=== PATIENT | male | born 1990 | race Caucasian/White ===

== ENCOUNTER 2016-08-23 01:02 | Inpatient (IN) | payer MEDICAID ==
[~2016-08-23] VITALS: Ht 188 cm; Wt 74.9 kg
[~2016-08-23 01:02] MED LIST: AC325T PO; AC500T; AC500T PO; ALB0.5V; ALBU17AE23 IH; ALBU17AE3; ALBU8.5HRX IH; AMOX500C2 PO; ATOR40TA PO; AZTH250C PO; BENZ100C18 PO; CEFP500T4 PO; CLTR1C90 TOP; CODE118S2 PO; CYCL10TA45 PO; DOXY-13 PO; DOXY100C2 PO; FAMO20TA5 PO; FLC100T1 PO; FLT11013 IH; GABA100C PO; GBPN100C; GBPN100C PO; GBPN300C PO; HUM10VIA2; HUMALOG; HYDR-757 PO; HYDR1TAB PO; IBP800T PO; INSA10V; INSASP10V; INSASP10V SC; INSASP10V SQ; INSU100C; INSU100C4; INSU100I5; INSU100I5 SQ; INSU100V3; INSU100V6; INSU100V6 SQ; INSU100V8; INSUSS SC; LANTUS; LEVAMIR; LEVE1U SQ; LEVO500T69 PO; LISI-556; LISI10TA2; NAPR-243; NAPR550T PO; NF-TRA/ACE PO; NOVALOG; ONDA8TAB13 PO; ONDAN4ODT PO; POTA10TA36 PO; PROP1TAB77 PO; QUET300T PO; RT-COMBINH IH; SERT25TA; SLEEP AID OTC; SULF1TAB38 PO; TRAM50TA2 PO; TRM50T PO; [UNRECOGNIZED DRUG - REMARK]
[2016-08-23] MEDS ORDERED: TETANUS,DIPTH,PERTUSS P/F (BOOSTRIX) 0.5 ML VIAL IM ONE (01:15)
[2016-08-23] MEDS ORDERED: fentaNYL INJECTION 100 MCG/2 ML AMP IVP ONE (01:15)
[2016-08-23 01:29] LABS: BASOPHILS % (AUTO) 0 % (0-10); EOSINOPHILS # (AUTO) 0.4 10^3/uL (0.0-0.3); EOSINOPHILS % (AUTO) 3 % (0-10); LYMPHOCYTES # (AUTO) 2.5 X 10^3 (1.0-4.0); LYMPHOCYTES % (AUTO) 17 % (12-44); MEAN CORPUSCULAR HEMOGLOBIN 32 PG (25-34); MEAN CORPUSCULAR HGB CONC 35 G/DL (32-36); MEAN CORPUSCULAR VOLUME 91 FL (80-99); MEAN PLATELET VOLUME 9.4 FL (7.4-10.4); MONOCYTES # (AUTO) 0.8 X 10^3 (0.0-1.0); MONOCYTES % (AUTO) 6 % (0-12); NEUTROPHILS # (AUTO) 10.9 X 10^3 (1.8-7.8); NEUTROPHILS % (AUTO) 74 % (42-75); PLATELET COUNT 387 10^3/uL (130-400); RED BLOOD COUNT 4.25 10^6/uL (4.35-5.85); RED CELL DISTRIBUTION WIDTH 11.9 % (10.0-14.5); WHITE BLOOD COUNT 14.6 10^3/uL (4.3-11.0)
[2016-08-23 01:49] LABS: ALANINE AMINOTRANSFERASE 22 U/L (0-55); ALBUMIN 3.9 G/DL (3.2-4.5); ALCOHOL < 10 MG/DL (<10); ANION GAP 16 MMOL/L (5-14); ASPARTATE AMINO TRANSFERASE 18 U/L (5-34); BILIRUBIN,TOTAL 0.4 MG/DL (0.1-1.0); BLOOD UREA NITROGEN 7 MG/DL (7-18); BUN/CREATININE RATIO 7; CALCIUM 9.4 MG/DL (8.5-10.1); CARBON DIOXIDE 22 MMOL/L (21-32); CHLORIDE 102 MMOL/L (98-107); CREATININE SERUM 0.95 MG/DL (0.60-1.30); GFR ESTIMATED > 60; GLUCOSE 230 MG/DL (70-105); POTASSIUM 3.6 MMOL/L (3.6-5.0); SODIUM 140 MMOL/L (135-145); TOTAL PROTEIN 6.3 G/DL (6.4-8.2)
[2016-08-23] MEDS ORDERED: HYDROmorphone (DILAUDID) 2 MG/ML VIAL IVP STA (02:42)
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
[2016-08-23] MEDS ORDERED: NS IV 1000 ML 1,000 ML ONE (05:02)
[2016-08-23] MEDS ORDERED: ONDANSETRON 4 MG/2 ML (SDV) Z0FRAN IV PRN ×2 (05:30→13:30)
[2016-08-23 05:47] VITALS: BP 124/79
[2016-08-23] MEDS ORDERED: CATHETER FLUSH 10 ML SYR IV PRN (06:00)
[2016-08-23] MEDS: CATHETER FLUSH 10 ML SYR IV SCH ×3 (06:26→22:08)
[2016-08-23] MEDS: inSUlin (REGULAR) HUMAN 1 UNIT/0.01 ML (CHARGE PER UNIT) SC SCH ×3 (06:27→17:43)
[2016-08-23] MEDS: NS IV 1000 ML 1,000 ML IV SCH ×3 (06:27→15:39)
[2016-08-23] MEDS: HYDROmorphone (DILAUDID) 2 MG/ML VIAL IV PRN ×2 (06:28→09:32)
--- NOTE | 2016-08-23 07:24 | Diagnostic Imaging Report ---
INDICATION: Trauma A single view of the chest shows normal heart size and vascularity. The lungs are clear. There is no effusion or pneumothorax. There is minimal scoliosis with no acute bony abnormality. IMPRESSION: No acute abnormality is seen with no change from 01/03/13. Dictated by: Dictated on workstation # [id number]
--- NOTE | 2016-08-23 07:27 | Diagnostic Imaging Report ---
INDICATION: Trauma, left hip pain 2 views show an intertrochanteric fracture on the left. There is greater than one cm displacement of the lesser trochanter. There is varus angulation. There is no dislocation. There is a positive [place] sign. The remainder of the pelvis is intact. IMPRESSION: There is a 3 part intertrochanteric fracture of the left hip. Dictated by: Dictated on workstation # [id number]
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
[2016-08-23] MEDS ORDERED: INSU100V31 SQ (07:48)
[2016-08-23 08:00] VITALS: BP 124/79
[2016-08-23] MEDS ORDERED: inSUlin (REGULAR) HUMAN 1 UNIT/0.01 ML (CHARGE PER UNIT) SC ONE (10:30)
[2016-08-23] MEDS ORDERED: ROCURONIUM 50 MG/5 ML (ZEMURON) VIAL IV ONE (10:32)
[2016-08-23] MEDS ORDERED: fentaNYL INJECTION 100 MCG/2 ML AMP ONE ×2 (10:32→12:07)
[2016-08-23] MEDS ORDERED: LACTATED RINGERS 1,000 ML IV ONE (10:32)
[2016-08-23] MEDS ORDERED: MIDAZOLAM 2 MG/2 ML (VERSED) VIAL ONE (10:32)
[2016-08-23] MEDS ORDERED: proPOfol 200 MG/20 ML (DIPRIVAN) VIAL IV ONE ×2 (10:32→12:35)
[2016-08-23] MEDS ORDERED: ONDANSETRON 4 MG/2 ML (SDV) Z0FRAN ONE ×2 (10:32→12:26)
[2016-08-23] MEDS ORDERED: LIDOCAINE PF 2% 10 ML (XYLOCAINE) AMP ONE (10:32)
[2016-08-23] MEDS ORDERED: LIDOCAINE JELLY 2% (XYLOCAINE) 5 ML TUBE ONE (10:32)
[2016-08-23] MEDS ORDERED: inSUlin (REGULAR) HUMAN 1 UNIT/0.01 ML (CHARGE PER UNIT) SC NR (11:00)
[2016-08-23] MEDS: LACTATED RINGERS 1,000 ML IV PRN ×2 (11:36→12:25)
[2016-08-23] MEDS ORDERED: ceFAZolin 2 GM/50 ML NS 50 ML ONE (11:38)
[2016-08-23] MEDS ORDERED: BUP/EPI 0.25% 1:200,000 (MARCAINE) 30 ML VIAL ONE (12:09)
[2016-08-23] MEDS ORDERED: HYDROmorphone (DILAUDID) 2 MG/ML VIAL ONE (12:25)
[2016-08-23] MEDS ORDERED: morphine INJ 10 MG/ML 1ML (SYR OR VIAL) ONE (12:26)
[2016-08-23] MEDS ORDERED: MEPERIDINE (DEMEROL) INJ 50 MG/ML ONE (12:26)
[2016-08-23] MEDS ORDERED: inSUlin (REGULAR) HUMAN 1 UNIT/0.01 ML (CHARGE PER UNIT) ONE (12:29)
[2016-08-23] MEDS ORDERED: SEVOFLURANE (ULTANE) 15 ML INHAL SOLN ONE ×7 (12:36→13:03)
[2016-08-23] MEDS ORDERED: TRANEXAMIC ACID 100 MG/ML 10 ML INJECTION IV ONE (12:53)
[2016-08-23] MEDS ORDERED: ONDANSETRON 4 MG/2 ML (SDV) Z0FRAN IVP PRN (13:00)
[2016-08-23] MEDS ORDERED: ceFAZolin INJECTION 1 MG in NS (IVPB) 50 ML IV SCH ×2 (13:00→21:00)
[2016-08-23] MEDS ORDERED: morphine INJ 10 MG/ML 1ML (SYR OR VIAL) IVP PRN (13:00)
--- NOTE | 2016-08-23 13:07 | Progress Note-Post Operative ---
Post-Operative Progess Note Surgeon (s)/Security Services Manager (s) Surgeon JAEL MARCELO MD Security Services Manager: None Pre-Operative Diagnosis left hip closed intertroch fracture displaced initial encounter Post-Operative Diagnosis Same Procedure & Operative Findings Date of Procedure 08/23/16 Procedure Preformed/Findings open reduction internal fixation with intramedullary nail (Synthes TFN). Anatomic reduction, two distal screws added Anesthesia Type General Estimated Blood Loss Estimated blood loss (mL): 100 ml Specimens/Packing Specimens Removed None Packing: none JAEL MARCELO MD August 23, 2016 13:07
[2016-08-23] MEDS: MEPERIDINE (DEMEROL) INJ 50 MG/ML IVP PRN ×2 (13:23→13:29)
[2016-08-23] MEDS ORDERED: MILK OF MAGNESIA 400 MG/5 ML 30 ML UDC PO PRN (13:30)
[2016-08-23] MEDS ORDERED: ACETAMINOPHEN 325 MG TABLET/CAPLET (TYLENOL) PO PRN (13:30)
[2016-08-23] MEDS ORDERED: BISACODYL 5 MG (DULCOLAX) TABLET PO PRN (13:30)
[2016-08-23] MEDS ORDERED: HYDROmorphone (DILAUDID) 2 MG/ML VIAL IVP PRN (13:30)
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
--- NOTE | 2016-08-23 13:50 | Diagnostic Imaging Report ---
INDICATION: Left hip nailing. IMPRESSION: 4 minutes and 45 seconds of fluoroscopy is used for ORIF left hip. Images show satisfactory alignment. Dictated by: Dictated on workstation # [id number]
[2016-08-23 14:15] VITALS: BP 125/86
[2016-08-23] MEDS: morphine INJ 4 MG/ML 1 ML (VIAL/SYRINGE) IVP PRN ×2 (14:24→19:43)
[2016-08-23] MEDS: HYDROcodone/APAP 5 MG/325 MG (LORTAB) TAB PO PRN ×2 (15:35→19:43)
[2016-08-23 15:36] LABS: PROTHROMBIN TIME PATIENT 13.1 SEC (12.2-14.7)
[2016-08-23 16:00] VITALS: BP 118/80
[2016-08-23] MEDS: warFARin 5 MG (COUMADIN) TAB PO SCH (17:46)
[2016-08-23 19:59] VITALS: BP 124/76
[2016-08-23] MEDS: ceFAZolin INJECTION 1,000 MG in NS (IVPB) 50 ML IV SCH (21:02)
[2016-08-23] MEDS: oxyCODONE/APAP 5/325MG (PERCOCET 5) TABLET PO PRN (21:12)
[2016-08-24] VITALS: BP 127/69
[2016-08-24] MEDS: inSUlin (REGULAR) HUMAN 1 UNIT/0.01 ML (CHARGE PER UNIT) SC SCH ×4 (00:01→19:15)
[2016-08-24] MEDS: morphine INJ 4 MG/ML 1 ML (VIAL/SYRINGE) IVP PRN ×4 (00:09→13:02)
[2016-08-24] MEDS: HYDROcodone/APAP 5 MG/325 MG (LORTAB) TAB PO PRN ×5 (02:52→23:31)
[2016-08-24 04:00] VITALS: BP 126/75
[2016-08-24] MEDS: oxyCODONE/APAP 5/325MG (PERCOCET 5) TABLET PO PRN (04:47)
[2016-08-24] MEDS: ceFAZolin INJECTION 1,000 MG in NS (IVPB) 50 ML IV SCH (05:02)
[2016-08-24] MEDS: CATHETER FLUSH 10 ML SYR IV SCH ×3 (06:04→23:27)
[2016-08-24] MEDS: NS IV 1000 ML 1,000 ML IV SCH (06:07)
[2016-08-24 06:28] LABS: INR 1.1 (0.8-1.4); PROTHROMBIN TIME PATIENT 13.7 SEC (12.2-14.7)
[2016-08-24 08:14] VITALS: BP 121/67
--- NOTE | 2016-08-24 09:01 | Progress Note-Standard ---
Standard Progress Note Progress Notes/Assess & Plan Progress/Assessment & Plan S- Pain much better O- The patient is alert and orietated. gentle AAROM left hip and knee without untoward discomfort. A- Stable orthowise POD#1 from ORIF left femur intertroch fx with IM nail P- OK to D/C to home full weight bear today. F/U with Dr. Pyle 8 - 12 days Home on ASA 325 QD for DVT prophylaxis. Use crurches for 2 -4 weeks with weight bear as tolerated, goal of full weight bearing KYUNG. AVOID NON-WEIGHT BEARING. Final Diagnosis Ortho diagnosis: Status Post left hip intertrochanteric fx ORIF. JAEL MARCELO MD August 24, 2016 09:01
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
--- NOTE | 2016-08-24 10:51 | Anesthesia-General Post-Op ---
General Patient Condition Mental Status/LOC: Same as Preop Cardiovascular: Satisfactory Nausea/Vomiting: Absent Respiratory: Satisfactory Pain: Controlled Complications: Absent Post Op Complications Complications None Follow Up Care/Instructions Patient Instructions None needed. Anesthesia/Patient Condition Patient Condition Patient is doing well, no complaints, stable vital signs, no apparent adverse anesthesia problems. No complications reported per nursing. FREEDOM WALTON CRNA August 24, 2016 10:51
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
--- NOTE | 2016-08-24 11:57 | Physical Therapy Daily Note ---
PT Daily Note-Current Subjective Patient agrees to therapy. Pain Numeric Pain Scale: 8 Location: Left Location Body Site: Hip Pain Description: Acute Mental Status Patient Orientation: Normal For Age Transfers Functional [place] Measure 0=Not Assessed/NA 4=Minimal Assistance 1=Total Assistance 5=Supervision or Setup 2=Maximal Assistance 6=Modified [place] 3=Moderate Assistance 7=Complete IndependenceIRFPAI Quality Coding Scale 6 Independent with activity with or without an assistive device 5 Patient requires set up or clean up by helper. Patient completes activity by themselves 4 Supervision or touching assist (CGA). [place] provide cues , steadying assist 3 The helper provides less than half the effort to complete the activity 2 The helper provides more than half the effort to complete the activity 1 Dependent. The helper does all the effort to complete an activity 7 Patient refused to complete or attempt activity 9 The patient did not perform the activity before the current illness or injury 88 Not attempted due to Medical conditions or safety concerns Transfers (B, C, W/C) (FIM): 5 Scootin Rollin Supine to/from Sit: 5 Sit to/from Stand: 5 adamantly declined to sit in recliner due to left LE pain Weight Bearing Weight Bearing Restriction: Weight Bearing/Tolerated Location Restriction: L LE Gait Training Gait (FIM): 2 Distance (FIM): 1=494-80 ft Distance: 75' Gait Level of Assist: 5 Gait Persons Needed: 1 Gait Assistive Device: FWW minimal weight bearing left LE due to pain. Patient prefers to be TTWB left LE for comfort. Exercises Seated Therapy Exercises: Ankle pumps, Long arc quads Seated Reps: 15 Assessment Patient tolerated treatment well and is sitting EOB with OT in to assess equipment needs. PT to increase activity as tolerated by patient. PT Assisted Goals Assisted Goals PT Assisted Goals Time Frame: August 31, 2016 Transfers (B,C,W/C) (FIM): 6 Gait (FIM): 6 Gait distance (FIM): 3=150 ft Gait Level of Assist: 6 Gait Assistive Device: FWW Stairs (FIM): 2 # of Steps: 4 Stairs Level Of Assist: 6 PT Plan Treatment/Plan Treatment Plan: Continue Plan of Care Treatment Plan: Bed Mobility, Education, Functional Activity Thea, Functional Strength, Gait, Safety, Therapeutic Exercise, Transfers Treatment Duration: August 31, 2016 Visits Per Week: 11 Time/GCodes Time In: 1135 Time Out: 1145 Total Billed Treatment Time: 10 Total Billed Treatment 1 visit FA 10 min RAMON LANIER PT August 24, 2016 11:56
[2016-08-24 12:00] VITALS: BP 119/72
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
[2016-08-24] MEDS: warFARin 5 MG (COUMADIN) TAB PO SCH (18:35)
[2016-08-24 20:33] VITALS: BP 112/68
[2016-08-25] VITALS: BP 112/72
[2016-08-25] MEDS: inSUlin (REGULAR) HUMAN 1 UNIT/0.01 ML (CHARGE PER UNIT) SC SCH ×3 (00:02→11:51)
[2016-08-25] MEDS: HYDROcodone/APAP 5 MG/325 MG (LORTAB) TAB PO PRN ×2 (05:08→11:57)
[2016-08-25] MEDS: CATHETER FLUSH 10 ML SYR IV SCH (05:08)
[2016-08-25 05:26] LABS: BASOPHILS % (AUTO) 0 % (0-10); EOSINOPHILS # (AUTO) 0.6 10^3/uL (0.0-0.3); EOSINOPHILS % (AUTO) 6 % (0-10); LYMPHOCYTES # (AUTO) 3.4 X 10^3 (1.0-4.0); LYMPHOCYTES % (AUTO) 35 % (12-44); MEAN CORPUSCULAR HEMOGLOBIN 31 PG (25-34); MEAN CORPUSCULAR HGB CONC 34 G/DL (32-36); MEAN CORPUSCULAR VOLUME 94 FL (80-99); MEAN PLATELET VOLUME 10.2 FL (7.4-10.4); MONOCYTES # (AUTO) 0.9 X 10^3 (0.0-1.0); MONOCYTES % (AUTO) 10 % (0-12); NEUTROPHILS # (AUTO) 4.7 X 10^3 (1.8-7.8); NEUTROPHILS % (AUTO) 49 % (42-75); PLATELET COUNT 239 10^3/uL (130-400); RED CELL DISTRIBUTION WIDTH 11.8 % (10.0-14.5); WHITE BLOOD COUNT 9.7 10^3/uL (4.3-11.0)
[2016-08-25 05:40] LABS: INR 1.2 (0.8-1.4); PROTHROMBIN TIME PATIENT 14.7 SEC (12.2-14.7)
[2016-08-25 05:49] LABS: ANION GAP 8 MMOL/L (5-14); BLOOD UREA NITROGEN 6 MG/DL (7-18); BUN/CREATININE RATIO 9; CALCIUM 8.5 MG/DL (8.5-10.1); CARBON DIOXIDE 26 MMOL/L (21-32); CHLORIDE 103 MMOL/L (98-107); CREATININE SERUM 0.69 MG/DL (0.60-1.30); GFR ESTIMATED > 60; GLUCOSE 151 MG/DL (70-105); POTASSIUM 3.4 MMOL/L (3.6-5.0); SODIUM 137 MMOL/L (135-145)
[2016-08-25 07:45] VITALS: BP 130/78
[2016-08-25] MEDS: morphine INJ 4 MG/ML 1 ML (VIAL/SYRINGE) IVP PRN (08:43)
--- NOTE | 2016-08-25 09:58 | Physical Therapy Daily Note ---
PT Daily Note-Current Subjective Patient agrees to PT. Pain Numeric Pain Scale: 10-Worst Possible Pain Location: Left Location Body Site: Hip Pain Description: Acute Mental Status Patient Orientation: Normal For Age Transfers Functional [place] Measure 0=Not Assessed/NA 4=Minimal Assistance 1=Total Assistance 5=Supervision or Setup 2=Maximal Assistance 6=Modified [place] 3=Moderate Assistance 7=Complete IndependenceIRFPAI Quality Coding Scale 6 Independent with activity with or without an assistive device 5 Patient requires set up or clean up by helper. Patient completes activity by themselves 4 Supervision or touching assist (CGA). [place] provide cues , steadying assist 3 The helper provides less than half the effort to complete the activity 2 The helper provides more than half the effort to complete the activity 1 Dependent. The helper does all the effort to complete an activity 7 Patient refused to complete or attempt activity 9 The patient did not perform the activity before the current illness or injury 88 Not attempted due to Medical conditions or safety concerns Transfers (B, C, W/C) (FIM): 6 Scootin Rollin Supine to/from Sit: 6 Sit to/from Stand: 6 Gait Training Gait (FIM): 6 Distance (FIM): 3=150 ft Distance: 150' Gait Level of Assist: 6 Gait Assistive Device: FWW antalgic, WBAT left LE with patient demonstrating TTWB left LE. FWW issued for home use Stair Training adamantly declined stair training; education with patient on performing steps to ensure safe return to home, patient continued to become agitated and declined to attempt Assessment Patient is currently at [facility] with gross motor skill. Patient declined to perform stair training due to pain left LE even after education on importance of demonstrating good technique to ensure safe return to home with family. PT Halfway Goals Cream Gatherer Goals PT Halfway Goals Time Frame: August 31, 2016 Transfers (B,C,W/C) (FIM): 6 Gait (FIM): 6 Gait distance (FIM): 3=150 ft Gait Level of Assist: 6 Gait Assistive Device: FWW Stairs (FIM): 2 # of Steps: 4 Stairs Level Of Assist: 6 PT Plan Treatment/Plan Treatment Plan: Discontinue PT Treatment Plan: Bed Mobility, Education, Functional Activity Thea, Functional Strength, Gait, Safety, Therapeutic Exercise, Transfers Treatment Duration: August 31, 2016 Visits Per Week: 11 Time/GCodes Time In: 925 Time Out: 940 Total Billed Treatment Time: 15 Total Billed Treatment 1 visit GT 15 min RAMON LANIER PT August 25, 2016 09:58
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
[2016-08-25] MEDS ORDERED: BISA5TAB8 PO (11:20)
[2016-08-25] MEDS ORDERED: WARF5TAB PO (11:20)
[2016-08-25] MEDS ORDERED: HYDR-3812 PO (11:20)
--- NOTE | 2016-08-25 11:24 | Discharge Inst-Home Health ---
Discharge [facility]-Home Health Patient Instructions Patient Instructions/FU Appt: You have a follow up appt with ortho in 2 weeks You have a follow up with Dr Narvaez on WednesdayAugust 28 @ 2 pm Patient Problems: Left hip fracture s/p repair Left Hip pain Insulin Dependent DM Goal: Increase mobility, walking without support, decreased pain, better ROM in hip VIA [place], [place] DISCHARGE ORDERS Allergies: Coded Allergies: fluoxetine (Verified Allergy, Unknown, 10/08/08) trazodone (Unverified Allergy, Unknown, 03/18/14) Height (Feet): 6 Height (Inches): 2.00 Weight (Pounds): 165 Weight (Ounces): 3.0 Weight (Calculated Kilograms): [phone] Home Health Need/Face to Face Need for Home Health Home bound Require someone else for transportation I Have Seen Pt [id number]: Yes Date of Face to Face: August 25, 2016 Discharged To: Home Diagnosis/Conditions HH Order: Left Hip Fracture s/p Repair Left Hip pain Yes Consult/Follow Up/New Order *I certify that based on my findings, the following services are medically necessary Home Health Services: My clinical findings support the need for the above services; see Diagnosis. [facility] Orders PT/OT eval and treat Discharge Diet: ADA Diet Daily Activity as Tolerated: Yes Discharge Medications New Medications: Bisacodyl (Bisacodyl) 5 Mg Tablet.dr 5 MG PO DAILY PRN for CONSTIPATION-1ST LINE for 30 Days, #30 TAB Hydrocodone/Acetaminophen (Hydrocodon -Acetaminophen 5-325) 1 Each Tablet 1-2 TAB PO Q6H PRN for PAIN-MODERATE TO SEVERE for 14 Days, #56 TAB Warfarin Sodium (Coumadin) 5 Mg Tablet 5 MG PO DAILY@1800 for 30 Days, #30 TAB Continued Medications: Insulin Regular, Human (Novolin R) 100 Unit/1 Ml Vial 10-15 UNIT SQ AC, VIAL 10-15 UNITS BASED ON CARB COUNTING New, Converted or Re-Newed RX: RX on Chart I certify that this patient is under my care and that I, a nurse practitioner or a physician; a ict sales assistant working with me, had a face to face encounter that - meets the physician face to face encounter requirements with this patient as dated. Copy Copies To 1: CADEN NARVAEZ MD,DAVE [place] MD August 25, 2016 11:23
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
--- NOTE | 2016-09-18 07:38 | OPERATIVE REPORT ---
DATE OF SERVICE: 08/23/2016 NOTE: Initial dictation either lost or omitted. This is a redictation utilizing notes and memory. PREOPERATIVE DIAGNOSES: Left hip intertrochanteric fracture with some subtrochanteric extension. POSTOPERATIVE DIAGNOSIS: Left hip intertrochanteric fracture with some subtrochanteric extension. PROCEDURE: Surgery on Left hip to line up bone and fix with hardware (internal fixation with intramedullary Synthes TFN nail). SURGEON: Silvio Calle M.D. COMPLICATIONS: None. BLOOD LOSS: Minimal. SPECIMENS: None. FINDINGS: Adequate alignment was obtained and adequate fixation was also utilized. Final construct looked near anatomic and should heal well. NARRATIVE SUMMARY: The patient was taken to the operating room after standard nursing and anesthesia, preoperative identification, evaluation and counseling. The lower extremity was prepped and draped in the usual orthopedic fashion. A C-arm was used to locate the appropriate approach while the patient was on the fracture table. Appropriate manipulation of lower extremity was accomplished to get a good look at the reduced intertrochanteric area, the proximal femur. Longitudinal incision was made above the greater trochanter approximately 6-8 cm in length. Soft tissue dissection was accomplished down to where I could palpate that greater trochanter through a small incision in the iliotibial band. C-arm was used to place a guidewire followed by a proximal reamer. Some distal reaming was accomplished and the TFN nail was then placed in the femur itself. The depth of the nail was guided by the C-arm visualization. Rotation was also checked in the AP and lateral using the guide hole and the IM nail carbon fiber handle. Guidewire was then placed down the femoral neck entering through the lateral femur, cortex. Once the orientation of the guidewire was properly aligned, then a lateral drill hole followed by a deep drill followed by placing the helical blade was all accomplished and, of course, this was all done with the nail whose length had been determined ahead of time to be appropriate using C-arm. Distal fixation screws were placed. Wounds were irrigated. Wounds were then closed in 2 layers. The patient was then taken to recovery in stable condition. Job ID: [id number] DocumentID: [id number] Dictated Date: 09/17/2016 15:55:50 Burnt Lime Drawer Date: 09/18/2016 02:27:34 Dictated By: MD NIYAH HURST
== END 2016-08-25 12:30 | disposition home health service (06) | DRG 482 ==
LOC: EDUNIT# 01:02 → ER 01:04 → 4TH 04:33
PROVIDERS: ADMIT Family Medicine; ATTEND Family Medicine
PROC: 0QS706Z Reposition Left Upper Femur with Intramedullary Internal Fixation Device, Open Approach (ICD-10-PCS; principal; 2016-08-23 11:36)
DX: S72.142A Displaced intertrochanteric fracture of left femur, initial encounter for closed fracture (principal); S01.511A Laceration without foreign body of lip, initial encounter; E10.40 Type 1 diabetes mellitus with diabetic neuropathy, unspecified; J45.909 Unspecified asthma, uncomplicated; K21.9 Gastro-esophageal reflux disease without esophagitis; Y04.0XXA Assault by unarmed brawl or fight, initial encounter; Y92.009 Unspecified place in unspecified non-institutional (private) residence as the place of occurrence of the external cause; Y99.8 Other external cause status; Z79.4 Long term (current) use of insulin
CPT/HCPCS: 36415; 71010; 72170; 73502; 80048; 80053; 80320; 82962; 83036; 85025; 85610; 87081; 94664; 96374; 96375

== ENCOUNTER 2017-12-25 15:03 | Emergency (ER) | payer MEDICAID ==
[~2017-12-25] VITALS: Ht 177.8 cm; Wt 72.6 kg
[~2017-12-25 15:03] MED LIST changes: +ACHD5005 PO; +BISA5TAB8 PO; +INSU100V31 SQ; +WARF5TAB PO
[2017-12-25] MEDS ORDERED: cefTRIAXone 1,000 MG/2.86 ml vial (IM ONLY) IM SCH (15:45)
[2017-12-25] MEDS ORDERED: LIDOCAINE 1% INJ 20 ML 20 ML VIAL ONE (15:54)
--- NOTE | 2017-12-25 15:59 | ED Integumentary General ---
General Chief Complaint: Skin/Wound Problems Stated Complaint: LYMPH NODE BURST Nursing Triage Note: ARRIVED VIA AMB TO ROOM 10 WITH COMPLAINTS OF A SWOLLEN LYMPH NODE ON HIS BACK THAT OPENED UP AND DRAINED TODAY. PT CAME BY AMBULANCE BECAUSE HE DID NOT HAVE A RIDE OR COULD AFFORD A TAXI. Source: patient Exam Limitations: no limitations History of Present Illness Date Seen by Provider: Dec 25, 2017 Time Seen by Provider: 15:10 Initial Comments Patient is a 27-year-old male who is brought into the emergency room with complaints of a "lymph node" on the back of his right shoulder. He reports that he's noticed the redness to the area 3-4 days and yesterday it turned into a very large pimple in this morning he opened up and drained. Patient did arrive to the emergency room by [facility] due to no form of transportation. The patient is a known diabetic and the glucometer read his blood sugar as 480. He does have an insulin pump and he ingested the pump and gave himself a bolus of insulin. Timing/Duration: week Associated Symptoms: blisters (pimple to his right shoulder blade.) Allergies and Home Medications Allergies Coded Allergies: fluoxetine (Verified Allergy, Unknown, 10/08/08) trazodone (Unverified Allergy, Unknown, 03/18/14) Home Medications Bisacodyl 5 Mg Tablet.dr, 5 MG PO DAILY PRN for CONSTIPATION-1ST LINE Prescribed by: DAVE ALONSO on 08/25/16 1120 Hydrocodone Bit/Acetaminophen 1 Each Tablet, 1-2 TAB PO Q6H PRN for PAIN- MODERATE TO SEVERE Prescribed by: DAVE ALONSO on 08/25/16 1120 Insulin Regular, Human 100 Unit/1 Ml Vial, 10-15 UNIT SQ AC, (Reported) 10-15 UNITS BASED ON CARB COUNTING Sulfamethoxazole/Trimethoprim 1 Each Tablet, 1 EACH PO BID Prescribed by: ANA NINA on 12/25/17 1627 Warfarin Sodium 5 Mg Tablet, 5 MG PO DAILY@1800 Prescribed by: DAVE ALONSO on 08/25/16 1120 Patient Home Medication List Home Medication List Reviewed: Yes Review of Systems Review of Systems Constitutional: see HPI; No chills, No fever Skin: see HPI, lesions (abscess to his right shoulder blade.) All Other Systems Reviewed Negative Unless Noted: Yes Past Ohuopfa-Cmquun-Mfpduy Hx Past Med/Social Hx: Reviewed Nursing Past Med/Soc Hx Patient Social History Drug of Choice: MARIJUANA-EVERY ONCE IN AWHILE Type Used: Cigarettes 2nd Hand Smoke Exposure: Yes Recent Foreign Travel: No Contact w/Someone Who Travel: No Recent Infectious Disease Expo: No Recent Hopitalizations: No Immunizations Up To Date Tetanus Booster (TDap): Less than 5yrs PED Vaccines UTD: Yes Seasonal Allergies Seasonal Allergies: No Past Medical History Surgeries: Yes (EGD) Respiratory: Yes Asthma Currently Using CPAP: No Currently Using BIPAP: No Cardiac: No Neurological: Yes Neuropathy Reproductive Disorders: No Sexually Transmitted Disease: No HIV/AIDS: No Genitourinary: Yes Prostate Problems Gastrointestinal: Yes (current constipation) Gastroesophageal Reflux, Liver Disease/Jaundice Musculoskeletal: No Endocrine: Yes (Type I) Diabetes, Insulin dep HEENT: No Cancer: No Psychosocial: Yes Anxiety, Bipolar, Depression Integumentary: Yes Eczema Blood Disorders: No Adverse Reaction/Blood Tranf: No Family Medical History Reviewed Nursing Family Hx Diabetes mellitus 19 FATHER UNCLE FH: COPD (chronic obstructive pulmonary disease) 19 MOTHER FH: brain cancer AUNT FH: diverticulitis 19 FATHER Thyroid disease 19 MOTHER No Pertinent Family Hx Physical Exam Vital Signs Vital Signs - First Documented 12/25/17 15:03 Temp 98.0 Pulse 121 Resp 18 B/P (MAP) 126/97 (107) Pulse Ox 98 O2 Delivery Room Air Capillary Refill : Less Than 3 Seconds General Appearance: WD/WN, no apparent distress Cardiovascular: normal peripheral pulses, regular rate, rhythm, no edema, no gallop, no JVD, no murmur Respiratory: chest non-tender, lungs clear, normal breath sounds, no respiratory distress, no accessory muscle use Skin: normal color, warm/dry Skin Problem Location: lower extremities (posterior right shoulder.) Skin Problem Character: abscess (open and draining abscess.), drainage ( serosanguineous drainage.), erythema (4 centimeter in diameter area of erythema around the central punctum that is open and draining) Progress/Results/Core Measures Results/Orders Lab Results Laboratory Tests Test 12/25/17 15:13 12/25/17 16:49 Range/Units Glucometer 480 *H 306 H 70-110 MG/DL Micro Results Microbiology 12/25/17 Gram Stain - Final, Resulted 12/25/17 Wound Culture - Preliminary, Resulted Staphylococcus aureus My Orders Orders - ANA NINA Wound Culture (12/25/17 15:38) Ceftriaxone For Im Use (Rocephin For Im (12/25/17 15:45) Lidocaine 1% Inj 20 Ml (Xylocaine 1% Inj (12/25/17 15:54) Vital Signs/I&O 12/25/17 12/25/17 15:03 16:53 Temp 98.0 98.0 Pulse 121 121 Resp 18 18 B/P (MAP) 126/97 (107) 126/97 (107) Pulse Ox 98 98 O2 Delivery Room Air Blood Pressure Mean: 107 FSBG Bedside Testing Finger Stick Blood Glucose: 480 Blood Glucose Action Taken: Rn notified Progress Progress Note : Time: 16:20 Progress Note Patient seen and evaluated the patient. Informed of the need for antibiotics. He was given a dose of Rocephin in the emergency room and sent home with a prescription for antibiotics. Culture was sent of the drainage. He agrees with complaints of care, signs or discharge, return precautions were given. Departure Impression Primary Impression: Abscess Additional Impression: Cellulitis Disposition: 01 HOME, SELF-CARE Condition: Stable/Unchanged Departure-Patient Inst. Decision time for Depature: 16:26 Referrals: [facility] (PCP/Family) Primary Care Physician Patient Instructions: Skin Abscess, Cellulitis (Skin Infection), Adult (DC) Add. Discharge Instructions: Take medication as directed. Follow up with [facility] within 1 week for recheck. Return back to the emergency room for any worsening symptoms or concerns as needed. All discharge instructions reviewed with patient and/or family. Voiced understanding. Scripts Sulfamethoxazole/Trimethoprim (Bactrim Ds Tablet) 1 Each Tablet 1 EACH PO BID for 10 Days, #20 TAB Prov: ANA NINA 12/25/17 ANA NINA Dec 25, 2017 15:59
[2017-12-25] MEDS ORDERED: SULF1TAB35 PO (16:27)
[2017-12-25 16:53] VITALS: BP 126/97
== END 2017-12-25 16:53 | disposition home or self-care (01) ==
LOC: EDUNIT# 15:03 → ER 15:04
DX: L02.413 Cutaneous abscess of right upper limb (principal); L03.113 Cellulitis of right upper limb; J45.909 Unspecified asthma, uncomplicated; E10.42 Type 1 diabetes mellitus with diabetic polyneuropathy; F41.9 Anxiety disorder, unspecified; F31.9 Bipolar disorder, unspecified; K21.9 Gastro-esophageal reflux disease without esophagitis; F12.10 Cannabis abuse, uncomplicated; Z77.22 Contact with and (suspected) exposure to environmental tobacco smoke (acute) (chronic); Z87.19 Personal history of other diseases of the digestive system; Z80.8 Family history of malignant neoplasm of other organs or systems; Z88.8 Allergy status to other drugs, medicaments and biological substances; Z79.4 Long term (current) use of insulin; Z79.01 Long term (current) use of anticoagulants
CPT/HCPCS: 82962; 87070; 87077; 87186; 87205; 96372

== ENCOUNTER 2018-10-19 16:09 | Emergency (ER) | payer MEDICAID ==
[~2018-10-19] VITALS: Ht 177.8 cm; Wt 72.7 kg
[~2018-10-19 16:09] MED LIST changes: +SULF1TAB35 PO
--- OUTSIDE RECORDS SUMMARY | 2018-10-19 16:14 | XMS REPORT ---
Author Author Migration, Doctor Organization [facility] Address Unknown Phone Unavailable Care Team Providers Care Assistant Attorney General Name Role Phone Migration, Doctor Unavailable Unavailable PROBLEMS Type Condition ICD9-CM Code CXS78-UM Code Onset Dates Condition Status SNOMED Code Problem Cigarette nicotine dependence without complication F17.210 Active 15214579 Problem Erectile dysfunction due to diseases classified elsewhere N52.1 Active 875807386 Problem Diabetes E11.9 Active 236605873 Problem Diabetic polyneuropathy associated with type 1 diabetes mellitus E10.42 Active 93716824 ALLERGIES No Information ENCOUNTERS Encounter Location Date Diagnosis [place] [id number] [place] [address] August, [facility] [id number] [place] [address] Jun, [facility] [id number] [place] [address] May, [facility] [id number] [place] [address] Apr, [facility] [id number] [place] [address] Mar, Diabetes E11.9 [facility] [id number] [place] [address] Jan, [facility] [id number] [place] [address] Jan, [facility] [id number] [place] [address] Jan, Diabetic polyneuropathy associated with type 1 diabetes mellitus E10.42 [facility] [id number] [address] Jan, Diabetes E11.9 [facility] [id number] [address] Oct, [facility] [id number] [address] Sep, Diabetes E11.9 [facility] [id number] [address] Sep, [facility] [id number] [place] [address], [place] [address] August, [facility] [id number] [place] [address] Jul, [facility] [id number] [place] [address] May, [facility] [id number] [place] [address] Mar, [facility] [address] [address] Mar, [facility] [id number] [place] [address] Feb, [facility] [address] [address] Feb, [facility] [address] [address] Feb, Diabetes E11.9 [facility] [id number] [address] Nov, Type 1 diabetes mellitus with other neurologic complication E10.49 [facility] [address] [address] Nov, [facility] [address] [address] Nov, Diabetes E11.9 ; Erectile dysfunction due to diseases classified elsewhere N52.1 ; Diabetic polyneuropathy associated with type 1 diabetes mellitus E10.42 and Cigarette nicotine dependence without complication F17.210 [facility] [id number] [place] [address] Sep, Hip fracture, left, closed, with routine healing, subsequent encounter S72.002D and Allergy, initial encounter T78.40XA [facility] [id number] [place] [address] Sep, [facility] [address] [address] August, Femur fracture, left S72.92XA [facility] [id number] [place] [address] August, Femur fracture, left S72.92XA [facility] [id number] [place] [address] August, Diabetes E11.9 and Femur fracture, left S72.92XA [facility] [id number] [place] [id number] August, [facility] [id number] [place] [address] August, [facility] [id number] [place] [address] August, [facility] [id number] [place] [address] Jul, [facility] [id number] [place] [address] Jul, [facility] [id number] [place] [address] Jun, [facility] [id number] [place] [address] Jun, [facility] [id number] [place] [address] Jun, [facility] [id number] [place] [address] Jun, [facility] [place] [facility] [address] [id number] [place] [address] Jun, [facility] [place] [facility] [address] [id number] [place] [address] Jun, [facility] [place] [facility] [address] [id number] [place] [address] Mar, [facility] [place] [facility] [address] [id number] [place] [address] 30 Mar, 2014 [facility] [place] [facility] [address] [id number] [place] [address] Mar, [facility] [place] [facility] [address] [id number] [place] [address] Mar, [facility] [place] [facility] [address] [id number] [place] [address] Mar, [facility] [place] [facility] [address] [id number] [place] [address] Mar, [facility] [place] [facility] [address] [id number] [place] [address] Mar, [facility] [place] [facility] [address] [id number] [place] [address] Jan, [facility] [place] [facility] [address] [id number] [place] [address] Jan, [facility] [place] [facility] [address] [id number] [address] Jan, [facility] [place] [facility] [address] [id number] [place] [address] Jan, [facility] [place] [facility] [address] [id number] [place] [address] 16 Dec, 2013 [facility] [place] [facility] [address] [id number] [place] [address] 16 Dec, 2013 [facility] [place] [facility] [address] [id number] [place] [address] Sep, [facility] [address] [id number] [place] [address] Sep, [facility] [place] [facility] [address] [id number] [place] [address] 17 Sep, 2013 [facility] [place] [facility] [address] [id number] [place] [address] 17 Sep, 2013 [facility] [place] [facility] [address] [id number] [place] [address] Sep, [facility] [place] [facility] [address] [id number] [place] [address] Sep, [facility] [place] [facility] [address] [id number] [place] [address] Jul, [facility] [place] [facility] [address] [id number] [place] [address] Jul, [facility] [place] [facility] [address] [id number] [place] [address] 15 Feb, 2013 [facility] [place] [facility] [address] [id number] [place] [address] 14 Feb, 2013 [facility] [place] [facility] [address] [facility] [id number] [place] [address] 14 Feb, 2013 [facility] [place] [facility] [address] [id number] [place] [address] Feb, [facility] [place] [facility] [address] [id number] [place] [address] Feb, [facility] [place] [facility] [address] [id number] [place] [address] 05 Feb, 2013 [facility] [place] [facility] [address] [id number] [place] [address] 05 Feb, 2013 [facility] [place] [facility] [address] [id number] [place] [address] Jan, [facility] [address] [facility] [id number] [address] Jan, [facility] [address] [facility] [id number] [address] Nov, [facility] [address] [facility] [id number] [address] August, [facility] [address] [facility] [id number], [place] [address] Jul, [facility] [address] [facility] [id number], [place] [address] Jul, [facility] [address] [facility] [id number] [address] Jun, [facility] [address] [facility] [id number], [place] [address] Jun, [facility] [id number] [address] May, [facility] [id number] [address] Feb, [facility] [id number] [address] Apr, [facility] [id number] [address] Mar, [facility] [id number] [address] Feb, [facility] [address] [facility] [id number] [address] Jan, [facility] [address] [facility] [id number] [address] Jan, [facility] [id number] [address] 14 Dec, 2008 IMMUNIZATIONS No Known Immunizations SOCIAL HISTORY Never Assessed REASON FOR VISIT EMR-[facility] PLAN OF CARE VITAL SIGNS MEDICATIONS Unknown Medications RESULTS No Results PROCEDURES No Known procedures INSTRUCTIONS MEDICATIONS ADMINISTERED No Known Medications MEDICAL (GENERAL) HISTORY Type Description Date Medical History Diabetes Surgical History Left hip surgery 2016 Surgical History tonsilectomy Hospitalization History [facility] for Left hip surgery 2016
--- OUTSIDE RECORDS SUMMARY | 2018-10-19 16:14 | XMS REPORT ---
Author Author CADEN NARVAEZ [facility] Address [address] [place] [address] Care Team Providers Care Supervisor Marble Name Role Phone CADEN NARVAEZ Unavailable PROBLEMS Type Condition ICD9-CM Code MEK73-ST Code Onset Dates Condition Status SNOMED Code Problem Cigarette nicotine dependence without complication F17.210 Active 62553897 Problem Erectile dysfunction due to diseases classified elsewhere N52.1 Active 602542905 Problem Diabetes E11.9 Active 942471219 Problem Diabetic polyneuropathy associated with type 1 diabetes mellitus E10.42 Active 66007786 ALLERGIES No Information ENCOUNTERS Encounter Location Date Diagnosis [facility] [id number] [place] [address] August, [facility] [id number] [place] [address] Jun, [facility] [id number] [place] [address] May, [facility] [id number] [place] [address] Apr, [facility] [id number] [place] [address] Mar, Diabetes E11.9 [facility] [address] [address] Jan, [facility] [id number] [place] [address] Jan, [facility] [id number] [place] [address] Jan, Diabetic polyneuropathy associated with type 1 diabetes mellitus E10.42 [facility] [id number] [address] Jan, Diabetes E11.9 [facility] [address] [address] Oct, [facility] [address] [address] Sep, Diabetes E11.9 [facility] [id number] [place] [address] Sep, [facility] [id number] [place] [address], [place] [address] August, [facility] [id number] [place] [address], [place] [address] Jul, [facility] [address] [address] May, [facility] [id number] [place] [address], [place] [address] Mar, [facility] [address] [address] Mar, [facility] [address] [address] Feb, [facility] [address] [address] Feb, [facility] [address] [address] Feb, Diabetes E11.9 [facility] [address] [address] Nov, Type 1 diabetes mellitus with other neurologic complication E10.49 [facility] [address] [address] Nov, [facility] [address] [address] Nov, Diabetes E11.9 ; Erectile dysfunction due to diseases classified elsewhere N52.1 ; Diabetic polyneuropathy associated with type 1 diabetes mellitus E10.42 and Cigarette nicotine dependence without complication F17.210 [facility] [id number] [place] [address] Sep, Hip fracture, left, closed, with routine healing, subsequent encounter S72.002D and Allergy, initial encounter T78.40XA [facility] [address] [address] Sep, [facility] [address] [address] August, Femur fracture, left S72.92XA [facility] [address] [address] August, Femur fracture, left S72.92XA [facility] [address] [address] August, Diabetes E11.9 and Femur fracture, left S72.92XA [facility] [address] [id number] August, [facility] [id number] [place] [address] August, [facility] [id number] [place] [address] August, [facility] [id number] [place] [address] Jul, [facility] [id number] [place] [address] Jul, [facility] [address] [address] Jun, [facility] [id number] [place] [address] Jun, [facility] [id number] [place] [address] Jun, [facility] [place] [facility] [address] [id number] [place] [address] Jun, 2014 [facility] [place] [facility] [address] [id number] [place] [address] Jun, [facility] [place] [facility] [address] [id number] [place] [address] Jun, [facility] [place] [facility] [address] [id number] [place] [address] Mar, [facility] [place] [facility] [address] [id number] [place] [address] Mar, [facility] [place] [facility] [address] [id number] [place] [address] Mar, [facility] [place] [facility] [address] [id number] [place] [address] Mar, [facility] [place] [facility] [address] [id number] [place] [address] Mar, [facility] [place] [facility] [address] [id number] [place] [address] Mar, [facility] [place] [facility] [address] [id number] [place] [address] Mar, [facility] [place] [facility] [address] [id number] [place] [address] Jan, [facility] [place] [facility] [address] [id number] [place] [address] Jan, [facility] [place] [facility] [address] [id number] [place] [address] Jan, [facility] [place] [facility] [address] [id number] [place] [address] Jan, [facility] [place] [facility] [address] [id number] [place] [address] 16 Dec, 2013 [facility] [place] [facility] [address] [id number] [place] [address] 16 Dec, 2013 [facility] [place] [facility] [address] [id number] [place] [address] 20 Sep, 2013 [facility] [place] [facility] [address] [id number] [place] [address] 20 Sep, 2013 [facility] [place] [facility] [address] [id number] [place] [address] 17 Sep, 2013 [facility] [place] [facility] [address] [id number] [place] [address] 17 Sep, 2013 [facility] [place] [facility] [address] [id number] [place] [address] Sep, [facility] [place] [facility] [address] [id number] [place] [address] Sep, [facility] [place] [facility] [address] [id number] [place] [address] Jul, [facility] [place] [facility] [address] [id number] [place] [address] Jul, [facility] [place] [facility] [address] [id number] [place] [address] 15 Feb, 2013 [facility] [place] [facility] [address] [id number] [place] [address] 14 Feb, 2013 [facility] [place] [facility] [address] [id number] [place] [address] 14 Feb, 2013 [facility] [place] [facility] [address] [id number] [address] 12 Feb, 2013 [facility] [place] [facility] [address] [id number] [place] [address] 12 Feb, 2013 [facility] [place] [facility] [address] [id number] [place] [address] 05 Feb, 2013 [facility] [place] [facility] [address] [id number] [address] 05 Feb, 2013 [facility] [place] [facility] [address] [id number] [place] [address] Jan, [facility] [address] [id number] [place] [address] Jan, [facility] [place] [facility] [address] [id number] [place] [address] Nov, [facility] [place] [facility] [address] [id number] [place] [address] August, [facility] [place] [facility] [address] [id number] [place] [address] Jul, [facility] [place] [facility] [address] [id number] [place] [address] Jul, [facility] [address] [id number] [place] [address] Jun, [facility] [address] [id number] [place] [address] Jun, [facility] [address] [id number] [place] [address] May, [facility] [address] [id number] [place] [address] Feb, [facility] [address] [id number] [place] [address] Apr, [facility] [address] [id number] [place] [address] Mar, [facility] [place] [facility] [address] [id number] [place] [address] Feb, [facility] [place] [facility] [address] [id number] [place] [address] Jan, [facility] [place] [facility] [address] [id number] [place] [address] Jan, [facility] [place] [facility] [address] [id number] [place] [address] 14 Dec, 2008 IMMUNIZATIONS No Known Immunizations SOCIAL HISTORY Never Assessed REASON FOR VISIT upload request PLAN OF CARE VITAL SIGNS MEDICATIONS Unknown Medications RESULTS No Results PROCEDURES No Known procedures INSTRUCTIONS MEDICATIONS ADMINISTERED No Known Medications MEDICAL (GENERAL) HISTORY Type Description Date Medical History Diabetes Surgical History Left hip surgery 2016 Surgical History tonsilectomy Hospitalization History [facility] for Left hip surgery 2016
--- OUTSIDE RECORDS SUMMARY | 2018-10-19 16:14 | XMS REPORT ---
Author Author Migration, Doctor Organization [facility] Address Unknown Phone Unavailable Care Team Providers Care Deliver Driver Name Role Phone Migration, Doctor Unavailable Unavailable PROBLEMS Type Condition ICD9-CM Code VWC61-EE Code Onset Dates Condition Status SNOMED Code Problem Cigarette nicotine dependence without complication F17.210 Active 82736787 Problem Erectile dysfunction due to diseases classified elsewhere N52.1 Active 627892018 Problem Diabetes E11.9 Active 025766864 Problem Diabetic polyneuropathy associated with type 1 diabetes mellitus E10.42 Active 00336942 ALLERGIES No Information ENCOUNTERS Encounter Location Date Diagnosis [place] [id number] [place] [address] Jun, [facility] [id number] [place] [address] May, [facility] [id number] [place] [address] Apr, [facility] [id number] [place] [address] Mar, Diabetes E11.9 [facility] [id number] [place] [address] Jan, [facility] [id number] [place] [address] Jan, [facility] [id number] [place] [address] Jan, Diabetic polyneuropathy associated with type 1 diabetes mellitus E10.42 [facility] [id number] [place] [address] Jan, Diabetes E11.9 [facility] [id number] [place] [address] Oct, [facility] [address], [place] [address] Sep, Diabetes E11.9 [facility] [id number] [place] [address] Sep, [facility] [address], [place] [address] August, [facility] [id number] [place] [address] Jul, [facility] [id number] [place] [address] May, [facility] [id number] [place] [address] Mar, [facility] [id number] [place] [address] Mar, [facility] [address], [place] [address] Feb, [facility] [id number] [place] [address] Feb, [facility] [address], [place] [address] Feb, Diabetes E11.9 [facility] [id number], [place] [address] Nov, Type 1 diabetes mellitus with other neurologic complication E10.49 [facility] [address], [place] [address] Nov, [facility] [address], [place] [address] Nov, Diabetes E11.9 ; Erectile dysfunction due to diseases classified elsewhere N52.1 ; Diabetic polyneuropathy associated with type 1 diabetes mellitus E10.42 and Cigarette nicotine dependence without complication F17.210 [facility] [address], [place] [address] Sep, Hip fracture, left, closed, with routine healing, subsequent encounter S72.002D and Allergy, initial encounter T78.40XA [facility] [address] [address] Sep, [facility] [id number] [place] [address] August, Femur fracture, left S72.92XA [facility] [address] [address] August, Femur fracture, left S72.92XA [facility] [address] [address] August, Diabetes E11.9 and Femur fracture, left S72.92XA [facility] [address] [id number] August, [facility] [id number] [place] [address] August, [facility] [address] [address] August, [facility] [id number] [place] [address] Jul, [facility] [id number] [place] [address] Jul, [facility] [id number] [place] [address] Jun, [facility] [id number] [place] [address] Jun, [facility] [address] [address] Jun, [facility] [id number] [place] [address] Jun, [facility] [address] [address] Jun, [facility] [place] [facility] [address] [id number] [place] [address] Jun, [facility] [place] [facility] [address] [id number] [place] [address] Mar, [facility] [place] [facility] [address] [id number] [place] [address] Mar, [facility] [place] [facility] [address] [id number] [place] [address] Mar, [facility] [place] [facility] [address] [id number] [place] [address] Mar, [facility] [place] [facility] [address] [id number] [place] [address] Mar, [facility] [place] [facility] [address] [id number] [place] [address] Mar, [facility] [place] [facility] [address] [id number] [place] [address] Mar, [facility] [place] [facility] [address] [id number] [place] [address] Jan, [facility] [place] [facility] [address] [id number] [place] [address] Jan, [facility] [place] [facility] [address] [id number] [place] [address] Jan, [facility] [place] [facility] [address] [id number] [address] Jan, [facility] [place] [facility] [address] [id number] [place] [address] Dec, [facility] [place] [facility] [address] [id number] [place] [address] 16 Dec, 2013 [facility] [place] [facility] [address] [id number] [place] [address] Sep, [facility] [place] [facility] [address] [id number] [place] [address] 20 Sep, 2013 [facility] [address] [id number] [place] [address] Sep, [facility] [place] [facility] [address] [id number] [place] [address] 17 Sep, 2013 [facility] [place] [facility] [address] [id number] [place] [address] Sep, [facility] [place] [facility] [address] [id number] [place] [address] Sep, [facility] [place] [facility] [address] [id number] [place] [address] Jul, [facility] [place] [facility] [address] [id number] [place] [address] Jul, [facility] [place] [facility] [address] [id number] [place] [address] 15 Feb, 2013 [facility] [place] [facility] [address] [id number] [place] [address] Feb, [facility] [place] [facility] [address] [id number] [place] [address] 14 Feb, 2013 [facility] [place] [facility] [address] [facility] [id number] [place] [address] Feb, [facility] [place] [facility] [address] [id number] [place] [address] Feb, [facility] [place] [facility] [address] [id number] [place] [address] Feb, [facility] [place] [facility] [address] [id number] [place] [address] Feb, [facility] [place] [facility] [address] [facility] [id number] [place] [address] Jan, [facility] [place] [facility] [address] [id number] [place] [address] Jan, [facility] [id number] [address] Nov, [facility] [address], [place] [address] August, [facility] [id number] [address] Jul, [facility] [address], [place] [address] Jul, [facility] [address], [place] [address] Jun, [facility] [address], [place] [address] Jun, [facility] [address], [place] [address] May, [facility] [address], [place] [address] Feb, [facility] [address], [place] [address] Apr, [facility] [address], [place] [address] Mar, [facility] [address], [place] [address] Feb, [facility] [id number] [address] Jan, [facility] [id number] [address] Jan, [facility] [address], [place] [address] Dec, IMMUNIZATIONS No Known Immunizations SOCIAL HISTORY Never Assessed REASON FOR VISIT EMR-[facility] PLAN OF CARE VITAL SIGNS MEDICATIONS Unknown Medications RESULTS No Results PROCEDURES No Known procedures INSTRUCTIONS MEDICATIONS ADMINISTERED No Known Medications MEDICAL (GENERAL) HISTORY Type Description Date Medical History Diabetes Surgical History Left hip surgery 2016 Surgical History tonsilectomy Hospitalization History [facility] for Left hip surgery 2016
--- OUTSIDE RECORDS SUMMARY | 2018-10-19 16:15 | XMS REPORT ---
Author Author CADEN NARVAEZ [facility] Address [address] [place] [address] Care Team Providers Care Graphic Design Professor Name Role Phone CADEN NARVAEZ Unavailable PROBLEMS Type Condition ICD9-CM Code RNG19-LP Code Onset Dates Condition Status SNOMED Code Problem Erectile dysfunction due to diseases classified elsewhere N52.1 Active 406772263 Problem Cigarette nicotine dependence without complication F17.210 Active 26534380 Problem Diabetic polyneuropathy associated with type 1 diabetes mellitus E10.42 Active 04820486 Problem Diabetes E11.9 Active 355592529 ALLERGIES No Information ENCOUNTERS Encounter Location Date Diagnosis [facility] [id number] [place] [address] Jan, [facility] [id number] [place] [address] Jan, [facility] [id number] [place] [address] Jan, Diabetic polyneuropathy associated with type 1 diabetes mellitus E10.42 [facility] [id number] [address] Jan, Diabetes E11.9 [facility] [id number] [place] [address] Oct, [facility] [id number] [place] [address] Sep, Diabetes E11.9 [facility] [id number] [place] [address] Sep, [facility] [id number] [address] August, [facility] [address] [address] Jul, [facility] [id number] [place] [address] May, [facility] [id number] [place] [address] Mar, [facility] [id number] [place] [address] Mar, [facility] [id number] [place] [address] Feb, [place] [id number] [place] [address] Feb, [place] [id number] [place] [address] Feb, Diabetes E11.9 [place] [id number] [place] [address] Nov, Type 1 diabetes mellitus with other neurologic complication E10.49 [place] [id number] [place] [address] Nov, [place] [id number] [place] [address] Nov, Diabetes E11.9 ; Erectile dysfunction due to diseases classified elsewhere N52.1 ; Diabetic polyneuropathy associated with type 1 diabetes mellitus E10.42 and Cigarette nicotine dependence without complication F17.210 [place] [id number] [place] [address] Sep, Hip fracture, left, closed, with routine healing, subsequent encounter S72.002D and Allergy, initial encounter T78.40XA [place] [id number] [place] [address] Sep, [facility] [id number] [place] [address] August, Femur fracture, left S72.92XA [place] [address] [facility] [id number] [place] [address] August, Femur fracture, left S72.92XA [facility] [address] [facility] [id number] [place] [address], [place] [address] August, Diabetes E11.9 and Femur fracture, left S72.92XA [facility] [address] [id number] [id number] August, [facility] [address] [facility] [id number] [place] [address] August, [facility] [address] [facility] [id number] [place] [address], [place] [address] August, [facility] [address] [facility] [id number] [place] [address] Jul, [facility] [address] [place] [address] Jul, [facility] [id number] [address] Jun, [facility] [address] [place] [address] Jun, [facility] [address] [address] Jun, [facility] [address] [place] [address] Jun, [facility] [id number] [address] Jun, [facility] [id number] [address] Jun, [facility] [address] [facility] [id number] [place] [address] Mar, [facility] [id number] [address] Mar, [facility] [place] [facility] [address] [id number] [place] [address] Mar, [facility] [place] [facility] [address] [id number] [place] [address] Mar, [facility] [place] [facility] [address] [id number] [place] [address] Mar, [facility] [place] [facility] [address] [id number] [place] [address] Mar, [facility] [place] [facility] [address] [id number] [place] [address] Mar, [facility] [place] [facility] [address] [id number] [place] [address] Jan, [facility] [place] [facility] [address] [id number] [place] [address] Jan, [facility] [place] [facility] [address] [id number] [place] [address] Jan, [facility] [place] [facility] [address] [id number] [place] [address] Jan, [facility] [place] [facility] [address] [id number] [place] [address] 16 Dec, 2013 [facility] [place] [facility] [address] [id number] [place] [address] Dec, [facility] [place] [facility] [address] [id number] [place] [address] Sep, [facility] [place] [facility] [address] [id number] [place] [address] Sep, [facility] [place] [facility] [address] [id number] [place] [address] 17 Sep, 2013 [facility] [place] [facility] [address] [id number] [place] [address] 17 Sep, 2013 [facility] [place] [facility] [address] [id number] [place] [address] Sep, [facility] [place] [facility] [address] [id number] [place] [address] Sep, [facility] [place] [facility] [address] [id number] [place] [address] Jul, [facility] [place] [facility] [address] [id number] [place] [address] Jul, [facility] [place] [facility] [address] [id number] [place] [address] Feb, [facility] [place] [facility] [address] [id number] [place] [address] Feb, [facility] [place] [facility] [address] [id number] [place] [address] Feb, [facility] [place] [facility] [address] [id number] [place] [address] Feb, [facility] [place] [facility] [address] [id number] [place] [address] Feb, [facility] [place] [facility] [address] [id number] [place] [address] Feb, [facility] [place] [facility] [address] [id number] [place] [address] Feb, [facility] [place] [facility] [address] [id number] [place] [address] Jan, [facility] [place] [facility] [address] [id number] [place] [address] Jan, [facility] [place] [facility] [address] [id number] [place] [address] Nov, [facility] [place] [facility] [address] [id number] [place] [address] August, [facility] [place] [facility] [address] [id number] [place] [address] Jul, [facility] [place] [facility] [id number] [address] Jul, [facility] [address] [address] Jun, [facility] [address] [address] Jun, [facility] [address] [address] May, [facility] [address] [address] Feb, [facility] [address] [address] Apr, [facility] [address] [address] Mar, [facility] [address] [address] Feb, [facility] [address] [address] Jan, [facility] [address] [address] Jan, [facility] [id number] [address] Dec, IMMUNIZATIONS No Known Immunizations SOCIAL HISTORY Never Assessed REASON FOR VISIT upload rquest to pt via text PLAN OF CARE VITAL SIGNS MEDICATIONS Unknown Medications RESULTS No Results PROCEDURES No Known procedures INSTRUCTIONS MEDICATIONS ADMINISTERED No Known Medications MEDICAL (GENERAL) HISTORY Type Description Date Medical History Diabetes Surgical History Left hip surgery 2017 Surgical History tonsilectomy Hospitalization History [facility] 2016
--- OUTSIDE RECORDS SUMMARY | 2018-10-19 16:15 | XMS REPORT ---
Author Author CADEN NARVAEZ [facility] Address [address] [place] [address] Care Team Providers Care Photoengraving Sketch Maker Name Role Phone CADEN NARVAEZ Unavailable PROBLEMS Type Condition ICD9-CM Code QSD28-ZV Code Onset Dates Condition Status SNOMED Code Problem Erectile dysfunction due to diseases classified elsewhere N52.1 Active 638687327 Problem Cigarette nicotine dependence without complication F17.210 Active 14625997 Problem Diabetic polyneuropathy associated with type 1 diabetes mellitus E10.42 Active 47857534 Problem Diabetes E11.9 Active 123084036 ALLERGIES Substance Reaction Event Type Date Status Prozac shortness of breath Drug Allergy Jan, Active ENCOUNTERS Encounter Location Date Diagnosis [place] [id number] [address] Jan, [facility] [id number] [place] [address] Jan, Diabetic polyneuropathy associated with type 1 diabetes mellitus E10.42 [facility] [address] [address] Jan, Diabetes E11.9 [facility] [address] [address] Oct, [facility] [address] [address] Sep, Diabetes E11.9 [facility] [id number] [place] [address] Sep, [facility] [id number] [address] August, [facility] [id number] [place] [address] Jul, [facility] [id number] [place] [address] May, [facility] [id number] [place] [address] Mar, [facility] [id number] [place] [address] Mar, [facility] [id number] [place] [address] Feb, [facility] [id number] [place] [address] Feb, [facility] [id number] [place] [address] Feb, Diabetes E11.9 [place] [id number] [place] [address] Nov, Type 1 diabetes mellitus with other neurologic complication E10.49 [place] [id number] [place] [address] Nov, [facility] [id number] [place] [address] Nov, Diabetes E11.9 ; Erectile dysfunction due to diseases classified elsewhere N52.1 ; Diabetic polyneuropathy associated with type 1 diabetes mellitus E10.42 and Cigarette nicotine dependence without complication F17.210 [place] [id number] [place] [address] Sep, Hip fracture, left, closed, with routine healing, subsequent encounter S72.002D and Allergy, initial encounter T78.40XA [place] [id number] [place] [address] Sep, [facility] [id number] [place] [address] August, Femur fracture, left S72.92XA [facility] [id number] [place] [address] August, Femur fracture, left S72.92XA [facility] [address] [facility] [id number] [place] [address] August, Diabetes E11.9 and Femur fracture, left S72.92XA [facility] [place] [address] [id number] [address] August, [facility] [address] [facility] [id number] [address] August, [facility] [address] [facility] [id number] [address] August, [facility] [id number] [place] [address] Jul, [facility] [id number] [place] [address] Jul, [facility] [id number] [place] [address] Jun, [facility] [id number] [address] Jun, [facility] [address] [address] Jun, [facility] [id number] [address] Jun, [facility] [id number] [address] Jun, [facility] [id number] [address] Jun, [facility] [address] [facility] [id number] [address] Mar, [facility] [id number] [address] Mar, [facility] [id number] [place] [address], [place] [address] 18 Mar, 2014 [facility] [place] [facility] [address] [id number] [place] [address] 18 Mar, 2014 [facility] [place] [facility] [address] [id number] [place] [address] 15 Mar, 2014 [facility] [place] [facility] [address] [id number] [place] [address] Mar, [facility] [place] [facility] [address] [id number] [place] [address] Mar, [facility] [place] [facility] [address] [id number] [place] [address] Jan, [facility] [place] [facility] [address] [id number] [place] [address] Jan, [facility] [place] [facility] [address] [id number] [place] [address] Jan, [facility] [place] [facility] [address] [id number] [place] [address] Jan, [facility] [place] [facility] [address] [id number] [place] [address] 16 Dec, 2013 [facility] [place] [facility] [address] [facility] [id number] [place] [address] 16 Dec, 2013 [facility] [place] [facility] [address] [id number] [place] [address] 20 Sep, 2013 [facility] [place] [facility] [address] [id number] [place] [address] 20 Sep, 2013 [facility] [place] [facility] [address] [id number] [place] [address] 17 Sep, 2013 [facility] [place] [facility] [address] [id number] [place] [address] 17 Sep, 2013 [facility] [place] [facility] [address] [facility] [id number] [place] [address] 10 Sep, 2013 [facility] [place] [facility] [address] [id number] [place] [address] Sep, [facility] [place] [facility] [address] [id number] [place] [address] Jul, [facility] [place] [facility] [address] [id number] [place] [address] Jul, [facility] [place] [facility] [address] [id number] [place] [address] Feb, [facility] [place] [facility] [address] [id number] [place] [address] Feb, [facility] [place] [facility] [address] [id number] [place] [address] Feb, [facility] [place] [facility] [address] [id number] [place] [address] Feb, [facility] [place] [facility] [address] [id number] [place] [address] Feb, [facility] [place] [facility] [address] [id number] [place] [address] Feb, [facility] [place] [facility] [address] [id number] [place] [address] Feb, [facility] [place] [facility] [address] [id number] [place] [address] Jan, [facility] [place] [facility] [address] [id number] [place] [address] Jan, [facility] [place] [facility] [address] [id number] [place] [address] Nov, [facility] [place] [facility] [address] [id number] [place] [address] August, [facility] [place] [facility] [address] [id number] [place] [address] Jul, [facility] [place] [facility] [address] [id number] [place] [address] Jul, [facility] [id number] [address] Jun, [facility] [address], [place] [address] Jun, [facility] [address], [place] [address] May, [facility] [address], [place] [address] Feb, [facility] [address], [place] [address] Apr, [facility] [address] [place] [address] Mar, [facility] [address], [place] [address] Feb, [facility] [address], [place] [address] Jan, [facility] [address], [place] [address] Jan, [facility] [address], [place] [address] Dec, IMMUNIZATIONS No Known Immunizations SOCIAL HISTORY Never Assessed REASON FOR VISIT Diabetes check up Karine STEEN , A1C done in visit Karine STEEN , from knees to toes are numb x8-9 years with tingling Karine STEEN, hip is hurting from being shatte red last year- consult on pain medications Karine STEEN PLAN OF CARE Activity Details Follow Up Will call after lab; needs to get re-established with [facility] Reason: VITAL SIGNS Height 72 in 2018-02-04 Weight 173.4 lbs 2018-02-04 Temperature 97.6 degrees Fahrenheit 2018-02-04 Heart Rate 100 bpm 2018-02-04 Respiratory Rate 18 2018-02-04 BMI 23.51 kg/m2 2018-02-04 Blood pressure systolic 118 mmHg 2018-02-04 Blood pressure diastolic 70 mmHg 2018-02-04 MEDICATIONS Medication Instructions Dosage Frequency Start Date End Date Duration Status Humalog 100 UNIT/ML INJECT 80 UNITS UNDER THE SKIN DAILY PER INSULIN PUMP 31 Active Comfort Assist Insulin Syringe 1 mL FOUR TIMES A DAY 25 Active Humalog 100 UNIT/ML DX E10.42 per insulin pump 80 units daily Jun, Active Blood Glucose Test - Elena Contour Next and lancets DX E10.42 Test 8 times daily on insulin pump test blood sugar Nov, Active A[employer] Ultra-Thin Lancets 33 USE ONE LANCET TO TEST FOUR TIMES A DAY 25 Active RESULTS No Results PROCEDURES Procedure Date Ordered Result Body Site LAB NOT BILLED BY [facility] Feb 04, 2018 MICROALBUMIN, SEMIQUANT Feb 04, 2018 GLYCATED HEMOGLOBIN TEST Feb 04, 2018 VENIPUNCT, ROUTINE* Feb 04, 2018 INSTRUCTIONS MEDICATIONS ADMINISTERED No Known Medications MEDICAL (GENERAL) HISTORY Type Description Date Medical History Diabetes Surgical History Left hip surgery 2016 Surgical History tonsilectomy Hospitalization History [facility]
--- OUTSIDE RECORDS SUMMARY | 2018-10-19 16:15 | XMS REPORT ---
Author Author Migration, Doctor Organization [facility] Address Unknown Phone Unavailable Care Team Providers Care Boiler Technician Name Role Phone Migration, Doctor Unavailable Unavailable PROBLEMS Type Condition ICD9-CM Code NJI04-RO Code Onset Dates Condition Status SNOMED Code Problem Cigarette nicotine dependence without complication F17.210 Active 15538222 Problem Erectile dysfunction due to diseases classified elsewhere N52.1 Active 214553119 Problem Diabetes E11.9 Active 174699994 Problem Diabetic polyneuropathy associated with type 1 diabetes mellitus E10.42 Active 54731505 ALLERGIES No Information ENCOUNTERS Encounter Location Date Diagnosis [place] [id number] [place] [address] Jun, [facility] [address] [place] [address] [id number] [place] [address] May, [facility] [id number] [place] [address] Apr, [facility] [id number] [place] [address] Mar, Diabetes E11.9 [facility] [address] [place] [id number] [place] [address] Jan, [facility] [id number] [place] [address] Jan, [facility] [address] [id number] [place] [address] Jan, Diabetic polyneuropathy associated with type 1 diabetes mellitus E10.42 [facility] [id number] [place] [address] Jan, Diabetes E11.9 [facility] [id number] [place] [address] Oct, [facility] [address] [address] Sep, Diabetes E11.9 [facility] [id number] [place] [address] Sep, [facility] [address] [address] August, [facility] [id number] [place] [address] Jul, [facility] [address] [place] [address] May, [facility] [address] [place] [address] Mar, [facility] [address] [place] [address] Mar, [facility] [address] [address] Feb, [facility] [id number] [place] [address] Feb, [facility] [address] [address] Feb, Diabetes E11.9 [facility] [address] [address] Nov, Type 1 diabetes mellitus with other neurologic complication E10.49 [facility] [address] [address] Nov, [facility] [address] [address] Nov, Diabetes E11.9 ; Erectile dysfunction due to diseases classified elsewhere N52.1 ; Diabetic polyneuropathy associated with type 1 diabetes mellitus E10.42 and Cigarette nicotine dependence without complication F17.210 [facility] [address] [address] Sep, Hip fracture, left, closed, with routine healing, subsequent encounter S72.002D and Allergy, initial encounter T78.40XA [facility] [address] [address] Sep, [facility] [address] [place] [address] [id number] [place] [address] August, Femur fracture, left S72.92XA [facility] [address] [address] August, Femur fracture, left S72.92XA [facility] [address] [address] August, Diabetes E11.9 and Femur fracture, left S72.92XA [facility] [address] [id number] August, [facility] [id number] [place] [address] August, [facility] [address] [address] August, [facility] [id number] [place] [address] Jul, [facility] [address] [place] [id number] [place] [address] Jul, [facility] [address] [place] [id number] [place] [address] Jun, [facility] [address] [place] [id number] [place] [address] Jun, [facility] [address] [address] Jun, [facility] [address] [place] [id number] [place] [address] Jun, [facility] [address] [address] Jun, [facility] [place] [facility] [address] [id number] [place] [address] Jun, [facility] [place] [facility] [address] [id number] [place] [address] Mar, [facility] [place] [facility] [address] [id number] [place] [address] Mar, [facility] [place] [facility] [address] [id number] [place] [address] Mar, [facility] [place] [facility] [address] [id number] [place] [address] Mar, [facility] [place] [facility] [address] [id number] [place] [address] Mar, [facility] [place] [facility] [address] [id number] [place] [address] Mar, [facility] [place] [facility] [address] [id number] [place] [address] Mar, [facility] [place] [facility] [address] [id number] [place] [address] Jan, [facility] [place] [facility] [address] [id number] [place] [address] Jan, [facility] [place] [facility] [address] [id number] [place] [address] Jan, [facility] [place] [facility] [address] [id number] [address] Jan, [facility] [place] [facility] [address] [id number] [place] [address] Dec, [facility] [place] [facility] [address] [id number] [place] [address] 16 Dec, 2013 [facility] [place] [facility] [address] [id number] [place] [address] Sep, [facility] [place] [facility] [address] [id number] [place] [address] 20 Sep, 2013 [facility] [address] [id number] [place] [address] Sep, [facility] [place] [facility] [address] [id number] [place] [address] 17 Sep, 2013 [facility] [place] [facility] [address] [id number] [place] [address] Sep, [facility] [place] [facility] [address] [id number] [place] [address] Sep, [facility] [place] [facility] [address] [id number] [place] [address] Jul, [facility] [place] [facility] [address] [id number] [place] [address] Jul, [facility] [place] [facility] [address] [id number] [place] [address] 15 Feb, 2013 [facility] [place] [facility] [address] [id number] [place] [address] Feb, [facility] [place] [facility] [address] [id number] [place] [address] 14 Feb, 2013 [facility] [place] [facility] [address] [facility] [id number] [place] [address] Feb, [facility] [place] [facility] [address] [id number] [place] [address] Feb, [facility] [place] [facility] [address] [id number] [place] [address] Feb, [facility] [place] [facility] [address] [id number] [place] [address] Feb, [facility] [place] [facility] [address] [facility] [id number] [place] [address] Jan, [facility] [place] [facility] [address] [id number] [place] [address] Jan, [facility] [id number] [address] Nov, [facility] [address], [place] [address] August, [facility] [id number] [address] Jul, [facility] [address], [place] [address] Jul, [facility] [address], [place] [address] Jun, [facility] [address], [place] [address] Jun, [facility] [address], [place] [address] May, [facility] [address], [place] [address] Feb, [facility] [address], [place] [address] Apr, [facility] [address], [place] [address] Mar, [facility] [address], [place] [address] Feb, [facility] [id number] [address] Jan, [facility] [id number] [address] Jan, [facility] [address], [place] [address] Dec, IMMUNIZATIONS No Known Immunizations SOCIAL HISTORY Never Assessed REASON FOR VISIT EMR[place] [place] OF CARE VITAL SIGNS MEDICATIONS Unknown Medications RESULTS No Results PROCEDURES No Known procedures INSTRUCTIONS MEDICATIONS ADMINISTERED No Known Medications MEDICAL (GENERAL) HISTORY Type Description Date Medical History Diabetes Surgical History Left hip surgery 2016 Surgical History tonsilectomy Hospitalization History [facility] for Left hip surgery 2016
--- OUTSIDE RECORDS SUMMARY | 2018-10-19 16:15 | XMS REPORT ---
Author Author Migration, Doctor Organization [facility] Address Unknown Phone Unavailable Care Team Providers Care Store Group Manager Name Role Phone Migration, Doctor Unavailable Unavailable PROBLEMS Type Condition ICD9-CM Code JJR31-SR Code Onset Dates Condition Status SNOMED Code Problem Cigarette nicotine dependence without complication F17.210 Active 17246679 Problem Erectile dysfunction due to diseases classified elsewhere N52.1 Active 027043334 Problem Diabetes E11.9 Active 387925001 Problem Diabetic polyneuropathy associated with type 1 diabetes mellitus E10.42 Active 14616014 ALLERGIES No Information ENCOUNTERS Encounter Location Date Diagnosis [place] [id number] [place] [address] Jun, [facility] [address] [place] [id number] [place] [address] May, [facility] [address] [id number] [place] [address] Apr, [facility] [address] [id number] [place] [address] Mar, Diabetes E11.9 [facility] [id number] [place] [address] Jan, [facility] [id number] [place] [address] Jan, [facility] [address] [id number] [place] [address] Jan, Diabetic polyneuropathy associated with type 1 diabetes mellitus E10.42 [facility] [id number] [place] [address] Jan, Diabetes E11.9 [facility] [id number] [place] [address] Oct, [facility] [address], [place] [address] Sep, Diabetes E11.9 [facility] [id number] [place] [address] Sep, [facility] [address], [place] [address] August, [facility] [id number] [place] [place] [address] Jul, [facility] [id number] [place] [address] May, [facility] [address] [place] [address] Mar, [facility] [address] [place] [address] Mar, [facility] [address], [place] [address] Feb, [facility] [address] [place] [address] Feb, [facility] [address] [address] Feb, Diabetes E11.9 [facility] [address], [place] [address] Nov, Type 1 diabetes mellitus with other neurologic complication E10.49 [facility] [address], [place] [address] Nov, [facility] [address], [place] [address] Nov, Diabetes E11.9 ; Erectile dysfunction due to diseases classified elsewhere N52.1 ; Diabetic polyneuropathy associated with type 1 diabetes mellitus E10.42 and Cigarette nicotine dependence without complication F17.210 [facility] [address], [place] [address] Sep, Hip fracture, left, closed, with routine healing, subsequent encounter S72.002D and Allergy, initial encounter T78.40XA [facility] [address] [address] Sep, [facility] [id number] [place] [address] August, Femur fracture, left S72.92XA [facility] [address] [address] August, Femur fracture, left S72.92XA [facility] [address] [address] August, Diabetes E11.9 and Femur fracture, left S72.92XA [facility] [address] [id number] August, [facility] [id number] [place] [address] August, [facility] [address] [address] August, [facility] [id number] [place] [address] Jul, [facility] [id number] [place] [address] Jul, [facility] [id number] [place] [address] Jun, [facility] [id number] [place] [address] Jun, [facility] [address] [address] Jun, [facility] [id number] [place] [address] Jun, [facility] [address] [address] Jun, [facility] [place] [facility] [address] [id number] [place] [address] Jun, [facility] [place] [facility] [address] [id number] [place] [address] Mar, [facility] [place] [facility] [address] [id number] [place] [address] Mar, [facility] [place] [facility] [address] [id number] [place] [address] Mar, [facility] [place] [facility] [address] [id number] [place] [address] Mar, [facility] [place] [facility] [address] [id number] [place] [address] Mar, [facility] [place] [facility] [address] [id number] [place] [address] Mar, [facility] [place] [facility] [address] [id number] [place] [address] Mar, [facility] [place] [facility] [address] [id number] [place] [address] Jan, [facility] [place] [facility] [address] [id number] [place] [address] Jan, [facility] [place] [facility] [address] [id number] [place] [address] Jan, [facility] [place] [facility] [address] [id number] [address] Jan, [facility] [place] [facility] [address] [id number] [place] [address] Dec, [facility] [place] [facility] [address] [id number] [place] [address] 16 Dec, 2013 [facility] [place] [facility] [address] [id number] [place] [address] Sep, [facility] [place] [facility] [address] [id number] [place] [address] 20 Sep, 2013 [facility] [address] [id number] [place] [address] Sep, [facility] [place] [facility] [address] [id number] [place] [address] 17 Sep, 2013 [facility] [place] [facility] [address] [id number] [place] [address] Sep, [facility] [place] [facility] [address] [id number] [place] [address] Sep, [facility] [place] [facility] [address] [id number] [place] [address] Jul, [facility] [place] [facility] [address] [id number] [place] [address] Jul, [facility] [place] [facility] [address] [id number] [place] [address] 15 Feb, 2013 [facility] [place] [facility] [address] [id number] [place] [address] Feb, [facility] [place] [facility] [address] [id number] [place] [address] 14 Feb, 2013 [facility] [place] [facility] [address] [facility] [id number] [place] [address] Feb, [facility] [place] [facility] [address] [id number] [place] [address] Feb, [facility] [place] [facility] [address] [id number] [place] [address] Feb, [facility] [place] [facility] [address] [id number] [place] [address] Feb, [facility] [place] [facility] [address] [facility] [id number] [place] [address] Jan, [facility] [place] [facility] [address] [id number] [place] [address] Jan, [facility] [id number] [address] Nov, [facility] [address] [facility] [id number], [place] [address] August, [facility] [address], [place] [address] Jul, [facility] [address] [facility] [id number] [address] Jul, [facility] [address] [facility] [id number], [place] [address] Jun, [facility] [address], [place] [address] Jun, [facility] [address], [place] [address] May, [facility] [address], [place] [address] Feb, [facility] [address], [place] [address] Apr, [facility] [address], [place] [address] Mar, [facility] [address], [place] [address] Feb, [facility] [address], [place] [address] Jan, [facility] [id number] [address] Jan, [facility] [address], [place] [address] Dec, IMMUNIZATIONS No Known Immunizations SOCIAL HISTORY Never Assessed REASON FOR VISIT [place] [place] VITAL SIGNS MEDICATIONS Medication Instructions Dosage Frequency Start Date End Date Duration Status Flexeril 5 mg 1 tablet by Oral route 3 times per day PRN for tremors Jan, Active Lancets - 4 times per day ONE TOUCH DELICA LANCETS Feb, Active Neurontin 100 mg 1 capsule by Oral route 3 times per day PRN for pain Jan, Active Levemir 100 unit/mL inject 45 Unit by Subcutaneous route 1 time per day At bedtime Jun, Active Humalog 100 unit/mL inject 15 Units by Subcutaneous route 3 times per day before meals Jun, Active RESULTS No Results PROCEDURES No Known procedures INSTRUCTIONS MEDICATIONS ADMINISTERED No Known Medications MEDICAL (GENERAL) HISTORY Type Description Date Medical History Diabetes Surgical History Left hip surgery 2016 Surgical History tonsilectomy Hospitalization History [facility]
--- OUTSIDE RECORDS SUMMARY | 2018-10-19 16:15 | XMS REPORT ---
Author Author CADEN NARVAEZ Organization [facility] [place] Address [address] [place] [address] Care Team Providers Care Painter Interior Finish Name Role Phone CADEN NARVAEZ Unavailable PROBLEMS Type Condition ICD9-CM Code BZJ53-VC Code Onset Dates Condition Status SNOMED Code Problem Erectile dysfunction due to diseases classified elsewhere N52.1 Active 635002121 Problem Cigarette nicotine dependence without complication F17.210 Active 91526834 Problem Diabetic polyneuropathy associated with type 1 diabetes mellitus E10.42 Active 70282938 Problem Diabetes E11.9 Active 822425314 ALLERGIES No Information ENCOUNTERS Encounter Location Date Diagnosis [facility] [place] [id number] [place] [address] Jan, [facility] [place] [id number] [place] [address] Jan, Diabetes E11.9 [facility] [place] [id number] [place] [address] Oct, [facility] [place] [id number] [place] [address] Sep, Diabetes E11.9 [facility] [place] [id number] [place] [address] Sep, [facility] [place] [id number] [place] [address] August, [facility] [place] [id number] [place] [address] Jul, [facility] [place] [id number] [place] [address] May, [facility] [place] [id number] [place] [address] Mar, [facility] [place] [address] [address] Mar, [facility] [place] [id number] [place] [address] Feb, [facility] [place] [id number] [place] [address] Feb, [facility] [place] [id number] [place] [address] Feb, Diabetes E11.9 [place] [id number] [place] [address] Nov, Type 1 diabetes mellitus with other neurologic complication E10.49 [place] [id number] [place] [address] Nov, [place] [id number] [place] [address] Nov, Diabetes E11.9 ; Erectile dysfunction due to diseases classified elsewhere N52.1 ; Diabetic polyneuropathy associated with type 1 diabetes mellitus E10.42 and Cigarette nicotine dependence without complication F17.210 [place] [id number] [place] [address] Sep, Hip fracture, left, closed, with routine healing, subsequent encounter S72.002D and Allergy, initial encounter T78.40XA [place] [id number] [place] [address] Sep, [place] [id number] [place] [address] August, Femur fracture, left S72.92XA [place] [id number] [place] [address] August, Femur fracture, left S72.92XA [place] [id number] [place] [address] August, Diabetes E11.9 and Femur fracture, left S72.92XA [facility] [address] [id number] [place] [id number] August, [facility] [address] [id number] [place] [address] August, [facility] [address] [facility] [id number] [place] [address] August, [facility] [address] [facility] [id number], [place] [address] Jul, [facility] [address] [id number] [place] [address] Jul, [facility] [address] [facility] [id number] [place] [address] Jun, [facility] [id number] [place] [address] Jun, [facility] [address] [facility] [id number], [place] [address] Jun, [facility] [id number] [place] [address] Jun, [facility] [address] [facility] [id number], [place] [address] Jun, [facility] [address] [facility] [id number], [place] [address] Jun, [facility] [address] [facility] [id number], [place] [address] Mar, [facility] [place] [facility] [address] [facility] [id number] [place] [address] Mar, [facility] [address] [facility] [id number], [place] [address] Mar, [facility] [place] [facility] [address] [facility] [id number], [place] [address] Mar, [facility] [address] [place] [address] 15 Mar, 2014 [facility] [place] [facility] [address] [id number] [place] [address] Mar, [facility] [place] [facility] [address] [id number] [place] [address] Mar, [facility] [place] [facility] [address] [id number] [place] [address] Jan, [facility] [place] [facility] [address] [id number] [place] [address] Jan, [facility] [place] [facility] [address] [id number] [place] [address] Jan, [facility] [place] [facility] [address] [id number] [place] [address] Jan, [facility] [place] [facility] [address] [id number] [place] [address] 16 Dec, 2013 [facility] [place] [facility] [address] [id number] [place] [address] 16 Dec, 2013 [facility] [place] [facility] [address] [id number] [place] [address] Sep, [facility] [place] [facility] [address] [id number] [place] [address] Sep, [facility] [place] [facility] [address] [id number] [place] [address] 17 Sep, 2013 [facility] [place] [facility] [address] [id number] [place] [address] 17 Sep, 2013 [facility] [place] [facility] [address] [id number] [place] [address] Sep, [facility] [place] [facility] [address] [id number] [place] [address] Sep, [facility] [place] [facility] [address] [id number] [place] [address] 2013 [facility] [place] [facility] [address] [id number] [place] [address] Jul, [facility] [place] [facility] [address] [id number] [place] [address] Feb, [facility] [place] [facility] [address] [id number] [place] [address] Feb, [facility] [place] [facility] [address] [id number] [place] [address] Feb, [facility] [place] [facility] [address] [id number] [place] [address] Feb, [facility] [place] [facility] [address] [id number] [place] [address] Feb, [facility] [place] [facility] [address] [id number] [place] [address] Feb, [facility] [place] [facility] [address] [id number] [place] [address] Feb, [facility] [place] [facility] [address] [id number] [place] [address] Jan, [facility] [place] [facility] [address] [id number] [place] [address] Jan, [facility] [place] [facility] [address] [id number] [place] [address] Nov, [facility] [place] [facility] [address] [id number] [place] [address] August, [facility] [place] [facility] [address] [id number] [place] [address] Jul, [facility] [place] [facility] [address] [id number] [place] [address] Jul, [facility] [place] [facility] [address] [id number] [place] [address] Jun, [facility] [place] [facility] [address] [id number], [place] [address] Jun, [facility] [place] [id number] [address] 16 May, 2011 [facility] [place] [address], [place] [address] Feb, [facility] [place] [address], [place] [address] Apr, [facility] [place] [address], [place] [address] Mar, [facility] [place] [address], [place] [address] Feb, [facility] [place] [address], [place] [address] Jan, [facility] [place] [address], [place] [address] Jan, [facility] [place] [address], [place] [address] Dec, IMMUNIZATIONS No Known Immunizations SOCIAL HISTORY Never Assessed REASON FOR VISIT Refill request PLAN OF CARE VITAL SIGNS MEDICATIONS Medication Instructions Dosage Frequency Start Date End Date Duration Status Humalog 100 UNIT/ML INJECT 80 UNITS UNDER THE SKIN DAILY PER INSULIN PUMP 31 Active RESULTS No Results PROCEDURES No Known procedures INSTRUCTIONS MEDICATIONS ADMINISTERED No Known Medications MEDICAL (GENERAL) HISTORY Type Description Date Medical History Diabetes Surgical History Left hip surgery 2016 Surgical History tonsilectomy Hospitalization History [facility] 2016
--- OUTSIDE RECORDS SUMMARY | 2018-10-19 16:16 | XMS REPORT ---
Author Author CADEN NARVAEZ [facility] Address [address] [place] [address] Care Team Providers Care Ballet Soloist Name Role Phone CADEN NARVAEZ Unavailable PROBLEMS Type Condition ICD9-CM Code CNO31-MY Code Onset Dates Condition Status SNOMED Code Problem Erectile dysfunction due to diseases classified elsewhere N52.1 Active 551778782 Problem Cigarette nicotine dependence without complication F17.210 Active 74915935 Problem Diabetic polyneuropathy associated with type 1 diabetes mellitus E10.42 Active 49048784 Problem Diabetes E11.9 Active 573757542 ALLERGIES No Information ENCOUNTERS Encounter Location Date Diagnosis [facility] [id number] [place] [address] Oct, [facility] [id number] [place] [address] Sep, Diabetes E11.9 [facility] [id number] [place] [address] Sep, [facility] [id number] [place] [address] August, [facility] [id number] [place] [address] Jul, [facility] [id number] [place] [address] May, [facility] [id number] [place] [address] Mar, [facility] [id number] [place] [address] Mar, [facility] [id number] [place] [address] Feb, [facility] [id number] [place] [address] Feb, [facility] [id number] [place] [address] Feb, Diabetes E11.9 [place] [id number] [place] [address] Nov, Type 1 diabetes mellitus with other neurologic complication E10.49 [facility] [id number] [place] [address] Nov, [place] [address] [address] Nov, Diabetes E11.9 ; Erectile dysfunction due to diseases classified elsewhere N52.1 ; Diabetic polyneuropathy associated with type 1 diabetes mellitus E10.42 and Cigarette nicotine dependence without complication F17.210 [place] [id number] [place] [address] Sep, Hip fracture, left, closed, with routine healing, subsequent encounter S72.002D and Allergy, initial encounter T78.40XA [place] [id number] [place] [address] Sep, [place] [id number] [place] [address] August, Femur fracture, left S72.92XA [place] [id number] [place] [address] August, Femur fracture, left S72.92XA [place] [id number] [place] [address] August, Diabetes E11.9 and Femur fracture, left S72.92XA [facility] [place] [id number] [place] [id number] August, [facility] [id number] [place] [address] August, [facility] [place] [facility] [address] [id number] [place] [address] August, [facility] [place] [facility] [address] [id number] [place] [address] 14 Jul, 2014 [facility] [place] [facility] [address] [id number] [place] [address] Jul, [facility] [place] [facility] [address] [id number] [place] [address] Jun, [facility] [place] [facility] [address] [id number] [place] [address] Jun, [facility] [place] [facility] [address] [id number] [place] [address] Jun, [facility] [place] [facility] [address] [id number] [place] [address] Jun, [facility] [place] [facility] [address] [id number] [place] [address] Jun, [facility] [place] [facility] [address] [id number] [place] [address] Jun, [facility] [place] [facility] [address] [id number] [place] [address] Mar, [facility] [place] [facility] [address] [id number] [place] [address] 30 Mar, 2014 [facility] [place] [facility] [address] [id number] [place] [address] Mar, [facility] [place] [facility] [address] [id number] [place] [address] 18 Mar, 2014 [facility] [place] [facility] [address] [id number] [place] [address] 15 Mar, 2014 [facility] [place] [facility] [address] [id number] [place] [address] 12 Mar, 2014 [facility] [place] [facility] [address] [id number], [place] [address] Mar, [facility] [place] [facility] [address] [id number] [place] [address] Jan, [facility] [place] [facility] [address] [id number] [place] [address] Jan, [facility] [place] [facility] [address] [id number] [place] [address] Jan, [facility] [place] [facility] [address] [id number] [place] [address] Jan, [facility] [place] [facility] [address] [id number] [place] [address] Dec, [facility] [place] [facility] [address] [id number] [place] [address] Dec, [facility] [place] [facility] [address] [id number] [place] [address] Sep, [facility] [place] [facility] [address] [id number] [place] [address] Sep, [facility] [place] [facility] [address] [facility] [id number] [place] [address] Sep, [facility] [place] [facility] [address] [facility] [id number] [place] [address] Sep, [facility] [place] [facility] [address] [id number] [place] [address] Sep, [facility] [place] [facility] [address] [id number] [place] [address] Sep, [facility] [place] [facility] [address] [id number] [place] [address] Jul, [facility] [place] [facility] [address] [id number] [place] [address] Jul, [facility] [place] [facility] [address] [facility] [id number] [place] [address] 15 Feb, 2013 [facility] [place] [facility] [address] [id number] [place] [address] 14 Feb, 2013 [facility] [address] [id number] [place] [address] 14 Feb, 2013 [facility] [place] [facility] [address] [id number] [place] [address] Feb, [facility] [place] [facility] [address] [id number] [place] [address] Feb, [facility] [place] [facility] [address] [id number] [place] [address] Feb, [facility] [place] [facility] [address] [id number] [place] [address] Feb, [facility] [place] [facility] [address] [id number] [place] [address] Jan, [facility] [place] [facility] [address] [id number] [place] [address] Jan, [facility] [place] [facility] [address] [id number] [place] [address] Nov, [facility] [place] [facility] [address] [id number] [place] [address] August, [facility] [place] [facility] [address] [id number] [place] [address] Jul, [facility] [place] [facility] [address] [id number] [place] [address] Jul, [facility] [place] [facility] [address] [id number] [place] [address] Jun, [facility] [place] [facility] [address] [id number] [place] [address] Jun, [facility] [place] [facility] [address] [id number] [place] [address] 16 May, 2011 [facility] [place] [facility] [address] [id number] [place] [address] Feb, [facility] [id number] [address] Apr, [facility] [address], [place] [address] Mar, [facility] [address], [place] [address] Feb, [facility] [address], [place] [address] Jan, [facility] [id number], [place] [address] Jan, [facility] [id number], [place] [address] Dec, IMMUNIZATIONS No Known Immunizations SOCIAL HISTORY Never Assessed REASON FOR VISIT Upload request to pt. PLAN OF CARE VITAL SIGNS MEDICATIONS Unknown Medications RESULTS No Results PROCEDURES No Known procedures INSTRUCTIONS MEDICATIONS ADMINISTERED No Known Medications MEDICAL (GENERAL) HISTORY Type Description Date Medical History Diabetes Surgical History Left hip surgery 2016 Surgical History tonsilectomy Hospitalization History [facility] for Left [facility] 2016
--- OUTSIDE RECORDS SUMMARY | 2018-10-19 16:16 | XMS REPORT ---
Author Author CADEN NARVAEZ [facility] Address [address] [place] [address] Care Team Providers Care Inspector Structural Bonding Name Role Phone CADEN NARVAEZ Unavailable PROBLEMS Type Condition ICD9-CM Code CSY27-NU Code Onset Dates Condition Status SNOMED Code Problem Erectile dysfunction due to diseases classified elsewhere N52.1 Active 447120772 Problem Cigarette nicotine dependence without complication F17.210 Active 65827174 Problem Diabetic polyneuropathy associated with type 1 diabetes mellitus E10.42 Active 78332095 Problem Diabetes E11.9 Active [id number] ALLERGIES No Information ENCOUNTERS Encounter Location Date Diagnosis [facility] [id number] [place] [address] Oct, [facility] [id number] [place] [address] Sep, Diabetes E11.9 [facility] [id number] [place] [address] Sep, [facility] [id number] [place] [address] August, [facility] [id number] [place] [address] Jul, [facility] [id number] [place] [address] May, [facility] [id number] [place] [address] Mar, [facility] [id number] [place] [address] Mar, [facility] [id number] [place] [address] Feb, [facility] [id number] [place] [address] Feb, [facility] [id number] [place] [address] Feb, Diabetes E11.9 [place] [id number] [place] [address] Nov, Type 1 diabetes mellitus with other neurologic complication E10.49 [facility] [id number] [place] [address] Nov, [place] [address] [address] Nov, Diabetes E11.9 ; Erectile dysfunction due to diseases classified elsewhere N52.1 ; Diabetic polyneuropathy associated with type 1 diabetes mellitus E10.42 and Cigarette nicotine dependence without complication F17.210 [place] [id number] [place] [address] Sep, Hip fracture, left, closed, with routine healing, subsequent encounter S72.002D and Allergy, initial encounter T78.40XA [place] [facility] [id number] [place] [address] Sep, [place] [id number] [place] [address] August, Femur fracture, left S72.92XA [place] [facility] [id number] [place] [address] August, Femur fracture, left S72.92XA [place] [id number] [place] [address] August, Diabetes E11.9 and Femur fracture, left S72.92XA [facility] [id number] [place] [id number] August, [facility] [id number] [place] [address] August, [facility] [place] [facility] [address] [id number] [place] [address] August, [facility] [place] [facility] [address] [id number] [place] [address] 14 Jul, 2014 [facility] [place] [facility] [address] [id number] [place] [address] Jul, [facility] [place] [facility] [address] [id number] [place] [address] Jun, [facility] [place] [facility] [address] [id number] [place] [address] Jun, [facility] [place] [facility] [address] [id number] [place] [address] Jun, [facility] [place] [facility] [address] [id number] [place] [address] Jun, [facility] [place] [facility] [address] [id number] [place] [address] Jun, [facility] [place] [facility] [address] [id number] [place] [address] Jun, [facility] [place] [facility] [address] [id number] [place] [address] Mar, [facility] [place] [facility] [address] [id number] [place] [address] 30 Mar, 2014 [facility] [place] [facility] [address] [id number] [place] [address] Mar, [facility] [place] [facility] [address] [id number] [place] [address] 18 Mar, 2014 [facility] [place] [facility] [address] [id number] [place] [address] 15 Mar, 2014 [facility] [place] [facility] [address] [id number] [place] [address] 12 Mar, 2014 [facility] [place] [facility] [address] [id number] [address] Mar, [facility] [place] [facility] [address] [id number] [place] [address] Jan, [facility] [place] [facility] [address] [id number] [place] [address] Jan, [facility] [place] [facility] [address] [id number] [place] [address] Jan, [facility] [place] [facility] [address] [id number] [place] [address] Jan, [facility] [place] [facility] [address] [id number] [place] [address] Dec, [facility] [place] [facility] [address] [id number] [place] [address] Dec, [facility] [place] [facility] [address] [id number] [place] [address] Sep, [facility] [place] [facility] [address] [id number] [place] [address] Sep, [facility] [place] [facility] [address] [facility] [id number] [place] [address] Sep, [facility] [place] [facility] [address] [facility] [id number] [place] [address] Sep, [facility] [place] [facility] [address] [id number] [place] [address] Sep, [facility] [place] [facility] [address] [id number] [place] [address] Sep, [facility] [place] [facility] [address] [id number] [place] [address] Jul, [facility] [place] [facility] [address] [id number] [place] [address] Jul, [facility] [place] [facility] [address] [facility] [id number] [place] [address] 15 Feb, 2013 [facility] [place] [facility] [address] [id number] [place] [address] 14 Feb, 2013 [facility] [address] [id number] [place] [address] 14 Feb, 2013 [facility] [place] [facility] [address] [id number] [place] [address] Feb, [facility] [place] [facility] [address] [id number] [place] [address] Feb, [facility] [place] [facility] [address] [id number] [place] [address] Feb, [facility] [place] [facility] [address] [id number] [place] [address] Feb, [facility] [place] [facility] [address] [id number] [place] [address] Jan, [facility] [place] [facility] [address] [id number] [place] [address] Jan, [facility] [place] [facility] [address] [id number] [place] [address] Nov, [facility] [place] [facility] [address] [id number] [place] [address] August, [facility] [place] [facility] [address] [id number] [place] [address] Jul, [facility] [place] [facility] [address] [id number] [place] [address] Jul, [facility] [place] [facility] [address] [id number] [place] [address] Jun, [facility] [place] [facility] [address] [id number] [place] [address] Jun, [facility] [place] [facility] [address] [id number] [place] [address] 16 May, 2011 [facility] [place] [facility] [address] [id number] [place] [address] Feb, [facility] [address] [id number] [address] Apr, [facility] [address], [place] [address] Mar, [facility] [id number], [place] [address] Feb, [facility] [address], [place] [address] Jan, [facility] [address] [id number], [place] [address] Jan, [facility] [id number], [place] [address] Dec, IMMUNIZATIONS No Known Immunizations SOCIAL HISTORY [...]
--- OUTSIDE RECORDS SUMMARY | 2018-10-19 16:16 | XMS REPORT ---
Author Author CADEN NARVAEZ [facility] Address [address] [place] [address] Care Team Providers Care Hydraulic Dredge Operator Name Role Phone CADEN NARVAEZ Unavailable PROBLEMS Type Condition ICD9-CM Code QMN45-IB Code Onset Dates Condition Status SNOMED Code Problem Erectile dysfunction due to diseases classified elsewhere N52.1 Active 362915234 Problem Cigarette nicotine dependence without complication F17.210 Active 41964755 Problem Diabetic polyneuropathy associated with type 1 diabetes mellitus E10.42 Active 24331598 Problem Diabetes E11.9 Active 467498498 ALLERGIES No Information ENCOUNTERS Encounter Location Date Diagnosis [facility] [id number] [place] [address] Oct, [facility] [id number] [place] [address] Sep, Diabetes E11.9 [facility] [id number] [place] [address] Sep, [facility] [id number] [place] [address] August, [facility] [id number] [place] [address] Jul, [facility] [id number] [place] [address] May, [facility] [id number] [place] [address] Mar, [facility] [id number] [place] [address] Mar, [facility] [id number] [place] [address] Feb, [facility] [id number] [place] [address] Feb, [facility] [id number] [place] [address] Feb, Diabetes E11.9 [place] [id number] [place] [address] Nov, Type 1 diabetes mellitus with other neurologic complication E10.49 [facility] [id number] [place] [address] Nov, [place] [address] [address] Nov, Diabetes E11.9 ; Erectile dysfunction due to diseases classified elsewhere N52.1 ; Diabetic polyneuropathy associated with type 1 diabetes mellitus E10.42 and Cigarette nicotine dependence without complication F17.210 [place] [id number] [place] [address] Sep, Hip fracture, left, closed, with routine healing, subsequent encounter S72.002D and Allergy, initial encounter T78.40XA [place] [id number] [place] [address] Sep, [place] [id number] [place] [address] August, Femur fracture, left S72.92XA [place] [id number] [place] [address] August, Femur fracture, left S72.92XA [place] [id number] [place] [address] August, Diabetes E11.9 and Femur fracture, left S72.92XA [facility] [id number] [place] [id number] August, [facility] [id number] [place] [address] August, [facility] [place] [facility] [address] [id number] [place] [address] August, [facility] [place] [facility] [address] [id number] [place] [address] 14 Jul, 2014 [facility] [place] [facility] [address] [id number] [place] [address] Jul, [facility] [place] [facility] [address] [id number] [place] [address] Jun, [facility] [place] [facility] [address] [id number] [place] [address] Jun, [facility] [place] [facility] [address] [id number] [place] [address] Jun, [facility] [place] [facility] [address] [id number] [place] [address] Jun, [facility] [place] [facility] [address] [id number] [place] [address] Jun, [facility] [place] [facility] [address] [id number] [place] [address] Jun, [facility] [place] [facility] [address] [id number] [place] [address] Mar, [facility] [place] [facility] [address] [id number] [place] [address] 30 Mar, 2014 [facility] [place] [facility] [address] [id number] [place] [address] Mar, [facility] [place] [facility] [address] [id number] [place] [address] 18 Mar, 2014 [facility] [place] [facility] [address] [id number] [place] [address] 15 Mar, 2014 [facility] [place] [facility] [address] [id number] [place] [address] 12 Mar, 2014 [facility] [place] [facility] [address] [id number], [place] [address] Mar, [facility] [place] [facility] [address] [id number] [place] [address] Jan, [facility] [place] [facility] [address] [id number] [place] [address] Jan, [facility] [place] [facility] [address] [id number] [place] [address] Jan, [facility] [place] [facility] [address] [id number] [place] [address] Jan, [facility] [place] [facility] [address] [id number] [place] [address] Dec, [facility] [place] [facility] [address] [id number] [place] [address] Dec, [facility] [place] [facility] [address] [id number] [place] [address] Sep, [facility] [place] [facility] [address] [id number] [place] [address] Sep, [facility] [place] [facility] [address] [facility] [id number] [place] [address] Sep, [facility] [place] [facility] [address] [facility] [id number] [place] [address] Sep, [facility] [place] [facility] [address] [id number] [place] [address] Sep, [facility] [place] [facility] [address] [id number] [place] [address] Sep, [facility] [place] [facility] [address] [id number] [place] [address] Jul, [facility] [place] [facility] [address] [id number] [place] [address] Jul, [facility] [place] [facility] [address] [facility] [id number] [place] [address] 15 Feb, 2013 [facility] [place] [facility] [address] [id number] [place] [address] 14 Feb, 2013 [facility] [address] [id number] [place] [address] 14 Feb, 2013 [facility] [place] [facility] [address] [id number] [place] [address] Feb, [facility] [place] [facility] [address] [id number] [place] [address] Feb, [facility] [place] [facility] [address] [id number] [place] [address] Feb, [facility] [place] [facility] [address] [id number] [place] [address] Feb, [facility] [place] [facility] [address] [id number] [place] [address] Jan, [facility] [place] [facility] [address] [id number] [place] [address] Jan, [facility] [place] [facility] [address] [id number] [place] [address] Nov, [facility] [place] [facility] [address] [id number] [place] [address] August, [facility] [place] [facility] [address] [id number] [place] [address] Jul, [facility] [place] [facility] [address] [id number] [place] [address] Jul, [facility] [place] [facility] [address] [id number] [place] [address] Jun, [facility] [place] [facility] [address] [id number] [place] [address] Jun, [facility] [place] [facility] [address] [id number] [place] [address] 16 May, 2011 [facility] [place] [facility] [address] [id number] [place] [address] Feb, [facility] [address] [id number] [address] Apr, [facility] [address] [place] [address] Mar, [facility] [id number] [address] Feb, [facility] [address] [place] [address] Jan, [facility] [id number] [address] Jan, [facility] [id number] [address] Dec, IMMUNIZATIONS No Known Immunizations SOCIAL HISTORY [...]
--- OUTSIDE RECORDS SUMMARY | 2018-10-19 16:16 | XMS REPORT ---
Author Author CADEN NARVAEZ [facility] Address [address] [place] [address] Care Team Providers Care Manager Store Name Role Phone CADEN NARVAEZ Unavailable PROBLEMS Type Condition ICD9-CM Code [id number] Code Onset Dates Condition Status SNOMED Code Problem Erectile dysfunction due to diseases classified elsewhere N52.1 Active 964019270 Problem Cigarette nicotine dependence without complication F17.210 Active 79962850 Problem Diabetic polyneuropathy associated with type 1 diabetes mellitus E10.42 Active 81243664 Problem Diabetes E11.9 Active 447529056 ALLERGIES No Information ENCOUNTERS Encounter Location Date Diagnosis [facility] [id number] [place] [address] Oct, [facility] [id number] [place] [address] Sep, Diabetes E11.9 [facility] [id number] [place] [address] Sep, [facility] [id number] [place] [address] August, [facility] [id number] [place] [address] Jul, [facility] [id number] [place] [address] May, [facility] [id number] [place] [address] Mar, [facility] [id number] [place] [address] Mar, [facility] [id number] [place] [address] Feb, [facility] [id number] [place] [address] Feb, [facility] [id number] [place] [address] Feb, Diabetes E11.9 [facility] [facility] [id number] [place] [address] Nov, Type 1 diabetes mellitus with other neurologic complication E10.49 [facility] [id number] [place] [address] Nov, [place] [address] [address] Nov, Diabetes E11.9 ; Erectile dysfunction due to diseases classified elsewhere N52.1 ; Diabetic polyneuropathy associated with type 1 diabetes mellitus E10.42 and Cigarette nicotine dependence without complication F17.210 [facility] [facility] [id number] [place] [address] Sep, Hip fracture, left, closed, with routine healing, subsequent encounter S72.002D and Allergy, initial encounter T78.40XA [facility] [facility] [id number] [place] [address] Sep, [facility] [facility] [id number] [place] [address] August, Femur fracture, left S72.92XA [facility] [facility] [id number] [place] [address] August, Femur fracture, left S72.92XA [place] [facility] [id number] [place] [address] August, Diabetes E11.9 and Femur fracture, left S72.92XA [facility] [id number] [place] [id number] August, [facility] [id number] [place] [address] August, [facility] [place] [facility] [address] [id number] [place] [address] August, [facility] [place] [facility] [address] [id number] [place] [address] 14 Jul, 2014 [facility] [place] [facility] [address] [id number] [place] [address] Jul, [facility] [place] [facility] [address] [id number] [place] [address] Jun, [facility] [place] [facility] [address] [id number] [place] [address] Jun, [facility] [place] [facility] [address] [id number] [place] [address] Jun, [facility] [place] [facility] [address] [id number] [place] [address] Jun, [facility] [place] [facility] [address] [id number] [place] [address] Jun, [facility] [place] [facility] [address] [id number] [place] [address] Jun, [facility] [place] [facility] [address] [id number] [place] [address] Mar, [facility] [place] [facility] [address] [id number] [place] [address] 30 Mar, 2014 [facility] [place] [facility] [address] [id number] [place] [address] Mar, [facility] [place] [facility] [address] [id number] [place] [address] 18 Mar, 2014 [facility] [place] [facility] [address] [id number] [place] [address] 15 Mar, 2014 [facility] [place] [facility] [address] [id number] [place] [address] 12 Mar, 2014 [facility] [place] [facility] [address] [id number], [place] [address] Mar, [facility] [place] [facility] [address] [id number] [place] [address] Jan, [facility] [place] [facility] [address] [id number] [place] [address] Jan, [facility] [place] [facility] [address] [id number] [place] [address] Jan, [facility] [place] [facility] [address] [id number] [place] [address] Jan, [facility] [place] [facility] [address] [id number] [place] [address] Dec, [facility] [place] [facility] [address] [id number] [place] [address] Dec, [facility] [place] [facility] [address] [id number] [place] [address] Sep, [facility] [place] [facility] [address] [id number] [place] [address] Sep, [facility] [place] [facility] [address] [facility] [id number] [place] [address] Sep, [facility] [place] [facility] [address] [facility] [id number] [place] [address] Sep, [facility] [place] [facility] [address] [id number] [place] [address] Sep, [facility] [place] [facility] [address] [id number] [place] [address] Sep, [facility] [place] [facility] [address] [id number] [place] [address] Jul, [facility] [place] [facility] [address] [id number] [place] [address] Jul, [facility] [place] [facility] [address] [facility] [id number] [place] [address] 15 Feb, 2013 [facility] [place] [facility] [address] [id number] [place] [address] 14 Feb, 2013 [facility] [address] [id number] [place] [address] 14 Feb, 2013 [facility] [place] [facility] [address] [id number] [place] [address] Feb, [facility] [place] [facility] [address] [id number] [place] [address] Feb, [facility] [place] [facility] [address] [id number] [place] [address] Feb, [facility] [place] [facility] [address] [id number] [place] [address] Feb, [facility] [place] [facility] [address] [id number] [place] [address] Jan, [facility] [place] [facility] [address] [id number] [place] [address] Jan, [facility] [place] [facility] [address] [id number] [place] [address] Nov, [facility] [place] [facility] [address] [id number] [place] [address] August, [facility] [place] [facility] [address] [id number] [place] [address] Jul, [facility] [place] [facility] [address] [id number] [place] [address] Jul, [facility] [place] [facility] [address] [id number] [place] [address] Jun, [facility] [place] [facility] [address] [id number] [place] [address] Jun, [facility] [place] [facility] [address] [id number] [place] [address] 16 May, 2011 [facility] [place] [facility] [address] [id number] [place] [address] Feb, [facility] [id number] [address] Apr, [facility] [address] [place] [address] Mar, [facility] [id number] [address] Feb, [facility] [address], [place] [address] Jan, [facility] [id number] [address] Jan, [facility] [id number] [address] Dec, IMMUNIZATIONS No Known Immunizations SOCIAL HISTORY Never Assessed REASON FOR VISIT Upload request PLAN OF CARE VITAL SIGNS MEDICATIONS Unknown Medications RESULTS No Results PROCEDURES No Known procedures INSTRUCTIONS MEDICATIONS ADMINISTERED No Known Medications MEDICAL (GENERAL) HISTORY Type Description Date Medical History Diabetes Surgical History Left hip surgery 2017 Surgical History tonsilectomy Hospitalization History [facility] 2016
--- OUTSIDE RECORDS SUMMARY | 2018-10-19 16:16 | XMS REPORT ---
Author Author CADEN NARVAEZ Organization [facility] Address [address] [place] [address] Care Team Providers Care [employer] Carver Name Role Phone CADEN NARVAEZ Unavailable PROBLEMS Type Condition ICD9-CM Code UHX84-JN Code Onset Dates Condition Status SNOMED Code Problem Erectile dysfunction due to diseases classified elsewhere N52.1 Active 016129589 Problem Cigarette nicotine dependence without complication F17.210 Active 99266169 Problem Diabetic polyneuropathy associated with type 1 diabetes mellitus E10.42 Active 19911827 Problem Diabetes E11.9 Active 408093446 ALLERGIES Substance Reaction Event Type Date Status Prozac shortness of breath Drug Allergy Sep, Active ENCOUNTERS Encounter Location Date Diagnosis [facility] [address] [address] Oct, [facility] [address] [address] Sep, Diabetes E11.9 [facility] [address] [address] Sep, [facility] [address] [address] August, [facility] [address] [place] [address] Jul, [facility] [address] [place] [address] May, [facility] [address] [place] [address] Mar, [facility] [address] [place] [address] Mar, [facility] [id number] [address] Feb, [facility] [id number] [place] [address] Feb, [facility] [id number] [place] [address] Feb, Diabetes E11.9 [facility] [facility] [id number] [place] [address] Nov, Type 1 diabetes mellitus with other neurologic complication E10.49 [facility] [id number] [place] [address] Nov, [facility] [id number] [place] [address] Nov, Diabetes E11.9 ; Erectile dysfunction due to diseases classified elsewhere N52.1 ; Diabetic polyneuropathy associated with type 1 diabetes mellitus E10.42 and Cigarette nicotine dependence without complication F17.210 [place] [id number] [address] Sep, Hip fracture, left, closed, with routine healing, subsequent encounter S72.002D and Allergy, initial encounter T78.40XA [place] [address] [address] Sep, [facility] [id number] [address] August, Femur fracture, left S72.92XA [place] [id number] [place] [address] August, Femur fracture, left S72.92XA [place] [id number] [place] [address] August, Diabetes E11.9 and Femur fracture, left S72.92XA [facility] [id number] [place] [id number] August, [facility] [id number] [place] [address] August, [facility] [address] [id number] [place] [address] August, [facility] [place] [facility] [address] [id number] [place] [address] 14 Jul, 2014 [facility] [place] [facility] [address] [id number] [place] [address] Jul, [facility] [place] [facility] [address] [id number] [place] [address] 24 Jun, 2014 [facility] [place] [facility] [address] [id number] [place] [address] Jun, [facility] [place] [facility] [address] [id number] [place] [address] Jun, [facility] [place] [facility] [address] [id number] [place] [address] Jun, [facility] [place] [facility] [address] [id number] [place] [address] Jun, [facility] [place] [facility] [address] [id number] [place] [address] Jun, [facility] [place] [facility] [address] [facility] [id number] [place] [address] Mar, [facility] [place] [facility] [address] [id number] [place] [address] 30 Mar, 2014 [facility] [place] [facility] [address] [id number] [place] [address] 18 Mar, 2014 [facility] [place] [facility] [address] [id number] [place] [address] 18 Mar, 2014 [facility] [place] [facility] [address] [id number] [place] [address] 15 Mar, 2014 [facility] [place] [facility] [address] [id number] [place] [address] Mar, [facility] [place] [facility] [address] [id number] [place] [address] Mar, [facility] [place] [facility] [address] [id number] [place] [address] Jan, [facility] [place] [facility] [address] [id number] [place] [address] Jan, [facility] [place] [facility] [address] [id number] [place] [address] Jan, [facility] [place] [facility] [address] [id number] [place] [address] Jan, [facility] [place] [facility] [address] [id number] [place] [address] Dec, [facility] [place] [facility] [address] [id number] [place] [address] Dec, [facility] [place] [facility] [address] [id number] [place] [address] Sep, [facility] [place] [facility] [address] [id number] [place] [address] Sep, [facility] [place] [facility] [address] [id number] [place] [address] Sep, [facility] [place] [facility] [address] [id number] [place] [address] Sep, [facility] [place] [facility] [address] [id number] [place] [address] Sep, [facility] [place] [facility] [address] [id number] [place] [address] Sep, [facility] [place] [facility] [address] [id number] [place] [address] Jul, [facility] [place] [facility] [address] [id number] [place] [address] Jul, [facility] [place] [facility] [address] [id number] [address] Feb, [facility] [place] [facility] [address] [id number] [place] [address] Feb, [facility] [place] [facility] [address] [id number] [place] [address] Feb, [facility] [place] [facility] [address] [id number] [place] [address] Feb, [facility] [place] [facility] [address] [id number] [place] [address] Feb, [facility] [place] [facility] [address] [id number] [place] [address] Feb, [facility] [place] [facility] [address] [id number] [place] [address] Feb, [facility] [place] [facility] [address] [id number] [place] [address] Jan, [facility] [place] [facility] [address] [id number] [place] [address] Jan, [facility] [place] [facility] [address] [id number] [place] [address] Nov, [facility] [place] [facility] [address] [id number] [place] [address] August, [facility] [place] [facility] [address] [id number] [address] Jul, [facility] [place] [facility] [address] [id number] [address] Jul, [facility] [place] [facility] [address] [id number] [place] [address] Jun, [facility] [place] [facility] [address] [id number] [place] [address] Jun, [facility] [place] [facility] [address] [id number] [place] [address] May, [facility] [place] [facility] [id number] [address] 07 Feb, 2011 [facility] [id number] [address] Apr, [facility] [address], [place] [address] Mar, [facility] [id number], [place] [address] Feb, [facility] [address], [place] [address] Jan, [facility] [address], [place] [address] Jan, [facility] [id number], [place] [address] Dec, IMMUNIZATIONS No Known Immunizations SOCIAL HISTORY Never Assessed REASON FOR VISIT Diabetes -Freeman STEEN , A1C, PHQ2, AUDIT C PLAN OF CARE Activity Details Follow Up 3 Months Reason: VITAL SIGNS Height 72 in 2017-10-07 Weight 168.2 lbs 2017-10-07 Temperature 97.8 degrees Fahrenheit 2017-10-07 Heart Rate 103 bpm 2017-10-07 Respiratory Rate 18 2017-10-07 Oximetry on room air:94 % 2017-10-07 BMI 22.81 kg/m2 2017-10-07 Blood pressure systolic 115 mmHg 2017-10-07 Blood pressure diastolic 72 mmHg 2017-10-07 MEDICATIONS Medication Instructions Dosage Frequency Start Date End Date Duration Status Comfort Assist Insulin Syringe 1 mL FOUR TIMES A DAY 25 Active Humalog 100 UNIT/ML DX E10.42 per insulin pump 80 units daily Jun, Active Blood Glucose Test - Elena Contour Next and lancets DX E10.42 Test 8 times daily on insulin pump test blood sugar Nov, Active Humalog 100 INJECT 80 UNITS UNDER THE SKIN DAILY PER INSULIN PUMP 25 Active AgaMatrix Ultra-Thin Lancets 33 USE ONE LANCET TO TEST FOUR TIMES A DAY 25 Active RESULTS Name Result Date Reference Range A1C (IN HOUSE) 2017-10-07 A1C IN HOUSE 9.7 4.3 - 5.6 % Previous A1c 9.6 Lot [id number] Exp date 06/2019 PROCEDURES Procedure Date Ordered Result Body Site GLYCATED HEMOGLOBIN TEST October 07, 2017 INSTRUCTIONS MEDICATIONS ADMINISTERED No Known Medications MEDICAL (GENERAL) HISTORY Type Description Date Medical History Diabetes Surgical History Left hip surgery 2016 Surgical History tonsilectomy Hospitalization History [facility] 2016
--- OUTSIDE RECORDS SUMMARY | 2018-10-19 16:17 | XMS REPORT ---
Author Author CADEN NARVAEZ Organization [facility] Address [address] [place] [address] Care Team Providers Care Stained Glass Glazier Name Role Phone CADEN NARVAEZ Unavailable PROBLEMS Type Condition ICD9-CM Code XMV28-YS Code Onset Dates Condition Status SNOMED Code Problem Erectile dysfunction due to diseases classified elsewhere N52.1 Active 249661275 Problem Cigarette nicotine dependence without complication F17.210 Active 84817835 Problem Diabetic polyneuropathy associated with type 1 diabetes mellitus E10.42 Active 54985259 Problem Diabetes E11.9 Active 777466966 ALLERGIES No Information ENCOUNTERS Encounter Location Date Diagnosis [facility] [id number] [place] [address] August, [facility] [id number] [place] [address] Jul, [facility] [id number] [place] [address] May, [facility] [id number] [place] [address] Mar, [facility] [id number] [place] [address] Mar, [facility] [id number] [place] [address] Feb, [facility] [id number] [place] [address] Feb, [facility] [id number] [place] [address] Feb, Diabetes E11.9 [facility] [id number] [place] [address] Nov, Type 1 diabetes mellitus with other neurologic complication E10.49 [facility] [id number] [place] [address] Nov, [facility] [id number] [place] [address] Nov, Diabetes E11.9 ; Erectile dysfunction due to diseases classified elsewhere N52.1 ; Diabetic polyneuropathy associated with type 1 diabetes mellitus E10.42 and Cigarette nicotine dependence without complication F17.210 [facility] [id number] [place] [address] Sep, Hip fracture, left, closed, with routine healing, subsequent encounter S72.002D and Allergy, initial encounter T78.40XA [facility] [address] [address] Sep, [facility] [address] [address] August, Femur fracture, left S72.92XA [facility] [id number] [place] [address] August, Femur fracture, left S72.92XA [facility] [id number] [place] [address] August, Diabetes E11.9 and Femur fracture, left S72.92XA [facility] [address] [id number] August, [facility] [id number] [place] [address] August, [facility] [id number] [place] [address] August, [facility] [id number] [place] [address] Jul, [facility] [id number] [place] [address] Jul, [facility] [place] [facility] [address] [id number] [place] [address] Jun, 2014 [facility] [place] [facility] [address] [id number] [place] [address] Jun, [facility] [place] [facility] [address] [id number] [place] [address] Jun, 2014 [facility] [place] [facility] [address] [id number] [place] [address] Jun, 2014 [facility] [place] [facility] [address] [id number] [place] [address] Jun, 2014 [facility] [place] [facility] [address] [id number] [place] [address] Jun, 2014 [facility] [place] [facility] [address] [id number] [place] [address] Mar, [facility] [place] [facility] [address] [id number] [place] [address] 30 Mar, 2014 [facility] [place] [facility] [address] [id number] [place] [address] Mar, [facility] [place] [facility] [address] [id number] [place] [address] Mar, [facility] [place] [facility] [address] [id number] [place] [address] 15 Mar, 2014 [facility] [place] [facility] [address] [id number] [place] [address] Mar, [facility] [place] [facility] [address] [id number] [place] [address] Mar, [facility] [place] [facility] [address] [id number] [place] [address] Jan, [facility] [place] [facility] [address] [id number] [place] [address] Jan, [facility] [place] [facility] [address] [id number] [place] [address] Jan, [facility] [place] [facility] [address] [id number] [place] [address] Jan, [facility] [place] [facility] [address] [id number] [place] [address] 16 Dec, 2013 [facility] [place] [facility] [address] [id number] [place] [address] 16 Dec, 2013 [facility] [place] [facility] [address] [id number] [place] [address] 20 Sep, 2013 [facility] [place] [facility] [address] [id number] [place] [address] Sep, [facility] [place] [facility] [address] [id number] [place] [address] 17 Sep, 2013 [facility] [place] [facility] [address] [id number] [place] [address] Sep, [facility] [place] [facility] [address] [id number] [place] [address] Sep, [facility] [place] [facility] [address] [id number] [place] [address] Sep, [facility] [place] [facility] [address] [id number] [place] [address] Jul, [facility] [place] [facility] [address] [id number] [place] [address] Jul, [facility] [place] [facility] [address] [id number], [place] [address] 15 Feb, 2013 [facility] [place] [facility] [address] [id number] [place] [address] 14 Feb, 2013 [facility] [place] [facility] [address] [id number] [place] [address] 14 Feb, 2013 [facility] [place] [facility] [address] [id number] [place] [address] 12 Feb, 2013 [facility] [place] [facility] [address] [id number] [place] [address] Feb, [facility] [address] [id number] [place] [address] Feb, [facility] [address] [id number] [place] [address] Feb, [facility] [address] [id number] [place] [address] Jan, [facility] [address] [id number] [place] [address] Jan, [facility] [address] [id number] [place] [address] Nov, [facility] [address] [id number] [place] [address] August, [facility] [address] [id number] [place] [address] Jul, [facility] [address] [id number] [place] [address] Jul, [facility] [place] [address] [id number] [place] [address] Jun, [facility] [address] [id number] [place] [address] Jun, [facility] [place] [address] [id number] [place] [address] May, [facility] [address] [id number] [place] [address] Feb, [facility] [address] [id number] [place] [address] Apr, [facility] [address] [id number] [place] [address] Mar, [facility] [address] [id number] [place] [address] Feb, [facility] [address] [facility] [id number] [place] [address] Jan, [facility] [address] [facility] [id number] [place] [address] Jan, [facility] [address] [facility] [id number] [place] [address] Dec, IMMUNIZATIONS No Known Immunizations SOCIAL HISTORY Never Assessed REASON FOR VISIT PA for Contour Next PLAN OF CARE VITAL SIGNS MEDICATIONS Unknown Medications RESULTS No Results PROCEDURES No Known procedures INSTRUCTIONS MEDICATIONS ADMINISTERED No Known Medications MEDICAL (GENERAL) HISTORY Type Description Date Medical History Diabetes Surgical History Left hip surgery 2016 Surgical History tonsilectomy Hospitalization History [facility]
--- OUTSIDE RECORDS SUMMARY | 2018-10-19 16:17 | XMS REPORT ---
Author Author CADEN NARVAEZ Organization [facility] Address [address] [place] [address] Care Team Providers Care Elevator Service Technician Name Role Phone CADEN NARVAEZ Unavailable PROBLEMS Type Condition ICD9-CM Code NYX34-ZH Code Onset Dates Condition Status SNOMED Code Problem Erectile dysfunction due to diseases classified elsewhere N52.1 Active 476073064 Problem Cigarette nicotine dependence without complication F17.210 Active 82449824 Problem Diabetic polyneuropathy associated with type 1 diabetes mellitus E10.42 Active 41585128 Problem Diabetes E11.9 Active 651969223 ALLERGIES No Information ENCOUNTERS Encounter Location Date Diagnosis [facility] [id number] [place] [address] May, [facility] [id number] [place] [address] Mar, [facility] [id number] [place] [address] Mar, [facility] [id number] [place] [address] Feb, [facility] [id number] [place] [address] Feb, [facility] [id number] [place] [address] Feb, Diabetes E11.9 [facility] [address] [address] Nov, Type 1 diabetes mellitus with other neurologic complication E10.49 [facility] [id number] [place] [address] Nov, [facility] [id number] [place] [address] Nov, Diabetes E11.9 ; Erectile dysfunction due to diseases classified elsewhere N52.1 ; Diabetic polyneuropathy associated with type 1 diabetes mellitus E10.42 and Cigarette nicotine dependence without complication F17.210 [facility] [id number] [place] [address] 23 Sep, 2016 Hip fracture, left, closed, with routine healing, subsequent encounter S72.002D and Allergy, initial encounter T78.40XA [facility] [id number] [place] [address] Sep, [facility] [id number] [place] [address] August, Femur fracture, left S72.92XA [facility] [id number] [place] [address] August, Femur fracture, left S72.92XA [facility] [id number] [place] [address] August, Diabetes E11.9 and Femur fracture, left S72.92XA [facility] [id number] [place] [id number] August, [facility] [address] [place] [address] August, [facility] [id number] [place] [address] August, [facility] [id number] [place] [address] Jul, [facility] [id number] [place] [address] Jul, [facility] [id number] [place] [address] Jun, [facility] [id number] [place] [address] Jun, [facility] [place] [facility] [address] [id number] [place] [address] 04 Jun, 2014 [facility] [place] [facility] [address] [id number] [place] [address] Jun, 2014 [facility] [place] [facility] [address] [id number] [place] [address] Jun, 2014 [facility] [place] [facility] [address] [id number] [place] [address] Jun, 2014 [facility] [place] [facility] [address] [id number] [place] [address] Mar, [facility] [place] [facility] [address] [id number] [place] [address] Mar, [facility] [place] [facility] [address] [id number] [place] [address] Mar, [facility] [place] [facility] [address] [id number] [place] [address] Mar, [facility] [place] [facility] [address] [id number] [place] [address] Mar, [facility] [place] [facility] [address] [id number] [place] [address] Mar, [facility] [place] [facility] [address] [id number] [place] [address] Mar, [facility] [place] [facility] [address] [id number] [place] [address] Jan, [facility] [place] [facility] [address] [id number] [place] [address] Jan, [facility] [place] [facility] [address] [id number] [place] [address] Jan, [facility] [place] [facility] [address] [id number] [place] [address] Jan, [facility] [place] [facility] [address] [id number] [place] [address] 16 Dec, 2013 [facility] [place] [facility] [address] [id number] [place] [address] 16 Dec, 2013 [facility] [place] [facility] [address] [id number] [place] [address] 20 Sep, 2013 [facility] [place] [facility] [address] [id number] [place] [address] 20 Sep, 2013 [facility] [place] [facility] [address] [id number] [place] [address] 17 Sep, 2013 [facility] [place] [facility] [address] [id number] [place] [address] 17 Sep, 2013 [facility] [place] [facility] [address] [id number] [place] [address] 10 Sep, 2013 [facility] [place] [facility] [address] [id number] [place] [address] Sep, [facility] [place] [facility] [address] [id number] [place] [address] Jul, [facility] [place] [facility] [address] [id number] [place] [address] 2013 [facility] [place] [facility] [address] [id number] [place] [address] 15 Feb, 2013 [facility] [place] [facility] [address] [id number] [place] [address] 14 Feb, 2013 [facility] [place] [facility] [address] [id number] [place] [address] 14 Feb, 2013 [facility] [place] [facility] [address] [id number] [place] [address] 12 Feb, 2013 [facility] [place] [facility] [address] [id number] [place] [address] 12 Feb, 2013 [facility] [place] [facility] [address] [id number] [place] [address] 05 Feb, 2013 [facility] [place] [facility] [address] [id number] [place] [address] Feb, [facility] [address] [id number] [place] [address] Jan, [facility] [address] [id number] [place] [address] Jan, [facility] [address] [id number] [place] [address] Nov, [facility] [address] [id number] [place] [address] August, [facility] [address] [id number] [place] [address] Jul, [facility] [address] [id number] [place] [address] Jul, [facility] [address] [id number] [place] [address] Jun, [facility] [address] [id number] [place] [address] Jun, [facility] [address] [id number] [place] [address] May, [facility] [address] [id number] [place] [address] Feb, [facility] [address] [id number] [place] [address] Apr, [facility] [address] [id number] [place] [address] Mar, [facility] [address] [id number] [place] [address] Feb, [facility] [address] [id number] [place] [address] Jan, [facility] [address] [id number] [place] [address] Jan, [facility] [address] [facility] [id number] [place] [address] Dec, IMMUNIZATIONS No Known Immunizations SOCIAL HISTORY Never Assessed REASON FOR VISIT Controlled Med Refill PLAN OF CARE VITAL SIGNS MEDICATIONS Unknown Medications RESULTS No Results PROCEDURES No Known procedures INSTRUCTIONS MEDICATIONS ADMINISTERED No Known Medications MEDICAL (GENERAL) HISTORY Type Description Date Medical History Diabetes Surgical History Left hip surgery 2016 Surgical History tonsilectomy Hospitalization History [facility] for [facility] 2016
--- OUTSIDE RECORDS SUMMARY | 2018-10-19 16:17 | XMS REPORT ---
Author Author CADEN NARVAEZ Organization [facility] Address [address] [place] [address] Care Team Providers Care Loan Counselor Name Role Phone CADEN NARVAEZ Unavailable PROBLEMS Type Condition ICD9-CM Code [id number] Code Onset Dates Condition Status SNOMED Code Problem Erectile dysfunction due to diseases classified elsewhere N52.1 Active 139452993 Problem Cigarette nicotine dependence without complication F17.210 Active 06353064 Problem Diabetic polyneuropathy associated with type 1 diabetes mellitus E10.42 Active 76752531 Problem Diabetes E11.9 Active 435645759 ALLERGIES No Information ENCOUNTERS Encounter Location Date Diagnosis [facility] [id number] [place] [phone] August, [facility] [id number] [place] [address] Jul, [facility] [id number] [place] [address] May, [facility] [id number] [place] [address] Mar, [facility] [id number] [place] [address] Mar, [facility] [id number] [place] [address] Feb, [facility] [id number] [place] [address] Feb, [facility] [id number] [place] [address] Feb, Diabetes E11.9 [facility] [id number] [place] [address] Nov, Type 1 diabetes mellitus with other neurologic complication E10.49 [facility] [id number] [place] [address] Nov, [facility] [id number] [place] [address] Nov, Diabetes E11.9 ; Erectile dysfunction due to diseases classified elsewhere N52.1 ; Diabetic polyneuropathy associated with type 1 diabetes mellitus E10.42 and Cigarette nicotine dependence without complication F17.210 [facility] [id number] [place] [address] Sep, Hip fracture, left, closed, with routine healing, subsequent encounter S72.002D and Allergy, initial encounter T78.40XA [facility] [address] [address] Sep, [facility] [address] [address] August, Femur fracture, left S72.92XA [place] [id number] [place] [address] August, Femur fracture, left S72.92XA [facility] [id number] [place] [address] August, Diabetes E11.9 and Femur fracture, left S72.92XA [facility] [address] [id number] August, [facility] [id number] [place] [address] August, [facility] [id number] [place] [address] August, [facility] [id number] [place] [address] Jul, [facility] [id number] [place] [address] Jul, [facility] [place] [facility] [address] [id number] [place] [address] Jun, 2014 [facility] [place] [facility] [address] [id number] [place] [address] Jun, [facility] [place] [facility] [address] [id number] [place] [address] Jun, 2014 [facility] [place] [facility] [address] [id number] [place] [address] Jun, 2014 [facility] [place] [facility] [address] [id number] [place] [address] Jun, 2014 [facility] [place] [facility] [address] [id number] [place] [address] Jun, 2014 [facility] [place] [facility] [address] [id number] [place] [address] Mar, [facility] [place] [facility] [address] [id number] [place] [address] 30 Mar, 2014 [facility] [place] [facility] [address] [id number] [place] [address] Mar, [facility] [place] [facility] [address] [id number] [place] [address] Mar, [facility] [place] [facility] [address] [id number] [place] [address] 15 Mar, 2014 [facility] [place] [facility] [address] [id number] [place] [address] Mar, [facility] [place] [facility] [address] [id number] [place] [address] Mar, [facility] [place] [facility] [address] [id number] [place] [address] Jan, [facility] [place] [facility] [address] [id number] [place] [address] Jan, [facility] [place] [facility] [address] [id number] [place] [address] Jan, [facility] [place] [facility] [address] [id number] [place] [address] Jan, [facility] [place] [facility] [address] [id number] [place] [address] 16 Dec, 2013 [facility] [place] [facility] [address] [id number] [place] [address] 16 Dec, 2013 [facility] [place] [facility] [address] [id number] [place] [address] 20 Sep, 2013 [facility] [place] [facility] [address] [id number] [place] [address] Sep, [facility] [place] [facility] [address] [id number] [place] [address] 17 Sep, 2013 [facility] [place] [facility] [address] [id number] [place] [address] Sep, [facility] [place] [facility] [address] [id number] [place] [address] Sep, [facility] [place] [facility] [address] [id number] [place] [address] Sep, [facility] [place] [facility] [address] [id number] [place] [address] Jul, [facility] [place] [facility] [address] [id number] [place] [address] Jul, [facility] [place] [facility] [address] [id number] [address] 15 Feb, 2013 [facility] [place] [facility] [address] [id number] [place] [address] 14 Feb, 2013 [facility] [place] [facility] [address] [id number] [place] [address] 14 Feb, 2013 [facility] [place] [facility] [address] [id number] [place] [address] 12 Feb, 2013 [facility] [place] [facility] [address] [id number] [place] [address] Feb, [facility] [address] [id number] [place] [address] Feb, [facility] [address] [id number] [place] [address] Feb, [facility] [address] [id number] [place] [address] Jan, [facility] [address] [id number] [place] [address] Jan, [facility] [address] [id number] [place] [address] Nov, [facility] [address] [id number] [place] [address] August, [facility] [address] [id number] [place] [address] Jul, [facility] [address] [id number] [place] [address] Jul, [facility] [address] [id number] [place] [address] Jun, [facility] [address] [id number] [place] [address] Jun, [facility] [address] [id number] [place] [address] May, [facility] [address] [id number] [place] [address] Feb, [facility] [address] [id number] [place] [address] Apr, [facility] [address] [id number] [place] [address] Mar, [facility] [address] [id number] [place] [address] Feb, [facility] [address] [facility] [id number] [place] [address] Jan, [facility] [address] [facility] [id number] [place] [address] Jan, [facility] [address] [facility] [id number] [place] [address] Dec, IMMUNIZATIONS No Known Immunizations SOCIAL HISTORY Never Assessed REASON FOR VISIT insulin pump update PLAN OF CARE VITAL SIGNS MEDICATIONS Unknown Medications RESULTS No Results PROCEDURES No Known procedures INSTRUCTIONS MEDICATIONS ADMINISTERED No Known Medications MEDICAL (GENERAL) HISTORY Type Description Date Medical History Diabetes Surgical History Left hip surgery 2016 Surgical History tonsilectomy Hospitalization History [facility]
--- OUTSIDE RECORDS SUMMARY | 2018-10-19 16:17 | XMS REPORT ---
Author Author DAVE ALONSO Organization [facility] Address [address] [place] [address] Care Team Providers Care 1St Pressman Name Role Phone DAVE ALONSO Unavailable PROBLEMS Type Condition ICD9-CM Code [id number] Code Onset Dates Condition Status SNOMED Code Problem Erectile dysfunction due to diseases classified elsewhere N52.1 Active 989698228 Problem Cigarette nicotine dependence without complication F17.210 Active 01717793 Problem Diabetic polyneuropathy associated with type 1 diabetes mellitus E10.42 Active 20804658 Problem Diabetes E11.9 Active 081379633 ALLERGIES No Information SOCIAL HISTORY Never Assessed PLAN OF CARE VITAL SIGNS MEDICATIONS Medication Instructions Dosage Frequency Start Date End Date Duration Status Coumadin 5 mg Orally Once a day 1 tablet 24h Active Novolin R 100 UNIT/ML Injection 3 times a day 10-15 units based on carb counting 8h Active Bisacodyl 5 MG Orally Once a day 1 tablet as needed 24h Active Hydrocodone-Acetaminophen 5-325 MG Orally every 6 hrs 1-2 tablet as needed 6h Active RESULTS No Results PROCEDURES No Known procedures IMMUNIZATIONS No Known Immunizations MEDICAL (GENERAL) HISTORY Type Description Date Medical History Diabetes Surgical History Left hip surgery 2016 Surgical History tonsilectomy Hospitalization History [facility]
--- OUTSIDE RECORDS SUMMARY | 2018-10-19 16:17 | XMS REPORT ---
Author Author CADEN NARVAEZ [facility] Address [address] [place] [address] Care Team Providers Care Burial Needs Salesperson Name Role Phone CADEN NARVAEZ Unavailable PROBLEMS Type Condition ICD9-CM Code [id number] Code Onset Dates Condition Status SNOMED Code Problem Erectile dysfunction due to diseases classified elsewhere N52.1 Active 975309907 Problem Cigarette nicotine dependence without complication F17.210 Active 25257696 Problem Diabetic polyneuropathy associated with type 1 diabetes mellitus E10.42 Active 93276746 Problem Diabetes E11.9 Active 307111555 ALLERGIES No Information SOCIAL HISTORY Never Assessed PLAN OF CARE VITAL SIGNS MEDICATIONS Medication Instructions Dosage Frequency Start Date End Date Duration Status Hydrocodone-Acetaminophen 10-325 MG Orally every 6 hrs 1tablet as needed 6h August, 14 days Active RESULTS No Results PROCEDURES No Known procedures IMMUNIZATIONS No Known Immunizations MEDICAL (GENERAL) HISTORY Type Description Date Medical History Diabetes Surgical History Left hip surgery 2016 Surgical History tonsilectomy Hospitalization History [facility]
--- OUTSIDE RECORDS SUMMARY | 2018-10-19 16:17 | XMS REPORT ---
Author Author CADEN NARVAEZ Organization [facility] Address [address] [place] [address] Care Team Providers Care Quality Officer Name Role Phone CADEN NARVAEZ Unavailable PROBLEMS Type Condition ICD9-CM Code RVU17-DO Code Onset Dates Condition Status SNOMED Code Problem Erectile dysfunction due to diseases classified elsewhere N52.1 Active 695396653 Problem Cigarette nicotine dependence without complication F17.210 Active 10463301 Problem Diabetic polyneuropathy associated with type 1 diabetes mellitus E10.42 Active 90308476 Problem Diabetes E11.9 Active 558770533 ALLERGIES No Information ENCOUNTERS Encounter Location Date Diagnosis [facility] [id number] [place] [address] August, [facility] [id number] [place] [address] Jul, [facility] [id number] [place] [address] May, [facility] [id number] [place] [address] Mar, [facility] [id number] [place] [address] Mar, [facility] [id number] [place] [address] Feb, [facility] [id number] [place] [address] Feb, [facility] [id number] [place] [address] Feb, Diabetes E11.9 [facility] [id number] [place] [address] Nov, Type 1 diabetes mellitus with other neurologic complication E10.49 [facility] [id number] [place] [address] Nov, [facility] [id number] [place] [address] Nov, Diabetes E11.9 ; Erectile dysfunction due to diseases classified elsewhere N52.1 ; Diabetic polyneuropathy associated with type 1 diabetes mellitus E10.42 and Cigarette nicotine dependence without complication F17.210 [facility] [id number] [place] [address] Sep, Hip fracture, left, closed, with routine healing, subsequent encounter S72.002D and Allergy, initial encounter T78.40XA [facility] [address] [address] Sep, [facility] [address] [address] August, Femur fracture, left S72.92XA [place] [id number] [place] [address] August, Femur fracture, left S72.92XA [facility] [id number] [place] [address] August, Diabetes E11.9 and Femur fracture, left S72.92XA [facility] [address] [id number] August, [facility] [id number] [place] [address] August, [facility] [id number] [place] [address] August, [facility] [id number] [place] [address] Jul, [facility] [id number] [place] [address] Jul, [facility] [place] [facility] [address] [id number] [place] [address] Jun, 2014 [facility] [place] [facility] [address] [id number] [place] [address] Jun, [facility] [place] [facility] [address] [id number] [place] [address] Jun, 2014 [facility] [place] [facility] [address] [id number] [place] [address] Jun, 2014 [facility] [place] [facility] [address] [id number] [place] [address] Jun, 2014 [facility] [place] [facility] [address] [id number] [place] [address] Jun, 2014 [facility] [place] [facility] [address] [id number] [place] [address] Mar, [facility] [place] [facility] [address] [id number] [place] [address] 30 Mar, 2014 [facility] [place] [facility] [address] [id number] [place] [address] Mar, [facility] [place] [facility] [address] [id number] [place] [address] Mar, [facility] [place] [facility] [address] [id number] [place] [address] 15 Mar, 2014 [facility] [place] [facility] [address] [id number] [place] [address] Mar, [facility] [place] [facility] [address] [id number] [place] [address] Mar, [facility] [place] [facility] [address] [id number] [place] [address] Jan, [facility] [place] [facility] [address] [id number] [place] [address] Jan, [facility] [place] [facility] [address] [id number] [place] [address] Jan, [facility] [place] [facility] [address] [id number] [place] [address] Jan, [facility] [place] [facility] [address] [id number] [place] [address] 16 Dec, 2013 [facility] [place] [facility] [address] [id number] [place] [address] 16 Dec, 2013 [facility] [place] [facility] [address] [id number] [place] [address] 20 Sep, 2013 [facility] [place] [facility] [address] [id number] [place] [address] Sep, [facility] [place] [facility] [address] [id number] [place] [address] 17 Sep, 2013 [facility] [place] [facility] [address] [id number] [place] [address] Sep, [facility] [place] [facility] [address] [id number] [place] [address] Sep, [facility] [place] [facility] [address] [id number] [place] [address] Sep, [facility] [place] [facility] [address] [id number] [place] [address] Jul, [facility] [place] [facility] [address] [id number] [place] [address] Jul, [facility] [place] [facility] [address] [id number], [place] [address] 15 Feb, 2013 [facility] [place] [facility] [address] [id number] [place] [address] 14 Feb, 2013 [facility] [place] [facility] [address] [id number] [place] [address] 14 Feb, 2013 [facility] [place] [facility] [address] [id number] [place] [address] 12 Feb, 2013 [facility] [place] [facility] [address] [id number] [place] [address] Feb, [facility] [address] [id number] [place] [address] Feb, [facility] [address] [id number] [place] [address] Feb, [facility] [address] [id number] [place] [address] Jan, [facility] [address] [id number] [place] [address] Jan, [facility] [address] [id number] [place] [address] Nov, [facility] [address] [id number] [place] [address] August, [facility] [address] [id number] [place] [address] Jul, [facility] [address] [id number] [place] [address] Jul, [facility] [address] [id number] [place] [address] Jun, [facility] [address] [id number] [place] [address] Jun, [facility] [address] [id number] [place] [address] May, [facility] [address] [id number] [place] [address] Feb, [facility] [address] [id number] [place] [address] Apr, [facility] [address] [id number] [place] [address] Mar, [facility] [address] [id number] [place] [address] Feb, [facility] [address] [facility] [id number] [place] [address] Jan, [facility] [address] [facility] [id number] [place] [address] Jan, [facility] [address] [facility] [id number] [place] [address] Dec, IMMUNIZATIONS No Known Immunizations SOCIAL HISTORY Never Assessed REASON FOR VISIT upload insulin pump PLAN OF CARE VITAL SIGNS MEDICATIONS Unknown Medications RESULTS No Results PROCEDURES No Known procedures INSTRUCTIONS MEDICATIONS ADMINISTERED No Known Medications MEDICAL (GENERAL) HISTORY Type Description Date Medical History Diabetes Surgical History Left hip surgery 2016 Surgical History tonsilectomy Hospitalization History [facility] 2016
--- OUTSIDE RECORDS SUMMARY | 2018-10-19 16:17 | XMS REPORT ---
Author Author CADEN NARVAEZ [facility] Address [address] [place] [address] Care Team Providers Care Joinery Factory Worker Name Role Phone CADEN NARVAEZ Unavailable PROBLEMS Type Condition ICD9-CM Code [id number] Code Onset Dates Condition Status SNOMED Code Problem Erectile dysfunction due to diseases classified elsewhere N52.1 Active 536083746 Problem Cigarette nicotine dependence without complication F17.210 Active 76404172 Problem Diabetic polyneuropathy associated with type 1 diabetes mellitus E10.42 Active 84468782 Problem Diabetes E11.9 Active 568897899 ALLERGIES No Information SOCIAL HISTORY Never Assessed PLAN OF CARE VITAL SIGNS MEDICATIONS Medication Instructions Dosage Frequency Start Date End Date Duration Status Hydrocodone-Acetaminophen 10-325 MG Orally 3 times a day 1tablet as needed 8h August, Sep, 14 days Active RESULTS No Results PROCEDURES No Known procedures IMMUNIZATIONS No Known Immunizations MEDICAL (GENERAL) HISTORY Type Description Date Medical History Diabetes Surgical History Left hip surgery 2017 Surgical History tonsilectomy Hospitalization History [facility] 2016
--- OUTSIDE RECORDS SUMMARY | 2018-10-19 16:17 | XMS REPORT ---
Author Author CADEN NARVAEZ Organization [facility] Address [address] [place] [address] Care Team Providers Care Legal Practice Manager Name Role Phone CADEN NARVAEZ Unavailable PROBLEMS Type Condition ICD9-CM Code XIR28-XV Code Onset Dates Condition Status SNOMED Code Problem Erectile dysfunction due to diseases classified elsewhere N52.1 Active 431630211 Problem Cigarette nicotine dependence without complication F17.210 Active 77326349 Problem Diabetic polyneuropathy associated with type 1 diabetes mellitus E10.42 Active 51453028 Problem Diabetes E11.9 Active 078983006 ALLERGIES No Information ENCOUNTERS Encounter Location Date Diagnosis [facility] [id number] [place] [address] August, [facility] [id number] [place] [address] Jul, [facility] [id number] [place] [address] May, [facility] [id number] [place] [address] Mar, [facility] [id number] [place] [address] Mar, [facility] [id number] [place] [address] Feb, [facility] [id number] [place] [address] Feb, [facility] [id number] [place] [address] Feb, Diabetes E11.9 [facility] [id number] [place] [address] Nov, Type 1 diabetes mellitus with other neurologic complication E10.49 [facility] [id number] [place] [address] Nov, [facility] [id number] [place] [address] Nov, Diabetes E11.9 ; Erectile dysfunction due to diseases classified elsewhere N52.1 ; Diabetic polyneuropathy associated with type 1 diabetes mellitus E10.42 and Cigarette nicotine dependence without complication F17.210 [facility] [id number] [place] [address] Sep, Hip fracture, left, closed, with routine healing, subsequent encounter S72.002D and Allergy, initial encounter T78.40XA [facility] [address] [address] Sep, [facility] [address] [address] August, Femur fracture, left S72.92XA [place] [id number] [place] [address] August, Femur fracture, left S72.92XA [facility] [id number] [place] [address] August, Diabetes E11.9 and Femur fracture, left S72.92XA [facility] [address] [id number] August, [facility] [id number] [place] [address] August, [facility] [id number] [place] [address] August, [facility] [id number] [place] [address] Jul, [facility] [id number] [place] [address] Jul, [facility] [place] [facility] [address] [id number] [place] [address] Jun, 2014 [facility] [place] [facility] [address] [id number] [place] [address] Jun, [facility] [place] [facility] [address] [id number] [place] [address] Jun, 2014 [facility] [place] [facility] [address] [id number] [place] [address] Jun, 2014 [facility] [place] [facility] [address] [id number] [place] [address] Jun, 2014 [facility] [place] [facility] [address] [id number] [place] [address] Jun, 2014 [facility] [place] [facility] [address] [id number] [place] [address] Mar, [facility] [place] [facility] [address] [id number] [place] [address] 30 Mar, 2014 [facility] [place] [facility] [address] [id number] [place] [address] Mar, [facility] [place] [facility] [address] [id number] [place] [address] Mar, [facility] [place] [facility] [address] [id number] [place] [address] 15 Mar, 2014 [facility] [place] [facility] [address] [id number] [place] [address] Mar, [facility] [place] [facility] [address] [id number] [place] [address] Mar, [facility] [place] [facility] [address] [id number] [place] [address] Jan, [facility] [place] [facility] [address] [id number] [place] [address] Jan, [facility] [place] [facility] [address] [id number] [place] [address] Jan, [facility] [place] [facility] [address] [id number] [place] [address] Jan, [facility] [place] [facility] [address] [id number] [place] [address] 16 Dec, 2013 [facility] [place] [facility] [address] [id number] [place] [address] 16 Dec, 2013 [facility] [place] [facility] [address] [id number] [place] [address] 20 Sep, 2013 [facility] [place] [facility] [address] [id number] [place] [address] Sep, [facility] [place] [facility] [address] [id number] [place] [address] 17 Sep, 2013 [facility] [place] [facility] [address] [id number] [place] [address] Sep, [facility] [place] [facility] [address] [id number] [place] [address] Sep, [facility] [place] [facility] [address] [id number] [place] [address] Sep, [facility] [place] [facility] [address] [id number] [place] [address] Jul, [facility] [place] [facility] [address] [id number] [place] [address] Jul, [facility] [place] [facility] [address] [id number] [address] 15 Feb, 2013 [facility] [place] [facility] [address] [id number] [place] [address] 14 Feb, 2013 [facility] [place] [facility] [address] [id number] [place] [address] 14 Feb, 2013 [facility] [place] [facility] [address] [id number] [place] [address] 12 Feb, 2013 [facility] [place] [facility] [address] [id number] [place] [address] Feb, [facility] [address] [id number] [place] [address] Feb, [facility] [address] [id number] [place] [address] Feb, [facility] [address] [id number] [place] [address] Jan, [facility] [address] [id number] [place] [address] Jan, [facility] [address] [id number] [place] [address] Nov, [facility] [address] [id number] [place] [address] August, [facility] [address] [id number] [place] [address] Jul, [facility] [address] [id number] [place] [address] Jul, [facility] [address] [id number] [place] [address] Jun, [facility] [address] [id number] [place] [address] Jun, [facility] [address] [id number] [place] [address] May, [facility] [address] [id number] [place] [address] Feb, [facility] [address] [id number] [place] [address] Apr, [facility] [address] [id number] [place] [address] Mar, [facility] [address] [id number] [place] [address] Feb, [facility] [address] [facility] [id number] [place] [address] Jan, [facility] [address] [facility] [id number] [place] [address] Jan, [facility] [address] [facility] [id number] [place] [address] Dec, IMMUNIZATIONS No Known Immunizations SOCIAL HISTORY Never Assessed REASON FOR VISIT upload request to pt PLAN OF CARE VITAL SIGNS MEDICATIONS Unknown Medications RESULTS No Results PROCEDURES No Known procedures INSTRUCTIONS MEDICATIONS ADMINISTERED No Known Medications MEDICAL (GENERAL) HISTORY Type Description Date Medical History Diabetes Surgical History Left hip surgery 2016 Surgical History tonsilectomy Hospitalization History [facility] 2016
--- OUTSIDE RECORDS SUMMARY | 2018-10-19 16:18 | XMS REPORT ---
Author Author CADEN NARVAEZ Organization [facility] Address [address] [place] [address] Care Team Providers Care Molded Goods Spot Picker Name Role Phone CADEN NARVAEZ Unavailable PROBLEMS Type Condition ICD9-CM Code CPS75-BG Code Onset Dates Condition Status SNOMED Code Problem Erectile dysfunction due to diseases classified elsewhere N52.1 Active 486791649 Problem Cigarette nicotine dependence without complication F17.210 Active 89651707 Problem Diabetic polyneuropathy associated with type 1 diabetes mellitus E10.42 Active 17563711 Problem Diabetes E11.9 Active 550032184 ALLERGIES No Information ENCOUNTERS Encounter Location Date Diagnosis [place] [id number] [place] [address] Jul, [facility] [id number] [place] [address] May, [facility] [id number] [place] [address] Mar, [facility] [id number] [place] [address] Mar, [facility] [id number] [place] [address] Feb, [facility] [id number] [place] [address] Feb, [facility] [id number] [place] [address] Feb, Diabetes E11.9 [facility] [id number] [place] [address] Nov, Type 1 diabetes mellitus with other neurologic complication E10.49 [facility] [id number] [place] [address] Nov, [facility] [id number] [place] [address] Nov, Diabetes E11.9 ; Erectile dysfunction due to diseases classified elsewhere N52.1 ; Diabetic polyneuropathy associated with type 1 diabetes mellitus E10.42 and Cigarette nicotine dependence without complication F17.210 [facility] [id number] [place] [address] Sep, Hip fracture, left, closed, with routine healing, subsequent encounter S72.002D and Allergy, initial encounter T78.40XA [facility] [address] [address] Sep, [facility] [id number] [place] [address] August, Femur fracture, left S72.92XA [facility] [address] [address] August, Femur fracture, left S72.92XA [facility] [id number] [place] [address] August, Diabetes E11.9 and Femur fracture, left S72.92XA [facility] [id number] [place] [id number] August, [facility] [id number] [place] [address] August, [facility] [id number] [place] [address] August, [facility] [id number] [place] [address] Jul, [facility] [id number] [place] [address] Jul, [facility] [id number] [place] [address] Jun, [facility] [place] [facility] [address] [id number] [place] [address] Jun, 2014 [facility] [place] [facility] [address] [id number] [place] [address] Jun, 2014 [facility] [place] [facility] [address] [id number] [place] [address] Jun, 2014 [facility] [place] [facility] [address] [id number] [place] [address] Jun, 2014 [facility] [place] [facility] [address] [id number] [place] [address] Jun, 2014 [facility] [place] [facility] [address] [id number] [place] [address] Mar, [facility] [place] [facility] [address] [id number] [place] [address] Mar, [facility] [place] [facility] [address] [id number] [place] [address] Mar, [facility] [place] [facility] [address] [id number] [place] [address] Mar, [facility] [place] [facility] [address] [id number] [place] [address] Mar, [facility] [place] [facility] [address] [id number] [place] [address] Mar, [facility] [place] [facility] [address] [id number] [place] [address] Mar, [facility] [place] [facility] [address] [id number] [place] [address] Jan, [facility] [place] [facility] [address] [id number] [place] [address] Jan, [facility] [place] [facility] [address] [id number] [place] [address] Jan, [facility] [place] [facility] [address] [id number] [place] [address] Jan, [facility] [place] [facility] [address] [id number] [place] [address] 16 Dec, 2013 [facility] [place] [facility] [address] [id number] [place] [address] 16 Dec, 2013 [facility] [place] [facility] [address] [id number] [place] [address] 20 Sep, 2013 [facility] [place] [facility] [address] [id number] [place] [address] 20 Sep, 2013 [facility] [place] [facility] [address] [id number] [place] [address] 17 Sep, 2013 [facility] [place] [facility] [address] [id number] [place] [address] 17 Sep, 2013 [facility] [place] [facility] [address] [id number] [place] [address] Sep, [facility] [place] [facility] [address] [id number] [place] [address] Sep, [facility] [place] [facility] [address] [id number] [place] [address] Jul, [facility] [place] [facility] [address] [id number] [place] [address] Jul, [facility] [place] [facility] [address] [id number] [address] 15 Feb, 2013 [facility] [place] [facility] [address] [id number], [place] [address] 14 Feb, 2013 [facility] [place] [facility] [address] [id number] [place] [address] 14 Feb, 2013 [facility] [place] [facility] [address] [id number] [place] [address] 12 Feb, 2013 [facility] [place] [facility] [address] [id number] [place] [address] Feb, [facility] [place] [facility] [address] [id number] [place] [address] Feb, [facility] [address] [id number] [place] [address] Feb, [facility] [address] [id number] [place] [address] Jan, [facility] [address] [id number] [place] [address] Jan, [facility] [address] [id number] [place] [address] Nov, [facility] [address] [id number] [place] [address] August, [facility] [address] [id number] [place] [address] Jul, [facility] [address] [id number] [place] [address] Jul, [facility] [address] [id number] [place] [address] Jun, [facility] [address] [id number] [place] [address] Jun, [facility] [address] [facility] [id number] [place] [address] May, [facility] [address] [id number] [place] [address] Feb, [facility] [address] [id number] [place] [address] Apr, [facility] [address] [id number] [place] [address] Mar, [facility] [address] [id number] [place] [address] Feb, [facility] [address] [id number] [place] [address] Jan, [facility] [address] [facility] [id number] [place] [address] Jan, [facility] [address] [facility] [id number] [place] [address] Dec, IMMUNIZATIONS No Known Immunizations SOCIAL HISTORY Never Assessed REASON FOR VISIT insulin pump PLAN OF CARE VITAL SIGNS MEDICATIONS Unknown Medications RESULTS No Results PROCEDURES No Known procedures INSTRUCTIONS MEDICATIONS ADMINISTERED No Known Medications MEDICAL (GENERAL) HISTORY Type Description Date Medical History Diabetes Surgical History Left hip surgery 2017 Surgical History tonsilectomy Hospitalization History [facility] for [facility] 2016
--- OUTSIDE RECORDS SUMMARY | 2018-10-19 16:18 | XMS REPORT ---
Author Author CADEN NARVAEZ Organization [facility] Address [address] [place] [address] Care Team Providers Care Production Helper Name Role Phone CADEN NARVAEZ Unavailable PROBLEMS Type Condition ICD9-CM Code GKT34-YQ Code Onset Dates Condition Status SNOMED Code Problem Erectile dysfunction due to diseases classified elsewhere N52.1 Active 314280306 Problem Cigarette nicotine dependence without complication F17.210 Active 91450428 Problem Diabetic polyneuropathy associated with type 1 diabetes mellitus E10.42 Active 06302295 Problem Diabetes E11.9 Active 821459823 ALLERGIES No Information ENCOUNTERS Encounter Location Date Diagnosis [place] [id number] [place] [id number] Jul, [facility] [id number] [place] [address] May, [facility] [id number] [place] [address] Mar, [facility] [id number] [place] [address] Mar, [facility] [id number] [place] [address] Feb, [facility] [id number] [place] [address] Feb, [facility] [id number] [place] [address] Feb, Diabetes E11.9 [facility] [id number] [place] [address] Nov, Type 1 diabetes mellitus with other neurologic complication E10.49 [facility] [id number] [place] [address] Nov, [facility] [id number] [place] [address] Nov, Diabetes E11.9 ; Erectile dysfunction due to diseases classified elsewhere N52.1 ; Diabetic polyneuropathy associated with type 1 diabetes mellitus E10.42 and Cigarette nicotine dependence without complication F17.210 [facility] [id number] [place] [address] Sep, Hip fracture, left, closed, with routine healing, subsequent encounter S72.002D and Allergy, initial encounter T78.40XA [facility] [address] [address] Sep, [facility] [id number] [place] [address] August, Femur fracture, left S72.92XA [facility] [address] [address] August, Femur fracture, left S72.92XA [facility] [id number] [place] [address] August, Diabetes E11.9 and Femur fracture, left S72.92XA [facility] [place] [facility] [id number] [place] [id number] August, [facility] [id number] [place] [address] August, [facility] [id number] [place] [address] August, [facility] [id number] [place] [address] Jul, [facility] [id number] [place] [address] Jul, [facility] [id number] [place] [address] Jun, [facility] [place] [facility] [address] [id number] [place] [address] Jun, 2014 [facility] [place] [facility] [address] [id number] [place] [address] Jun, 2014 [facility] [place] [facility] [address] [id number] [place] [address] Jun, 2014 [facility] [place] [facility] [address] [id number] [place] [address] Jun, 2014 [facility] [place] [facility] [address] [id number] [place] [address] Jun, 2014 [facility] [place] [facility] [address] [id number] [place] [address] Mar, [facility] [place] [facility] [address] [id number] [place] [address] Mar, [facility] [place] [facility] [address] [id number] [place] [address] Mar, [facility] [place] [facility] [address] [id number] [place] [address] Mar, [facility] [place] [facility] [address] [id number] [place] [address] Mar, [facility] [place] [facility] [address] [id number] [place] [address] Mar, [facility] [place] [facility] [address] [id number] [place] [address] Mar, [facility] [place] [facility] [address] [id number] [place] [address] Jan, [facility] [place] [facility] [address] [id number] [place] [address] Jan, [facility] [place] [facility] [address] [id number] [place] [address] Jan, [facility] [place] [facility] [address] [id number] [place] [address] Jan, [facility] [place] [facility] [address] [id number] [place] [address] 16 Dec, 2013 [facility] [place] [facility] [address] [id number] [place] [address] 16 Dec, 2013 [facility] [place] [facility] [address] [id number] [place] [address] 20 Sep, 2013 [facility] [place] [facility] [address] [id number] [place] [address] 20 Sep, 2013 [facility] [place] [facility] [address] [id number] [place] [address] 17 Sep, 2013 [facility] [place] [facility] [address] [id number] [place] [address] 17 Sep, 2013 [facility] [place] [facility] [address] [id number] [place] [address] Sep, [facility] [place] [facility] [address] [id number] [place] [address] Sep, [facility] [place] [facility] [address] [id number] [place] [address] Jul, [facility] [place] [facility] [address] [id number] [place] [address] Jul, [facility] [place] [facility] [address] [id number] [address] 15 Feb, 2013 [facility] [place] [facility] [address] [id number], [place] [address] 14 Feb, 2013 [facility] [place] [facility] [address] [id number] [place] [address] 14 Feb, 2013 [facility] [place] [facility] [address] [id number] [place] [address] 12 Feb, 2013 [facility] [place] [facility] [address] [id number] [place] [address] Feb, [facility] [place] [facility] [address] [id number] [place] [address] Feb, [facility] [address] [id number] [place] [address] Feb, [facility] [address] [id number] [place] [address] Jan, [facility] [address] [id number] [place] [address] Jan, [facility] [address] [id number] [place] [address] Nov, [facility] [address] [id number] [place] [address] August, [facility] [address] [id number] [place] [address] Jul, [facility] [address] [id number] [place] [address] Jul, [facility] [address] [id number] [place] [address] Jun, [facility] [address] [id number] [place] [address] Jun, [facility] [address] [facility] [id number] [place] [address] May, [facility] [address] [id number] [place] [address] Feb, [facility] [address] [id number] [place] [address] Apr, [facility] [address] [id number] [place] [address] Mar, [facility] [address] [id number] [place] [address] Feb, [facility] [address] [id number] [place] [address] Jan, [facility] [address] [facility] [id number] [place] [address] Jan, [facility] [address] [facility] [id number] [place] [address] Dec, IMMUNIZATIONS No Known Immunizations SOCIAL HISTORY Never Assessed REASON FOR VISIT insulin pump inquiry attempt PLAN OF CARE VITAL SIGNS MEDICATIONS Medication Instructions Dosage Frequency Start Date End Date Duration Status Blood Glucose Test - and lancets DX E10.42 Test fasting and 2 hours after each meal. test blood sugar Nov, Active Blood Glucose Monitor System w/Device DX E 11.42 4 times a day test blood sugar 6h Nov, Active RESULTS No Results PROCEDURES No Known procedures INSTRUCTIONS MEDICATIONS ADMINISTERED No Known Medications MEDICAL (GENERAL) HISTORY Type Description Date Medical History Diabetes Surgical History Left hip surgery 2016 Surgical History tonsilectomy Hospitalization History [facility] 2016
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
[2018-10-19] MEDS ORDERED: TETANUS,DIPTH,PERTUSS P/F (BOOSTRIX) 0.5 ML VIAL IM ONE (16:45)
--- NOTE | 2018-10-19 16:47 | ED Lower Extremity ---
General Chief Complaint: Laceration Stated Complaint: R FOOT LAC Nursing Triage Note: PT STATES HE STEPPED ON A PIECE OF TILE 30 MINUTES PRIOR TO ARRIVAL. PT IS A TYPE 1 DIABETIC AND WAS CONCERNED FOR HEALING OF WOUND. PT UNAWARE OF LAST TDAP. LACERATION TO RIGHT HEEL. Nursing Sepsis Screen: No Definite Risk Source: patient Exam Limitations: no limitations History of Present Illness Date Seen by Provider: Oct 19, 2018 Time Seen by Provider: 16:44 Initial Comments Type I diabetic with a laceration to the plantar surface heel of the right foot about 30 minutes prior to arrival after stepping on a piece of broken tile. Bleeding is controlled. Onset: just prior to arrival Severity: moderate Pain/Injury Location: right foot Modifying Factors: Improves With Movement Allergies and Home Medications Allergies Coded Allergies: fluoxetine (Verified Allergy, Unknown, 10/08/08) trazodone (Unverified Allergy, Unknown, 03/18/14) Home Medications Bisacodyl 5 Mg Tablet.dr, 5 MG PO DAILY PRN for CONSTIPATION-1ST LINE Prescribed by: DAVE ALONSO on 08/25/16 1120 Hydrocodone Bit/Acetaminophen 1 Each Tablet, 1-2 TAB PO Q6H PRN for PAIN- MODERATE TO SEVERE Prescribed by: DAVE ALONSO on 08/25/16 1120 Insulin Regular, Human 100 Unit/1 Ml Vial, 10-15 UNIT SQ AC, (Reported) 10-15 UNITS BASED ON CARB COUNTING Sulfamethoxazole/Trimethoprim 1 Each Tablet, 1 EACH PO BID Prescribed by: ANA NINA on 12/25/17 1627 Warfarin Sodium 5 Mg Tablet, 5 MG PO DAILY@1800 Prescribed by: DAVE ALONSO on 08/25/16 1120 Patient Home Medication List Home Medication List Reviewed: Yes Review of Systems Constitutional: see HPI EENTM: see HPI Respiratory: no symptoms reported Cardiovascular: no symptoms reported Genitourinary: no symptoms reported Musculoskeletal: no symptoms reported Skin: see HPI Psychiatric/Neurological: No Symptoms Reported Past Aikaycq-Ogrmww-Jtcgbr Hx Patient Social History Alcohol Use: Denies Use Recreational Drug Use: No Drug of Choice: MARIJUANA-EVERY ONCE IN AWHILE Smoking Status: Current Everyday Smoker Type Used: Cigarettes 2nd Hand Smoke Exposure: Yes Recent Foreign Travel: No Contact w/Someone Who Travel: No Recent Infectious Disease Expo: No Recent Hopitalizations: No Physical Abuse: No Sexual Abuse: No Immunizations Up To Date Tetanus Booster (TDap): Unknown PED Vaccines UTD: Yes Seasonal Allergies Seasonal Allergies: No Past Medical History Surgeries: Yes (EGD) Respiratory: Yes Asthma Currently Using CPAP: No Currently Using BIPAP: No Cardiac: No Neurological: Yes Neuropathy Reproductive Disorders: No Sexually Transmitted Disease: No HIV/AIDS: No Genitourinary: Yes Prostate Problems Gastrointestinal: Yes (current constipation) Gastroesophageal Reflux, Liver Disease/Jaundice Musculoskeletal: No Endocrine: Yes (Type I) Diabetes, Insulin dep HEENT: No Cancer: No Psychosocial: Yes Anxiety, Bipolar, Depression Integumentary: Yes Eczema Blood Disorders: No Adverse Reaction/Blood Tranf: No Family Medical History Diabetes mellitus 19 FATHER UNCLE FH: COPD (chronic obstructive pulmonary disease) 19 MOTHER FH: brain cancer AUNT FH: diverticulitis 19 FATHER Thyroid disease 19 MOTHER No Pertinent Family Hx Physical Exam Vital Signs Vital Signs - First Documented 10/19/18 16:18 Temp 97.6 Pulse 98 Resp 18 B/P (MAP) 132/92 (105) Pulse Ox 99 O2 Delivery Room Air Capillary Refill : Less Than 3 Seconds Height, Weight, BMI Height: 5'10.00" Weight: 160lbs. 3.0oz. [id number]; 21.2 BMI Method:Stated General Appearance: WD/WN, no apparent distress Respiratory: no respiratory distress, no accessory muscle use Hips: bilateral hip non-tender, bilateral hip normal inspection, bilateral hip normal range of motion Legs: bilateral leg non-tender, bilateral leg normal inspection, bilateral leg normal range of motion Knees: bilateral knee non-tender, bilateral knee normal inspection Ankles: bilateral ankle non-tender, bilateral ankle normal inspection, bilat eral ankle normal range of motion Feet: right foot other (there is a 1.5 cm laceration to the plantar surface heel of the right foot. No active bleeding. This was down to the subcutaneous tissue, this was cleansed with chlorhexidine/saline solution, no foreign body identified. We will leave this open to heal via secondary intention. This was wrapped with antibiotic ointment and gauze roll.) Neurologic/Psychiatric: alert, normal mood/affect, oriented x 3 Skin: normal color, warm/dry Progress/Results/Core Measures Results/Orders My Orders Orders - JAYNA ANNA APRN Dipht,Pertuss(Acell),Tet Adult (Boostrix (10/19/18 16:45) Vital Signs/I&O 10/19/18 16:18 Temp 97.6 Pulse 98 Resp 18 B/P (MAP) 132/92 (105) Pulse Ox 99 O2 Delivery Room Air Blood Pressure Mean: 105 Departure Impression Primary Impression: Foot laceration Qualified Codes: S91.311A - Laceration without foreign body, right foot, initial encounter Disposition: HOME, SELF-CARE Condition: Stable Departure-Patient Inst. Decision time for Depature: 16:56 Referrals: CADEN NARVAEZ MD (PCP/Family) Primary Care Physician Patient Instructions: Wound Care Add. Discharge Instructions: 1. Wash this gently with antibacterial soap such as Dial and water twice daily. Keep this covered with a gauze wrap for the next 3-5 days. Antibiotics as directed. Return to ER for any redness fevers or chills. Follow-up with your doctor next week for recheck. All discharge instructions reviewed with patient and/or family. Voiced understanding. Scripts Cephalexin (Keflex) 500 Mg Capsule 500 MG PO TID, #15 CAP Prov: JAYNA ANNA HEALTH AND FITNESS PROFESSOR 10/19/18 JAYNA ANNA HEALTH AND FITNESS PROFESSOR Oct 19, 2018 16:47
[2018-10-19] MEDS ORDERED: CEPH-507 PO (16:57)
[2018-10-19 17:04] VITALS: BP 132/92
== END 2018-10-19 17:02 | disposition home or self-care (01) ==
LOC: EDUNIT# 16:09 → ER 16:10
DX: S91.311A Laceration without foreign body, right foot, initial encounter (principal); E10.40 Type 1 diabetes mellitus with diabetic neuropathy, unspecified; J45.909 Unspecified asthma, uncomplicated; K21.9 Gastro-esophageal reflux disease without esophagitis; F31.9 Bipolar disorder, unspecified; F41.9 Anxiety disorder, unspecified; F12.10 Cannabis abuse, uncomplicated; F17.210 Nicotine dependence, cigarettes, uncomplicated; Z88.8 Allergy status to other drugs, medicaments and biological substances; Z79.4 Long term (current) use of insulin; Z79.01 Long term (current) use of anticoagulants; Z80.8 Family history of malignant neoplasm of other organs or systems; W26.8XXA Contact with other sharp object(s), not elsewhere classified, initial encounter
CPT/HCPCS: 90715

== ENCOUNTER 2019-01-25 10:47 | Emergency (ER) | payer MEDICAID ==
[~2019-01-25] VITALS: Ht 190.5 cm; Wt 77.3 kg
[~2019-01-25 10:47] MED LIST changes: +CEPH-507 PO
[2019-01-25] MEDS ORDERED: SULF1TAB35 PO (11:00)
--- NOTE | 2019-01-25 11:00 | ED Integumentary General ---
General Stated Complaint: LOWER BACK WOUND Source: patient Exam Limitations: no limitations History of Present Illness Date Seen by Provider: Jan 25, 2019 Time Seen by Provider: 10:58 Initial Comments To ER with a left flank reddened wound for the past 3 days, no fevers or chills. He is diabetic. Timing/Duration: just prior to arrival, getting worse Severity: moderate Location: torso Associated Symptoms: denies symptoms Allergies and Home Medications Allergies Coded Allergies: fluoxetine (Verified Allergy, Unknown, 10/08/08) trazodone (Unverified Allergy, Unknown, 03/18/14) Home Medications Bisacodyl 5 Mg Tablet.dr, 5 MG PO DAILY PRN for CONSTIPATION-1ST LINE Prescribed by: DAVE ALONSO on 08/25/16 1120 Cephalexin 500 Mg Capsule, 500 MG PO TID Prescribed by: JAYNA ANNA on 10/19/18 1657 Hydrocodone Bit/Acetaminophen 1 Each Tablet, 1-2 TAB PO Q6H PRN for PAIN- MODERATE TO SEVERE Prescribed by: DAVE ALONSO on 08/25/16 1120 Insulin Regular, Human 100 Unit/1 Ml Vial, 10-15 UNIT SQ AC, (Reported) 10-15 UNITS BASED ON CARB COUNTING Sulfamethoxazole/Trimethoprim 1 Each Tablet, 1 EACH PO BID Prescribed by: ANA NINA on 12/25/17 1627 Warfarin Sodium 5 Mg Tablet, 5 MG PO DAILY@1800 Prescribed by: DAVE ALONSO on 08/25/16 1120 Patient Home Medication List Home Medication List Reviewed: Yes Review of Systems Review of Systems Constitutional: see HPI EENTM: see HPI Respiratory: no symptoms reported Cardiovascular: no symptoms reported Genitourinary: no symptoms reported Musculoskeletal: no symptoms reported Skin: see HPI Psychiatric/Neurological: No Symptoms Reported Endocrine: No Symptoms Reported Hematologic/Lymphatic: No Symptoms Reported Past Fiduchp-Gsfotn-Zdcdgb Hx Patient Social History Drug of Choice: MARIJUANA-EVERY ONCE IN AWHILE Type Used: Cigarettes 2nd Hand Smoke Exposure: Yes Recent Hopitalizations: No Immunizations Up To Date Tetanus Booster (TDap): Unknown PED Vaccines UTD: Yes Seasonal Allergies Seasonal Allergies: No Past Medical History Surgeries: Yes (EGD) Respiratory: Yes Asthma Currently Using CPAP: No Currently Using BIPAP: No Cardiac: No Neurological: Yes Neuropathy Reproductive Disorders: No Sexually Transmitted Disease: No HIV/AIDS: No Genitourinary: Yes Prostate Problems Gastrointestinal: Yes (current constipation) Gastroesophageal Reflux, Liver Disease/Jaundice Musculoskeletal: No Endocrine: Yes (Type I) Diabetes, Insulin dep HEENT: No Cancer: No Psychosocial: Yes Anxiety, Bipolar, Depression Integumentary: Yes Eczema Blood Disorders: No Adverse Reaction/Blood Tranf: No Family Medical History Diabetes mellitus 19 FATHER UNCLE FH: COPD (chronic obstructive pulmonary disease) 19 MOTHER FH: brain cancer AUNT FH: diverticulitis 19 FATHER Thyroid disease 19 MOTHER No Pertinent Family Hx Physical Exam Vital Signs Capillary Refill : General Appearance: WD/WN, no apparent distress HEENT: PERRL/EOMI, normal ENT inspection Neck: non-tender, full range of motion Respiratory: no respiratory distress, no accessory muscle use Gastrointestinal: normal bowel sounds, non tender, soft Neurologic/Psychiatric: alert, normal mood/affect, oriented x 3 Skin: normal color, warm/dry Skin Problem Character: abscess, other (there is a 4 cm circular area of erythema and induration to the left flank with no fluctuance to suggest drainable abscess. We'll treat empirically with antibiotics, if this becomes fluctuant and we will proceed with incision and drainage.) Departure Impression Primary Impression: Abscess Disposition: 01 HOME, SELF-CARE Condition: Stable Departure-Patient Inst. Decision time for Depature: 10:59 Referrals: CADEN NARVAEZ MD (PCP/Family) Primary Care Physician Patient Instructions: Skin Abscess Add. Discharge Instructions: 1. Antibiotics as directed 2. Return to ER for any worsening 3. Follow-up with your doctor next week for recheck. If this becomes softer than it could be drained, currently there is nothing to drain. Scripts Sulfamethoxazole/Trimethoprim (Bactrim Ds Tablet) 1 Each Tablet 1 EACH PO BID, #20 TAB Prov: JAYNA ANNA APRN 01/25/19 JAYNA ANNA APRN Jan 25, 2019 11:00
[2019-01-25 11:11] VITALS: BP 121/99
== END 2019-01-25 11:11 | disposition home or self-care (01) ==
LOC: EDUNIT# 10:47 → ER 10:50
DX: L02.212 Cutaneous abscess of back [any part, except buttock and flank] (principal); E10.40 Type 1 diabetes mellitus with diabetic neuropathy, unspecified; J45.909 Unspecified asthma, uncomplicated; F41.9 Anxiety disorder, unspecified; F31.9 Bipolar disorder, unspecified; K21.9 Gastro-esophageal reflux disease without esophagitis; Z88.5 Allergy status to narcotic agent; Z79.4 Long term (current) use of insulin; Z79.01 Long term (current) use of anticoagulants; Z77.22 Contact with and (suspected) exposure to environmental tobacco smoke (acute) (chronic); Z80.8 Family history of malignant neoplasm of other organs or systems
CPT/HCPCS: 99282; 99283

== ENCOUNTER 2019-01-30 17:15 | Emergency (ER) | payer MEDICAID ==
[~2019-01-30] VITALS: Ht 187 cm; Wt 74.5 kg
[2019-01-30] MEDS ORDERED: LIDOCAINE 1% INJ 20 ML 20 ML VIAL INJ ONE (17:30)
--- NOTE | 2019-01-30 17:36 | ED Integumentary General ---
General Chief Complaint: Skin/Wound Problems Stated Complaint: ABSCESS ON LOWER LEFT BACK History of Present Illness Date Seen by Provider: Jan 30, 2019 Time Seen by Provider: 17:20 Initial Comments 28 year old male presents with abscess to left flank. He was started on Bactrim DS on 01/25/19. He reports she is taking his medication as prescribed. He has not followed up with his primary care provider. No other complaints at this time, reports using his insulin pump and glucose running 120-200. Timing/Duration: getting worse Severity: moderate Location: torso (left flank) Associated Symptoms: denies symptoms Allergies and Home Medications Allergies Coded Allergies: fluoxetine (Verified Allergy, Unknown, 10/08/08) trazodone (Unverified Allergy, Unknown, 03/18/14) Home Medications Bisacodyl 5 Mg Tablet.dr, 5 MG PO DAILY PRN for CONSTIPATION-1ST LINE Prescribed by: DAVE ALONSO on 08/25/16 1120 Cephalexin 500 Mg Capsule, 500 MG PO TID Prescribed by: JAYNA ANNA on 10/19/18 1657 Hydrocodone Bit/Acetaminophen 1 Each Tablet, 1-2 TAB PO Q6H PRN for PAIN- MODERATE TO SEVERE Prescribed by: DAVE ALONSO on 08/25/16 1120 Insulin Regular, Human 100 Unit/1 Ml Vial, 10-15 UNIT SQ AC, (Reported) 10-15 UNITS BASED ON CARB COUNTING Mupirocin 22 Gm Oint...g., 22 GM TP TID Prescribed by: SAMUEL NICKERSON on 01/30/19 1805 Sulfamethoxazole/Trimethoprim 1 Each Tablet, 1 EACH PO BID Prescribed by: ANA NINA on 12/25/17 1627 Sulfamethoxazole/Trimethoprim 1 Each Tablet, 1 EACH PO BID Prescribed by: JAYNA ANNA on 01/25/19 1100 Warfarin Sodium 5 Mg Tablet, 5 MG PO DAILY@1800 Prescribed by: DAVE ALONSO on 08/25/16 1120 Patient Home Medication List Home Medication List Reviewed: Yes Review of Systems Review of Systems Constitutional: no symptoms reported, see HPI Skin: see HPI, other (abscess left flank) All Other Systems Reviewed Negative Unless Noted: Yes Past Uhpmzco-Bktjdw-Domlme Hx Past Med/Social Hx: Reviewed Nursing Past Med/Soc Hx Patient Social History Alcohol Use: Denies Use Recreational Drug Use: Yes Drug of Choice: MARIJUANA-EVERY ONCE IN AWHILE, past hx meth Smoking Status: Current Everyday Smoker Type Used: Cigarettes 2nd Hand Smoke Exposure: Yes Recent Foreign Travel: No Contact w/Someone Who Travel: No Recent Hopitalizations: No Physical Abuse: No Sexual Abuse: No Mistreated: No Fear: No Immunizations Up To Date Tetanus Booster (TDap): Unknown PED Vaccines UTD: Yes Seasonal Allergies Seasonal Allergies: No Past Medical History Surgeries: Yes (EGD) Respiratory: Yes Asthma Currently Using CPAP: No Currently Using BIPAP: No Cardiac: No Neurological: Yes Neuropathy Reproductive Disorders: No Sexually Transmitted Disease: No HIV/AIDS: No Genitourinary: Yes Prostate Problems Gastrointestinal: Yes (current constipation) Gastroesophageal Reflux, Liver Disease/Jaundice Musculoskeletal: No Endocrine: Yes (Type I) Diabetes, Insulin dep HEENT: No Cancer: No Psychosocial: Yes Anxiety, Bipolar, Depression Integumentary: Yes Eczema Blood Disorders: No Adverse Reaction/Blood Tranf: No Family Medical History Diabetes mellitus 19 FATHER UNCLE FH: COPD (chronic obstructive pulmonary disease) 19 MOTHER FH: brain cancer AUNT FH: diverticulitis 19 FATHER Thyroid disease 19 MOTHER No Pertinent Family Hx Physical Exam Vital Signs Vital Signs - First Documented 01/30/19 17:24 Temp 36.2 Pulse 101 Resp 20 B/P (MAP) 133/95 (108) Pulse Ox 99 Capillary Refill : General Appearance: WD/WN, no apparent distress Cardiovascular: normal peripheral pulses, regular rate, rhythm Respiratory: chest non-tender, lungs clear Neurologic/Psychiatric: alert, normal mood/affect, oriented x 3 Skin: normal color, warm/dry Skin Problem Location: torso (and left flank) Skin Problem Character: abscess (3X3 cm with erythema, central fluctuance, marked tenderness. ) Procedures/Interventions I&D : Site: left flank Blade Size: 11 I & D Procedure: betadine prep Progress Skin cleaned with Betadine, 8 mL's of 1% lidocaine used for local anesthetic, I&D performed, proximally 30 ML's of purulent drainage. Culture obtained. Wound copiously irrigated with 500 ML's of sterile saline with Hibiclens. Triple antibiotic ointment and a bulky sterile dressing applied. Patient tolerated procedure well Progress/Results/Core Measures Results/Orders My Orders Orders - SAMUEL NICKERSON Lidocaine 1% Inj 20 Ml (Xylocaine 1% Inj (01/30/19 17:30) Wound Culture (01/30/19 18:01) Medications Given in ED Current Medications Medications Dose Ordered Sig/Komal Route Start Time Stop Time Status Last Admin Dose Admin Lidocaine HCl 20 ml ONCE ONCE INJ 01/30/19 17:30 01/30/19 17:32 DC 01/30/19 17:35 20 ML Vital Signs/I&O 01/30/19 01/30/19 17:24 18:18 Temp 36.2 Pulse 101 92 Resp 20 22 B/P (MAP) 133/95 (108) 126/86 Pulse Ox 99 98 Departure Impression Primary Impression: Abscess of flank Disposition: HOME, SELF-CARE Condition: Improved Departure-Patient Inst. Decision time for Depature: 18:00 Referrals: CADEN NARVAEZ MD (PCP/Family) Primary Care Physician Patient Instructions: Abscess Incision and Drainage (DC) Add. Discharge Instructions: Leave dressing in place for next 12 hours, then irrigate with peroxide and apply Bactroban ointment. Clean and apply three times daily. Take antibiotics as previously prescribed. Follow-up with Dr. Narvaez later this week. Return to emergency department for new, urgent health care problems. All discharge instructions reviewed with patient and/or family. Voiced understanding. Scripts Mupirocin (Mupirocin) 22 Gm Oint...g. 22 GM TP TID, #1 TUBE 1 Refill Prov: SAMUEL NICKERSON 01/30/19 Copy Copies To 1: CADEN NARVAEZ MD, AMY ARNP Jan 30, 2019 17:36
[2019-01-30] MEDS ORDERED: MUPI22OI2 TP (18:05)
[2019-01-30 18:18] VITALS: BP 126/86
== END 2019-01-30 18:17 | disposition home or self-care (01) ==
LOC: EDUNIT# 17:15 → ER 17:16
DX: L02.211 Cutaneous abscess of abdominal wall (principal); J45.909 Unspecified asthma, uncomplicated; E11.40 Type 2 diabetes mellitus with diabetic neuropathy, unspecified; K21.9 Gastro-esophageal reflux disease without esophagitis; F41.9 Anxiety disorder, unspecified; F31.9 Bipolar disorder, unspecified; F17.210 Nicotine dependence, cigarettes, uncomplicated; Z85.841 Personal history of malignant neoplasm of brain; Z88.8 Allergy status to other drugs, medicaments and biological substances; Z88.5 Allergy status to narcotic agent; Z79.4 Long term (current) use of insulin; Z79.01 Long term (current) use of anticoagulants
CPT/HCPCS: 10060; 87070; 87077; 87186; 87205

== ENCOUNTER 2019-02-13 10:52 | Emergency (ER) | payer MEDICAID ==
[~2019-02-13] VITALS: Ht 187 cm; Wt 74.5 kg
[~2019-02-13 10:52] MED LIST changes: +MUPI22OI2 TP
[2019-02-13] MEDS ORDERED: NS IV 1000 ML 1,000 ML IV SCH ×2 (11:18→12:25)
[2019-02-13 11:21] LABS: BASOPHILS # (AUTO) 0.1 10^3/uL (0.0-0.1); BASOPHILS % (AUTO) 1 % (0-10); EOSINOPHILS # (AUTO) 0.3 10^3/uL (0.0-0.3); EOSINOPHILS % (AUTO) 3 % (0-10); HEMATOCRIT 45 % (40-54); HEMOGLOBIN 16.1 G/DL (13.3-17.7); LYMPHOCYTES # (AUTO) 2.9 X 10^3 (1.0-4.0); LYMPHOCYTES % (AUTO) 30 % (12-44); MEAN CORPUSCULAR HEMOGLOBIN 30 PG (25-34); MEAN CORPUSCULAR HGB CONC 36 G/DL (32-36); MEAN CORPUSCULAR VOLUME 85 FL (80-99); MEAN PLATELET VOLUME 10.5 FL (7.4-10.4); MONOCYTES # (AUTO) 0.8 X 10^3 (0.0-1.0); MONOCYTES % (AUTO) 8 % (0-12); NEUTROPHILS # (AUTO) 5.6 X 10^3 (1.8-7.8); NEUTROPHILS % (AUTO) 59 % (42-75); PLATELET COUNT 328 10^3/uL (130-400); RED CELL DISTRIBUTION WIDTH 13.3 % (10.0-14.5); WHITE BLOOD COUNT 9.6 10^3/uL (4.3-11.0)
[2019-02-13 11:26] LABS: BILIRUBIN,URINE NEGATIVE (NEGATIVE); CLARITY,URINE CLEAR; COLOR,URINE YELLOW; GLUCOSE, URINE (UA) 4+ (NEGATIVE); KETONES,URINE 4+ (NEGATIVE); LEUKOCYTE ESTERASE ,URINE NEGATIVE (NEGATIVE); NITRITE,URINE NEGATIVE (NEGATIVE); PH,URINE 5 (5-9); PROTEIN,URINE 1+ (NEGATIVE)
[2019-02-13] MEDS ORDERED: ONDANSETRON 4 MG/2 ML (SDV) Z0FRAN IVP ONE (11:30)
[2019-02-13 11:32] LABS: BACTERIA,URINE NEGATIVE /HPF; RBC,URINE RARE /HPF; WBC,URINE RARE /HPF
[2019-02-13 11:43] LABS: ALANINE AMINOTRANSFERASE 12 U/L (0-55); ALBUMIN 4.4 GM/DL (3.2-4.5); ALKALINE PHOSPHATASE 114 U/L (40-136); BILIRUBIN,TOTAL 0.7 MG/DL (0.1-1.0); BUN/CREATININE RATIO 11; CALCIUM 9.7 MG/DL (8.5-10.1); CARBON DIOXIDE 19 MMOL/L (21-32); CHLORIDE 100 MMOL/L (98-107); CREATININE SERUM 1.22 MG/DL (0.60-1.30); GFR ESTIMATED > 60; GLUCOSE 341 MG/DL (70-105); SODIUM 134 MMOL/L (135-145); TOTAL PROTEIN 7.6 GM/DL (6.4-8.2)
--- NOTE | 2019-02-13 12:03 | ED GI ---
General Chief Complaint: Abdominal/GI Problems Stated Complaint: VOMITING Nursing Triage Note: PT STATES NAUSEA AND VOMITING THAT STARTED LAST NIGHT. Sepsis Screen: No Definite Risk History of Present Illness Date Seen by Provider: Feb 13, 2019 Time Seen by Provider: 11:10 Initial Comments 28-year-old male who is an insulin-dependent diabetic using a home reports he began vomiting at approximately 2200 yesterday. He last vomited 30 minutes prior to arrival. He has had nothing to eat or drink this morning and has not taken anything for the nausea and vomiting. Timing/Duration: 12-24 Hours Severity/Quality: Mild Location: Generalized Abdomen Associated Symptoms: No Back Pain, No Chest Pain, No Diaphoresis, No Fever/Chills, No Fatigue, No Headache, No Heartburn; Nausea/Vomiting; No Rash, No Shortness of Air, No Swelling/Mass in Abdomen, No Syncope; Weakness Allergies and Home Medications Allergies Coded Allergies: fluoxetine (Verified Allergy, Unknown, 10/08/08) trazodone (Unverified Allergy, Unknown, 03/18/14) Home Medications Bisacodyl 5 Mg Tablet.dr, 5 MG PO DAILY PRN for CONSTIPATION-1ST LINE Prescribed by: DAVE ALONSO on 08/25/16 1120 Cephalexin 500 Mg Capsule, 500 MG PO TID Prescribed by: JAYNA ANNA on 10/19/18 1657 Hydrocodone Bit/Acetaminophen 1 Each Tablet, 1-2 TAB PO Q6H PRN for PAIN- MODERATE TO SEVERE Prescribed by: DAVE ALONSO on 08/25/16 1120 Insulin Regular, Human 100 Unit/1 Ml Vial, 10-15 UNIT SQ AC, (Reported) 10-15 UNITS BASED ON CARB COUNTING Mupirocin 22 Gm Oint...g., 22 GM TP TID Prescribed by: SAMUEL NICKERSON on 01/30/19 1805 Ondansetron 4 Mg Tab.rapdis, 4 MG PO Q6H PRN for NAUSEA/VOMITING Prescribed by: SAMUEL NICKERSON on 02/13/19 1312 Sulfamethoxazole/Trimethoprim 1 Each Tablet, 1 EACH PO BID Prescribed by: ANA NINA on 12/25/17 1627 Sulfamethoxazole/Trimethoprim 1 Each Tablet, 1 EACH PO BID Prescribed by: JAYNA ANNA on 01/25/19 1100 Warfarin Sodium 5 Mg Tablet, 5 MG PO DAILY@1800 Prescribed by: DAVE ALONSO on 08/25/16 1120 Patient Home Medication List Home Medication List Reviewed: Yes Review of Systems Review of Systems Constitutional: no symptoms reported, see HPI Gastrointestinal: See HPI, Abdominal Pain; Denies Constipated, Denies Diarrhea, Denies Difficulty Swallowing; Nausea, Poor Appetite, Poor Fluid Intake, Vomiting All Other Systems Reviewed Negative Unless Noted: Yes Past Jfbizxr-Gploli-Vixily Hx Past Med/Social Hx: Reviewed Nursing Past Med/Soc Hx Patient Social History Alcohol Use: Denies Use Recreational Drug Use: Yes Drug of Choice: MARIJUANA-EVERY ONCE IN AWHILE, past hx meth Smoking Status: Current Someday Smoker Type Used: Cigarettes 2nd Hand Smoke Exposure: Yes Recent Foreign Travel: No Contact w/Someone Who Travel: No Recent Infectious Disease Expo: No Recent Hopitalizations: No Physical Abuse: No Sexual Abuse: No Mistreated: No Fear: No Immunizations Up To Date Tetanus Booster (TDap): Unknown PED Vaccines UTD: Yes Seasonal Allergies Seasonal Allergies: No Past Medical History Surgeries: Yes (EGD, LT HIP FX) Orthopedic, Tonsillectomy Respiratory: Yes Asthma Currently Using CPAP: No Currently Using BIPAP: No Cardiac: No Neurological: Yes Neuropathy Reproductive Disorders: No Sexually Transmitted Disease: No HIV/AIDS: No Genitourinary: Yes Prostate Problems Gastrointestinal: Yes (current constipation) Gastroesophageal Reflux, Liver Disease/Jaundice Musculoskeletal: No Endocrine: Yes (Type I) Diabetes, Insulin dep HEENT: No Cancer: No Psychosocial: Yes Anxiety, Bipolar, Depression Integumentary: Yes Eczema Blood Disorders: No Adverse Reaction/Blood Tranf: No Family Medical History Diabetes mellitus 19 FATHER UNCLE FH: COPD (chronic obstructive pulmonary disease) 19 MOTHER FH: brain cancer AUNT FH: diverticulitis 19 FATHER Thyroid disease 19 MOTHER No Pertinent Family Hx Physical Exam Vital Signs Vital Signs - First Documented 02/13/19 11:10 Temp 35.7 Pulse 116 Resp 20 B/P (MAP) 129/98 (108) Pulse Ox 96 O2 Delivery Room Air Capillary Refill : Less Than 3 Seconds Height/Weight/BMI Height: 5'10.00" Weight: 160lbs. 3.0oz. 72.076460le; 21.00 BMI Method:Stated General Appearance: WD/WN, no apparent distress HEENT: PERRL/EOMI, pharynx normal, other (oromucosa pink and dry) Neck: non-tender, full range of motion, supple, normal inspection Respiratory: chest non-tender, lungs clear, normal breath sounds Cardiovascular: normal peripheral pulses, regular rate, rhythm, no edema, no murmur Gastrointestinal: normal bowel sounds, non tender, soft Extremities: normal range of motion, non-tender, normal inspection Neurologic/Psychiatric: no motor/sensory deficits, alert, normal mood/affect, oriented x 3 Skin: normal color, warm/dry Progress/Results/Core Measures Results/Orders Lab Results Laboratory Tests Test 02/13/19 11:15 02/13/19 11:18 02/13/19 13:12 Range/Units White Blood Count 9.6 4.3-11.0 10^3/uL Red Blood Count 5.36 4.35-5.85 10^6/uL Hemoglobin 16.1 13.3-17.7 G/DL Hematocrit 45 40-54 % Mean Corpuscular Volume 85 80-99 FL Mean Corpuscular Hemoglobin 30 25-34 PG Mean Corpuscular Hemoglobin Concent 36 32-36 G/DL Red Cell Distribution Width 13.3 10.0-14.5 % Platelet Count 328 130-400 10^3/uL Mean Platelet Volume 10.5 H 7.4-10.4 FL Neutrophils (%) (Auto) 59 42-75 % Lymphocytes (%) (Auto) 30 12-44 % Monocytes (%) (Auto) 8 0-12 % Eosinophils (%) (Auto) 3 0-10 % Basophils (%) (Auto) 1 0-10 % Neutrophils # (Auto) 5.6 1.8-7.8 X 10^3 Lymphocytes # (Auto) 2.9 1.0-4.0 X 10^3 Monocytes # (Auto) 0.8 0.0-1.0 X 10^3 Eosinophils # (Auto) 0.3 0.0-0.3 10^3/uL Basophils # (Auto) 0.1 0.0-0.1 10^3/uL Sodium Level 134 L 135-145 MMOL/L Potassium Level 4.0 3.6-5.0 MMOL/L Chloride Level 100 98-107 MMOL/L Carbon Dioxide Level 19 L 21-32 MMOL/L Anion Gap 15 H 5-14 MMOL/L Blood Urea Nitrogen 14 7-18 MG/DL Creatinine 1.22 0.60-1.30 MG/DL Estimat Glomerular Filtration Rate > 60 BUN/Creatinine Ratio 11 Glucose Level 341 H 70-105 MG/DL Glucometer 307 H 129 H 70-110 MG/DL Calcium Level 9.7 8.5-10.1 MG/DL Corrected Calcium 9.4 8.5-10.1 MG/DL Total Bilirubin 0.7 0.1-1.0 MG/DL Aspartate Amino Transf (AST/SGOT) 18 5-34 U/L Alanine Aminotransferase (ALT/SGPT) 12 0-55 U/L Alkaline Phosphatase 114 40-136 U/L Total Protein 7.6 6.4-8.2 GM/DL Albumin 4.4 3.2-4.5 GM/DL Urine Color YELLOW Urine Clarity CLEAR Urine pH 5 5-9 Urine Specific [place] 1.020 1.016-1.022 Urine Protein 1+ H NEGATIVE Urine Glucose (UA) 4+ H NEGATIVE Urine Ketones 4+ H NEGATIVE Urine Nitrite NEGATIVE NEGATIVE Urine Bilirubin NEGATIVE NEGATIVE Urine Urobilinogen NORMAL NORMAL MG/DL Urine Leukocyte Esterase NEGATIVE NEGATIVE Urine RBC (Auto) NEGATIVE NEGATIVE Urine RBC RARE /HPF Urine WBC RARE /HPF Urine Squamous Epithelial Cells 2-5 /HPF Urine Crystals NONE /LPF Urine Bacteria NEGATIVE /HPF Urine Casts NONE /LPF Urine Mucus NEGATIVE /LPF Urine Culture Indicated NO My Orders Orders - SAMUEL NICKERSON Accucheck Stat ONCE (02/13/19 11:04) Cbc With Automated Diff (02/13/19 11:04) Comprehensive Metabolic Panel (02/13/19 11:04) Ua Culture If Indicated (02/13/19 11:04) Ed Iv/Invasive Line Start (02/13/19 11:18) Ns Iv 1000 Ml (Sodium Chloride 0.9%) (02/13/19 11:18) Ondansetron Injection (Zofran Injectio (02/13/19 11:30) Ed Iv/Invasive Line Start (02/13/19 12:25) Ns Iv 1000 Ml (Sodium Chloride 0.9%) (02/13/19 12:25) Accucheck Stat ONCE (02/13/19 12:46) Medications Given in ED Current Medications Medications Dose Ordered Sig/Komal Route Start Time Stop Time Status Last Admin Dose Admin Ondansetron HCl 4 mg ONCE ONCE IVP 02/13/19 11:30 02/13/19 11:31 DC 02/13/19 11:49 4 MG Vital Signs/I&O 02/13/19 02/13/19 11:10 13:26 Temp 35.7 35.7 Pulse 116 89 Resp 20 20 B/P (MAP) 129/98 (108) 119/90 (108) Pulse Ox 96 96 O2 Delivery Room Air Room Air Blood Pressure Mean: 108 POS FSBG Bedside Testing Finger Stick Blood Glucose: 307 Blood Glucose Action Taken: SAMUEL NICKERSON INFORMED Progress Progress Note : Time: 11:10 Progress Note Patient seen and evaluated, will obtain labs, normal saline 1 L per IV and Zofran 4 mg IV for nausea. 1200 patient reports nausea is improving, taking sips of water. Ketones 4+. 1215 Will give second liter of normal saline per IV. 1230 patient drinking water, no nausea or vomiting. 1300 Accu-Chek 129. Patient reports to be feeling much better. Has urinated one time. 1310 discharge instructions and return precautions reviewed with patient. All qu estions answered. Departure Impression Primary Impression: Type I diabetes mellitus Qualified Codes: E10.9 - Type 1 diabetes mellitus without complications Additional Impressions: Nausea and vomiting Qualified Codes: R11.2 - Nausea with vomiting, unspecified Dehydration Disposition: HOME, SELF-CARE Condition: Improved Departure-Patient Inst. Decision time for Depature: 13:10 Referrals: CADEN NARVAEZ MD (PCP/Family) Primary Care Physician Patient Instructions: Diabetes Type 1, Adult (DC), Nausea and Vomiting, Adult (DC) Add. Discharge Instructions: Clear liquids diet for the next 4-6 hours, advance to bland diet as tolerated. No greasy, fried or spicy foods today. Continue to monitor your blood glucose every 2-3 hours and adjust her insulin as needed. Use Zofran every 6 hours as needed for nausea and vomiting. Follow-up with your primary care provider in 2-3 days if symptoms do not improve or worsen. Return to the emergency department for persistent nausea and vomiting despite the Zofran, fever greater than 101, or new concerns. All discharge instructions reviewed with patient and/or family. Voiced underst anding. Scripts Ondansetron (Ondansetron Odt) 4 Mg Tab.rapdis 4 MG PO Q6H PRN for NAUSEA/VOMITING, #8 TAB 0 Refills Prov: SAMUEL NICKERSON 02/13/19 SAMUEL NICKERSON Feb 13, 2019 12:03 POS
[2019-02-13] MEDS ORDERED: ONDA4TAB11 PO (13:12)
[2019-02-13 13:26] VITALS: BP 119/90
== END 2019-02-13 13:25 | disposition home or self-care (01) ==
LOC: EDUNIT# 10:52 → ER 10:53
DX: E10.40 Type 1 diabetes mellitus with diabetic neuropathy, unspecified (principal); E86.0 Dehydration; R11.2 Nausea with vomiting, unspecified; J45.909 Unspecified asthma, uncomplicated; K21.9 Gastro-esophageal reflux disease without esophagitis; F41.9 Anxiety disorder, unspecified; F31.9 Bipolar disorder, unspecified; F17.210 Nicotine dependence, cigarettes, uncomplicated; Z88.5 Allergy status to narcotic agent; Z80.8 Family history of malignant neoplasm of other organs or systems; Z88.8 Allergy status to other drugs, medicaments and biological substances; Z79.4 Long term (current) use of insulin; Z79.01 Long term (current) use of anticoagulants; Z90.89 Acquired absence of other organs
CPT/HCPCS: 36415; 80053; 81000; 82962; 85025; 96361; 96374

== ENCOUNTER 2019-02-18 13:13 | Emergency (ER) | payer MEDICAID ==
[~2019-02-18] VITALS: Ht 177 cm; Wt 75.3 kg
[~2019-02-18 13:13] MED LIST changes: +ONDA4TAB11 PO
[2019-02-18] MEDS ORDERED: LIDOCAINE 1% INJ 20 ML 20 ML VIAL INJ ONE (13:30)
[2019-02-18] MEDS ORDERED: HYDROcodone/APAP 5 MG/325 MG (LORTAB) TAB PO ONE (13:30)
[2019-02-18] MEDS ORDERED: TRIM/SULFAMETH 160/800 (SEPTRA DS) TAB PO ONE (13:30)
[2019-02-18] MEDS ORDERED: SODIUM BICARB 8.4% 50 MEQ/50 ML VIAL IR ONE (13:30)
[2019-02-18] MEDS ORDERED: DOXY100T2 PO (13:49)
--- NOTE | 2019-02-18 13:49 | ED Integumentary General ---
General Chief Complaint: Skin/Wound Problems Stated Complaint: BACK ABSCESS Nursing Triage Note: ABSCESS TO BACK X2 DAYS. Source: patient Exam Limitations: no limitations History of Present Illness Date Seen by Provider: Feb 18, 2019 Time Seen by Provider: 13:46 Initial Comments To ER with an abscess to the right flank for about 3-4 days, recently here for an abscess to the left flank. That wound has healed. He denies fevers chills or systemic symptoms. Insulin-dependent diabetic. Timing/Duration: just prior to arrival Severity: moderate Associated Symptoms: denies symptoms Allergies and Home Medications Allergies Coded Allergies: fluoxetine (Verified Allergy, Unknown, 10/08/08) trazodone (Unverified Allergy, Unknown, 03/18/14) Home Medications Bisacodyl 5 Mg Tablet.dr, 5 MG PO DAILY PRN for CONSTIPATION-1ST LINE Prescribed by: DAVE ALONSO on 08/25/16 1120 Insulin Regular, Human 100 Unit/1 Ml Vial, 10-15 UNIT SQ AC, (Reported) 10-15 UNITS BASED ON CARB COUNTING Mupirocin 22 Gm Oint...g., 22 GM TP TID Prescribed by: SAMUEL NICKERSON on 01/30/19 1805 Warfarin Sodium 5 Mg Tablet, 5 MG PO DAILY@1800 Prescribed by: DAVE ALONSO on 08/25/16 1120 Patient Home Medication List Home Medication List Reviewed: Yes Review of Systems Review of Systems Constitutional: see HPI EENTM: see HPI Respiratory: no symptoms reported Cardiovascular: no symptoms reported Genitourinary: no symptoms reported Musculoskeletal: no symptoms reported Skin: no symptoms reported Psychiatric/Neurological: No Symptoms Reported Endocrine: No Symptoms Reported Hematologic/Lymphatic: No Symptoms Reported Past Rfpfscv-Qqwbeh-Xafyvo Hx Patient Social History Alcohol Use: Denies Use Recreational Drug Use: No Drug of Choice: MARIJUANA-EVERY ONCE IN AWHILE, past hx meth Smoking Status: Former Smoker Type Used: Cigarettes 2nd Hand Smoke Exposure: Yes Recent Foreign Travel: No Contact w/Someone Who Travel: No Recent Infectious Disease Expo: No Recent Hopitalizations: No Immunizations Up To Date Tetanus Booster (TDap): Unknown PED Vaccines UTD: Yes Seasonal Allergies Seasonal Allergies: No Past Medical History Surgeries: Yes (EGD, LT HIP FX) Orthopedic, Tonsillectomy Respiratory: Yes Asthma Currently Using CPAP: No Currently Using BIPAP: No Cardiac: No Neurological: Yes Neuropathy Reproductive Disorders: No Sexually Transmitted Disease: No HIV/AIDS: No Genitourinary: Yes Prostate Problems Gastrointestinal: Yes (current constipation) Gastroesophageal Reflux, Liver Disease/Jaundice Musculoskeletal: No Endocrine: Yes (Type I) Diabetes, Insulin dep HEENT: No Cancer: No Psychosocial: Yes Anxiety, Bipolar, Depression Integumentary: Yes Eczema Blood Disorders: No Adverse Reaction/Blood Tranf: No Family Medical History Diabetes mellitus 19 FATHER UNCLE FH: COPD (chronic obstructive pulmonary disease) 19 MOTHER FH: brain cancer AUNT FH: diverticulitis 19 FATHER Thyroid disease 19 MOTHER No Pertinent Family Hx Physical Exam Vital Signs Vital Signs - First Documented 02/18/19 13:19 Temp 36.5 Pulse 93 Resp 16 B/P (MAP) 142/90 (107) Pulse Ox 98 O2 Delivery Room Air Capillary Refill : Less Than 3 Seconds General Appearance: WD/WN, no apparent distress HEENT: PERRL/EOMI, normal ENT inspection Neck: non-tender, full range of motion Respiratory: normal breath sounds, no respiratory distress, no accessory muscle use Gastrointestinal: normal bowel sounds, non tender Neurologic/Psychiatric: alert, normal mood/affect, oriented x 3 Skin: normal color, warm/dry Skin Problem Location: torso (right flank about 3 cm circular fluctuant) Skin Problem Character: abscess Procedures/Interventions I&D : Blade Size: 11 Progress/Results/Core Measures Results/Orders My Orders Orders - JAYNA ANNA APRN Wound Culture (02/18/19 13:28) Hydrocodone/Apap 5/325 Tablet (Lortab 5 (02/18/19 13:30) Sulfamethoxazole/Trimet Ds Tab (Bactrim (02/18/19 13:30) Lidocaine 1% Inj 20 Ml (Xylocaine 1% Inj (02/18/19 13:30) Sodium Bicarbonate 8.4% Vial (Sodium Bic (02/18/19 13:30) Medications Given in ED Current Medications Medications Dose Ordered Sig/Komal Route Start Time Stop Time Status Last Admin Dose Admin Acetaminophen/ Hydrocodone Bitart 1 tab ONCE ONCE PO 02/18/19 13:30 02/18/19 13:31 DC 02/18/19 13:36 1 TAB Lidocaine HCl 20 ml ONCE ONCE INJ 02/18/19 13:30 02/18/19 13:31 DC 11/2/19 13:37 20 ML Sodium Bicarbonate 50 meq ONCE ONCE IR 02/18/19 13:30 02/18/19 13:31 DC 02/18/19 13:37 50 MEQ Trimethoprim/ Sulfamethoxazole 1 ea ONCE ONCE PO 02/18/19 13:30 02/18/19 13:31 DC 02/18/19 13:36 1 EA Vital Signs/I&O 02/18/19 13:19 Temp 36.5 Pulse 93 Resp 16 B/P (MAP) 142/90 (107) Pulse Ox 98 O2 Delivery Room Air Blood Pressure Mean: 107 POS Departure Impression Primary Impression: Abscess Disposition: HOME, SELF-CARE Condition: Stable Departure-Patient Inst. Decision time for Depature: 13:48 Referrals: CADEN NARVAEZ MD (PCP/Family) Primary Care Physician Patient Instructions: Abscess Incision and Drainage (DC) Add. Discharge Instructions: 1. Antibiotic as directed return to ER for any concerns 2. Follow-up with your doctor next week 3. All discharge instructions reviewed with patient and/or family. Voiced understanding. Scripts Doxycycline Hyclate (Doxycycline Hyclate) 100 Mg Tablet 100 MG PO BID, #20 TAB 0 Refills Prov: JAYNA ANNA APRN 02/18/19 JAYNA ANNA APRN Feb 18, 2019 13:49 POS
[2019-02-18 13:54] VITALS: BP 142/90
== END 2019-02-18 13:54 | disposition home or self-care (01) ==
LOC: EDUNIT# 13:13 → ER 13:14
DX: L02.211 Cutaneous abscess of abdominal wall (principal); E10.40 Type 1 diabetes mellitus with diabetic neuropathy, unspecified; J45.909 Unspecified asthma, uncomplicated; K21.9 Gastro-esophageal reflux disease without esophagitis; F41.9 Anxiety disorder, unspecified; F31.9 Bipolar disorder, unspecified; Z79.4 Long term (current) use of insulin; Z90.49 Acquired absence of other specified parts of digestive tract; Z79.01 Long term (current) use of anticoagulants; Z88.5 Allergy status to narcotic agent; Z77.22 Contact with and (suspected) exposure to environmental tobacco smoke (acute) (chronic); Z87.891 Personal history of nicotine dependence; Z88.8 Allergy status to other drugs, medicaments and biological substances; Z80.8 Family history of malignant neoplasm of other organs or systems
CPT/HCPCS: 10060; 87070; 87077; 87186; 87205

== ENCOUNTER 2019-03-06 01:55 | Emergency (ER) | payer MEDICAID ==
[~2019-03-06] VITALS: Ht 182.8 cm; Wt 75.3 kg
[~2019-03-06 01:55] MED LIST changes: +DOXY100T2 PO
[2019-03-06] MEDS ORDERED: RT-ALBUTEROL/IPRATROPIUM 3 ML (DUONEB) VIAL ONE (02:13)
[2019-03-06] MEDS ORDERED: NS IV 1000 ML 1,000 ML IV ONE (02:14)
[2019-03-06] MEDS ORDERED: RT-ALBUTEROL/IPRATROPIUM 3 ML (DUONEB) VIAL INH ONE (02:15)
--- NOTE | 2019-03-06 02:29 | ED Respiratory ---
General Chief Complaint: Respiratory Problems Stated Complaint: TROUBLE BREATHING Source: patient Exam Limitations: no limitations ([facility]) History of Present Illness Date Seen by Provider: Mar 06, 2019 Time Seen by Provider: 02:01 Initial Comments pt is a 28 y/o white male w/ PMH of Insulin dependent DMI who presents to the ED w/ SOA and general chest pressure x 2hrs. Pt states he has been having productive cough w/ "milky-white to green-alysia" mucus, chills feeling "vhf-rhf-xees", nasal congestion, and rhinorrhea. states his sx have worsened over the past day and a half and the current SOA onset just [address] and has worsened since onset. States his most recent blood sugar level (few hrs prior to onset of sx) was "260s". Has taken Mucinex with some relief. Pt has hx of smoking but states he quit a month ago. Denies ETOH use but does admit to occasional Marijuana use (last used 1 month ago). Has hx of asthma but states he has not had exacerbations in years. Timing/Duration: other (SOA onset 2hrs ago) Severity: moderate Prior Episodes/Possible Cause: occasional episodes Modifying Factors: Improves With Albuterol Nebulizer Associated Symptoms: cough, earache, fever/chills, nasal congestion, nasal drainage, shortness of breath, wheezing, other (chest pressure) ([facility]) Allergies and Home Medications Allergies Coded Allergies: fluoxetine (Verified Allergy, Unknown, 10/08/08) trazodone (Unverified Allergy, Unknown, 03/18/14) Home Medications Bisacodyl 5 Mg Tablet.dr, 5 MG PO DAILY PRN for CONSTIPATION-1ST LINE Prescribed by: DAVE ALONSO on 08/25/16 1120 Doxycycline Hyclate 100 Mg Tablet, 100 MG PO BID Prescribed by: JAYNA ANNA on 02/18/19 1349 Insulin Regular, Human 100 Unit/1 Ml Vial, 10-15 UNIT SQ AC, (Reported) 10-15 UNITS BASED ON CARB COUNTING Mupirocin 22 Gm Oint...g., 22 GM TP TID Prescribed by: SAMUEL NICKERSON on 01/30/19 1805 Warfarin Sodium 5 Mg Tablet, 5 MG PO DAILY@1800 Prescribed by: DAVE ALONSO on 08/25/16 1120 Patient Home Medication List Home Medication List Reviewed: Yes (ZOE EPPERSON MD) Review of Systems Review of Systems Constitutional: chills, fever (subjective) EENTM: ear pain (bilat), nose congestion Respiratory: cough, phlegm, short of breath, wheezing Cardiovascular: No chest pain, No edema, No palpitations, No syncope Gastrointestinal: No abdominal pain, No constipation, No diarrhea, No hematemesis, No nausea, No vomiting Genitourinary: no symptoms reported Musculoskeletal: no symptoms reported Skin: No pruritus, No rash Psychiatric/Neurological: No Symptoms Reported ([facility] ST[facility]) All Other Systems Reviewed Negative Unless Noted: Yes (ZOE EPPERSON MD) Past Ruukfot-Tvmuzu-Rinzqv Hx Past Med/Social Hx: Reviewed Nursing Past Med/Soc Hx (ZOE EPPERSON MD) Patient Social History Drug of Choice: MARIJUANA-EVERY ONCE IN AWHILE, past hx meth Type Used: Cigarettes 2nd Hand Smoke Exposure: Yes Recent Foreign Travel: No Contact w/Someone Who Travel: No Recent Hopitalizations: No ([facility]) Immunizations Up To Date Tetanus Booster (TDap): Unknown PED Vaccines UTD: Yes ([facility] STUD[facility]) Seasonal Allergies Seasonal Allergies: No ([facility]) Past Medical History Surgeries: Yes (EGD, LT HIP FX) Orthopedic, Tonsillectomy Respiratory: Yes Asthma Currently Using CPAP: No Currently Using BIPAP: No Cardiac: No Neurological: Yes Neuropathy Reproductive Disorders: No Sexually Transmitted Disease: No HIV/AIDS: No Genitourinary: Yes Prostate Problems Gastrointestinal: Yes (current constipation) Gastroesophageal Reflux, Liver Disease/Jaundice Musculoskeletal: No Endocrine: Yes (Type I) Diabetes, Insulin dep HEENT: No Cancer: No Psychosocial: Yes Anxiety, Bipolar, Depression Integumentary: Yes Eczema Blood Disorders: No Adverse Reaction/Blood Tranf: No ([facility]) Family Medical History Reviewed Nursing Family Hx (ZOE EPPERSON MD) Diabetes mellitus 19 FATHER UNCLE FH: COPD (chronic obstructive pulmonary disease) 19 MOTHER FH: brain cancer AUNT FH: diverticulitis 19 FATHER Thyroid disease 19 MOTHER No Pertinent Family Hx ([facility]) Physical Exam Vital Signs - First Documented 03/06/19 03/06/19 02:05 02:19 Temp 35.9 Pulse 107 Resp 20 B/P (MAP) 118/95 (103) Pulse Ox 95 O2 Delivery Room Air (ZOE EPPERSON MD) Capillary Refill : ([facility]) Height: 5'10.00" Weight: 160lbs. 3.0oz. [id number]; 24.00 BMI Method:Stated General Appearance: WD/WN, moderate distress Eyes: Bilateral Eye Normal Inspection, Bilateral Eye PERRL, Bilateral Eye EOMI HEENT: PERRL/EOMI, normal ENT inspection, TMs normal, pharynx normal Neck: non-tender, full range of motion, supple, normal inspection Respiratory: chest non-tender, no accessory muscle use, respiratory distress; No crackles, No rales; wheezing, expiration Cardiovascular: normal peripheral pulses, regular rate, rhythm, no edema, no gallop, no JVD, no murmur Gastrointestinal: normal bowel sounds, non tender, soft, no organomegaly, no pulsatile mass Extremities: normal inspection, no pedal edema Neurologic/Psychiatric: alert, oriented x 3 Skin: normal color, warm/dry Lymphatic: no adenopathy ([facility]) General Appearance: WD/WN, mild distress Neck: full range of motion, supple Respiratory: respiratory distress, wheezing, expiration Cardiovascular: no murmur, tachycardia Gastrointestinal: non tender, soft Neurologic/Psychiatric: alert, oriented x 3 Skin: normal color, warm/dry (ZOE EPPERSON MD) Progress/Results/Core Measures Suspected Sepsis SIRS Temperature: Pulse: Respiratory Rate: Laboratory Tests 03/06/19 02:27: Blood Pressure / Mean: Laboratory Tests 03/06/19 02:27: ([facility]) Results/Orders Lab Results Laboratory Tests Test 03/06/19 02:09 03/06/19 02:27 Range/Units Glucometer 91 70-110 MG/DL White Blood Count 10.5 4.3-11.0 10^3/uL Red Blood Count 5.06 4.35-5.85 10^6/uL Hemoglobin 15.0 13.3-17.7 G/DL Hematocrit 43 40-54 % Mean Corpuscular Volume 85 80-99 FL Mean Corpuscular Hemoglobin 30 25-34 PG Mean Corpuscular Hemoglobin Concent 35 32-36 G/DL Red Cell Distribution Width 13.3 10.0-14.5 % Platelet Count 319 130-400 10^3/uL Mean Platelet Volume 10.2 7.4-10.4 FL Neutrophils (%) (Auto) 36 L 42-75 % Lymphocytes (%) (Auto) 49 H 12-44 % Monocytes (%) (Auto) 7 0-12 % Eosinophils (%) (Auto) 8 0-10 % Basophils (%) (Auto) 0 0-10 % Neutrophils # (Auto) 3.8 1.8-7.8 X 10^3 Lymphocytes # (Auto) 5.1 H 1.0-4.0 X 10^3 Monocytes # (Auto) 0.8 0.0-1.0 X 10^3 Eosinophils # (Auto) 0.8 H 0.0-0.3 10^3/uL Basophils # (Auto) 0.0 0.0-0.1 10^3/uL Sodium Level 141 135-145 MMOL/L Potassium Level 3.5 L 3.6-5.0 MMOL/L Chloride Level 108 H 98-107 MMOL/L Carbon Dioxide Level 20 L 21-32 MMOL/L Anion Gap 13 5-14 MMOL/L Blood Urea Nitrogen 6 L 7-18 MG/DL Creatinine 0.85 0.60-1.30 MG/DL Estimat Glomerular Filtration Rate > 60 BUN/Creatinine Ratio 7 Glucose Level 77 70-105 MG/DL Calcium Level 9.2 8.5-10.1 MG/DL Corrected Calcium 9.0 8.5-10.1 MG/DL Total Bilirubin 0.3 0.1-1.0 MG/DL Aspartate Amino Transf (AST/SGOT) 19 5-34 U/L Alanine Aminotransferase (ALT/SGPT) 13 0-55 U/L Alkaline Phosphatase 118 40-136 U/L Total Protein 7.6 6.4-8.2 GM/DL Albumin 4.2 3.2-4.5 GM/DL (ZOE EPPERSON MD) Micro Results Microbiology 03/06/19 Influenza Types A,B Antigen (PREMA) - Final, Complete (ZOE EPPERSON MD) My Orders Orders - ZOE EPPERSON MD Cbc With Automated Diff (03/06/19 02:14) Comprehensive Metabolic Panel (03/06/19 02:14) Influenza A And B Antigens (03/06/19 02:14) Ed Iv/Invasive Line Start (03/06/19 02:14) Ns Iv 1000 Ml (Sodium Chloride 0.9%) (03/06/19 02:14) Albuterol/Ipra Inhalation Soln (Duoneb I (03/06/19 02:15) Chest Pa/Lat (2 View) (03/06/19 02:14) Svn Small Volume Nebulizer (03/06/19 02:14) Albuterol/Ipra Inhalation Soln (Duoneb I (03/06/19 02:13) Albuterol Pre-Mix Nebs (Rt) (Proventil (03/06/19 02:31) Svn Small Volume Nebulizer (03/06/19 02:31) Oxymetazoline 0.05% Nasal [place] (Afrin 0. (03/06/19 03:53) Rx-Albuterol Inhaler (Rx-Proair) (03/06/19 04:00) (ZOE EPPERSON MD) Medications Given in ED Current Medications Medications Dose Ordered Sig/Komal Route Start Time Stop Time Status Last Admin Dose Admin Albuterol/ Ipratropium 3 ml ONCE ONCE INH 03/06/19 02:15 03/06/19 02:16 DC 03/06/19 02:18 3 ML Sodium Chloride 1,000 ml @ 0 mls/hr Q0M ONCE IV 03/06/19 02:14 03/06/19 02:16 DC 03/06/19 02:29 0 MLS/HR (ZOE EPPERSON MD) Vital Signs/I&O 03/06/19 03/06/19 03/06/19 02:05 02:19 02:38 Temp 35.9 Pulse 107 Resp 20 B/P (MAP) 118/95 (103) Pulse Ox 95 100 O2 Delivery Room Air Room Air Room Air (ZOE EPPERSON MD) Vital Signs/I&O Capillary Refill : ([facility]) Progress Note : Time: 02:01 Progress Note Seen and Evaluated. DDx include Bronchitis, Pneumonia, asthma exacerbation, common cold/viral URI, influenza. Will order CXR, CBC, CMP, Flu swab,and breathing treatment w/ Duo-Nebs. Will start IVF 1L NS. 0220: RT reports pt is doing better but does need more breathing tx; will order albuterol Neb. Monitor pt. 0247: pt feels better now, reports less chest pressure. feels light-headed. states he took 7 units of insulin 1.5 hrs ago. Will order food for pt. ([facility]) Progress Note : Progress Note I have seen and evaluated the patient and agree with above except as indicated. I have directed the plan of care. Patient is well-known to me. He is here with report of wheezing and cough with difficulty breathing. This is been going on for the last week but has worsened this evening. Does have history of asthma in his past. He does not have inhalers. He is insulin-dependent diabetic. Current blood sugar in the 90s. We will go ahead and start an IV and give will saline 1 L bolus as well as get labs and chest x-ray. Duo neb ordered and this did help some. Albuterol neb given afterwards and this did give him significant relief. Two-view chest x-ray ordered and does not show any significant findings. 0355: Patient states overall doing better. We will give Afrin nasal spray 3 sprays to each nostril now and then twice a day for 3 days only and then stop. Also will give albuterol MDI go pack. Discharged home with return precautions. Patient verbalize understanding instructions and agreement with plan. (ZOE EPPERSON MD) Diagnostic Imaging Diagonstic Imaging: Xray Plain Films/CT/US/NM/MRI: chest Comments No acute findings on two-view chest x-ray Reviewed: Reviewed by Me (ZOE EPPERSON MD) Departure Impression Primary Impression: Viral upper respiratory infection Additional Impression: Bronchitis, acute Qualified Codes: J20.9 - Acute bronchitis, unspecified Disposition: HOME, SELF-CARE Condition: Improved Departure-Patient Inst. Decision time for Depature: 04:00 (ZOE EPPERSON MD) Referrals: CADEN NARVAEZ MD (PCP/Family) Primary Care Physician Patient Instructions: Acute Bronchitis, Adult (DC), Viral Upper Respiratory Infection, Adult (DC) Add. Discharge Instructions: All discharge instructions reviewed with patient and/or family. Voiced understanding. Use the Afrin nasal spray 2-3 sprays to each nostril twice daily for 3 days only and then stop. Do not use more than 3 days. You may take Tylenol/acetaminophen 1000 mg every 6-8 hours as needed for body aches or fever. Use albuterol inhaler 2 puffs every 4 hours as needed for wheezing. Follow up with your doctor this week for recheck and further evaluation. Return for worse pain, fever, vomiting, weakness, breathing problems or other concerns as needed. [facility] Mar 06, 2019 02:29 ZOE CANALES MD Mar 06, 2019 04:01 POS
[2019-03-06] MEDS ORDERED: RT-ALBUTEROL SULF 2.5 MG/3 ML PRE-MIX VIAL INH STA (02:31)
[2019-03-06 02:36] LABS: WHITE BLOOD COUNT 10.5 10^3/uL (4.3-11.0)
[2019-03-06 02:37] LABS: BASOPHILS % (AUTO) 0 % (0-10); EOSINOPHILS # (AUTO) 0.8 10^3/uL (0.0-0.3); EOSINOPHILS % (AUTO) 8 % (0-10); HEMATOCRIT 43 % (40-54); LYMPHOCYTES # (AUTO) 5.1 X 10^3 (1.0-4.0); LYMPHOCYTES % (AUTO) 49 % (12-44); MEAN CORPUSCULAR HEMOGLOBIN 30 PG (25-34); MEAN CORPUSCULAR HGB CONC 35 G/DL (32-36); MEAN CORPUSCULAR VOLUME 85 FL (80-99); MEAN PLATELET VOLUME 10.2 FL (7.4-10.4); MONOCYTES # (AUTO) 0.8 X 10^3 (0.0-1.0); MONOCYTES % (AUTO) 7 % (0-12); NEUTROPHILS # (AUTO) 3.8 X 10^3 (1.8-7.8); NEUTROPHILS % (AUTO) 36 % (42-75); PLATELET COUNT 319 10^3/uL (130-400); RED CELL DISTRIBUTION WIDTH 13.3 % (10.0-14.5)
[2019-03-06 02:54] LABS: ALANINE AMINOTRANSFERASE 13 U/L (0-55); ALBUMIN 4.2 GM/DL (3.2-4.5); ALKALINE PHOSPHATASE 118 U/L (40-136); BILIRUBIN,TOTAL 0.3 MG/DL (0.1-1.0); BUN/CREATININE RATIO 7; CALCIUM 9.2 MG/DL (8.5-10.1); CARBON DIOXIDE 20 MMOL/L (21-32); CHLORIDE 108 MMOL/L (98-107); CREATININE SERUM 0.85 MG/DL (0.60-1.30); GFR ESTIMATED > 60; GLUCOSE 77 MG/DL (70-105); POTASSIUM 3.5 MMOL/L (3.6-5.0); SODIUM 141 MMOL/L (135-145); TOTAL PROTEIN 7.6 GM/DL (6.4-8.2)
[2019-03-06] MEDS ORDERED: OXYMETAZOLINE (AFRIN) 0.05% NA 15 ML BTL STA (03:53)
[2019-03-06] MEDS ORDERED: RX-ALBUTEROL INHALER (PROAIR) 8.5 GM IH PRN (04:00)
[2019-03-06 04:09] VITALS: BP 133/74
--- NOTE | 2019-03-06 07:08 | Diagnostic Imaging Report ---
EXAMINATION: Chest 2 view HISTORY: Chest pain FINDINGS: Comparison is 08/23/2016. The lungs are clear. No edema. No pneumonia. No pleural effusion. No pneumothorax. Heart is normal in size. IMPRESSION: 1. Clear lungs. Dictated by: Dictated on workstation # [id number]
== END 2019-03-06 04:10 | disposition home or self-care (01) ==
LOC: EDUNIT# 01:55 → ER 01:56
DX: J06.9 Acute upper respiratory infection, unspecified (principal); J20.9 Acute bronchitis, unspecified; E10.40 Type 1 diabetes mellitus with diabetic neuropathy, unspecified; J45.909 Unspecified asthma, uncomplicated; K21.9 Gastro-esophageal reflux disease without esophagitis; F41.9 Anxiety disorder, unspecified; F31.9 Bipolar disorder, unspecified; Z88.5 Allergy status to narcotic agent; Z88.8 Allergy status to other drugs, medicaments and biological substances; Z79.4 Long term (current) use of insulin; Z79.01 Long term (current) use of anticoagulants; Z77.22 Contact with and (suspected) exposure to environmental tobacco smoke (acute) (chronic); Z90.89 Acquired absence of other organs; Z80.8 Family history of malignant neoplasm of other organs or systems
CPT/HCPCS: 36415; 71046; 80053; 82962; 85025; 87804; 94640

== ENCOUNTER 2019-04-23 02:26 | Emergency (ER) | payer MEDICAID | END 2019-04-23 02:46 | disposition left against medical advice (07) | LOC: EDUNIT# 02:26 → ER 02:27 | DX: M54.2 Cervicalgia (principal); R22.1 Localized swelling, mass and lump, neck ==

== ENCOUNTER 2019-04-27 09:12 | Inpatient (IN) | payer MEDICAID ==
[~2019-04-27] VITALS: Ht 190.5 cm; Wt 64.5 kg
[2019-04-27] MEDS ORDERED: CATHETER FLUSH 10 ML SYR IV PRN (11:00)
[2019-04-27] MEDS ORDERED: HOLD METFORMIN - RECEIVED CONTRAST 20 ML VIAL IV SCH (11:00)
[2019-04-27] MEDS ORDERED: IOHEXOL 350 MG/ML 100 ML (OMNIPAQUE 350) VIAL IV ONE (11:00)
[2019-04-27] MEDS ORDERED: NS 100 ML (IVPB) BAG IV ONE (11:00)
--- NOTE | 2019-04-27 11:42 | NUR ---
Pt refused second set of cultures to be drawn by dock or pier laborer. Pt cursing at dock or pier laborer and this RN. Provider notified.
--- NOTE | 2019-04-27 11:45 | ED Integumentary General ---
General Chief Complaint: Skin/Wound Problems Stated Complaint: NECK STIFFNESS Nursing Triage Note: PT HAS LARGE BUMP, APPEARS TO BE ABCESS TO R-SIDE BACK OF HEAD. PT. STATES HE'S HAD IT FOR @ A WEEK. STATES IT IS HARD FOR HIM TO TURN HEAD AND SITE DOES HURT. PT. DENIES FEVER OR ILLNESS DURING THIS TIME. Source: patient, old records History of Present Illness Date Seen by Provider: Apr 27, 2019 Time Seen by Provider: 10:44 Initial Comments PT ARRIVES VIA POV PT STATES THAT HE THINKS HE HAS AN ABSCESS ON THE RIGHT POSTERIOR SCALP--STATES IT HAS BEEN PRESENT FOR AT LEAST A WEEK STATES THE AREA IS PAINFUL, AND IT IS NOW CAUSING HIM PAIN TO TURN HIS HEAD TO THE RIGHT NO FEVER NO KNOWN INJURY HAS NOT TAKEN ANYTHING FOR SYMPTOMS SYMPTOMS NO DIFFERENT TODAY HAS NOT SEEN BEFORE TODAY FOR THIS, AND HAS NOT ATTEMPTED TO MAKE AN APPOINTMENT WITH HIS PCP / VINCE T ANY TIME FOR THIS. DID COME TO ER 04/23/19 FOR THIS COMPLAINT, BUT LEFT WITHOUT BEING SEEN FROM THE WAITING ROOM. HAS HISTORY OF ABSCESSES IN OTHER AREAS OF BODY, WITH MULTIPLE ER VISITS IN JANUARY AND FEBRUARY FOR RIGHT FLANK ABSCESS PT WITH A MULTITUDE OF VISITS FOR VARIOUS COMPLAINTS PT IS TYPE 1 DIABETIC, CURRENTLY HAS AN INSULIN PUMP.. PT DOES NOT CHECK HIS BLOOD GLUCOSE EXTREME NON-COMPLIANCE IN ALL ASPECTS OF CARE. PT FREQUENTLY LEAVES AMA PT ALWAYS DEMANDS PAIN MEDICATIONS SOON HE ARRIVES, AND DOES SO TODAY PCP: VINCE, DR. NARVAEZ Allergies and Home Medications Allergies Coded Allergies: fluoxetine (Verified Allergy, Unknown, 04/27/19) trazodone (Verified Allergy, Unknown, 04/27/19) Home Medications Insulin Lispro 100 Unit/1 Ml Vial, SC UD, (Reported) 80 UNITS PER DAY PER INSULIN PUMP Patient Home Medication List Home Medication List Reviewed: Yes Review of Systems Review of Systems Constitutional: No fever Respiratory: no symptoms reported Cardiovascular: no symptoms reported Gastrointestinal: no symptoms reported Skin: see HPI Psychiatric/Neurological: No Symptoms Reported Endocrine: See HPI Past Zjnwitd-Bqwcho-Ucyaxg Hx Past Med/Social Hx: Reviewed and Corrections made Patient Social History Alcohol Use: Denies Use Recreational Drug Use: Yes (THC, SMOKES METH--DENIES IV USE) Drug of Choice: THC, SMOKES METH-DENIES IV USE Smoking Status: Current Everyday Smoker (1 PPD) Type Used: Cigarettes 2nd Hand Smoke Exposure: Yes Recent Foreign Travel: No Contact w/Someone Who Travel: No Recent Infectious Disease Expo: No Recent Hopitalizations: No Immunizations Up To Date Tetanus Booster (TDap): Unknown PED Vaccines UTD: Yes Seasonal Allergies Seasonal Allergies: No Past Medical History Surgeries: Yes (EGD; LEFT HIP FX/ORIF 2016) Orthopedic, Tonsillectomy Respiratory: Yes Asthma Currently Using CPAP: No Currently Using BIPAP: No Cardiac: No Neurological: Yes Neuropathy Reproductive Disorders: No Sexually Transmitted Disease: No HIV/AIDS: No Genitourinary: Yes Prostate Problems Gastrointestinal: Yes Gastroesophageal Reflux, Liver Disease/Jaundice, Chronic Constipation Musculoskeletal: Yes (LEFT HIP FX/ORIF 2016) Fractures Endocrine: Yes (TYPE 1 DIABETES, WITH INSULIN PUMP OF 04/27/19-EXTREME NON- COMPLIANCE) Diabetes, Insulin dep HEENT: Yes (DENTAL CARIES) Cancer: No Psychosocial: Yes (POLYSUBSTANCE) Anxiety, Bipolar, Depression Integumentary: Yes Eczema Blood Disorders: No Adverse Reaction/Blood Tranf: No Family Medical History Diabetes mellitus 19 FATHER UNCLE FH: COPD (chronic obstructive pulmonary disease) 19 MOTHER FH: brain cancer AUNT FH: diverticulitis 19 FATHER Thyroid disease 19 MOTHER No Pertinent Family Hx Physical Exam Vital Signs Vital Signs - First Documented 04/27/19 09:39 Temp 36.5 Pulse 134 Resp 20 B/P (MAP) 123/88 (100) Pulse Ox 99 O2 Delivery Room Air Capillary Refill : Less Than 3 Seconds General Appearance: cachetic, other (FILTHY, EXTREMELY MALODOROUS. DOES NOT APPEAR TO BE IN ANY DISCOMFORT OR DISTRESS. BELLIGERENT AND CURSING DURING MOST OF ER STAY) HEENT: PERRL/EOMI, other (APPROX 10 CM DIAMETER, TENDER, ERYTHEMATOUS, SLIGHTLY FIRM MASS TO RIGHT OCCIPITAL SCALP/UPPER NECK/POST AURICULAR AREA. NO DRAINAGE. EXTENSIVE DENTAL CARIES) Cardiovascular: regular rate, rhythm, no murmur Respiratory: normal breath sounds Extremities: normal inspection Neurologic/Psychiatric: facilities maintenance technician II-XII nml as tested, no motor/sensory deficits, alert, oriented x 3 Skin: normal color, warm/dry Skin Problem Location: scalp Skin Problem Character: abscess Progress/Results/Core Measures Results/Orders Lab Results Laboratory Tests Test 04/27/19 11:41 04/27/19 11:42 04/27/19 12:00 Range/Units Glucometer 381 H 70-110 MG/DL Lactic Acid Level 1.78 0.50-2.00 MMOL/L White Blood Count 16.5 H 4.3-11.0 10^3/uL Red Blood Count 5.17 4.35-5.85 10^6/uL Hemoglobin 15.2 13.3-17.7 G/DL Hematocrit 44 40-54 % Mean Corpuscular Volume 84 80-99 FL Mean Corpuscular Hemoglobin 29 25-34 PG Mean Corpuscular Hemoglobin Concent 35 32-36 G/DL Red Cell Distribution Width 13.0 10.0-14.5 % Platelet Count 363 130-400 10^3/uL Mean Platelet Volume 10.3 7.4-10.4 FL Neutrophils (%) (Auto) 78 H 42-75 % Lymphocytes (%) (Auto) 12 12-44 % Monocytes (%) (Auto) 9 0-12 % Eosinophils (%) (Auto) 1 0-10 % Basophils (%) (Auto) 0 0-10 % Neutrophils # (Auto) 12.8 H 1.8-7.8 X 10^3 Lymphocytes # (Auto) 1.9 1.0-4.0 X 10^3 Monocytes # (Auto) 1.5 H 0.0-1.0 X 10^3 Eosinophils # (Auto) 0.2 0.0-0.3 10^3/uL Basophils # (Auto) 0.0 0.0-0.1 10^3/uL Neutrophils % (Manual) 85 % Lymphocytes % (Manual) 10 % Monocytes % (Manual) 5 % Blood Morphology Comment NORMAL Prothrombin Time 13.1 12.2-14.7 SEC INR Comment 1.0 0.8-1.4 Activated Partial Thromboplast Time 33 24-35 SEC Urine Color YELLOW Urine Clarity CLEAR Urine pH 6.5 5-9 Urine Specific [place] <=1.005 1.016-1.022 Urine Protein NEGATIVE NEGATIVE Urine Glucose (UA) 3+ H NEGATIVE Urine Ketones NEGATIVE NEGATIVE Urine Nitrite NEGATIVE NEGATIVE Urine Bilirubin NEGATIVE NEGATIVE Urine Urobilinogen 0.2 < = 1.0 MG/DL Urine Leukocyte Esterase NEGATIVE NEGATIVE Urine RBC (Auto) TRACE-L NEGATIVE Urine RBC RARE /HPF Urine WBC NONE /HPF Urine Squamous Epithelial Cells 0-2 /HPF Urine Crystals NONE /LPF Urine Bacteria NEGATIVE /HPF Urine Casts NONE /LPF Urine Mucus NEGATIVE /LPF Urine Culture Indicated NO Sodium Level 134 L 135-145 MMOL/L Potassium Level 3.9 3.6-5.0 MMOL/L Chloride Level 96 L 98-107 MMOL/L Carbon Dioxide Level 26 21-32 MMOL/L Anion Gap 12 5-14 MMOL/L Blood Urea Nitrogen 4 L 7-18 MG/DL Creatinine 1.01 0.60-1.30 MG/DL Estimat Glomerular Filtration Rate > 60 BUN/Creatinine Ratio 4 Glucose Level 415 *H 70-105 MG/DL Calcium Level 9.1 8.5-10.1 MG/DL Corrected Calcium 9.3 8.5-10.1 MG/DL Total Bilirubin 0.3 0.1-1.0 MG/DL Aspartate Amino Transf (AST/SGOT) 7 5-34 U/L Alanine Aminotransferase (ALT/SGPT) 11 0-55 U/L Alkaline Phosphatase 181 H 40-136 U/L Total Protein 7.0 6.4-8.2 GM/DL Albumin 3.7 3.2-4.5 GM/DL Urine Opiates Screen NEGATIVE NEGATIVE Urine Oxycodone Screen NEGATIVE NEGATIVE Urine Methadone Screen NEGATIVE NEGATIVE Urine Propoxyphene Screen NEGATIVE NEGATIVE Urine Barbiturates Screen NEGATIVE NEGATIVE Ur Tricyclic Antidepressants Screen NEGATIVE NEGATIVE Urine Phencyclidine Screen NEGATIVE NEGATIVE Urine Amphetamines Screen POSITIVE H NEGATIVE Urine Methamphetamines Screen POSITIVE H NEGATIVE Urine Benzodiazepines Screen NEGATIVE NEGATIVE Urine Cocaine Screen NEGATIVE NEGATIVE Urine Cannabinoids Screen NEGATIVE NEGATIVE My Orders Orders - MARYELLEN,MARIANNA K DO Accucheck Stat ONCE (04/27/19 10:47) Monitor-Rhythm Ecg Trace Only (04/27/19 10:47) Cbc With Automated Diff (04/27/19 10:47) Comprehensive Metabolic Panel (04/27/19 10:47) Drug Screen Stat (Urine) (04/27/19 10:47) Lactic Acid Analyzer (04/27/19 10:47) Protime With Inr (04/27/19 10:47) Partial Thromboplastin Time (04/27/19 10:47) Blood Culture (04/27/19 10:47) Ct Neck (Soft Tissue) W (04/27/19 10:47) Iohexol Injection (Omnipaque 350 Mg/Ml 1 (04/27/19 11:00) Received Contrast (Hold Metformin- Contr (04/27/19 11:00) Sodium Chloride Flush (Catheter Flush Sy (04/27/19 11:00) Ns (Ivpb) (Sodium Chloride 0.9% Ivpb Bag (04/27/19 11:00) Arterial Blood Gas (04/27/19 12:08) Manual Differential (04/27/19 12:00) Piperacillin Sodium/Tazobactam (Zosyn Vi (04/27/19 12:30) Ketorolac Injection (Toradol Injection) (04/27/19 12:30) Vancomycin Injection (Vancomycin Injecti (04/27/19 12:30) Medications Given in ED Current Medications Medications Dose Ordered Sig/Komal Route Start Time Stop Time Status Last Admin Dose Admin Iohexol 75 ml ONCE ONCE IV 04/27/19 11:00 04/27/19 11:01 DC 04/27/19 11:22 75 ML Ketorolac Tromethamine 30 mg ONCE ONCE IVP 04/27/19 12:30 04/27/19 12:31 DC 04/27/19 12:43 30 MG Piperacillin Sod/ Tazobactam Sod 4.5 gm/Sodium Chloride 100 ml @ 200 mls/hr ONCE ONCE IV 04/27/19 12:30 04/27/19 12:59 DC 04/27/19 12:57 200 MLS/HR Sodium Chloride 10 ml NEEDED PRN IV 04/27/19 11:00 04/27/19 11:22 10 ML Sodium Chloride 100 ml ONCE ONCE IV 04/27/19 11:00 04/27/19 11:01 DC 04/27/19 11:22 80 ML Vital Signs/I&O 04/27/19 09:39 Temp 36.5 Pulse 134 Resp 20 B/P (MAP) 123/88 (100) Pulse Ox 99 O2 Delivery Room Air Blood Pressure Mean: 100 Progress Progress Note : Progress Note NO DETERIORATION IN PT'S CONDITION DURING ER STAY PT CONTINUED TO BE BELLIGERENT AND CURSING THROUGHOUT ER STAY PT REFUSES ABG'S. DEMANDING PAIN MEDICATION, YET HAS NOT TAKEN ANYTHING FOR PAIN AT ANY TIME AT HOME. Diagnostic Imaging Comments CT NECK SOFT TISSUES--LARGE COMPLEX FLUID COLLECTION--C/W LARGE ABSCESS TO RIGHT POSTERIOR NECK--PER RADIOLOGIST REPORT AT 1155 Reviewed: Reviewed by Me Departure Communication (Admissions) 1245--SPOKE WITH DR. CEBALLOS, COMMUNITY ARTIST FOR [facility], ACCEPTS PT FOR ADMIT. WILL CONSULT SURGERY. Impression Primary Impression: HEAD/NECK ABSCESS Additional Impressions: Sepsis Illicit drug use Methamphetamine use Non-compliance Hyponatremia Uncontrolled type 1 diabetes mellitus Disposition: ADMITTED INPATIENT Condition: Stable Admissions Decision to Admit Reason: Admit from ER (General) Decision to Admit/Date: Apr 27, 2019 Time/Decision to Admit Time: 12:45 Departure-Patient Inst. Referrals: CADEN NARVAEZ MD (PCP/Family) Primary Care Physician MARIANNA BOJORQUEZ DO Apr 27, 2019 11:44
--- NOTE | 2019-04-27 11:49 | Diagnostic Imaging Report ---
PROCEDURE: CT neck soft tissue with contrast. TECHNIQUE: Multiple contiguous axial images were obtained through the neck after the administration of contrast. Auto Exposure Controls were utilized during the CT exam to meet ALARA standards for radiation dose reduction. INDICATION: Right-sided posterior neck lump. COMPARISON: No prior studies are available for comparison. FINDINGS: There is a heterogeneous, mixed density mass at the area of palpable abnormality in the right posterior neck. This commences near the base of the skull and extends inferiorly to the level of the submandibular glands. This measures 8.4 cm cephalocaudal x 5.9 cm transverse x 3.7 cm AP. This shows mixed density with internal enhancing septations most likely representing a subcutaneous abscess. No internal gas is identified. Visualized intracranial structures are unremarkable. Posterior nasopharynx and oropharynx are unremarkable. Parapharyngeal fat planes are unremarkable. Submandibular and parotid glands appear to be symmetric. There are bilateral jugulodigastric and posterior cervical nodes which are likely reactive. No other fluid collections are seen. IMPRESSION: Complex, primarily fluid containing low-density mass at the area of palpable abnormality in the posterior right neck. This most likely represents a large abscess. No other significant abnormality is detected. Dictated by: Dictated on workstation # [id number]
--- NOTE | 2019-04-27 12:08 | NUR ---
Pt refuses ABG to be drawn stating, "I don't fucking do that." Provider in room.
[2019-04-27 12:14] LABS: BASOPHILS % (AUTO) 0 % (0-10); EOSINOPHILS # (AUTO) 0.2 10^3/uL (0.0-0.3); EOSINOPHILS % (AUTO) 1 % (0-10); HEMATOCRIT 44 % (40-54); HEMOGLOBIN 15.2 G/DL (13.3-17.7); LYMPHOCYTES # (AUTO) 1.9 X 10^3 (1.0-4.0); LYMPHOCYTES % (AUTO) 12 % (12-44); MEAN CORPUSCULAR HEMOGLOBIN 29 PG (25-34); MEAN CORPUSCULAR HGB CONC 35 G/DL (32-36); MEAN CORPUSCULAR VOLUME 84 FL (80-99); MEAN PLATELET VOLUME 10.3 FL (7.4-10.4); MONOCYTES # (AUTO) 1.5 X 10^3 (0.0-1.0); MONOCYTES % (AUTO) 9 % (0-12); NEUTROPHILS # (AUTO) 12.8 X 10^3 (1.8-7.8); NEUTROPHILS % (AUTO) 78 % (42-75); PLATELET COUNT 363 10^3/uL (130-400); WHITE BLOOD COUNT 16.5 10^3/uL (4.3-11.0)
[2019-04-27 12:27] LABS: AMPHETAMINE SCREEN, URINE POSITIVE (NEGATIVE); BARBITURATE SCREEN URINE NEGATIVE (NEGATIVE); BENZODIAZEPINES SCREEN URINE NEGATIVE (NEGATIVE); CANNABINOID SCREEN, URINE NEGATIVE (NEGATIVE); COCAINE SCREEN URINE NEGATIVE (NEGATIVE); METHADONE STAT NEGATIVE (NEGATIVE); METHAMPHETAMINE SCREEN URINE S POSITIVE (NEGATIVE); OPIATE SCREEN URINE NEGATIVE (NEGATIVE); OXYCODONE STAT NEGATIVE (NEGATIVE); PROPOXYPHENE STAT NEGATIVE (NEGATIVE); TRICYCLIC ANTIDEPRESSANTS SCRE NEGATIVE (NEGATIVE)
[2019-04-27 12:29] LABS: PROTHROMBIN TIME PATIENT 13.1 SEC (12.2-14.7)
[2019-04-27] MEDS ORDERED: PIPERACILLIN SODIUM/TAZOBACTAM 4.5 GM in NS (IVPB) 100 ML IV ONE (12:30)
[2019-04-27] MEDS ORDERED: VANCOMYCIN 1250 MG/NS 250 ML IVPB IV NR ×2 (12:30)
[2019-04-27] MEDS ORDERED: VANCOMYCIN INJECTION 1,000 MG in NS (IVPB) 250 ML IV ONE (12:30)
[2019-04-27] MEDS ORDERED: KETOROLAC 30 MG/ML VIAL IVP ONE (12:30)
[2019-04-27 12:40] LABS: ALANINE AMINOTRANSFERASE 11 U/L (0-55); ALBUMIN 3.7 GM/DL (3.2-4.5); ALKALINE PHOSPHATASE 181 U/L (40-136); BILIRUBIN,TOTAL 0.3 MG/DL (0.1-1.0); BUN/CREATININE RATIO 4; CALCIUM 9.1 MG/DL (8.5-10.1); CARBON DIOXIDE 26 MMOL/L (21-32); CHLORIDE 96 MMOL/L (98-107); CREATININE SERUM 1.01 MG/DL (0.60-1.30); GFR ESTIMATED > 60; POTASSIUM 3.9 MMOL/L (3.6-5.0); SODIUM 134 MMOL/L (135-145)
[2019-04-27 12:41] LABS: GLUCOSE 415 MG/DL (70-105)
[2019-04-27 12:48] LABS: LYMPHOCYTES % (MANUAL) 10 %; MONOCYTES % (MANUAL) 5 %; NEUTROPHILS % (MANUAL) 85 %; RBC MORPH NORMAL
[2019-04-27 13:04] LABS: BILIRUBIN,URINE NEGATIVE (NEGATIVE); CLARITY,URINE CLEAR; COLOR,URINE YELLOW; GLUCOSE, URINE (UA) 3+ (NEGATIVE); KETONES,URINE NEGATIVE (NEGATIVE); LEUKOCYTE ESTERASE ,URINE NEGATIVE (NEGATIVE); NITRITE,URINE NEGATIVE (NEGATIVE); PH,URINE 6.5 (5-9); PROTEIN,URINE NEGATIVE (NEGATIVE)
[2019-04-27 13:18] LABS: BACTERIA,URINE NEGATIVE /HPF; RBC,URINE RARE /HPF
[2019-04-27 13:19] LABS: SQUAMOUS EPITHELIAL CELL,UR 0-2 /HPF
--- NOTE | 2019-04-27 14:20 | NUR ---
DONG HERNANDEZ admitted to room 415-1, with an admitting diagnosis of sepsis and scalp and neck abscess, on 04/27/19 from ER via w/wallace, accompanied by TIARA Wallace. DONG HERNANDEZ introduced to surroundings, call light, bed controls, phone, TV, temperature control, lights, meal times, smoking policy, visitor policy, side rail policy, bathrooms and showers. Patient Rights given to patient in the handbook. DONG HERNANDEZ verbalizes understanding that [facility] is not responsible for the loss or damage to any personal effects or valuables that are kept in the patients posession during their hospitalization. DONG HERNANDEZ verbalizes understanding of Interdisciplinary Patient Education. Patient and/or family were informed about the Rapid Response Team and its purpose.
[2019-04-27 14:51] VITALS: BP 125/76
[2019-04-27] MEDS ORDERED: INSU100V SC (14:59)
--- NOTE | 2019-04-27 15:05 | NUR ---
VANCOMYCIN DOSING: SCr 1.01, CrCl 127.8, WEIGHT 64.5MG LOADING DOSE 1250MG 1-9 @ 1334 (20MG/KG X 64.5KG ~ 1250MG) MAINTENANCE DOSE 15MG/KG X 64.5KG ~ 1000MG Q8H VANCOMYCIN TROUGH DUE 04/28 @ 1230; IF TROUGH >20, HOLD 04/28 1330 DOSE
[2019-04-27 15:15] VITALS: BP 125/76
[2019-04-27] MEDS ORDERED: LIDOCAINE 1% INJ 20 ML 20 ML VIAL ONE (15:46)
[2019-04-27 16:00] VITALS: BP 121/83
[2019-04-27] MEDS: inSUlin ASPART (NovoLOG) 1 UNIT/0.01 ML (CHARGE PER UNIT) SC SCH ×2 (16:26→21:05)
--- NOTE | 2019-04-27 17:18 | History & Physical ---
HPI History of Present Illness: Abscess on back of head/neck, started about a week ago. At first he thought he had just popped his neck moving it, but then started to have swelling there the next day. Got extremely large over the last week, was going to come in 2-3 days after it started but ER was very busy. Denies fever, nausea, vomiting. He has ty pe I DM and uses a pump. He reports he checks blood sugar 3-4 times per day at home, lowest it has been recently is 230, but he states for him that is kind of good. Source: patient Date seen by provider: Apr 27, 2019 Time Seen by Provider: 17:14 Attending Physician Bridget Espinoza MD PCP William Narvaez MD Consult Date of Admission Apr 27, 2019 at 12:45 Home Medications Home Medications Reviewed patient Home Medication Reconciliation performed by pharmacy medication reconciliations telegraph repeater technician and/or nursing. Patients Allergies have been reviewed. Allergies Coded Allergies: fluoxetine (Verified Allergy, Unknown, 04/27/19) trazodone (Verified Allergy, Unknown, 04/27/19) YPX-Aayybn-Cvwdhe Hx Patient Social History Alcohol Use: Denies Use Recreational Drug Use: No Drug of Choice: MARIJUANA-EVERY ONCE IN AWHILE, past hx meth, relapse 2 wks ago (04/27/19) Smoking Status: Current Everyday Smoker Type Used: Cigarettes 2nd Hand Smoke Exposure: Yes Recent Foreign Travel: No Contact w/other who traveled: No Recent Hopitalizations: No Recent Infectious Disease Expo: No Immunizations Up To Date Tetanus Booster (TDap): Unknown Past Medical History PMHx: DMI Asthma Anxiety Depression SurgHx: Left hip reconstruction Family Medical History Family History: Diabetes mellitus 19 FATHER UNCLE FH: COPD (chronic obstructive pulmonary disease) 19 MOTHER FH: brain cancer AUNT FH: diverticulitis 19 FATHER Thyroid disease 19 MOTHER Review of Systems (CHC) Constitutional: No fever EENTM: No nose congestion, No throat pain Respiratory: cough (occasional) Cardiovascular: No chest pain Gastrointestinal: abdominal pain (occasional), constipation, diarrhea; No nausea, No vomiting Genitourinary: No dysuria Musculoskeletal: joint pain (hip and back at times) Skin: see HPI Psychiatric/Neurological: Anxiety, Depressed Reviewed Test Results Reviewed Test Results Lab Laboratory Tests Test 04/27/19 11:41 04/27/19 11:42 04/27/19 12:00 04/27/19 15:48 Range/Units Glucometer 381 H 307 H 70-110 MG/DL Lactic Acid Level 1.78 0.50-2.00 MMOL/L White Blood Count 16.5 H 4.3-11.0 10^3/uL Red Blood Count 5.17 4.35-5.85 10^6/uL Hemoglobin 15.2 13.3-17.7 G/DL Hematocrit 44 40-54 % Mean Corpuscular Volume 84 80-99 FL Mean Corpuscular Hemoglobin 29 25-34 PG Mean Corpuscular Hemoglobin Concent 35 32-36 G/DL Red Cell Distribution Width 13.0 10.0-14.5 % Platelet Count 363 130-400 10^3/uL Mean Platelet Volume 10.3 7.4-10.4 FL Neutrophils (%) (Auto) 78 H 42-75 % Lymphocytes (%) (Auto) 12 12-44 % Monocytes (%) (Auto) 9 0-12 % Eosinophils (%) (Auto) 1 0-10 % Basophils (%) (Auto) 0 0-10 % Neutrophils # (Auto) 12.8 H 1.8-7.8 X 10^3 Lymphocytes # (Auto) 1.9 1.0-4.0 X 10^3 Monocytes # (Auto) 1.5 H 0.0-1.0 X 10^3 Eosinophils # (Auto) 0.2 0.0-0.3 10^3/uL Basophils # (Auto) 0.0 0.0-0.1 10^3/uL Neutrophils % (Manual) 85 % Lymphocytes % (Manual) 10 % Monocytes % (Manual) 5 % Blood Morphology Comment NORMAL Prothrombin Time 13.1 12.2-14.7 SEC INR Comment 1.0 0.8-1.4 Activated Partial Thromboplast Time 33 24-35 SEC Urine Color YELLOW Urine Clarity CLEAR Urine pH 6.5 5-9 Urine Specific [place] <=1.005 1.016-1.022 Urine Protein NEGATIVE NEGATIVE Urine Glucose (UA) 3+ H NEGATIVE Urine Ketones NEGATIVE NEGATIVE Urine Nitrite NEGATIVE NEGATIVE Urine Bilirubin NEGATIVE NEGATIVE Urine Urobilinogen 0.2 < = 1.0 MG/DL Urine Leukocyte Esterase NEGATIVE NEGATIVE Urine RBC (Auto) TRACE-L NEGATIVE Urine RBC RARE /HPF Urine WBC NONE /HPF Urine Squamous Epithelial Cells 0-2 /HPF Urine Crystals NONE /LPF Urine Bacteria NEGATIVE /HPF Urine Casts NONE /LPF Urine Mucus NEGATIVE /LPF Urine Culture Indicated NO Sodium Level 134 L 135-145 MMOL/L Potassium Level 3.9 3.6-5.0 MMOL/L Chloride Level 96 L 98-107 MMOL/L Carbon Dioxide Level 26 21-32 MMOL/L Anion Gap 12 5-14 MMOL/L Blood Urea Nitrogen 4 L 7-18 MG/DL Creatinine 1.01 0.60-1.30 MG/DL Estimat Glomerular Filtration Rate > 60 BUN/Creatinine Ratio 4 Glucose Level 415 *H 70-105 MG/DL Calcium Level 9.1 8.5-10.1 MG/DL Corrected Calcium 9.3 8.5-10.1 MG/DL Total Bilirubin 0.3 0.1-1.0 MG/DL Aspartate Amino Transf (AST/SGOT) 7 5-34 U/L Alanine Aminotransferase (ALT/SGPT) 11 0-55 U/L Alkaline Phosphatase 181 H 40-136 U/L Total Protein 7.0 6.4-8.2 GM/DL Albumin 3.7 3.2-4.5 GM/DL Urine Opiates Screen NEGATIVE NEGATIVE Urine Oxycodone Screen NEGATIVE NEGATIVE Urine Methadone Screen NEGATIVE NEGATIVE Urine Propoxyphene Screen NEGATIVE NEGATIVE Urine Barbiturates Screen NEGATIVE NEGATIVE Ur Tricyclic Antidepressants Screen NEGATIVE NEGATIVE Urine Phencyclidine Screen NEGATIVE NEGATIVE Urine Amphetamines Screen POSITIVE H NEGATIVE Urine Methamphetamines Screen POSITIVE H NEGATIVE Urine Benzodiazepines Screen NEGATIVE NEGATIVE Urine Cocaine Screen NEGATIVE NEGATIVE Urine Cannabinoids Screen NEGATIVE NEGATIVE Physical Exam-(CHC) Physical Exam Vital Signs VS - Last 72 Hours, by Label 04/27/19 04/27/19 04/27/19 04/27/19 09:39 14:15 14:51 15:15 Temp 36.5 36.7 37.2 37.2 Pulse 134 125 104 104 Resp 20 17 20 20 B/P (MAP) 123/88 (100) 110/87 (100) 125/76 125/76 Pulse Ox 99 99 99 99 O2 Delivery Room Air Room Air Room Air Room Air 04/27/19 04/27/19 04/27/19 15:18 16:00 17:09 Temp 37.5 Pulse 122 120 Resp 20 B/P (MAP) 121/83 (96) Pulse Ox 99 99 O2 Delivery Room Air Room Air Capillary Refill : Less Than 3 Seconds General Appearance: WD/WN, no apparent distress Respiratory: lungs clear, normal breath sounds Cardiovascular: regular rate, rhythm, no murmur Gastrointestinal: normal bowel sounds, non tender, soft Extremities: No pedal edema Neurologic/Psychiatric: alert, normal mood/affect Skin: other (dressing on posterior neck with no drainage) Assessment/Plan Assessment/Plan Admission Status: Inpatient Order (span 2 midnights) Reason for Inpatient Admission: Sepsis with uncontrolled diabetes (1) Sepsis Status: Acute Assessment & Plan: Secondary to abscess/cellulitis. Tachycardia and leukocytosis. Lactic acid okay. Zosyn, vancomycin. (2) Abscess Status: Acute Assessment & Plan: Surgery consulted due to large size, drained this evening. (3) Hyponatremia Status: Acute Assessment & Plan: Pseudohyponatremia due to hyperglycemia (4) Methamphetamine use Status: Acute Assessment & Plan: Advised cessation. (5) Uncontrolled type 1 diabetes mellitus Status: Acute Assessment & Plan: Sliding scale insulin. Qualifiers: Qualified Codes: E10.65 - Type 1 diabetes mellitus with hyperglycemia (6) DVT prophylaxis Status: Acute Assessment & Plan: SCDs Clinical Quality Measures DVT/VTE Risk/Contraindication: Risk Factor Score Per Nursin RFS Level Per Nursing on Admit: 1=Low/No VTE PPX Copy Copies To 1: WILLIAM NARVAEZ MD, BETHANY N MD Apr 27, 2019 17:18
--- NOTE | 2019-04-27 17:25 | Consultation - Surgery ---
DERRICK MCDERMOTT [facility] 04/27/19 1725: History of Present Illness History of Present Illness Patient Consulted On(alesia/time) 04/27/19 17:19 Date Seen by Provider: Apr 27, 2019 Time Seen by Provider: 16:55 History of Present Illness Pt reports that over the last week he has had a painful swollen mass on the back of the right side of his head develop. He states it has been so painful this morning that he was unable to to turn his head. He states he has had abscesses on his back and shoulders in the past. Allergies and Home Medications Allergies Coded Allergies: fluoxetine (Verified Allergy, Unknown, 04/27/19) trazodone (Verified Allergy, Unknown, 04/27/19) Home Medications Insulin Lispro 100 Unit/1 Ml Vial, SC UD, (Reported) 80 UNITS PER DAY PER INSULIN PUMP Past Szlpywe-Lqpame-Kjcpne Hx Patient Social History Alcohol Use: Denies Use Recreational Drug Use: No Drug of Choice: MARIJUANA-EVERY ONCE IN AWHILE, past hx meth, relapse 2 wks ago (04/27/19) Smoking Status: Current Everyday Smoker Former Smoker, Quit: Feb 17, 2019 Type Used: Cigarettes 2nd Hand Smoke Exposure: Yes Recent Foreign Travel: No Contact w/Someone Who Travel: No Recent Infectious Disease Expo: No Recent Hopitalizations: No Immunizations Up To Date Tetanus Booster (TDap): Unknown PED Vaccines UTD: Yes Seasonal Allergies Seasonal Allergies: No Surgeries History of Surgeries: Yes (EGD, LT HIP FX) Surgeries: Orthopedic, Tonsillectomy Respiratory History of Respiratory Disorde: Yes Respiratory Disorders: Asthma Cardiovascular History of Cardiac Disorders: No Neurological History of Neurological Disord: Yes Neurological Disorders: Neuropathy Reproductive System Hx Reproductive Disorders: No Sexually Transmitted Disease: No HIV/AIDS: No Genitourinary History of Genitourinary Disor: Yes Genitourinary Disorders: Prostate Problems Gastrointestinal History of Gastrointestinal Di: Yes (current constipation) Gastrointestinal Disorders: Gastroesophageal Reflux, Liver Disease/Jaundice Musculoskeletal History of Musculoskeletal Dis: No Endocrine History of Endocrine Disorders: Yes (Type I) Endocrine Disorders: Diabetes, Insulin dep HEENT History of HEENT Disorders: No Cancer History of Cancer: No Psychosocial History of Psychiatric Problem: Yes Behavioral Health Disorders: Anxiety, Bipolar, Depression Integumentary History of Skin or Integumenta: Yes Skin/Integumentary Disorders: Eczema Blood Transfusions History of Blood Disorders: No Adverse Reaction to a Blood Tr: No Family Medical History Family Medial History: Diabetes mellitus 19 FATHER UNCLE FH: COPD (chronic obstructive pulmonary disease) 19 MOTHER FH: brain cancer AUNT FH: diverticulitis 19 FATHER Thyroid disease 19 MOTHER Review of Systems-General Constitutional: No chills; fever Skin: see HPI Physical Exam-General Problems Physical Exam Vital Signs Vital Signs - First Documented 04/27/19 09:39 Temp 36.5 Pulse 134 Resp 20 B/P (MAP) 123/88 (100) Pulse Ox 99 O2 Delivery Room Air Capillary Refill : Less Than 3 Seconds General Appearance: WD/WN, no apparent distress HEENT: PERRL/EOMI; No scleral icterus (R), No scleral icterus (L); other (Dental Caries) Neck: supple, limited range of motion (Due to pain from neck abscess) Respiratory: no respiratory distress, no accessory muscle use Cardiovascular: normal peripheral pulses Peripheral Pulses: 2+ Radial Pulses (R), 2+ Radial Pulses (L) Gastrointestinal: soft Extremities: no pedal edema, no calf tenderness Neurologic/Psychiatric: alert, oriented x 3 Skin: normal color, warm/dry, other (Erythema, tenderness over posterior right neck abscess) Data Review Labs Laboratory Tests 04/27/19 11:41: Glucometer 381H 04/27/19 11:42: Lactic Acid Level 1.78 04/27/19 12:00: White Blood Count 16.5H, Red Blood Count 5.17, Hemoglobin 15.2, Hematocrit 44, Mean Corpuscular Volume 84, Mean Corpuscular Hemoglobin 29, Mean Corpuscular Hemoglobin Concent 35, Red Cell Distribution Width 13.0, Platelet Count 363, Mean Platelet Volume 10.3, Neutrophils (%) (Auto) 78H, Lymphocytes (%) (Auto) 12, Monocytes (%) (Auto) 9, Eosinophils (%) (Auto) 1, Basophils (%) (Auto) 0, Neutrophils # (Auto) 12.8H, Lymphocytes # (Auto) 1.9, Monocytes # (Auto) 1.5H, Eosinophils # (Auto) 0.2, Basophils # (Auto) 0.0, Neutrophils % (Manual) 85, Ly mphocytes % (Manual) 10, Monocytes % (Manual) 5, Blood Morphology Comment NORMAL, Prothrombin Time 13.1, INR Comment 1.0, Activated Partial Thromboplast Time 33, Urine Color YELLOW, Urine Clarity CLEAR, Urine pH 6.5, Urine Specific [place] <=1.005, Urine Protein NEGATIVE, Urine Glucose (UA) 3+H, Urine Ketones NEGATIVE, Urine Nitrite NEGATIVE, Urine Bilirubin NEGATIVE, Urine Urobilinogen 0.2, Urine Leukocyte Esterase NEGATIVE, Urine RBC (Auto) TRACE-L, Urine RBC RARE, Urine WBC NONE, Urine Squamous Epithelial Cells 0-2, Urine Crystals NONE, Urine Bacteria NEGATIVE, Urine Casts NONE, Urine Mucus NEGATIVE, Urine Culture Indicated NO, Sodium Level 134L, Potassium Level 3.9, Chloride Level 96L, Carbon Dioxide Level 26, Anion Gap 12, Blood Urea Nitrogen 4L, Creatinine 1.01, Estimat Glomerular Filtration Rate > 60, BUN/Creatinine Ratio 4, Glucose Level 415*H, Calcium Level 9.1, Corrected Calcium 9.3, Total Bilirubin 0.3, Aspartate Amino Transf (AST/SGOT) 7, Alanine Aminotransferase (ALT/SGPT) 11, Alkaline Phosphatase 181H, Total Protein 7.0, Albumin 3.7, Urine Opiates Screen NEGATIVE, Urine Oxycodone Screen NEGATIVE, Urine Methadone Screen NEGATIVE, Urine Propoxyphene Screen NEGATIVE, Urine Barbiturates Screen NEGATIVE, Ur Tricyclic Antidepressants Screen NEGATIVE, Urine Phencyclidine Screen NEGATIVE, Urine Amphetamines Screen POSITIVEH, Urine Methamphetamines Screen POSITIVEH, Urine Benzodiazepines Screen NEGATIVE, Urine Cocaine Screen NEGATIVE, Urine Cannabinoids Screen NEGATIVE 04/27/19 15:48: Glucometer 307H Assessment/Plan Assessment/Plan Assessment/Plan Diabetes Methamphetamine use Incision drainage performed at bedside with culture of posterior right neck abscess Clinical Quality Measures DVT/VTE Risk/Contraindication: Risk Factor Score Per Nursin RFS Level Per Nursing on Admit: 1=Low/No VTE PPX KIRA CALLAHAN DO 04/27/19 2018: History of Present Illness History of Present Illness History of Present Illness Consult requested by Dr. Espinoza for neck abscess. Patient is a 28 year old male who has pain and swelling to right back of neck. Moderate pain. Worse with moving or touching. Nothing has made it better. He has had this for about a week. Not done anything for it. He states he has not had a fever. He states he is diabetic. He had a ct scan of neck demonstrating complex fluid collection consistent with abscess. Denies sweats chills shortness of breath or chest pain. Allergies and Home Medications Allergies Coded Allergies: fluoxetine (Verified Allergy, Unknown, 04/27/19) trazodone (Verified Allergy, Unknown, 04/27/19) Home Medications Insulin Lispro 100 Unit/1 Ml Vial, SC UD, (Reported) 80 UNITS PER DAY PER INSULIN PUMP Patient Home Medication List Home Medication List Reviewed: Yes Past Zjpeyif-Rilqqy-Uboswr Hx Surgeries History of Surgeries: Yes (abscess drainage) Surgeries: Orthopedic Respiratory History of Respiratory Disorde: No Cardiovascular History of Cardiac Disorders: No Neurological History of Neurological Disord: No Reviewed Nursing Assessment Reviewed/Agree w Nursing PMH: Yes Family Medical History Significant Family History: No Pertinent Family Hx Family Medial History: Diabetes mellitus 19 FATHER UNCLE FH: COPD (chronic obstructive pulmonary disease) 19 MOTHER FH: brain cancer AUNT FH: diverticulitis 19 FATHER Thyroid disease 19 MOTHER Review of Systems-General Constitutional: No chills, No fever EENTM: No hearing loss, No ear pain, No blurred vision Respiratory: no symptoms reported; No cough, No dyspnea on exertion Cardiovascular: no symptoms reported; No chest pain, No edema Gastrointestinal: no symptoms reported; No abdominal pain, No dysphagia Genitourinary: no symptoms reported; No decreased output, No discharge Musculoskeletal: no symptoms reported, neck pain Skin: change in color (erythema neck) Psychiatric/Neurological: Denies Anxiety, Denies Depressed Physical Exam-General Problems Physical Exam General Appearance: WD/WN, no apparent distress HEENT: PERRL/EOMI, other (Dental Caries) Neck: supple, limited range of motion (Due to pain from neck abscess) Respiratory: chest non-tender, no respiratory distress, no accessory muscle use Cardiovascular: normal peripheral pulses, regular rate, rhythm Gastrointestinal: non tender, soft Rectal: deferred Back: no CVA tenderness Extremities: no pedal edema, no calf tenderness Neurologic/Psychiatric: alert, normal mood/affect, oriented x 3 Skin: other (Erythema, tenderness over posterior right neck abscess with fluctuance) Lymphatic: no adenopathy Assessment/Plan Assessment/Plan Assessment/Plan right posterior neck abscess diabetes methamphetamine use leukocytosis patient on vanc/zosyn patient discussed risks and benefits of incision and drainage of right posterior neck abscess and he understands and wishes to proceed. patient understands need for dressing changes and wound care. cultures to be obtained will follow Supervisory-Addendum Brief Verification & Attestation Participated in pt care: history, MDM, physical Personally performed: exam, history, MDM, supervision of care Care discussed with: Medical Student Procedures: n/a Results interpretation: Verified all documentation Verification and Attestation of Medical Student E/M Service A medical student performed and documented this service in my presence. I reviewed and verified all information documented by the medical student and made modifications to such information, when appropriate. I personally performed the physical exam and medical decision making. Kira Callahan, Apr 27, 2019,20:22 [facility] MCDERMOTT [facility] Apr 27, 2019 17:25 KIRA CALLAHAN DO Apr 27, 2019 20:18
[2019-04-27] MEDS: PIPERACILLIN/TAZO 4.5 GM/NS 100 ML IV SCH ×2 (18:06)
[2019-04-27] MEDS: ACETAMINOPHEN 500 MG TAB (TYLENOL) PO PRN (18:06)
[2019-04-27 20:00] VITALS: BP 114/70
[2019-04-27] MEDS: NS IV 1000 ML 1,000 ML IV SCH ×2 (20:15→23:56)
[2019-04-27] MEDS: KETOROLAC 30 MG/ML VIAL IV PRN (20:20)
--- NOTE | 2019-04-27 20:44 | NUR ---
PT STATED HE WANTS TO USE INSULIN FROM INSULIN PUMP. THIS RN CONTACTED DR. CEBALLOS TO ASK IF IT IS ACCEPTABLE FOR PT TO USE HIS INSULIN PUMP. DR. CEBALLOS CONFIRMED IT IS OKAY FOR PT TO USE OWN INSULIN PUMP.
--- NOTE | 2019-04-27 21:02 | NUR ---
THIS RN WITNESSED PT PROGRAM PERSONAL INSULIN PUMP TO ADMINISTER 5UNITS OF INSULIN. THIS RN INSTRUCTED PT TO INFORM SOMEONE IF HE ADMINISTERED ANYMORE INSULIN.
[2019-04-27] MEDS: VANCOMYCIN 1 GM/NS 250 ML IVPB IV SCH ×2 (21:43)
--- NOTE | 2019-04-27 21:43 | NUR ---
THIS RN NOTICED THAT ZOSYN 4.5G SCANNED AT 1806 WAS NOT RAN THROUGH IV PUMP. THIS RN STARTED VANCOMYCIN 1G AND ZOSYN 4.5G SIMULTANEOUSLY AT 2143.
[2019-04-28] VITALS: BP 95/57
[2019-04-28 04:00] VITALS: BP 122/82
[2019-04-28] MEDS: NS IV 1000 ML 1,000 ML IV SCH ×4 (04:22→18:46)
[2019-04-28] MEDS: VANCOMYCIN 1 GM/NS 250 ML IVPB IV SCH ×6 (04:47→22:48)
[2019-04-28] MEDS: KETOROLAC 30 MG/ML VIAL IV PRN ×3 (04:53→17:42)
--- NOTE | 2019-04-28 04:57 | OPERATIVE REPORT ---
DATE OF SERVICE: 04/27/2019 PREOPERATIVE DIAGNOSIS: Right posterior neck abscess. POSTOPERATIVE DIAGNOSIS: Right posterior neck abscess. PROCEDURE: Incision and drainage of right posterior neck abscess. SURGEON: Kira Callahan DO ANESTHESIA: Local anesthetic. ESTIMATED BLOOD LOSS: Minimal. COMPLICATIONS: None. INDICATIONS: The patient is a 28-year-old male with a right posterior neck abscess. He understands risks and benefits of procedure and wished to proceed with procedure. Consent was signed in the chart. DESCRIPTION OF PROCEDURE: The patient was prepped and draped in sterile fashion. Timeout was performed. Local anesthetic was infiltrated over the area of fluctuance. A 15 blade scalpel was used to make a skin incision, purulent material erupted, culture was obtained. Hemostat was used to break up all loculations. Wound was then irrigated with copious amounts of irrigation. Wound was then packed with iodoform gauze and the area was washed and dried and sterile bandage was applied. The patient tolerated procedure well without any complications. Job ID: [id number] DocumentID: [id number] Dictated Date: 04/27/2019 21:16:36 Automatic Oven Operator Date: 04/28/2019 04:55:37 Dictated By: KIRA CALLAHAN DO
[2019-04-28] MEDS: inSUlin ASPART (NovoLOG) 1 UNIT/0.01 ML (CHARGE PER UNIT) SC SCH ×4 (05:23→20:51)
[2019-04-28 05:34] LABS: BASOPHILS % (AUTO) 0 % (0-10); EOSINOPHILS # (AUTO) 0.5 10^3/uL (0.0-0.3); EOSINOPHILS % (AUTO) 5 % (0-10); HEMATOCRIT 37 % (40-54); HEMOGLOBIN 12.7 G/DL (13.3-17.7); LYMPHOCYTES # (AUTO) 2.1 X 10^3 (1.0-4.0); LYMPHOCYTES % (AUTO) 18 % (12-44); MEAN CORPUSCULAR HEMOGLOBIN 29 PG (25-34); MEAN CORPUSCULAR HGB CONC 34 G/DL (32-36); MEAN CORPUSCULAR VOLUME 85 FL (80-99); MEAN PLATELET VOLUME 10.3 FL (7.4-10.4); MONOCYTES # (AUTO) 1.4 X 10^3 (0.0-1.0); MONOCYTES % (AUTO) 12 % (0-12); NEUTROPHILS # (AUTO) 7.9 X 10^3 (1.8-7.8); NEUTROPHILS % (AUTO) 66 % (42-75); PLATELET COUNT 277 10^3/uL (130-400); RED CELL DISTRIBUTION WIDTH 12.8 % (10.0-14.5); WHITE BLOOD COUNT 11.9 10^3/uL (4.3-11.0)
[2019-04-28] MEDS: PIPERACILLIN/TAZO 4.5 GM/NS 100 ML IV SCH ×6 (05:49→18:46)
--- NOTE | 2019-04-28 05:50 | NUR ---
THIS RN INFORMED PT OF BLOOD SUGAR LEVEL OF 232 AND THAT PER OUR SLIDING SCALE INSULIN, 3UNITS OF INSULIN IS TO BE ADMINISTERED. THIS RN WITNESSED PT PROGRAM PERSONAL INSULIN PUMP TO ADMINISTER 3UNITS OF INSULIN.
[2019-04-28 06:00] LABS: ALANINE AMINOTRANSFERASE 9 U/L (0-55); ALBUMIN 2.9 GM/DL (3.2-4.5); ALKALINE PHOSPHATASE 135 U/L (40-136); BILIRUBIN,TOTAL 0.3 MG/DL (0.1-1.0); BUN/CREATININE RATIO 12; CALCIUM 7.7 MG/DL (8.5-10.1); CARBON DIOXIDE 24 MMOL/L (21-32); CHLORIDE 101 MMOL/L (98-107); CREATININE SERUM 0.82 MG/DL (0.60-1.30); GFR ESTIMATED > 60; GLUCOSE 267 MG/DL (70-105); POTASSIUM 3.6 MMOL/L (3.6-5.0); SODIUM 134 MMOL/L (135-145); TOTAL PROTEIN 5.4 GM/DL (6.4-8.2)
--- NOTE | 2019-04-28 07:15 | Progress Note - Surgery ---
DERRICK MCDERMOTT [facility] 04/28/19 0715: Subjective Date Seen by a Provider: Apr 28, 2019 Time Seen by a Provider: 06:55 Subjective/Events-last exam Pt reports having some tenderness still over the draining abscess, but his neck movement has become less painful. He denies any other associated symptoms. The abscess drainage site looks improved with decreased erythema from pre incision and drainage. It is still draining fluid, but not soaking through the gauze. Review of Systems General: No Chills, No Fatigue HEENT: No Head Aches, No Visual Changes Pulmonary: No Dyspnea, No Cough Cardiovascular: No: Chest Pain, Palpitations Gastrointestinal: No: Nausea, Vomiting, Abdominal Pain Musculoskeletal: neck pain; No: back pain Neurological: No: Weakness, Numbness Focused Exam Lactate Level 04/27/19 11:42: Lactic Acid Level 1.78 Objective Exam Vital Signs Date Time Temp Pulse Resp B/P (MAP) Pulse Ox O2 Delivery O2 Flow Rate FiO2 04/28/19 04:00 36.5 88 20 122/82 (95) 97 Room Air 04/28/19 01:00 82 04/28/19 00:00 36.4 84 18 95/57 (70) 98 Room Air 04/27/19 20:00 36.8 117 20 114/70 (85) 97 Room Air 04/27/19 20:00 Room Air 04/27/19 19:00 120 04/27/19 17:09 120 04/27/19 16:00 37.5 122 20 121/83 (96) 99 Room Air 04/27/19 15:18 99 Room Air 04/27/19 15:15 37.2 104 20 125/76 99 Room Air 04/27/19 14:51 37.2 104 20 125/76 99 Room Air 04/27/19 14:15 36.7 125 17 110/87 (100) 99 Room Air 04/27/19 09:39 36.5 134 20 123/88 (100) 99 Room Air I & O 04/28/19 07:00 Intake Total 4198.5 ml Output Total 725 ml Balance 3473.5 ml Capillary Refill : Less Than 3 Seconds General Appearance: No Apparent Distress, WD/WN HEENT: PERRL/EOMI; No Scleral Icterus (L), No Scleral Icterus (R) Neck: Supple, Other (Tender over abscess drainage site) Respiratory: Chest Non Tender, Lungs Clear, Normal Breath Sounds, No Accessory Muscle Use, No Respiratory Distress Cardiovascular: Regular Rate, Rhythm, No Edema, Normal Peripheral Pulses Peripheral Pulses: 2+ Dorsalis Pedis (R), 2+ Left Dors-Pedis (L), 2+ Radial Pulses (R), 2+ Radial Pulses (L) Gastrointestinal: normal bowel sounds, non tender, soft Extremity: No Calf Tenderness, No Pedal Edema Neurologic/Psychiatric: Alert, Oriented x3, Normal Mood/Affect Skin: Normal Color, Warm/Dry Lymphatic: No Adenopathy Results Lab Laboratory Tests 04/27/19 11:41: Glucometer 381H 04/27/19 11:42: Lactic Acid Level 1.78 04/27/19 12:00: White Blood Count 16.5H, Red Blood Count 5.17, Hemoglobin 15.2, Hematocrit 44, Mean Corpuscular Volume 84, Mean Corpuscular Hemoglobin 29, Mean Corpuscular Hemoglobin Concent 35, Red Cell Distribution Width 13.0, Platelet Count 363, Mean Platelet Volume 10.3, Neutrophils (%) (Auto) 78H, Lymphocytes (%) (Auto) 12, Monocytes (%) (Auto) 9, Eosinophils (%) (Auto) 1, Basophils (%) (Auto) 0, Neutrophils # (Auto) 12.8H, Lymphocytes # (Auto) 1.9, Monocytes # (Auto) 1.5H, Eosinophils # (Auto) 0.2, Basophils # (Auto) 0.0, Neutrophils % (Manual) 85, Lym phocytes % (Manual) 10, Monocytes % (Manual) 5, Blood Morphology Comment NORMAL, Prothrombin Time 13.1, INR Comment 1.0, Activated Partial Thromboplast Time 33, Urine Color YELLOW, Urine Clarity CLEAR, Urine pH 6.5, Urine Specific [place] <=1.005, Urine Protein NEGATIVE, Urine Glucose (UA) 3+H, Urine Ketones NEGATIVE, Urine Nitrite NEGATIVE, Urine Bilirubin NEGATIVE, Urine Urobilinogen 0.2, Urine Leukocyte Esterase NEGATIVE, Urine RBC (Auto) TRACE-L, Urine RBC RARE, Urine WBC NONE, Urine Squamous Epithelial Cells 0-2, Urine Crystals NONE, Urine Bacteria NEGATIVE, Urine Casts NONE, Urine Mucus NEGATIVE, Urine Culture Indicated NO, Sodium Level 134L, Potassium Level 3.9, Chloride Level 96L, Carbon Dioxide Level 26, Anion Gap 12, Blood Urea Nitrogen 4L, Creatinine 1.01, Estimat Glomerular Filtration Rate > 60, BUN/Creatinine Ratio 4, Glucose Level 415*H, Calcium Level 9.1, Corrected Calcium 9.3, Total Bilirubin 0.3, Aspartate Amino Transf (AST/SGOT) 7, Alanine Aminotransferase (ALT/SGPT) 11, Alkaline Phosphatase 181H, Total Protein 7.0, Albumin 3.7, Urine Opiates Screen NEGATIVE, Urine Oxycodone Screen NEGATIVE, Urine Methadone Screen NEGATIVE, Urine Propoxyphene Screen NEGATIVE, Urine Barbiturates Screen NEGATIVE, Ur Tricyclic Antidepressants Screen NEGATIVE, Urine Phencyclidine Screen NEGATIVE, Urine Amphetamines Screen POSITIVEH, Urine Methamphetamines Screen POSITIVEH, Urine Benzodiazepines Screen NEGATIVE, Urine Cocaine Screen NEGATIVE, Urine Cannabinoids Screen NEGATIVE 04/27/19 15:48: Glucometer 307H 04/27/19 19:30: Glucometer 172H 04/27/19 20:40: Glucometer 291H 04/28/19 00:16: Glucometer 300H 04/28/19 05:00: White Blood Count 11.9H, Red Blood Count 4.35, Hemoglobin 12.7L, Hematocrit 37L, Mean Corpuscular Volume 85, Mean Corpuscular Hemoglobin 29, Mean Corpuscular Hemoglobin Concent 34, Red Cell Distribution Width 12.8, Platelet Count 277, Mean Platelet Volume 10.3, Neutrophils (%) (Auto) 66, Lymphocytes (%) (Auto) 18, Monocytes (%) (Auto) 12, Eosinophils (%) (Auto) 5, Basophils (%) (Auto) 0, Neutrophils # (Auto) 7.9H, Lymphocytes # (Auto) 2.1, Monocytes # (Auto) 1.4H, Eosinophils # (Auto) 0.5H, Basophils # (Auto) 0.0, Sodium Level 134L, Potassium Level 3.6, Chloride Level 101, Carbon Dioxide Level 24, Anion Gap 9, Blood Urea Nitrogen 10, Creatinine 0.82, Estimat Glomerular Filtration Rate > 60, BUN/Creatinine Ratio 12, Glucose Level 267H, Calcium Level 7.7L, Corrected Calcium 8.6, Total Bilirubin 0.3, Aspartate Amino Transf (AST/SGOT) 9, Alanine Aminotransferase (ALT/SGPT) 9, Alkaline Phosphatase 135, Total Protein 5.4L, Albumin 2.9L 1/10/20 05:15: Glucometer 232H Assessment/Plan Assessment/Plan Assessment/Plan right posterior neck abscess diabetes methamphetamine use leukocytosis patient on vanc/zosyn patient understands need for dressing changes and wound care. cultures to be obtained will follow Clinical Quality Measures DVT/VTE Risk/Contraindication: Risk Factor Score Per Nursin RFS Level Per Nursing on Admit: 1=Low/No VTE PPX KIRA CALLAHAN DO 04/28/19 2017: Subjective Subjective/Events-last exam Less pain. feeling better. feels like having some chills at times. pain better. May have fever. No new complaints. Denies n/v sweats shortness of breath or chest pain. Objective Exam General Appearance: No Apparent Distress HEENT: PERRL/EOMI Neck: Supple, Other (Tender over abscess drainage site right posterior neck) Respiratory: Chest Non Tender, No Accessory Muscle Use, No Respiratory Distress Cardiovascular: Regular Rate, Rhythm Gastrointestinal: normal bowel sounds, non tender, soft Extremity: Non Tender, No Pedal Edema Neurologic/Psychiatric: Alert, Oriented x3 Skin: Warm/Dry, Other (minimal erythema right posterior neck, wound packed, tender dealing with dressing.) Assessment/Plan Assessment/Plan Assessment/Plan right posterior neck abscess diabetes methamphetamine use leukocytosis continue daily and prn wound care await cult/sensitivities continue abx Supervisory-Addendum Brief Verification & Attestation Participated in pt care: history, MDM, physical Personally performed: exam, history, MDM, supervision of care Care discussed with: Medical Student Procedures: n/a Results interpretation: Verified all documentation Verification and Attestation of Medical Student E/M Service A medical student performed and documented this service in my presence. I reviewed and verified all information documented by the medical student and made modifications to such information, when appropriate. I personally performed the physical exam and medical decision making. Kira Callahan, Apr 28, 2019,20:16 [facility]CDERMOTT [facility] Apr 28, 2019 07:15 KIRA CALLAHAN DO Apr 28, 2019 20:17
[2019-04-28 07:43] VITALS: BP 123/75
[2019-04-28] MEDS ORDERED: ONDANSETRON 4 MG/2 ML (SDV) Z0FRAN IVP PRN (08:15)
[2019-04-28] MEDS ORDERED: ONDANSETRON 4 MG (ZOFRAN) ORAL DISSOLVE TAB PO PRN (08:30)
[2019-04-28] MEDS: ACETAMINOPHEN 500 MG TAB (TYLENOL) PO PRN ×2 (10:04→22:52)
--- NOTE | 2019-04-28 11:36 | NUR ---
NOTE THAT FSBS WAS 281 -- PT HAS INSULIN PUMP AND GAVE HIMSELF 5 UNITS --
[2019-04-28 11:58] VITALS: BP 123/74
[2019-04-28] MEDS ORDERED: IBUPROFEN 600 MG (MOTRIN) TAB PO PRN (12:30)
[2019-04-28] MEDS ORDERED: TROUGH ORDER-PHARMACY XX NR (12:30)
--- NOTE | 2019-04-28 13:14 | Progress Note ---
Subjective Subjective/Events-last exam Afebrile. States he is still having bad chills off and on and just doesn't feel well. Focused Exam Lactate Level 04/27/19 11:42: Lactic Acid Level 1.78 Objective Exam Last Set of Vital Signs Vital Signs Date Time Temp Pulse Resp B/P (MAP) Pulse Ox O2 Delivery O2 Flow Rate FiO2 04/28/19 11:58 39.2 105 18 123/74 (90) 96 Room Air Capillary Refill : Less Than 3 Seconds I&O Intake and Output 04/28/19 00:00 Intake Total 2938.5 ml Output Total 275 ml Balance 2663.5 ml Intake Oral 2196 ml IV Total 742.5 ml Output Urine Total 275 ml Daily Weight Change No No General: Other (drowsy) Lungs: Clear to Auscultation, Normal Air Movement Heart: Regular Rate, No Murmurs Neuro: Normal Speech Psych/Mental Status: Mood NL Results/Procedures Lab Laboratory Tests 04/27/19 15:48: Glucometer 307H 04/27/19 19:30: Glucometer 172H 04/27/19 20:40: Glucometer 291H 04/28/19 00:16: Glucometer 300H 04/28/19 05:00: White Blood Count 11.9H, Red Blood Count 4.35, Hemoglobin 12.7L, Hematocrit 37L, Mean Corpuscular Volume 85, Mean Corpuscular Hemoglobin 29, Mean Corpuscular Hemoglobin Concent 34, Red Cell Distribution Width 12.8, Platelet Count 277, Mean Platelet Volume 10.3, Neutrophils (%) (Auto) 66, Lymphocytes (%) (Auto) 18, Monocytes (%) (Auto) 12, Eosinophils (%) (Auto) 5, Basophils (%) (Auto) 0, Neutrophils # (Auto) 7.9H, Lymphocytes # (Auto) 2.1, Monocytes # (Auto) 1.4H, Eosinophils # (Auto) 0.5H, Basophils # (Auto) 0.0, Sodium Level 134L, Potassium Level 3.6, Chloride Level 101, Carbon Dioxide Level 24, Anion Gap 9, Blood Urea Nitrogen 10, Creatinine 0.82, Estimat Glomerular Filtration Rate > 60, BUN/Creatinine Ratio 12, Glucose Level 267H, Calcium Level 7.7L, Corrected Calcium 8.6, Total Bilirubin 0.3, Aspartate Amino Transf (AST/SGOT) 9, Alanine Aminotransferase (ALT/SGPT) 9, Alkaline Phosphatase 135, Total Protein 5.4L, Albumin 2.9L 04/28/19 05:15: Glucometer 232H 04/28/19 11:21: Glucometer 281H 04/28/19 12:40: Microbiology 04/27/19 Gram Stain, Resulted Pending 04/27/19 Wound Culture - Preliminary, Resulted Staphylococcus aureus Assessment/Plan Assessment/Plan (1) Sepsis Status: Acute Assessment & Plan: Secondary to abscess/cellulitis. Tachycardia and leukocytosis. Lactic acid okay. Zosyn, vancomycin. 04/28 afebrile overnight, continue zosyn and vanc while awaiting culture results (2) Abscess Status: Acute Assessment & Plan: Surgery consulted due to large size, drained 1/ pm. (3) Hyponatremia Status: Acute Assessment & Plan: Pseudohyponatremia due to hyperglycemia (4) Methamphetamine use Status: Acute Assessment & Plan: Advised cessation. (5) Uncontrolled type 1 diabetes mellitus Status: Acute Assessment & Plan: Sliding scale insulin. Pt requested to use own insulin pump. Qualifiers: Qualified Codes: E10.65 - Type 1 diabetes mellitus with hyperglycemia (6) DVT prophylaxis Status: Acute Assessment & Plan: SCDs Clinical Quality Measures DVT/VTE Risk/Contraindication: Risk Factor Score Per Nursin RFS Level Per Nursing on Admit: 1=Low/No VTE PPX GODWIN CEBALLOS MD Apr 28, 2019 13:14
--- NOTE | 2019-04-28 13:26 | NUR ---
VANCOMYCIN DOSING TROUGH LEVEL 13.0 - CONTINUE CURRENT DOSE OF VANC 1 GM Q8H
[2019-04-28 16:00] VITALS: BP 121/81
--- NOTE | 2019-04-28 17:29 | NUR ---
FSBS WAS 276 -- PT GAVE SELF 5 UNITS WITH HIS INSULIN PUMP
[2019-04-28 20:22] VITALS: BP 131/72
--- NOTE | 2019-04-28 20:51 | NUR ---
bs 304-pt reported he gave himself 7 units via his insulin pump
[2019-04-29 00:45] VITALS: BP 123/71
[2019-04-29] MEDS: KETOROLAC 30 MG/ML VIAL IV PRN ×2 (01:19→10:47)
[2019-04-29] MEDS: NS IV 1000 ML 1,000 ML IV SCH ×3 (01:55→10:56)
[2019-04-29] MEDS: PIPERACILLIN/TAZO 4.5 GM/NS 100 ML IV SCH ×4 (03:00→10:47)
[2019-04-29 04:45] VITALS: BP 123/74
--- NOTE | 2019-04-29 05:58 | NUR ---
pt bs 214 pt reported that via the insulin pump he administered 3 units to himself.
[2019-04-29 06:02] LABS: HEMOGLOBIN 11.9 G/DL (13.3-17.7); RED CELL DISTRIBUTION WIDTH 12.2 % (10.0-14.5); WHITE BLOOD COUNT 3.7 10^3/uL (4.3-11.0)
[2019-04-29 06:22] LABS: BUN/CREATININE RATIO 11; CALCIUM 7.2 MG/DL (8.5-10.1); CARBON DIOXIDE 18 MMOL/L (21-32); CHLORIDE 107 MMOL/L (98-107); CREATININE SERUM 0.74 MG/DL (0.60-1.30); GFR ESTIMATED > 60; GLUCOSE 234 MG/DL (70-105); POTASSIUM 3.6 MMOL/L (3.6-5.0); SODIUM 135 MMOL/L (135-145)
[2019-04-29] MEDS: inSUlin ASPART (NovoLOG) 1 UNIT/0.01 ML (CHARGE PER UNIT) SC SCH ×2 (06:25→10:41)
[2019-04-29] MEDS: VANCOMYCIN 1 GM/NS 250 ML IVPB IV SCH ×4 (07:01→16:31)
[2019-04-29 07:57] VITALS: BP 118/79
--- NOTE | 2019-04-29 09:43 | NUR ---
DRESSING CHANGED PER ORDERS. PT TOLERATED WELL.
[2019-04-29 11:54] VITALS: BP 134/87
[2019-04-29] MEDS ORDERED: AMOX-358 PO (13:12)
--- NOTE | 2019-04-29 13:13 | Discharge Summary ---
Discharge Summary Hospital Course Was the Problem List Reviewed?: Yes Problems/Dx: (1) Sepsis Status: Acute (2) Abscess Status: Acute (3) Uncontrolled type 1 diabetes mellitus Status: Acute Qualifiers: Qualified Codes: E10.65 - Type 1 diabetes mellitus with hyperglycemia (4) Illicit drug use Status: Acute (5) Methamphetamine use Status: Acute (6) Non-compliance Status: Acute (7) Marijuana use Status: Chronic Hospital Course Date of Admission: Apr 27, 2019 at 12:45 Admission Diagnosis : Family Physician/Provider: William Maier MD Date of Discharge: 04/29/19 Discharge Diagnosis: Right posterior scalp abscess, type I diabetes insulin pump dependent, illicit drug abuse Hospital Course: Patient had an uneventful hospital course after 3 days he presented with abscess of the right posterior scalp requiring incision and drainage MSSA on culture placed on vancomycin and broad-spectrum antibiotics transition to Augmentin 875 twice daily and patient was felt to be stable and will be discharged with dressing changes per general surgery and have close follow-up with [facility] in one week. Labs and Pending Lab Test: Laboratory Tests 04/28/19 16:41: Glucometer 276H 04/28/19 20:37: Glucometer 304H 04/29/19 05:32: White Blood Count 3.7L, Red Blood Count 4.07L, Hemoglobin 11.9L, Hematocrit 34L, Mean Corpuscular Volume 85, Mean Corpuscular Hemoglobin 29, Mean Corpuscular Hemoglobin Concent 35, Red Cell Distribution Width 12.2, Platelet Count 237, Mean Platelet Volume 10.0, Sodium Level 135, Potassium Level 3.6, Chloride Level 107, Carbon Dioxide Level 18L, Anion Gap 10, Blood Urea Nitrogen 8, Creatinine 0.74, Estimat Glomerular Filtration Rate > 60, BUN/Creatinine Ratio 11, Glucose Level 234H, Calcium Level 7.2L 04/29/19 05:35: Glucometer 214H 04/29/19 10:37: Glucometer 163H Microbiology 04/27/19 Gram Stain - Final, Resulted 04/27/19 Wound Culture - Preliminary, Resulted Staphylococcus aureus 04/27/19 Blood Culture - Preliminary, Resulted No growth Home Meds Active Augmentin 875-125 Tablet (Amoxicillin/Potassium Clav) 1 Each Tablet 1 Each PO BID Reported Humalog (Insulin Lispro) 100 Unit/1 Ml Vial SC UD 80 UNITS PER DAY PER INSULIN PUMP Assessment/Pt Instructions [facility] in one week Discharge Planning: <30 minutes discharge planning Discharge Instructions Discharge Diet: ADA Diet Activity as Tolerated: Yes Discharge Physical Examination Vital Signs Vital Signs Date Time Temp Pulse Resp B/P (MAP) Pulse Ox O2 Delivery O2 Flow Rate FiO2 04/29/19 12:29 76 04/29/19 11:54 36.9 20 134/87 (103) 98 Room Air General Appearance: No Apparent Distress, WD/WN, Chronically ill, Thin Respiratory: Chest Non Tender, Lungs Clear, Normal Breath Sounds, No Accessory Muscle Use, No Respiratory Distress Cardiovascular: Regular Rate, Rhythm, No Edema, No Gallop, No JVD, No Murmur, Normal Peripheral Pulses Skin: Other (right posterior scalp abscess no erythema minimal drainage) Neurologic/Psychiatric: Alert, Oriented x3, No Motor/Sensory Deficits, Normal Mood/Affect Allergies: Coded Allergies: fluoxetine (Verified Allergy, Unknown, 04/27/19) trazodone (Verified Allergy, Unknown, 04/27/19) Discharge Summary Date of Admission Apr 27, 2019 at 12:45 Date of Discharge Discharge Date: Apr 29, 2019 Clinical Quality Measures DVT/VTE Risk/Contraindication: Risk Factor Score Per Nursin RFS Level Per Nursing on Admit: 1=Low/No VTE PPX MONIKA VINES DO Apr 29, 2019 13:13
--- NOTE | 2019-04-29 14:19 | NUR ---
PT STATED HE IS GETTING ANXIOUS AND WANTS TO LEAVE. ADVISED HIM AGAIN WE ARE WAITING ON SURGEON TO DECIDE ON DISCHARGE. PT STATES HE WILL LEAVE AMA IF HE HAS TO. REQUESTED HE LET ME TRY TO CONTACT DISCUSSED WITH GREGORIO, CHARGE NX, AND ADVISED HER. SHE SAID JUVE IS COVERING FOR [place] AND IS CURRENTLY IN SURGERY. ADVISED PT OF THIS AND HE SAID HE WILL WAIT. HE STATES HE WANTS TO GO AND GET HIS STUFF READY FOR HIS TRIP. I REQUESTED HE ALLOW TO COME SEE HIM.
--- NOTE | 2019-04-29 16:34 | NUR ---
SAW PT AND AGREED TO DISCHARGE. D/C'D IV, CATH INTACT. REVIEWED D/C INSTRUCTION W PT AND HIS DAD. NO QUESTIONS FROM EITHER ONE.
--- NOTE | 2019-04-29 16:48 | Progress Note - Surgery ---
Subjective Time Seen by a Provider: 16:10 Subjective/Events-last exam Pt seen and examined, he wants to go home. States pain is controlled and he is tolerating diet. He is going on vacation tomorrow and needs to leave. He states he has taken care of abscess before. Review of Systems General: No Chills, No Night Sweats Cardiovascular: No: Chest Pain, Palpitations Gastrointestinal: No: Nausea, Vomiting Focused Exam Lactate Level 04/27/19 11:42: Lactic Acid Level 1.78 Objective Exam Vital Signs Date Time Temp Pulse Resp B/P (MAP) Pulse Ox O2 Delivery O2 Flow Rate FiO2 04/29/19 12:29 76 04/29/19 11:54 36.9 78 20 134/87 (103) 98 Room Air 04/29/19 08:39 Room Air 04/29/19 07:57 36.4 83 16 118/79 (92) 97 Room Air 04/29/19 07:00 66 04/29/19 04:45 36.6 74 18 123/74 (90) 95 Room Air 04/29/19 01:00 102 04/29/19 00:45 37.5 93 18 123/71 (88) 96 Room Air 04/28/19 20:50 Room Air 04/28/19 20:22 37.7 97 18 131/72 (91) 98 Room Air 04/28/19 19:00 98 04/28/19 18:15 38.5 04/28/19 17:42 38.5 I & O 04/29/19 07:00 Intake Total 5816 ml Output Total 1650 ml Balance 4166 ml Capillary Refill : Less Than 3 Seconds General Appearance: No Apparent Distress, WD/WN, Thin HEENT: PERRL/EOMI, Moist Mucous Membranes Neck: Supple, Other (No erythema, but there is rosey purulent drainage from site, right posterior neck) Respiratory: Chest Non Tender, Lungs Clear, Normal Breath Sounds, No Accessory Muscle Use, No Respiratory Distress Cardiovascular: Regular Rate, Rhythm, No Murmur Peripheral Pulses: 2+ Dorsalis Pedis (R), 2+ Left Dors-Pedis (L), 2+ Radial Pulses (R), 2+ Radial Pulses (L) Gastrointestinal: normal bowel sounds, non tender, soft Extremity: Non Tender, No Pedal Edema Skin: Tattoos/Piercings Results Lab Laboratory Tests 04/28/19 20:37: Glucometer 304H 04/29/19 05:32: White Blood Count 3.7L, Red Blood Count 4.07L, Hemoglobin 11.9L, Hematocrit 34L, Mean Corpuscular Volume 85, Mean Corpuscular Hemoglobin 29, Mean Corpuscular Hemoglobin Concent 35, Red Cell Distribution Width 12.2, Platelet Count 237, Mean Platelet Volume 10.0, Sodium Level 135, Potassium Level 3.6, Chloride Level 107, Carbon Dioxide Level 18L, Anion Gap 10, Blood Urea Nitrogen 8, Creatinine 0.74, Estimat Glomerular Filtration Rate > 60, BUN/Creatinine Ratio 11, Glucose Level 234H, Calcium Level 7.2L 04/29/19 05:35: Glucometer 214H 04/29/19 10:37: Glucometer 163H Microbiology 04/27/19 Gram Stain - Final, Resulted 04/27/19 Wound Culture - Preliminary, Resulted Staphylococcus aureus 04/27/19 Blood Culture - Preliminary, Resulted No growth Assessment/Plan Assessment/Plan Assessment/Plan Right Posterior neck Abscess The area looks good, drained well and should use warm compresses and keep the area clean and packed. OK to d/c home, needs to continue taking ABX. Clinical Quality Measures DVT/VTE Risk/Contraindication: Risk Factor Score Per Nursin RFS Level Per Nursing on Admit: 1=Low/No VTE PPX PRAMOD AN DO Apr 29, 2019 16:48
--- NOTE | 2019-05-01 09:02 | Physician Query Clarification ---
PQ-Further Specificity Admission/Discharge Admission Date: Apr 27, 2019 at 12:45 Discharge Date: Apr 29, 2019 at 16:46 The medical record reflects the following clinical scenario: History/Risk Factors: Sepsis, Abscess on back of head/neck Clinical Findings: Rt posterior neck absces Treatment: I&D rt posterior neck abscess. A 15 blade scalpel was used to make a skin incision, purulent material erupted, culture was obtained. Hemostat was used to break up all loculations. Wound was then irrigated with copious amounts of irrigation. Wound was then packed. Question: Can you further specify the depth of I&D at posterior neck per the clinical indicators above? Please document a response in the Progress Notes or Discharge Summary. 1. Skin 2. Subcutaneous 3. Muscle 4. Other, with explanation of the clinical findings. 5. Clinically undetermined, no explanation for the clinical findings. PHYSICIAN RESPONSE Can you specify per above: 2 Please remember a lack of response to the above will prompt a phone page by CDI/Coding staff. In responding to this query, please exercise your independent professional judgment. The purpose of this communication is to more accurately reflect the complexity of your patients condition. The fact that a question is asked does not imply that any particular answer is desired or expected. Thank you for your timely response to this clarification. Requestors name: Verna THIS PHYSICIAN QUERY FORM IS A PERMANENT PART OF THE MEDICAL RECORD HOME [employer] May 01, 2019 09:02 KIRA WALLS DO May 16, 2019 14:53
== END 2019-04-29 16:46 | disposition home or self-care (01) | DRG 854 ==
LOC: EDUNIT# 09:12 → ER 09:13 → 4TH 12:45
PROVIDERS: ADMIT Family Medicine; ATTEND Internal Medicine
PROC: 0J940ZZ Drainage of Right Neck Subcutaneous Tissue and Fascia, Open Approach (ICD-10-PCS; principal; 2019-04-28)
DX: A41.9 Sepsis, unspecified organism (principal); R64 Cachexia; E87.1 Hypo-osmolality and hyponatremia; L02.11 Cutaneous abscess of neck; L03.221 Cellulitis of neck; E10.65 Type 1 diabetes mellitus with hyperglycemia; E10.40 Type 1 diabetes mellitus with diabetic neuropathy, unspecified; F15.90 Other stimulant use, unspecified, uncomplicated; B95.61 Methicillin susceptible Staphylococcus aureus infection as the cause of diseases classified elsewhere; F17.210 Nicotine dependence, cigarettes, uncomplicated; J45.909 Unspecified asthma, uncomplicated; K21.9 Gastro-esophageal reflux disease without esophagitis; F41.9 Anxiety disorder, unspecified; F31.9 Bipolar disorder, unspecified; Z91.19 Patient's noncompliance with other medical treatment and regimen; Z79.4 Long term (current) use of insulin
CPT/HCPCS: 36415; 70491; 80048; 80053; 80202; 80306; 81000; 82962; 83036; 83605; 85007; 85025; 85027; 85610; 85730; 87040; 87070; 87075; 87077; 87186; 87205; 93041; 96365; 96367; 96375

== ENCOUNTER 2019-08-14 14:00 | Emergency (ER) | payer MEDICAID ==
[~2019-08-14 14:00] MED LIST changes: +AMOX-358 PO; +INSU100V SC
[2019-08-14] MEDS ORDERED: SULF1TAB35 PO (14:07)
[2019-08-14] MEDS ORDERED: HYDR-3870 PO (14:07)
--- NOTE | 2019-08-14 14:08 | ED General ---
General Stated Complaint: ABSCESS ON LOWER BACK Source of Information: Patient Exam Limitations: No Limitations History of Present Illness Date Seen by Provider: Aug 14, 2019 Time Seen by Provider: 14:04 Initial Comments To ER with reports abscess on his low back Timing/Duration: 2-3 Days Severity: Moderate Allergies and Home Medications Allergies Coded Allergies: fluoxetine (Verified Allergy, Unknown, 04/27/19) trazodone (Verified Allergy, Unknown, 04/27/19) Home Medications Amoxicillin/Potassium Clav 1 Each Tablet, 1 EACH PO BID Prescribed by: MONIKA VINES on 04/29/19 1312 Hydrocodone/Acetaminophen 1 Each Tablet, 1 EACH PO Q4-6HR PRN for PAIN-MODERATE Prescribed by: JAYNA ANNA on 08/14/19 1408 Insulin Lispro 100 Unit/1 Ml Vial, SC UD, (Reported) 80 UNITS PER DAY PER INSULIN PUMP Sulfamethoxazole/Trimethoprim 1 Each Tablet, 1 EACH PO BID Prescribed by: JAYNA ANNA on 08/14/19 1407 Patient Home Medication List Home Medication List Reviewed: Yes Past Qusehbb-Tlwkby-Ytemgo Hx Patient Social History Drug of Choice: THC, SMOKES METH-DENIES IV USE Type Used: Cigarettes 2nd Hand Smoke Exposure: Yes Recent Foreign Travel: No Contact w/Someone Who Travel: No Recent Hopitalizations: No Immunizations Up To Date Tetanus Booster (TDap): Unknown PED Vaccines UTD: Yes Seasonal Allergies Seasonal Allergies: No Past Medical History Surgeries: Yes (abscess drainage) Orthopedic Respiratory: No Asthma Currently Using CPAP: No Currently Using BIPAP: No Cardiac: No Neurological: No Neuropathy Reproductive Disorders: No Sexually Transmitted Disease: No HIV/AIDS: No Genitourinary: Yes Prostate Problems Gastrointestinal: Yes Gastroesophageal Reflux, Liver Disease/Jaundice, Chronic Constipation Musculoskeletal: Yes (LEFT HIP FX/ORIF 2016) Fractures Endocrine: Yes (TYPE 1 DIABETES, WITH INSULIN PUMP OF 04/27/19-EXTREME NON- COMPLIANCE) Diabetes, Insulin dep HEENT: Yes (DENTAL CARIES) Cancer: No Psychosocial: Yes (POLYSUBSTANCE) Anxiety, Bipolar, Depression Integumentary: Yes Eczema Blood Disorders: No Adverse Reaction/Blood Tranf: No Family Medical History Diabetes mellitus 19 FATHER UNCLE FH: COPD (chronic obstructive pulmonary disease) 19 MOTHER FH: brain cancer AUNT FH: diverticulitis 19 FATHER Thyroid disease 19 MOTHER No Pertinent Family Hx Physical Exam Vital Signs Capillary Refill : Height, Weight, BMI Height: 5'10.00" Weight: 160lbs. 3.0oz. [id number]; 17.77 BMI Method:Stated Progress/Results/Core Measures Suspected Sepsis SIRS Temperature: Pulse: Respiratory Rate: Blood Pressure / Mean: Results/Orders Vital Signs/I&O Capillary Refill : Departure Communication (Admissions) Patient triaged desk, however prior to actually examining him he left. States that he'll return. I had already gone ahead and sent him a prescription for Bactrim based on previous culture and sensitivity reports and pain medication. Impression Primary Impression: Abscess Disposition: AGAINST MEDICAL ADVICE Condition: Against Medical Advice Departure-Patient Inst. Decision time for Depature: 14:04 Referrals: CADEN NARVAEZ MD (PCP/Family) Primary Care Physician Patient Instructions: ABSCESS Add. Discharge Instructions: 1. Warm compresses to the area 2. You can shower letting the water run over this starting tonight. Antibiotics as directed. He medication as directed. Return here for any worsening. Scripts Sulfamethoxazole/Trimethoprim (Bactrim Ds Tablet) 1 Each Tablet 1 EACH PO BID, #14 TAB Prov: JAYNA ANNA APRN 08/14/19 Hydrocodone/Acetaminophen (Lorcet 5-325 mg Tablet) 1 Each Tablet 1 EACH PO Q4-6HR PRN for PAIN-MODERATE MDD 10 for 7 Days, #10 TAB Prov: JAYNA ANNA APRN 08/14/19 JAYNA ANNA APRN Aug 14, 2019 14:08
== END 2019-08-14 14:22 ==
LOC: EDUNIT# 14:00 → ER 14:02
DX: L02.212 Cutaneous abscess of back [any part, except buttock and flank] (principal); E11.40 Type 2 diabetes mellitus with diabetic neuropathy, unspecified; Z88.5 Allergy status to narcotic agent; Z88.8 Allergy status to other drugs, medicaments and biological substances; Z79.4 Long term (current) use of insulin; Z77.22 Contact with and (suspected) exposure to environmental tobacco smoke (acute) (chronic); Z80.8 Family history of malignant neoplasm of other organs or systems

== ENCOUNTER 2019-08-15 13:06 | Emergency (ER) | payer MEDICAID ==
[~2019-08-15 13:06] MED LIST changes: +HYDR-3870 PO
--- OUTSIDE RECORDS SUMMARY | 2019-08-15 13:17 | XMS REPORT ---
Author Author Rafael BRIDGES Organization [facility] Address [address] [place] [address] Care Team Providers Care Diversified Crops Supervisor Name Role Phone ZARINA BRIDGES Unavailable PROBLEMS Type Condition ICD9-CM Code DAC25-VX Code Onset Dates Condition S tatus SNOMED Code Problem Diabetic polyneuropathy associated with type 1 d iabetes mellitus E10.42 Active 02471065 Problem Type 1 diabetes mellitus without complication E10. 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 [place] [address] [address] Feb, [place] [address] [address] Jan, [place] [address] [address] Jan, [facility] [address] [address] Jan, [facility] [address] [id number] [place] [address] Dec, [facility] [address] [id number] [place] [address] Dec, [facility] [address] [id number] [place] [address] Oct, Diabetes E11.9 [facility] [id number] [place] [address] Oct, [facility] [address] [id number] [place] [address] Oct, Diabetes E11.9 [facility] [id number] [place] [address] August, [facility] [id number] [place] [address] Jun, [facility] [id number] [place] [address] May, [facility] [id number] [place] [address] Apr, [facility] [id number] [place] [address] Mar, Diabetes E11.9 [facility] [id number] [place] [address] Jan, [facility] [id number] [place] [address] Jan, [facility] [address] [id number] [place] [address] Jan, Diabetic polyneuropathy associated with type 1 diabetes mellitus E10.42 [facility] [id number] [place] [address] Jan, Diabetes E11.9 [facility] [id number] [place] [address] Oct, [facility] [address] [id number] [place] [address] Sep, Diabetes E11.9 [facility] [address] [address] Sep, [facility] [address] [address] August, [facility] [address] [address] Jul, [facility] [address] [address] May, [facility] [address] [address] Mar, [facility] [address] [address] Mar, [facility] [address] [address] Feb, [facility] [address] [address] Feb, [facility] [address] [address] Feb, Diabetes E11.9 [facility] [address] [address] Nov, Type 1 diabetes mellitus with other neur ologic complication E10.49 [facility] [address] [address] Nov, [facility] [address] [address] Nov, Diabetes E11.9 ; Erectile dysfunction du e to diseases classified elsewhere N52.1 ; Diabetic polyneuropathy associated with type 1 diabetes mellitus E10.42 and Cigarette nicotine dependence without complication F17.210 [facility] [address] [place] [address] [id number] [place] [address] Sep, Hip fracture, left, closed, with routine healing, subsequent encounter S72.002D and Allergy, initial encounter T78.40XA [facility] [address] [id number] [place] [address] Sep, [facility] [id number] [place] [address] August, Femur fracture, left S72.92XA [facility] [id number] [place] [address] August, Femur fracture, left S72.92XA [facility] [id number] [place] [address] August, Diabetes E11.9 and Femur fracture, left S72.92XA [facility] [address] [id number] [place] [id number] August, [facility] [address] [facility] [id number] [address] [place] [address] August, [facility] [id number] [place] [address] August, [facility] [id number] [place] [address] Jul, [facility] [id number] [place] [address] Jul, [facility] [id number] [place] [address] Jun, [facility] [id number] [place] [address] Jun, [facility] [address] [id number] [place] [address] Jun, [facility] [address] [address] [id number] [place] [address] Jun, [facility] [address] [id number] [place] [address] Jun, [facility] [address] [address] [id number] [place] [address] Jun, [facility] [address] [id number] [place] [address] 30 Mar, 2014 [facility] [address] [facility] [id number] [place] [address] 30 Mar, 2014 [facility] [address] [id number] [place] [address] Mar, [facility] [address] [id number] [place] [address] 18 Mar, 2014 [facility] [address] [id number] [place] [address] 15 Mar, 2014 [facility] [address] [id number] [place] [address] Mar, [facility] [address] [id number] [place] [address] Mar, [facility] [address] [id number] [place] [address] Jan, [facility] [address] [id number] [place] [address] Jan, [facility] [address] [id number] [place] [address] Jan, [facility] [address] [id number] [place] [address] Jan, [facility] [address] [id number] [place] [address] 16 Dec, 2013 [facility] [address] [id number] [place] [address] 16 Dec, 2013 [facility] [address] [id number] [place] [address] Sep, [facility] [address] [id number] [place] [address] Sep, [facility] [address] [id number] [place] [address] 17 Sep, 2013 [facility] [address] [id number] [place] [address] 17 Sep, 2013 [facility] [address] [id number] [place] [address] Sep, [facility] [address] [id number] [place] [address] Sep, [facility] [address] [id number] [place] [address] Jul, [facility] [address] [id number] [place] [address] Jul, [facility] [address] [id number] [place] [address] 15 Feb, 2013 [facility] [address] [id number] [place] [address] 14 Feb, 2013 [facility] [address] [id number] [place] [address] Feb, [facility] [address] [id number] [place] [address] Feb, [facility] [address] [id number] [place] [address] Feb, [facility] [address] [id number] [place] [address] Feb, [facility] [address] [id number] [place] [address] Feb, [facility] [address] [id number] [place] [address] Jan, [facility] [address] [id number] [place] [address] Jan, [facility] [address] [id number] [place] [address] Nov, [facility] [address] [id number] [place] [address] August, [facility] [address] [id number] [place] [address] Jul, [facility] [address] [id number] [place] [address] Jul, [facility] [address] [id number] [place] [address] Jun, [facility] [address] [id number] [place] [address] Jun, [facility] [address] [id number] [place] [address] May, [facility] [address] [place] [address] [id number] [place] [address] Feb, [facility] [address] [id number] [place] [address] Apr, [facility] [address] [id number] [place] [address] Mar, [facility] [address] [id number] [place] [address] Feb, [facility] [address] [id number] [place] [address] Jan, [facility] [address] [id number] [place] [address] Jan, [facility] [address] [id number] [place] [address] Dec, IMMUNIZATIONS No Known Immunizations SOCIAL HISTORY Never Assessed REASON FOR VISIT PLAN OF CARE VITAL SIGNS MEDICATIONS Unknown Medications RESULTS No Results PROCEDURES No Known procedures INSTRUCTIONS MEDICATIONS ADMINISTERED No Known Medications MEDICAL (GENERAL) HISTORY Type Description Date Medical History Diabetes Surgical History Left hip surgery 2017 Surgical History tonsilectomy Hospitalization History [facility] for Left hip surgery 201 7
--- OUTSIDE RECORDS SUMMARY | 2019-08-15 13:17 | XMS REPORT ---
Author Author Rafael BRIDGES Organization [facility] Address [address] [place] [address] Care Team Providers Care Ear Muff Assembler Name Role Phone ZARINA BRIDGES Unavailable PROBLEMS Type Condition ICD9-CM Code CVZ36-YN Code Onset Dates Condition S tatus SNOMED Code Problem Diabetic polyneuropathy associated with type 1 d iabetes mellitus E10.42 Active 66696300 Problem Type 1 diabetes mellitus without complication E10. 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 [facility] [address] [address] Feb, [place] [address] [address] Jan, [place] [address] [address] Jan, [facility] [address] [address] Jan, [facility] [address] [id number] [place] [address] Dec, [facility] [address] [id number] [place] [address] Dec, [facility] [address] [id number] [place] [address] Oct, Diabetes E11.9 [facility] [address] [place] [id number] [place] [address] Oct, [facility] [address] [id number] [place] [address] Oct, Diabetes E11.9 [facility] [id number] [place] [address] August, [facility] [id number] [place] [address] Jun, [facility] [id number] [place] [address] May, [facility] [id number] [place] [address] Apr, [facility] [id number] [place] [address] Mar, Diabetes E11.9 [facility] [id number] [place] [address] Jan, [facility] [id number] [place] [address] Jan, [facility] [address] [id number] [place] [address] Jan, Diabetic polyneuropathy associated with type 1 diabetes mellitus E10.42 [facility] [address] [place] [id number] [place] [address] Jan, Diabetes E11.9 [facility] [id number] [place] [address] Oct, [facility] [id number] [place] [address] Sep, Diabetes E11.9 [facility] [address] [address] Sep, [facility] [address] [address] August, [facility] [address] [address] Jul, [facility] [address] [address] May, [facility] [address] [address] Mar, [facility] [address] [address] Mar, [facility] [address] [address] Feb, [facility] [address] [address] Feb, [facility] [address] [address] Feb, Diabetes E11.9 [facility] [address] [address] Nov, Type 1 diabetes mellitus with other neur ologic complication E10.49 [facility] [address] [address] Nov, [facility] [address] [address] Nov, Diabetes E11.9 ; Erectile dysfunction du e to diseases classified elsewhere N52.1 ; Diabetic polyneuropathy associated with type 1 diabetes mellitus E10.42 and Cigarette nicotine dependence without complication F17.210 [facility] [id number] [place] [address] Sep, Hip fracture, left, closed, with routine healing, subsequent encounter S72.002D and Allergy, initial encounter T78.40XA [facility] [address] [id number] [place] [address] Sep, [facility] [id number] [place] [address] August, Femur fracture, left S72.92XA [facility] [id number] [place] [address] August, Femur fracture, left S72.92XA [facility] [id number] [place] [address] August, Diabetes E11.9 and Femur fracture, left S72.92XA [facility] [address] [place] [id number] [place] [id number] August, [facility] [address] [facility] [id number] [address] [place] [address] August, [facility] [id number] [place] [address] August, [facility] [id number] [place] [address] Jul, [facility] [id number] [place] [address] Jul, [facility] [id number] [place] [address] Jun, [facility] [id number] [place] [address] Jun, [facility] [id number] [place] [address] Jun, [facility] [id number] [place] [address] Jun, [facility] [id number] [place] [address] Jun, [facility] [id number] [place] [address] Jun, [facility] [address] [id number] [place] [address] 30 Mar, 2014 [facility] [address] [facility] [id number] [place] [address] 30 Mar, 2014 [facility] [address] [id number] [place] [address] Mar, [facility] [address] [id number] [place] [address] 18 Mar, 2014 [facility] [address] [id number] [place] [address] 15 Mar, 2014 [facility] [address] [id number] [place] [address] Mar, [facility] [address] [id number] [place] [address] Mar, [facility] [address] [id number] [place] [address] Jan, [facility] [address] [id number] [place] [address] Jan, [facility] [address] [id number] [place] [address] Jan, [facility] [address] [id number] [place] [address] Jan, [facility] [address] [id number] [place] [address] 16 Dec, 2013 [facility] [address] [id number] [place] [address] 16 Dec, 2013 [facility] [address] [id number] [place] [address] Sep, [facility] [address] [id number] [place] [address] Sep, [facility] [address] [id number] [place] [id number] 17 Sep, 2013 [facility] [address] [id number] [place] [address] 17 Sep, 2013 [facility] [address] [id number] [place] [address] Sep, [facility] [address] [id number] [place] [address] Sep, [facility] [address] [id number] [place] [address] Jul, [facility] [address] [id number] [place] [address] Jul, [facility] [address] [id number] [place] [address] 15 Feb, 2013 [facility] [address] [id number] [place] [address] 14 Feb, 2013 [facility] [address] [id number] [place] [id number] Feb, [facility] [address] [id number] [place] [id number] Feb, [facility] [address] [id number] [place] [id number] Feb, [facility] [address] [id number] [place] [address] Feb, [facility] [address] [id number] [place] [address] Feb, [facility] [address] [id number] [place] [address] Jan, [facility] [address] [id number] [place] [id number] Jan, [facility] [address] [id number] [place] [address] Nov, [facility] [address] [id number] [place] [address] August, [facility] [address] [id number] [place] [address] Jul, [facility] [address] [id number] [place] [address] Jul, [facility] [address] [id number] [place] [address] Jun, [facility] [address] [id number] [place] [address] Jun, [facility] [address] [id number] [place] [address] May, [facility] [id number] [place] [address] Feb, [facility] [address] [id number] [place] [address] Apr, [facility] [address] [id number] [place] [address] Mar, [facility] [address] [id number] [place] [address] Feb, [facility] [address] [id number] [place] [address] Jan, [facility] [address] [id number] [place] [address] Jan, [facility] [address] [id number] [place] [address] Dec, IMMUNIZATIONS No Known Immunizations SOCIAL HISTORY [...]
--- OUTSIDE RECORDS SUMMARY | 2019-08-15 13:17 | XMS REPORT ---
Author Author Rafael BRIDGES Organization [facility] Address [address] [place] [address] Care Team Providers Care Shoe Stock Associate Name Role Phone ZARINA BRIDGES Unavailable PROBLEMS Type Condition ICD9-CM Code [id number] Code Onset Dates Condition S tatus SNOMED Code Problem Diabetic polyneuropathy associated with type 1 d iabetes mellitus E10.42 Active 58491795 Problem Type 1 diabetes mellitus without complication E10. 9 Active 308632828 Problem Erectile dysfunction due to diseases classified elsewhere N52.1 Active [id number] ALLERGIES No Information ENCOUNTERS Encounter Location Date Diagnosis [facility] [address] [id number] [address] [place] [address] Apr, [facility] [address] [facility] [id number] [address] [place] [phone] Apr, [facility] [address] [id number] [address] [place] [address] Mar, [facility] [address] [id number] [address] [place] [phone] Feb, [facility] [address] [id number] [address] [place] [id number] Feb, Type 1 diabetes mellitus wit hout complication E10.9 and shelter (current) use of insulin Z79.4 [facility] [address] [facility] [id number] [address] [place] [phone] Feb, [facility] [address] [id number] [address] [place] [address] Jan, [facility] [address] [id number] [address] [place] [id number] Jan, [facility] [address] [id number] [address] [place] [phone] Jan, [facility] [address] [id number] [address] [place] [address], [place] [address] Dec, [facility] [address] [id number] [address] [place] [address] Dec, [facility] [address] [id number] [address] [place] [phone] Oct, Diabetes E11.9 [facility] [address] [id number] [address] [place] [phone] Oct, [facility] [address] [id number] [address] [place] [address] Oct, Diabetes E11.9 [facility] [address] [id number] [address] [place] [id number] August, [facility] [address] [id number] [address] [place] [address] Jun, [facility] [address] [id number] [address] [place] [phone] May, [facility] [address] [id number] [address] [place] [phone] Apr, [facility] [address] [id number] [address] [place] [address] Mar, Diabetes E11.9 [facility] [address] [id number] [address] [place] [address] Jan, [facility] [address] [id number] [address] [place] [address] Jan, [facility] [address] [id number] [address] [place] [address] Jan, Diabetic polyneuropathy asso ciated with type 1 diabetes mellitus E10.42 [facility] [address] [id number] [address] [place] [phone] Jan, Diabetes E11.9 [facility] [address] [id number] [address] [place] [phone] Oct, [facility] [address] [id number] [address] [place] [address] Sep, Diabetes E11.9 [facility] [address] [facility] [id number] [address] [place] [phone] Sep, [facility] [address] [id number] [address] [place] [address] August, [facility] [address] [id number] [address] [place] [id number] Jul, [facility] [address] [id number] [address] [place] [phone] May, [facility] [address] [facility] [id number] [address] [place] [address] Mar, [facility] [address] [id number] [address] [place] [phone] Mar, [facility] [address] [facility] [id number] [address] [place] [id number] Feb, [facility] [address] [facility] [id number] [address] [place] [id number] Feb, [facility] [address] [facility] [id number] [address] [place] [address] Feb, Diabetes E11.9 [facility] [address] [id number] [address] [place] [id number] Nov, Type 1 diabetes mellitus wit h other neurologic complication E10.49 [facility] [address] [id number] [address] [place] [id number] Nov, [facility] [address] [facility] [id number] [address] [place] [address] Nov, Diabetes E11.9 ; Erectile dy sfunction due to diseases classified elsewhere N52.1 ; Diabetic polyneuropathy associated with type 1 diabetes mellitus E10.42 and Cigarette nicotine dependence without complication F17.210 [facility] [address] [facility] [id number] [address] [place] [address] Sep, Hip fracture, left, closed, with routine healing, subsequent encounter S72.002D and Allergy, initial encounter T78.40XA [facility] [address] [facility] [id number] [address] [place] [address] Sep, [facility] [address] [id number] [address] [place] [address] August, Femur fracture, left S72.92X [address] [place] [address] [address] August, Femur fracture, left S72.92X A [facility] [address] [address] August, Diabetes E11.9 and Femur fra cture, left S72.92XA [facility] [address] [id number] [id number] August, [facility] [id number] [place] [address] August, [facility] [address] [facility] [id number] [address] [place] [phone] August, [facility] [address] [facility] [id number] [address] [place] [id number] Jul, [facility] [address] [facility] [id number] [address] [place] [phone] Jul, [facility] [address] [address] Jun, [facility] [address] [facility] [id number] [address] [place] [phone] Jun, [facility] [address] [id number] [address] [place] [phone] Jun, [facility] [address] [id number] [address] [place] [address], [place] [address] Jun, 2014 [facility] [address] [id number] [address] [place] [address], [place] [address] Jun, [facility] [address] [id number] [address] [place] [address], [place] [address] Jun, [facility] [address] [id number] [address] [place] [address], [place] [address] Mar, [facility] [address] [id number] [address] [place] [address], [place] [address] Mar, [facility] [address] [id number] [address] [place] [address], [place] [address] Mar, [facility] [address] [id number] [address] [place] [address], [place] [address] Mar, [facility] [address] [id number] [address] [place] [address], [place] [address] Mar, [facility] [address] [id number] [address] [place] [address], [place] [address] Mar, [facility] [address] [id number] [address] [place] [address], [place] [address] Mar, [facility] [address] [id number] [address] [place] [address], [place] [address] Jan, [facility] [address] [id number] [address] [place] [address], [place] [address] Jan, [facility] [address] [id number] [address] [place] [address], [place] [address] Jan, [facility] [address] [id number] [address] [place] [address], [place] [address] Jan, [facility] [address] [id number] [address] [place] [address], [place] [address] 16 Dec, 2013 [facility] [address] [id number] [address] [place] [phone] 16 Dec, 2013 [facility] [address] [id number] [address] [place] [address], [place] [address] 20 Sep, 2013 [facility] [address] [id number] [address] [place] [address], [place] [address] 20 Sep, 2013 [facility] [address] [id number] [address] [place] [address], [place] [address] 17 Sep, 2013 [facility] [address] [id number] [address] [place] [address], [place] [address] 17 Sep, 2013 [facility] [address] [id number] [address] [place] [address], [place] [address] 10 Sep, 2013 [facility] [address] [id number] [address] [place] [address], [place] [address] Sep, [facility] [address] [id number] [address] [place] [address], [place] [address] Jul, [facility] [address] [id number] [address] [place] [address], [place] [address] Jul, [facility] [address] [id number] [address] [place] [address], [place] [address] 15 Feb, 2013 [facility] [address] [id number] [address] [place] [address], [place] [address] 14 Feb, 2013 [facility] [address] [id number] [address] [place] [address], [place] [address] 14 Feb, 2013 [facility] [address] [id number] [address] [place] [address], [place] [address] 12 Feb, 2013 [facility] [address] [id number] [address] [place] [address], [place] [address] 12 Feb, 2013 [facility] [address] [id number] [address] [place] [address], [place] [address] 05 Feb, 2013 [facility] [address] [id number] [address] [place] [address], [place] [address] 05 Feb, 2013 [facility] [address] [id number] [address] [place] [address], [place] [address] Jan, [facility] [address] [id number] [address] [place] [address], [place] [address] Jan, [facility] [address] [id number] [address] [place] [address], [place] [address] Nov, [facility] [address] [id number] [address] [place] [address], [place] [address] August, [facility] [address] [id number] [address] [place] [address], [place] [address] Jul, [facility] [address] [id number] [address] [place] [address], [place] [address] Jul, [facility] [address] [id number] [address] [place] [address], [place] [address] Jun, [facility] [address] [id number] [address] [place] [address], [place] [address] Jun, [facility] [address] [id number] [address] [place] [address], [place] [address] May, [facility] [address] [id number] [address] [place] [address], [place] [address] Feb, [facility] [address] [id number] [address] [place] [address], [place] [address] Apr, [facility] [address] [id number] [address] [place] [address], [place] [address] Mar, [facility] [address] [id number] [address] [place] [address], [place] [address] Feb, [facility] [address] [id number] [address] [place] [address], [place] [address] Jan, [facility] [address] [id number] [address] [place] [address], [place] [address] 23 Jan, 2009 [facility] [address] [id number] [address] [place] [address], [place] [address] 14 Dec, 2008 IMMUNIZATIONS No Known Immunizations [...]
--- OUTSIDE RECORDS SUMMARY | 2019-08-15 13:17 | XMS REPORT ---
Author Author Rafael Gibson Doctor Organization [facility] Address Unknown Phone Unavailable Care Team Providers Care Recruiter Manager Name Role Phone Migration, Doctor Unavailable Unavailable PROBLEMS Type Condition ICD9-CM Code [id number] Code Onset Dates Condition S tatus SNOMED Code Problem Diabetic polyneuropathy associated with type 1 d iabetes mellitus E10.42 Active 62823104 Problem Type 1 diabetes mellitus without complication E10. 9 Active 885115768 Problem Erectile dysfunction due to diseases classified elsewhere N52.1 Active [id number] ALLERGIES No Information ENCOUNTERS Encounter Location Date Diagnosis [place] [address] [address] May, [place] [address] [address] Apr, [place] [address] [address] Mar, [place] [address] [address] Feb, [place] [address] [address] Feb, Type 1 diabetes mellitus without complic ation E10.9 and oysterman (current) use of insulin Z79.4 [place] [address] [address] Feb, [facility] [address] [address] Jan, [place] [address] [address] Jan, [place] [address] [address] Jan, [facility] [address] [address] Dec, [facility] [id number] [place] [address] Dec, [facility] [address] [id number] [place] [address] Oct, Diabetes E11.9 [facility] [address] [id number] [place] [address] Oct, [facility] [address] [id number] [place] [address] Oct, Diabetes E11.9 [facility] [address] [id number] [place] [address] August, [facility] [address] [id number] [place] [address] Jun, [facility] [address] [id number] [place] [address] May, [facility] [address] [id number] [place] [address] Apr, [facility] [address] [id number] [place] [address] Mar, Diabetes E11.9 [facility] [address] [id number] [place] [address] Jan, [facility] [id number] [place] [address] Jan, [facility] [address] [id number] [place] [address] Jan, Diabetic polyneuropathy associated with type 1 diabetes mellitus E10.42 [facility] [id number] [place] [address] Jan, Diabetes E11.9 [facility] [id number] [place] [address] Oct, [facility] [id number] [place] [address] Sep, Diabetes E11.9 [facility] [address] [address] Sep, [facility] [address] [address] August, [facility] [address] [address] Jul, [facility] [address] [address] May, [facility] [address] [address] Mar, [place] [address] [address] Mar, [place] [address] [address] Feb, [place] [address] [address] Feb, [place] [address] [address] Feb, Diabetes E11.9 [place] [address] [address] Nov, Type 1 diabetes mellitus with other neur ologic complication E10.49 [place] [address] [address] Nov, [place] [address] [address] Nov, Diabetes E11.9 ; Erectile dysfunction du e to diseases classified elsewhere N52.1 ; Diabetic polyneuropathy associated with type 1 diabetes mellitus E10.42 and Cigarette nicotine dependence without complication F17.210 [place] [address] [address] Sep, Hip fracture, left, closed, with routine healing, subsequent encounter S72.002D and Allergy, initial encounter T78.40XA [place] [address] [address] Sep, [facility] [address] [id number] [place] [address] August, Femur fracture, left S72.92XA [facility] [address] [id number] [place] [address] August, Femur fracture, left S72.92XA [facility] [address] [id number] [place] [address] August, Diabetes E11.9 and Femur fracture, left S72.92XA [facility] [id number] [id number] August, [facility] [address] [facility] [id number] [address] [place] [address] August, [facility] [address] [id number] [place] [address] August, [facility] [address] [id number] [place] [address] Jul, [facility] [address] [id number] [place] [address] Jul, [facility] [address] [id number] [place] [address] Jun, [facility] [address] [id number] [place] [address] Jun, [facility] [address] [id number] [place] [address] Jun, [facility] [address] [id number] [place] [address] Jun, [facility] [address] [id number] [place] [address] Jun, [facility] [address] [id number] [place] [address] Jun, [facility] [address] [id number] [place] [address] Mar, [facility] [address] [id number] [place] [address] 30 Mar, 2014 [facility] [address] [id number] [place] [address] Mar, [facility] [address] [id number] [place] [address] 18 Mar, 2014 [facility] [address] [id number] [place] [address] 15 Mar, 2014 [facility] [address] [id number] [place] [address] Mar, [facility] [address] [id number] [place] [address] Mar, [facility] [address] [id number] [place] [address] Jan, [facility] [address] [id number] [place] [address] Jan, [facility] [address] [id number] [place] [address] Jan, [facility] [address] [id number] [place] [address] Jan, [facility] [address] [id number] [place] [address] 16 Dec, 2013 [facility] [address] [id number] [place] [address] 16 Dec, 2013 [facility] [address] [id number] [place] [address] Sep, [facility] [address] [id number] [place] [address] 20 Sep, 2013 [facility] [address] [id number] [place] [address] 17 Sep, 2013 [facility] [address] [id number] [place] [address] 17 Sep, 2013 [facility] [address] [id number] [place] [address] Sep, [facility] [address] [id number] [place] [address] Sep, [facility] [address] [id number] [place] [address] Jul, [facility] [address] [id number] [place] [address] Jul, [facility] [address] [id number] [place] [address] Feb, [facility] [address] [id number] [place] [address] Feb, [facility] [address] [id number] [place] [address] Feb, [facility] [address] [id number] [place] [address] Feb, [facility] [address] [id number] [place] [address] Feb, [facility] [address] [id number] [place] [address] Feb, [facility] [address] [id number] [place] [address] Feb, [facility] [address] [id number] [place] [address] Jan, [facility] [address] [id number] [place] [address] Jan, [facility] [address] [id number] [place] [address] Nov, [facility] [address] [id number] [place] [address] August, [facility] [address] [id number] [place] [address] Jul, [facility] [address] [id number] [place] [address] Jul, [facility] [address] [id number] [place] [address] Jun, [facility] [address] [id number] [place] [address] Jun, [facility] [address] [id number] [place] [address] May, [facility] [address] [id number] [place] [address] Feb, [facility] [id number] [place] [address] Apr, [facility] [id number] [place] [address] Mar, [facility] [id number] [place] [address] Feb, [facility] [address] [id number] [place] [address] Jan, [facility] [address] [id number] [place] [address] Jan, [facility] [address] [id number] [place] [address] Dec, IMMUNIZATIONS No Known Immunizations SOCIAL HISTORY [...]
--- OUTSIDE RECORDS SUMMARY | 2019-08-15 13:17 | XMS REPORT ---
Author Author Rafael BRIDGES Organization [facility] Address [address] [place] [address] Care Team Providers Care Pattern Clerk Name Role Phone ZARINA BRIDGES Unavailable PROBLEMS Type Condition ICD9-CM Code [id number] Code Onset Dates Condition S tatus SNOMED Code Problem Diabetic polyneuropathy associated with type 1 d iabetes mellitus E10.42 Active 77669001 Problem Type 1 diabetes mellitus without complication E10. 9 Active 261768485 Problem Erectile dysfunction due to diseases classified elsewhere N52.1 Active 339032314 ALLERGIES No Information ENCOUNTERS Encounter Location Date Diagnosis [facility] [address] [place] [place] [id number] [address] [place] [address] Apr, [facility] [address] [facility] [id number] [address] [place] [address] Apr, [facility] [address] [id number] [address] [place] [address] Mar, [facility] [address] [id number] [address] [place] [address] Feb, [facility] [address] [id number] [address] [place] [address] Feb, Type 1 diabetes mellitus wit hout complication E10.9 and FCI (current) use of insulin Z79.4 [facility] [address] [facility] [id number] [address] [place] [address] Feb, [facility] [address] [id number] [address] [place] [address] Jan, [facility] [address] [id number] [address] [place] [address] Jan, [facility] [address] [id number] [address] [place] [address] Jan, [facility] [address] [id number] [address] [place] [address], [place] [address] Dec, [facility] [place] [address] [id number] [address] [place] [address] Dec, [facility] [address] [id number] [address] [place] [address] Oct, Diabetes E11.9 [facility] [address] [id number] [address] [place] [address] Oct, [facility] [address] [id number] [address] [place] [address] Oct, Diabetes E11.9 [facility] [address] [id number] [address] [place] [address] August, [facility] [address] [id number] [address] [place] [address] Jun, [facility] [address] [id number] [address] [place] [address] May, [facility] [address] [id number] [address] [place] [address] Apr, [facility] [address] [id number] [address] [place] [address] Mar, Diabetes E11.9 [facility] [address] [id number] [address] [place] [address] Jan, [facility] [address] [id number] [address] [place] [address] Jan, [facility] [address] [id number] [address] [place] [address] Jan, Diabetic polyneuropathy asso ciated with type 1 diabetes mellitus E10.42 [facility] [address] [id number] [address] [place] [address] Jan, Diabetes E11.9 [facility] [address] [id number] [address] [place] [address] Oct, [facility] [address] [id number] [address] [place] [address] Sep, Diabetes E11.9 [facility] [address] [facility] [id number] [address] [place] [address] Sep, [facility] [address] [id number] [address] [place] [address] August, [facility] [address] [id number] [address] [place] [address] Jul, [facility] [address] [id number] [address] [place] [address] May, [facility] [address] [facility] [id number] [address] [place] [address] Mar, [facility] [address] [id number] [address] [place] [address] Mar, [facility] [address] [facility] [id number] [address] [place] [address] Feb, [facility] [address] [facility] [id number] [address] [place] [address] Feb, [facility] [address] [facility] [id number] [address] [place] [address] Feb, Diabetes E11.9 [facility] [address] [id number] [address] [place] [address] Nov, Type 1 diabetes mellitus wit h other neurologic complication E10.49 [facility] [address] [id number] [address] [place] [address] Nov, [facility] [address] [facility] [id number] [address] [place] [address] Nov, Diabetes E11.9 ; Erectile dy sfunction due to diseases classified elsewhere N52.1 ; Diabetic polyneuropathy associated with type 1 diabetes mellitus E10.42 and Cigarette nicotine dependence without complication F17.210 [facility] [address] [facility] [id number] [address] [place] [address] Sep, Hip fracture, left, closed, with routine healing, subsequent encounter S72.002D and Allergy, initial encounter T78.40XA [facility] [address] [facility] [id number] [address] [place] [address] Sep, [facility] [address] [id number] [address] [place] [address] August, Femur fracture, left S72.92X [address] [place] [address] [address] August, Femur fracture, left S72.92X A [facility] [address] [address] August, Diabetes E11.9 and Femur fra cture, left S72.92XA [facility] [address] [id number] [id number] August, [facility] [id number] [place] [address] August, [facility] [address] [facility] [id number] [address] [place] [address] August, [facility] [address] [facility] [id number] [address] [place] [address] Jul, [facility] [address] [facility] [id number] [address] [place] [address] Jul, [facility] [address] [address] Jun, [facility] [address] [facility] [id number] [address] [place] [address] Jun, [facility] [address] [id number] [address] [place] [address] Jun, [facility] [address] [id number] [address] [place] [address], [place] [address] Jun, 2014 [facility] [address] [id number] [address] [place] [address], [place] [address] Jun, [facility] [address] [id number] [address] [place] [address], [place] [address] Jun, [facility] [address] [id number] [address] [place] [address], [place] [address] Mar, [facility] [address] [id number] [address] [place] [address], [place] [address] Mar, [facility] [address] [id number] [address] [place] [address], [place] [address] Mar, [facility] [address] [id number] [address] [place] [address], [place] [address] Mar, [facility] [address] [id number] [address] [place] [address], [place] [address] Mar, [facility] [address] [id number] [address] [place] [address], [place] [address] Mar, [facility] [address] [id number] [address] [place] [address], [place] [address] Mar, [facility] [address] [id number] [address] [place] [address], [place] [address] Jan, [facility] [address] [id number] [address] [place] [address], [place] [address] Jan, [facility] [address] [id number] [address] [place] [address], [place] [address] Jan, [facility] [address] [id number] [address] [place] [address], [place] [address] Jan, [facility] [address] [id number] [address] [place] [address], [place] [address] 16 Dec, 2013 [facility] [address] [id number] [address] [place] [address] 16 Dec, 2013 [facility] [address] [id number] [address] [place] [address], [place] [address] 20 Sep, 2013 [facility] [address] [id number] [address] [place] [address], [place] [address] 20 Sep, 2013 [facility] [address] [id number] [address] [place] [address], [place] [address] 17 Sep, 2013 [facility] [address] [id number] [address] [place] [address], [place] [address] 17 Sep, 2013 [facility] [address] [id number] [address] [place] [address], [place] [address] 10 Sep, 2013 [facility] [address] [id number] [address] [place] [address], [place] [address] Sep, [facility] [address] [id number] [address] [place] [address], [place] [address] Jul, [facility] [address] [id number] [address] [place] [address], [place] [address] Jul, [facility] [address] [id number] [address] [place] [address], [place] [address] 15 Feb, 2013 [facility] [address] [id number] [address] [place] [address], [place] [address] 14 Feb, 2013 [facility] [address] [id number] [address] [place] [address], [place] [address] 14 Feb, 2013 [facility] [address] [id number] [address] [place] [address], [place] [address] 12 Feb, 2013 [facility] [address] [id number] [address] [place] [address], [place] [address] 12 Feb, 2013 [facility] [address] [id number] [address] [place] [address], [place] [address] 05 Feb, 2013 [facility] [address] [id number] [address] [place] [address], [place] [address] 05 Feb, 2013 [facility] [address] [id number] [address] [place] [address], [place] [address] Jan, [facility] [address] [id number] [address] [place] [address], [place] [address] Jan, [facility] [address] [id number] [address] [place] [address], [place] [address] Nov, [facility] [address] [id number] [address] [place] [address], [place] [address] August, [facility] [address] [id number] [address] [place] [address], [place] [address] Jul, [facility] [address] [id number] [address] [place] [address], [place] [address] Jul, [facility] [address] [id number] [address] [place] [address], [place] [address] Jun, [facility] [address] [id number] [address] [place] [address], [place] [address] Jun, [facility] [address] [id number] [address] [place] [address], [place] [address] May, [facility] [address] [id number] [address] [place] [address], [place] [address] Feb, [facility] [address] [id number] [address] [place] [address], [place] [address] Apr, [facility] [address] [id number] [address] [place] [address], [place] [address] Mar, [facility] [address] [id number] [address] [place] [address], [place] [address] Feb, [facility] [address] [id number] [address] [place] [address], [place] [address] Jan, [facility] [address] [id number] [address] [place] [address], [place] [address] 23 Jan, 2009 [facility] [address] [id number] [address] [place] [address], [place] [address] 14 Dec, 2008 IMMUNIZATIONS No Known Immunizations [...]
--- OUTSIDE RECORDS SUMMARY | 2019-08-15 13:18 | XMS REPORT ---
Author Author Rafael NARVAEZ Organization [facility] Address [address] [place] [address] Care Team Providers Care Mounted Police Name Role Phone CADEN NARVAEZ Unavailable PROBLEMS Type Condition ICD9-CM Code [id number] Code Onset Dates Condition S tatus SNOMED Code Problem Diabetic polyneuropathy associated with type 1 d iabetes mellitus E10.42 Active 51532662 Problem Type 1 diabetes mellitus without complication E10. 9 Active 665360354 Problem Erectile dysfunction due to diseases classified elsewhere N52.1 Active [id number] ALLERGIES No Information ENCOUNTERS Encounter Location Date Diagnosis [place] [address] [address] May, [facility] [address] [address] Apr, [facility] [address] [address] Mar, [facility] [address] [address] Feb, [facility] [address] [address] Feb, Type 1 diabetes mellitus without complic ation E10.9 and longterm (current) use of insulin Z79.4 [facility] [address] [address] Feb, [facility] [address] [address] Jan, [facility] [address] [address] Jan, [facility] [address] [address] Jan, [facility] [address] [id number] [place] [address] Dec, [facility] [id number] [place] [address] Dec, [facility] [address] [id number] [place] [address] Oct, Diabetes E11.9 [facility] [id number] [place] [address] Oct, [facility] [address] [id number] [place] [address] Oct, Diabetes E11.9 [facility] [id number] [place] [address] August, [facility] [id number] [place] [address] Jun, [facility] [id number] [place] [address] May, [facility] [id number] [place] [address] Apr, [facility] [id number] [place] [address] Mar, Diabetes E11.9 [facility] [address] [id number] [place] [address] Jan, [facility] [id number] [place] [address] Jan, [facility] [address] [id number] [place] [address] Jan, Diabetic polyneuropathy associated with type 1 diabetes mellitus E10.42 [facility] [id number] [place] [address] Jan, Diabetes E11.9 [facility] [id number] [place] [address] Oct, [facility] [address] [address] Sep, Diabetes E11.9 [facility] [address] [address] Sep, [facility] [address] [address] August, [facility] [address] [address] Jul, [facility] [address] [address] May, [facility] [address] [address] Mar, [facility] [address] [address] Mar, [facility] [address] [address] Feb, [facility] [address] [address] Feb, [facility] [address] [address] Feb, Diabetes E11.9 [place] [address] [address] Nov, Type 1 diabetes mellitus with other neur ologic complication E10.49 [place] [address] [address] Nov, [facility] [address] [address] Nov, Diabetes E11.9 ; Erectile dysfunction du e to diseases classified elsewhere N52.1 ; Diabetic polyneuropathy associated with type 1 diabetes mellitus E10.42 and Cigarette nicotine dependence without complication F17.210 [place] [address] [address] Sep, Hip fracture, left, closed, with routine healing, subsequent encounter S72.002D and Allergy, initial encounter T78.40XA [place] [address] [id number] [place] [address] Sep, [facility] [id number] [place] [address] August, Femur fracture, left S72.92XA [facility] [address] [id number] [place] [address] August, Femur fracture, left S72.92XA [facility] [id number] [place] [address] August, Diabetes E11.9 and Femur fracture, left S72.92XA [facility] [address] [place] [id number] [id number] August, [facility] [address] [facility] [id number] [address] [place] [address] August, [facility] [address] [id number] [place] [address] August, [facility] [id number] [place] [address] Jul, [facility] [id number] [place] [address] Jul, [facility] [id number] [place] [address] Jun, [facility] [id number] [place] [address] Jun, [facility] [id number] [place] [address] Jun, [facility] [address] [id number] [place] [address] Jun, [facility] [id number] [place] [address] Jun, [facility] [address] [id number] [place] [address] Jun, [facility] [address] [id number] [place] [address] Mar, [facility] [address] [facility] [id number] [facility] [place] [address] 30 Mar, 2014 [facility] [address] [facility] [id number] [place] [address] Mar, [facility] [address] [id number] [place] [address] Mar, [facility] [address] [id number] [place] [address] 15 Mar, 2014 [facility] [address] [facility] [id number] [facility] [place] [address] Mar, [facility] [address] [id number] [place] [address] Mar, [facility] [address] [id number] [place] [address] Jan, [facility] [address] [id number] [place] [address] Jan, [facility] [address] [id number] [place] [address] Jan, [facility] [address] [id number] [place] [address] Jan, [facility] [address] [id number] [place] [address] 16 Dec, 2013 [facility] [address] [id number] [place] [address] 16 Dec, 2013 [facility] [address] [id number] [place] [address] Sep, [facility] [address] [id number] [place] [address] Sep, [facility] [address] [id number] [place] [address] 17 Sep, 2013 [facility] [address] [id number] [place] [address] 17 Sep, 2013 [facility] [address] [id number] [place] [address] 10 Sep, 2013 [facility] [address] [id number] [place] [address] Sep, [facility] [address] [id number] [place] [address] Jul, [facility] [address] [id number] [place] [address] Jul, [facility] [address] [id number] [place] [address] 15 Feb, 2013 [facility] [address] [id number] [place] [address] 14 Feb, 2013 [facility] [address] [id number] [place] [address] Feb, [facility] [address] [id number] [place] [address] Feb, [facility] [address] [id number] [place] [address] Feb, [facility] [address] [id number] [place] [address] Feb, [facility] [address] [id number] [place] [address] Feb, [facility] [address] [id number] [place] [address] Jan, [facility] [address] [id number] [place] [address] Jan, [facility] [address] [id number] [place] [address] Nov, [facility] [address] [id number] [place] [address] August, [facility] [address] [id number] [place] [address] Jul, [facility] [address] [id number] [place] [address] Jul, [facility] [address] [id number] [place] [address] Jun, [facility] [address] [id number] [place] [address] Jun, [facility] [address] [id number] [place] [address] May, [facility] [id number] [place] [address] Feb, [facility] [address] [id number] [place] [address] Apr, [facility] [id number] [place] [address] Mar, [facility] [address] [id number] [place] [address] Feb, [facility] [address] [id number] [place] [address] Jan, [facility] [address] [id number] [place] [address] Jan, [facility] [address] [id number] [place] [address] Dec, IMMUNIZATIONS No Known Immunizations SOCIAL HISTORY [...]
[2019-08-16] MEDS ORDERED: SULF1TAB35 PO (11:45)
== END 2019-08-15 13:27 | disposition left against medical advice (07) ==
LOC: EDUNIT# 13:06 → ER 13:07
DX: L02.212 Cutaneous abscess of back [any part, except buttock and flank] (principal)

== ENCOUNTER 2019-08-16 10:25 | Emergency (ER) | payer MEDICAID ==
[~2019-08-16] VITALS: Ht 187.9 cm; Wt 73.1 kg
[2019-08-16] MEDS ORDERED: LIDOCAINE/EPI 2% 1:100,00 (XYLOCAINE) 20 ML VIAL INJ ONE (11:00)
--- NOTE | 2019-08-16 11:44 | ED General ---
General Chief Complaint: Skin/Wound Problems Stated Complaint: ABSCESS Nursing Triage Note: pt reports abcess on lower back that started about 1 week ago. pt reports pain 6/10. Nursing Sepsis Screen: No Definite Risk Source of Information: Patient Exam Limitations: No Limitations History of Present Illness Date Seen by Provider: Aug 16, 2019 Time Seen by Provider: 10:50 Initial Comments This 29 year old man with DM type one presents to the ER with a large abscess just superior to the left buttock worsening over the past 4 days. He denies f ever. It is starting to drain. He reports blood sugars have been well controlled. He reports recently stopping methamphetamines about 2 months ago. Allergies and Home Medications Allergies Coded Allergies: fluoxetine (Verified Allergy, Unknown, 04/27/19) trazodone (Verified Allergy, Unknown, 04/27/19) Home Medications Amoxicillin/Potassium Clav 1 Each Tablet, 1 EACH PO BID Prescribed by: MONIKA VINES on 04/29/19 1312 Hydrocodone/Acetaminophen 1 Each Tablet, 1 EACH PO Q4-6HR PRN for PAIN-MODERATE Prescribed by: JAYNA ANNA on 08/14/19 1408 Insulin Lispro 100 Unit/1 Ml Vial, SC UD, (Reported) 80 UNITS PER DAY PER INSULIN PUMP Sulfamethoxazole/Trimethoprim 1 Each Tablet, 1 EACH PO BID Prescribed by: JAYNA ANNA on 08/14/19 1407 Sulfamethoxazole/Trimethoprim 1 Each Tablet, 1 EACH PO TID Prescribed by: JIGAR KOHLER on 08/16/19 1145 Patient Home Medication List Home Medication List Reviewed: Yes Review of Systems Review of Systems Constitutional: no symptoms reported EENTM: no symptoms reported Respiratory: no symptoms reported Cardiovascular: no symptoms reported Gastrointestinal: no symptoms reported Genitourinary: no symptoms reported Musculoskeletal: no symptoms reported Skin: see HPI Psychiatric/Neurological: No Symptoms Reported Hematologic/Lymphatic: No Symptoms Reported Immunological/Allergic: no symptoms reported Past Zueopma-Lwokrz-Hsxhoq Hx Past Med/Social Hx: Reviewed Nursing Past Med/Soc Hx Patient Social History Alcohol Use: Denies Use Recreational Drug Use: Yes Drug of Choice: marijuana weekly, stopped meth in may 2019 Type Used: Cigarettes Former Smoker, Quit: Feb 17, 2019 2nd Hand Smoke Exposure: Yes Recent Foreign Travel: No Contact w/Someone Who Travel: No Recent Infectious Disease Expo: No Recent Hopitalizations: No Physical Abuse: No Sexual Abuse: No Immunizations Up To Date Tetanus Booster (TDap): Unknown PED Vaccines UTD: Yes Seasonal Allergies Seasonal Allergies: No Past Medical History Surgeries: Yes (abscess drainage) Orthopedic Respiratory: No Asthma Currently Using CPAP: No Currently Using BIPAP: No Cardiac: No Neurological: Yes Neuropathy Reproductive Disorders: No Sexually Transmitted Disease: No HIV/AIDS: No Genitourinary: Yes Prostate Problems Gastrointestinal: Yes Gastroesophageal Reflux, Liver Disease/Jaundice, Chronic Constipation Musculoskeletal: Yes (LEFT HIP FX/ORIF 2016) Fractures Endocrine: Yes (TYPE 1 DIABETES, WITH INSULIN PUMP OF 04/27/19-EXTREME NON- COMPLIANCE) Diabetes, Insulin dep HEENT: No Cancer: No Psychosocial: Yes (POLYSUBSTANCE) Anxiety, Bipolar, Depression Integumentary: Yes Eczema Blood Disorders: No Adverse Reaction/Blood Tranf: No Family Medical History Diabetes mellitus 19 FATHER UNCLE FH: COPD (chronic obstructive pulmonary disease) 19 MOTHER FH: brain cancer AUNT FH: diverticulitis 19 FATHER Thyroid disease 19 MOTHER No Pertinent Family Hx Physical Exam Vital Signs Vital Signs - First Documented 08/16/19 10:49 Temp 36.8 Pulse 110 Resp 16 B/P (MAP) 130/96 (107) Pulse Ox 99 O2 Delivery Room Air Capillary Refill : Less Than 3 Seconds Height, Weight, BMI Height: 5'10.00" Weight: 160lbs. 3.0oz. [id number]; 20.00 BMI Method:Stated General Appearance: No Apparent Distress, WD/WN HEENT: PERRL/EOMI, Normal ENT Inspection Respiratory: Lungs Clear, Normal Breath Sounds, No Accessory Muscle Use Cardiovascular: No Edema, No Murmur, Tachycardia Extremity: Normal Inspection, No Pedal Edema Neurologic/Psychiatric: Alert, Oriented x3, No Motor/Sensory Deficits, Normal Mood/Affect, image archivist II-XII Norm as Tested Skin: Normal Color, Warm/Dry, Other (Very large, painful, inflammed, bulging abscess superior to the left buttock with two nearly erupting heads) Procedures/Interventions I&D : Blade Size: 11 Progress Skin was prepped with chlorhexidine. Buffered lidocaine was injected around the periphery of the abscess to provide anesthesia. About a mL were used. A 1 cm incision was made directly over the center of the abscess. A substantial amount of purulent drainage (estimated about 30 ML) was expressed from the incision. Loculations were broken with a hemostat. Morbid purulent material was expressed. About 300 mL of normal saline was used to irrigate the abscess. Dressings were applied. Progress/Results/Core Measures Suspected Sepsis Recent Fever Within 48 Hours: No Infection Criteria Present: None New/Unexplained Altered Menta: No Sepsis Screen: No Definite Risk SIRS Temperature: Pulse: 110 Respiratory Rate: 16 Blood Pressure 130 /96 Mean: 107 Results/Orders My Orders Orders - JIGAR LIGHT MD Lidocaine/Epi 2% 1:100,000 (Xylocaine/Ep (08/16/19 11:00) Wound Culture (08/16/19 11:37) Medications Given in ED Current Medications Medications Dose Ordered Sig/Komal Route Start Time Stop Time Status Last Admin Dose Admin Lidocaine/ Epinephrine 20 ml ONCE ONCE INJ 08/16/19 11:00 08/16/19 11:01 DC 08/16/19 11:06 20 ML Vital Signs/I&O 08/16/19 08/16/19 10:49 11:57 Temp 36.8 36.8 Pulse 110 100 Resp 16 16 B/P (MAP) 130/96 (107) 123/89 (107) Pulse Ox 99 99 O2 Delivery Room Air Capillary Refill : Less Than 3 Seconds Blood Pressure Mean: 107 Departure Impression Primary Impression: Abscess Additional Impression: Encounter for incision and drainage procedure Disposition: HOME, SELF-CARE Condition: Improved Departure-Patient Inst. Decision time for Depature: 11:42 Referrals: CADEN NARVAEZ MD (PCP/Family) Primary Care Physician Patient Instructions: Skin Abscess, Abscess Incision and Drainage Add. Discharge Instructions: Complete your antibiotics as prescribed. You may soak in warm soapy water for 15 minutes 2-3 times a day for the next few days to encourage drainage. Tightly control you blood sugars. Follow-up with your primary care provider early next week. Return to the ER for wound check or worsening symptoms as needed. Take Tylenol up to 1000 mg every 6 hours as needed for pain. Add Ibuprofen sparingly for short term relief if needed. All discharge instructions reviewed with patient and/or family. Voiced understanding. Scripts Sulfamethoxazole/Trimethoprim (Bactrim Ds Tablet) 1 Each Tablet 1 EACH PO TID, #20 TAB Prov: JIGAR LIGHT MD 08/16/19 Copy Copies To 1: CADEN NARVAEZ MD, JOSHUA T MD Aug 16, 2019 11:44
[2019-08-16] MEDS ORDERED: SULF1TAB35 PO (11:45)
[2019-08-16 11:57] VITALS: BP 123/89
== END 2019-08-16 11:57 | disposition home or self-care (01) ==
LOC: EDUNIT# 10:25 → ER 10:26
DX: L02.31 Cutaneous abscess of buttock (principal); E10.40 Type 1 diabetes mellitus with diabetic neuropathy, unspecified; Z88.5 Allergy status to narcotic agent; Z88.8 Allergy status to other drugs, medicaments and biological substances; Z79.4 Long term (current) use of insulin; Z77.22 Contact with and (suspected) exposure to environmental tobacco smoke (acute) (chronic); Z87.891 Personal history of nicotine dependence; Z80.8 Family history of malignant neoplasm of other organs or systems
CPT/HCPCS: 87070; 87077; 87186; 87205

== ENCOUNTER 2020-06-03 15:09 | Inpatient (IN) | payer MEDICAID ==
[~2020-06-03] VITALS: Ht 188 cm; Wt 73.2 kg
[~2020-06-03 15:09] MED LIST changes: -WARF5TAB PO; +WARF5TAB2 PO
[2020-06-03] MEDS ORDERED: NS IV 1000 ML 1,000 ML ONE (15:26)
[2020-06-03] MEDS ORDERED: NS IV 1000 ML 1,000 ML IV SCH ×3 (15:30→19:45)
[2020-06-03 15:37] LABS: BASOPHILS # (AUTO) 0.1 10^3/uL (0.0-0.1); BASOPHILS % (AUTO) 0 % (0-10); EOSINOPHILS % (AUTO) 0 % (0-10); HEMATOCRIT 38 % (40-54); HEMOGLOBIN 13.3 g/dL (13.3-17.7); LYMPHOCYTES # (AUTO) 2.2 X 10^3 (1.0-4.0); LYMPHOCYTES % (AUTO) 11 % (12-44); MEAN CORPUSCULAR HEMOGLOBIN 30 pg (25-34); MEAN CORPUSCULAR HGB CONC 35 g/dL (32-36); MEAN CORPUSCULAR VOLUME 86 fL (80-99); MEAN PLATELET VOLUME 9.4 fL (9.0-12.2); MONOCYTES # (AUTO) 1.3 X 10^3 (0.0-1.0); MONOCYTES % (AUTO) 6 % (0-12); NEUTROPHILS % (AUTO) 82 % (42-75); PLATELET COUNT 482 10^3/uL (130-400); WHITE BLOOD COUNT 20.6 10^3/uL (4.3-11.0)
[2020-06-03 15:46] LABS: ALBUMIN 3.6 GM/DL (3.2-4.5)
[2020-06-03 15:47] LABS: CHLORIDE 91 MMOL/L (98-107); POTASSIUM 3.8 MMOL/L (3.6-5.0); SODIUM 128 MMOL/L (135-145)
[2020-06-03 15:48] LABS: CALCIUM 8.9 MG/DL (8.5-10.1)
[2020-06-03 15:49] LABS: PROTHROMBIN TIME PATIENT 13.6 SEC (12.2-14.7); TOTAL PROTEIN 7.6 GM/DL (6.4-8.2)
[2020-06-03 15:50] LABS: CARBON DIOXIDE 21 MMOL/L (21-32)
--- NOTE | 2020-06-03 15:50 | Diagnostic Imaging Report ---
Indication: Right foot pain AP, oblique and lateral views of the right foot are obtained. FINDINGS: No acute fracture or dislocation is identified. No abnormal lytic or sclerotic focus is seen, and there is no radiopaque foreign body. IMPRESSION: No acute abnormality. Dictated by: Dictated on workstation # [id number]
[2020-06-03 15:51] LABS: BILIRUBIN,TOTAL 0.4 MG/DL (0.1-1.0)
[2020-06-03 15:52] LABS: ALKALINE PHOSPHATASE 195 U/L (40-136); NEUTROPHILS % (MANUAL) 78 %
[2020-06-03 15:53] LABS: BASOPHILS % (MANUAL) 1 %; CREATININE SERUM 1.28 MG/DL (0.60-1.30); GFR ESTIMATED > 60; LYMPHOCYTES % (MANUAL) 13 %; MONOCYTES % (MANUAL) 8 %; RBC MORPH NORMAL
[2020-06-03 15:54] LABS: BUN/CREATININE RATIO 6
[2020-06-03 15:55] LABS: ALANINE AMINOTRANSFERASE 18 U/L (0-55); GLUCOSE 685 MG/DL (70-105)
[2020-06-03 15:56] LABS: ERYTHROCYTE SEDIMENTATION RATE 67 MM/HR (0-15); MAGNESIUM 2.3 MG/DL (1.6-2.4)
--- NOTE | 2020-06-03 15:58 | ED General ---
General Chief Complaint: Skin/Wound Problems Stated Complaint: R FOOT INFECTION/ELEV BS Nursing Triage Note: PT AMB TO [facility] WITH COMPLAINT OF RIGHT FOOT INFECTION. STATES HE STEPPED ON A PIECE OF GLASS A WEEK AGO. STATES BLOOD SUGARS HAVE BEEN INCREASING AT HOME ALSO. Nursing Sepsis Screen: No Definite Risk Source of Information: Patient, Old Records History of Present Illness Date Seen by Provider: Jun 03, 2020 Time Seen by Provider: 15:24 Initial Comments PT ARRIVES VIA POV FROM [facility] PT WENT THERE TODAY FOR RIGHT FOOT INFECTION AND ELEVATED BLOOD SUGAR, PT BECAME ANGRY WHEN TOLD THAT HE NEEDED HGB A1C AND HE STORMED OUT OF THE CLINIC. PT STATES THAT HE STEPPED ON A PIECE OF GLASS A WEEK AGO--STATES "DIDN'T KNOW I DID IT"--PT WITH PERIPHERAL NEUROPATHY. STATES HIS FOOT HAS BEEN RED AND SWOLLEN FOR THE LAST WEEK, HAS ALSO BEEN DRAINING. PT IS TYPE 1 DIABETIC, WITH LONGSTANDING NON-COMPLIANCE IN ALL ASPECTS OF CARE. PT NOW HAS AN INSULIN PUMP, STATES HIS BLOOD SUGARS HAVE BEEN HIGH FOR THE LAST WEEK SYMPTOMS ARE NO DIFFERENT TODAY PT DENIES FEVER DENIES RECENT ILLNESS STATES HE "RELAPSED 3 WEEKS AGO" AND HAS BEEN USING METH REGULARLY SINCE THEN. PT ALSO USES MARIJUANA ON REGULAR BASIS PT WITH A MULTITUDE OF VISITS HERE LONG HISTORY OF EXTREME NON-COMPLIANCE IN ALL ASPECTS OF CARE. SEE OLD CHARTS FOR DETAILS PCP: DR. NARVAEZ, [facility] Allergies and Home Medications Allergies Coded Allergies: fluoxetine (Verified Allergy, Unknown, 04/27/19) trazodone (Verified Allergy, Unknown, 04/27/19) Home Medications Amoxicillin/Potassium Clav 1 Each Tablet, 1 EACH PO BID Prescribed by: MONIKA VINES on 04/29/19 1312 Hydrocodone/Acetaminophen 1 Each Tablet, 1 EACH PO Q4-6HR PRN for PAIN-MODERATE Prescribed by: JAYNA ANNA on 08/14/19 1408 Insulin Lispro 100 Unit/1 Ml Vial, SC UD, (Reported) 80 UNITS PER DAY PER INSULIN PUMP Sulfamethoxazole/Trimethoprim 1 Each Tablet, 1 EACH PO BID Prescribed by: JAYNA ANNA on 08/14/19 1407 Sulfamethoxazole/Trimethoprim 1 Each Tablet, 1 EACH PO TID Prescribed by: JIGAR KOHLER on 08/16/19 1145 Patient Home Medication List Home Medication List Reviewed: Yes Review of Systems Review of Systems Constitutional: no symptoms reported Respiratory: no symptoms reported Cardiovascular: no symptoms reported Gastrointestinal: no symptoms reported Genitourinary: frequency Musculoskeletal: see HPI Skin: see HPI Psychiatric/Neurological: See HPI, Pre-Existing Deficit (PERIPHERAL NEUROPATHY) Hematologic/Lymphatic: No Symptoms Reported Immunological/Allergic: no symptoms reported Past Ufmammx-Qjggkg-Mwlxbi Hx Past Med/Social Hx: Reviewed and Corrections made Patient Social History Alcohol Use: Denies Use Drug of Choice: THC, METH Smoking Status: Current Everyday Smoker Type Used: Cigarettes 2nd Hand Smoke Exposure: Yes Recent Infectious Disease Expo: No Recent Hopitalizations: No Immunizations Up To Date Tetanus Booster (TDap): Unknown PED Vaccines UTD: Yes Seasonal Allergies Seasonal Allergies: No Past Medical History Surgeries: Yes (ABSCESS I&D'S; LEFT HIP FX/ORIF 2016) Orthopedic, Tonsillectomy Respiratory: Yes Asthma Currently Using CPAP: No Currently Using BIPAP: No Cardiac: No Neurological: Yes Neuropathy Reproductive Disorders: No Sexually Transmitted Disease: No HIV/AIDS: No Genitourinary: Yes Prostate Problems Gastrointestinal: Yes Gastroesophageal Reflux, Liver Disease/Jaundice, Chronic Constipation Musculoskeletal: Yes (LEFT HIP FX/ORIF 2017) Fractures Endocrine: Yes (TYPE 1 DIABETES, WITH INSULIN PUMP OF 04/27/19-EXTREME NON- COMPLIANCE) Diabetes, Insulin dep HEENT: No Cancer: No Psychosocial: Yes (POLYSUBSTANCE ABUSE) Anxiety, Bipolar, Depression Integumentary: Yes Eczema Blood Disorders: No Adverse Reaction/Blood Tranf: No Family Medical History Diabetes mellitus 19 FATHER UNCLE FH: COPD (chronic obstructive pulmonary disease) 19 MOTHER FH: brain cancer AUNT FH: diverticulitis 19 FATHER Thyroid disease 19 MOTHER No Pertinent Family Hx SOCIAL HISTORY: -ETOH-DENIES USE -DRUGS--SMOKES METH AND MARIJUANA. DENIES IV USE -SMOKES 1 PPD PAST SURGICAL HISTORY: -TONSILLECTOMY -EGD -MULTIPLE I&D'S OF ABSCESSES -LEFT HIP FRACTURE/ORIF 2017 LONG HISTORY OF EXTREME NON-COMPLIANCE IN ALL ASPECTS OF CARE Physical Exam Vital Signs Vital Signs - First Documented 06/03/20 15:20 Temp 37.5 Pulse 125 Resp 25 B/P (MAP) 139/103 (115) Pulse Ox 99 O2 Delivery Room Air Capillary Refill : Less Than 3 Seconds Height, Weight, BMI Height: 5'10.00" Weight: 160lbs. 3.0oz. [id number]; 20.00 BMI Method:Stated General Appearance: No Apparent Distress, Thin, Other (CONSTANT MOVEMENTS OF BODY, ESPECIALLY FEET) HEENT: Other (ORAL MUCOSA DRY) Respiratory: Normal Breath Sounds, No Accessory Muscle Use, No Respiratory Distress Cardiovascular: Regular Rate, Rhythm, No Murmur Gastrointestinal: Non Tender, Soft Extremity: Other (RIGHT FOOT AND ANKLE WITH SIGNIFICANT SWELLING AND ERYTHEMA. DORSAL AND PLANTAR ASPECT OF DISTAL / LATERAL ASPECT WITH LARGE AREA OF SUB Q PURULENCE) Focused Exam Lactate Level 06/03/20 15:27: Lactic Acid Level 3.97*H 06/03/20 17:32: Lactic Acid Level Laboratory Tests Test 06/03/20 15:27 06/03/20 17:32 Lactic Acid Level 3.97 MMOL/L (0.50-2.00) *H Progress/Results/Core Measures Suspected Sepsis Recent Fever Within 48 Hours: No Infection Criteria Present: None New/Unexplained Altered Menta: No Sepsis Screen: No Definite Risk SIRS Temperature: Pulse: 125 Respiratory Rate: 25 Laboratory Tests 06/03/20 15:27: White Blood Count 20.6H Blood Pressure 139 /103 Mean: 115 06/03/20 15:27: Lactic Acid Level 3.97*H 06/03/20 17:32: Laboratory Tests 06/03/20 15:27: Creatinine 1.28, INR Comment 1.0, Platelet Count 482H, Total Bilirubin 0.4 Results/Orders Lab Results Laboratory Tests Test 06/03/20 15:24 06/03/20 15:27 06/03/20 16:54 06/03/20 17:32 Range/Units Glucometer 591 *H 70-110 MG/DL White Blood Count 20.6 H 4.3-11.0 10^3/uL Red Blood Count 4.42 4.30-5.52 10^6/uL Hemoglobin 13.3 13.3-17.7 g/dL Hematocrit 38 L 40-54 % Mean Corpuscular Volume 86 80-99 fL Mean Corpuscular Hemoglobin 30 25-34 pg Mean Corpuscular Hemoglobin Concent 35 32-36 g/dL Red Cell Distribution Width 12.0 10.0-14.5 % Platelet Count 482 H 130-400 10^3/uL Mean Platelet Volume 9.4 9.0-12.2 fL Immature Granulocyte % (Auto) 0 % Neutrophils (%) (Auto) 82 H 42-75 % Lymphocytes (%) (Auto) 11 L 12-44 % Monocytes (%) (Auto) 6 0-12 % Eosinophils (%) (Auto) 0 0-10 % Basophils (%) (Auto) 0 0-10 % Neutrophils # (Auto) 17.0 H 1.8-7.8 X 10^3 Lymphocytes # (Auto) 2.2 1.0-4.0 X 10^3 Monocytes # (Auto) 1.3 H 0.0-1.0 X 10^3 Eosinophils # (Auto) 0.0 0.0-0.3 10^3/uL Basophils # (Auto) 0.1 0.0-0.1 10^3/uL Immature Granulocyte # (Auto) 0.1 0.0-0.1 10^3/uL Neutrophils % (Manual) 78 % Lymphocytes % (Manual) 13 % Monocytes % (Manual) 8 % Basophils % (Manual) 1 % Blood Morphology Comment NORMAL Erythrocyte Sedimentation Rate 67 H 0-15 MM/HR Prothrombin Time 13.6 12.2-14.7 SEC INR Comment 1.0 0.8-1.4 Activated Partial Thromboplast Time 35 24-35 SEC Sodium Level 128 L 135-145 MMOL/L Potassium Level 3.8 3.6-5.0 MMOL/L Chloride Level 91 L 98-107 MMOL/L Carbon Dioxide Level 21 21-32 MMOL/L Anion Gap 16 H 5-14 MMOL/L Blood Urea Nitrogen 8 7-18 MG/DL Creatinine 1.28 0.60-1.30 MG/DL Estimat Glomerular Filtration Rate > 60 BUN/Creatinine Ratio 6 Glucose Level 685 *H 70-105 MG/DL Lactic Acid Level 3.97 *H 0.50-2.00 MMOL/L Calcium Level 8.9 8.5-10.1 MG/DL Corrected Calcium 9.2 8.5-10.1 MG/DL Magnesium Level 2.3 1.6-2.4 MG/DL Total Bilirubin 0.4 0.1-1.0 MG/DL Aspartate Amino Transf (AST/SGOT) 9 5-34 U/L Alanine Aminotransferase (ALT/SGPT) 18 0-55 U/L Alkaline Phosphatase 195 H 40-136 U/L C-Reactive Protein High Sensitivity 22.15 H 0.00-0.50 MG/DL Total Protein 7.6 6.4-8.2 GM/DL Albumin 3.6 3.2-4.5 GM/DL Beta-Hydroxybutyrate (Chem panel) 0.96 H 0.00-0.27 MMOL/L Procalcitonin 0.22 H <0.10 NG/ML Urine Color YELLOW Urine Clarity CLEAR Urine pH 6.0 5-9 Urine Specific [place] <=1.005 1.016-1.022 Urine Protein NEGATIVE NEGATIVE Urine Glucose (UA) 3+ H NEGATIVE Urine Ketones 1+ H NEGATIVE Urine Nitrite NEGATIVE NEGATIVE Urine Bilirubin NEGATIVE NEGATIVE Urine Urobilinogen 0.2 < = 1.0 MG/DL Urine Leukocyte Esterase NEGATIVE NEGATIVE Urine RBC (Auto) 1+ H NEGATIVE Urine RBC 0-2 /HPF Urine WBC NONE /HPF Urine Squamous Epithelial Cells NONE /HPF Urine Crystals NONE /LPF Urine Bacteria NEGATIVE /HPF Urine Casts NONE /LPF Urine Mucus NEGATIVE /LPF Urine Culture Indicated NO Urine Opiates Screen NEGATIVE NEGATIVE Urine Oxycodone Screen NEGATIVE NEGATIVE Urine Methadone Screen NEGATIVE NEGATIVE Urine Propoxyphene Screen NEGATIVE NEGATIVE Urine Barbiturates Screen NEGATIVE NEGATIVE Ur Tricyclic Antidepressants Screen NEGATIVE NEGATIVE Urine Phencyclidine Screen NEGATIVE NEGATIVE Urine Amphetamines Screen NEGATIVE NEGATIVE Urine Methamphetamines Screen NEGATIVE NEGATIVE Urine Benzodiazepines Screen NEGATIVE NEGATIVE Urine Cocaine Screen NEGATIVE NEGATIVE Urine Cannabinoids Screen NEGATIVE NEGATIVE My Orders Orders - MARIANNA BOJORQUEZ DO Accucheck Stat ONCE (06/03/20 15:17) Ed Iv/Invasive Line Start (06/03/20 15:17) Monitor-Rhythm Ecg Trace Only (06/03/20 15:17) Cbc With Automated Diff (06/03/20 15:17) Comprehensive Metabolic Panel (06/03/20 15:17) Hs C Reactive Protein (06/03/20 15:17) Lactic Acid Analyzer (06/03/20 15:17) Magnesium (06/03/20 15:17) Procalcitonin (Pct) (06/03/20 15:17) Protime With Inr (06/03/20 15:17) Partial Thromboplastin Time (06/03/20 15:17) Ua Culture If Indicated (06/03/20 15:17) Blood Culture (06/03/20 15:17) Erythrocyte Sedimentation Rate (06/03/20 15:17) Beta Hydroxybutyrate (06/03/20 15:22) Hemoglobin A1c (06/03/20 15:22) Drug Screen Stat (Urine) (06/03/20 15:29) Wound Culture (06/03/20 15:29) Foot, Right, 3 View (06/03/20 15:29) Ed Iv/Invasive Line Start (06/03/20 15:29) Ns Iv 1000 Ml (Sodium Chloride 0.9%) (06/03/20 15:30) Ns Iv 1000 Ml (Sodium Chloride 0.9%) (06/03/20 15:26) Manual Differential (06/03/20 15:27) Ct Extremity Lower Right Wo (06/03/20 16:11) Arterial Blood Gas (06/03/20 16:17) Insulin (Regular) Human (Novolin R (Per (06/03/20 16:30) Piperacillin Sodium/Tazobactam (Zosyn Vi (06/03/20 17:00) Vancomycin Injection (Vancomycin Injecti (06/03/20 17:00) Ed Iv/Invasive Line Start (06/03/20 17:07) Ns Iv 1000 Ml (Sodium Chloride 0.9%) (06/03/20 17:15) Medications Given in ED Current Medications Medications Dose Ordered Sig/Komal Route Start Time Stop Time Status Last Admin Dose Admin Insulin Human Regular 20 unit ONCE ONCE IV 06/03/20 16:30 06/03/20 16:31 DC 06/03/20 17:20 20 UNIT Piperacillin Sod/ Tazobactam Sod 4.5 gm/Sodium Chloride 100 ml @ 200 mls/hr ONCE ONCE IV 06/03/20 17:00 06/03/20 17:29 DC 06/03/20 17:18 200 MLS/HR Vital Signs/I&O 06/03/20 15:20 Temp 37.5 Pulse 125 Resp 25 B/P (MAP) 139/103 (115) Pulse Ox 99 O2 Delivery Room Air Capillary Refill : Less Than 3 Seconds Blood Pressure Mean: 115 Point of Care Testing Finger Stick Blood Glucose: 591 Progress Note : Progress Note ACCUCHECK 591 GIVEN IV FLUIDS AND INSULIN CULTURE OBTAINED FROM FOOT WOUND PT ADAMANTLY REFUSES ABG'S Diagnostic Imaging Comments XRAYS RIGHT FOOT--PER RADIOLOGIST REPORT AT 1551 FINDINGS: No acute fracture or dislocation is identified. No abnormal lytic or sclerotic focus is seen, and there is no radiopaque foreign body. IMPRESSION: No acute abnormality CT RIGHT FOOT--PER RADIOLOGIST REPORT AT 1658 .FINDINGS: Soft tissues: No gas is noted within the soft tissues of the foot that would suggest necrotizing fasciitis. There is a moderate amount of dorsal subcutaneous edema and/or cellulitis. This cannot be differentiated by imaging. There does not appear to be a deep fluid collection within the foot, although soft tissue contrast is suboptimal by CT when compared to MRI. Bones: No fracture or osseous erosions. No periosteal reaction is noted. No osseous coalition. IMPRESSION: 1. No soft tissue gas to suggest necrotizing fasciitis. 2. Extensive soft tissue swelling in the dorsal aspect of the foot. By CT, there is no identifiable fluid collection to suggest a drainable abscess. 3. No CT features of osteomyelitis. Reviewed: Reviewed by Me Departure Communication (Admissions) 1699--SPOKE WITH DR. ALONSO, ACCEPTS PT FOR ADMIT 1701--SPOKE WITH DR. AN FOR SURGERY CONSULT 1717--DR. AN HERE TO SEE PT Impression Primary Impression: DKA (diabetic ketoacidoses) Additional Impressions: Cellulitis of right foot Sepsis Uncontrolled type 1 diabetes mellitus Hyponatremia Disposition: ADMITTED INPATIENT Condition: Stable (ERASED) Departure-Patient Inst. Referrals: CADEN NARVAEZ MD (PCP/Family) Primary Care Physician MARIANNA BOJORQUEZ DO Jun 03, 2020 15:58
[2020-06-03] MEDS ORDERED: inSUlin (REGULAR) HUMAN 1 UNIT/0.01 ML (CHARGE PER UNIT) IV ONE (16:30)
--- NOTE | 2020-06-03 16:53 | Diagnostic Imaging Report ---
PROCEDURE: CT right lower extremity without contrast. TECHNIQUE: Axially acquired CT was obtained through the right lower extremity without intravenous contrast. Coronal and sagittal reformations were also performed. Auto Exposure Controls were utilized during the CT exam to meet ALARA standards for radiation dose reduction. INDICATION: Diabetes, right foot infection with swollen soft tissues that are red. COMPARISON: Right foot radiographs of 06/03/2020. FINDINGS: Soft tissues: No gas is noted within the soft tissues of the foot that would suggest necrotizing fasciitis. There is a moderate amount of dorsal subcutaneous edema and/or cellulitis. This cannot be differentiated by imaging. There does not appear to be a deep fluid collection within the foot, although soft tissue contrast is suboptimal by CT when compared to MRI. Bones: No fracture or osseous erosions. No periosteal reaction is noted. No osseous coalition. IMPRESSION: 1. No soft tissue gas to suggest necrotizing fasciitis. 2. Extensive soft tissue swelling in the dorsal aspect of the foot. By CT, there is no identifiable fluid collection to suggest a drainable abscess. 3. No CT features of osteomyelitis. Dictated by: Dictated on workstation # [id number]
[2020-06-03 17:00] LABS: BILIRUBIN,URINE NEGATIVE (NEGATIVE); CLARITY,URINE CLEAR; COLOR,URINE YELLOW; GLUCOSE, URINE (UA) 3+ (NEGATIVE); KETONES,URINE 1+ (NEGATIVE); LEUKOCYTE ESTERASE ,URINE NEGATIVE (NEGATIVE); NITRITE,URINE NEGATIVE (NEGATIVE); PROTEIN,URINE NEGATIVE (NEGATIVE)
[2020-06-03] MEDS ORDERED: PIPERACILLIN SODIUM/TAZOBACTAM 4.5 GM in NS (IVPB) 100 ML IV ONE (17:00)
[2020-06-03] MEDS ORDERED: VANCOMYCIN INJECTION 1,000 MG in NS (IVPB) 250 ML IV ONE (17:00)
[2020-06-03 17:06] LABS: BACTERIA,URINE NEGATIVE /HPF; RBC,URINE 0-2 /HPF
[2020-06-03 17:13] LABS: AMPHETAMINE SCREEN, URINE NEGATIVE (NEGATIVE); BARBITURATE SCREEN URINE NEGATIVE (NEGATIVE); BENZODIAZEPINES SCREEN URINE NEGATIVE (NEGATIVE); CANNABINOID SCREEN, URINE NEGATIVE (NEGATIVE); COCAINE SCREEN URINE NEGATIVE (NEGATIVE); METHADONE STAT NEGATIVE (NEGATIVE); METHAMPHETAMINE SCREEN URINE S NEGATIVE (NEGATIVE); OPIATE SCREEN URINE NEGATIVE (NEGATIVE); OXYCODONE STAT NEGATIVE (NEGATIVE); PROPOXYPHENE STAT NEGATIVE (NEGATIVE); TRICYCLIC ANTIDEPRESSANTS SCRE NEGATIVE (NEGATIVE)
--- NOTE | 2020-06-03 18:03 | Consultation - Surgery ---
History of Present Illness History of Present Illness Patient Consulted On(alesia/time) 06/03/20 17:59 Date Seen by Provider: Jun 03, 2020 Time Seen by Provider: 17:01 History of Present Illness Surgery asked to consult regarding right foot Cellulitis. HPI per ED: PT AMB TO [facility] WITH COMPLAINT OF RIGHT FOOT INFECTION. STATES HE STEPPED ON A PIECE OF GLASS A WEEK AGO. STATES BLOOD SUGARS HAVE BEEN INCREASING AT HOME ALSO. PT ARRIVES VIA POV FROM [facility], PT WENT THERE TODAY FOR RIGHT FOOT INFECTION AND ELEVATED BLOOD SUGAR, PT BECAME ANGRY WHEN TOLD THAT HE NEEDED HGB A1C AND HE STORMED OUT OF THE CLINIC. PT STATES THAT HE STEPPED ON A PIECE OF GLASS A WEEK AGO--STATES "DIDN'T KNOW I DID IT"--PT WITH PERIPHERAL NEUROPATHY. STATES HIS FOOT HAS BEEN RED AND SWOLLEN FOR THE LAST WEEK, HAS ALSO BEEN DRAINING. PT IS TYPE 1 DIABETIC, WITH LONGSTANDING NON-COMPLIANCE IN ALL ASPECTS OF CARE. PT NOW HAS AN INSULIN PUMP, STATES HIS BLOOD SUGARS HAVE BEEN HIGH FOR THE LAST WEEK SYMPTOMS ARE NO DIFFERENT TODAY, PT DENIES FEVER, DENIES RECENT ILLNESS. STATES HE "RELAPSED 3 WEEKS AGO" AND HAS BEEN USING METH REGULARLY SINCE THEN. PT ALSO USES MARIJUANA ON REGULAR BASIS PT WITH A MULTITUDE OF VISITS HERE. When I spoke to pt he states he was able to get the glass out, but that there has been drainage "from the hole, in the bottom of my foot". He states he has some neuropathy, but still feels almost all the pain in his right foot. He describes pain as constant, dull ache, with occasional sharp pain; not really made better by anything. Rating it at least a 7 out of 10. He states it has never been this bad. Allergies and Home Medications Allergies Coded Allergies: fluoxetine (Verified Allergy, Unknown, 04/27/19) trazodone (Verified Allergy, Unknown, 04/27/19) Home Medications Amoxicillin/Potassium Clav 1 Each Tablet, 1 EACH PO BID Prescribed by: MONIKA VINES on 04/29/19 1312 Hydrocodone/Acetaminophen 1 Each Tablet, 1 EACH PO Q4-6HR PRN for PAIN-MODERATE Prescribed by: JAYNA ANNA on 08/14/19 1408 Insulin Lispro 100 Unit/1 Ml Vial, SC UD, (Reported) 80 UNITS PER DAY PER INSULIN PUMP Sulfamethoxazole/Trimethoprim 1 Each Tablet, 1 EACH PO BID Prescribed by: JAYNA ANNA on 08/14/19 1407 Sulfamethoxazole/Trimethoprim 1 Each Tablet, 1 EACH PO TID Prescribed by: JIGAR KOHLER on 08/16/19 1145 Patient Home Medication List Home Medication List Reviewed: Yes Past Nzxcnhx-Zkqqpp-Ccwpmp Hx Patient Social History Drug of Choice: THC, METH Smoking Status: Current Everyday Smoker Type Used: Cigarettes 2nd Hand Smoke Exposure: Yes Recent Hopitalizations: No Substance type: Methamphetamine Immunizations Up To Date Tetanus Booster (TDap): Unknown PED Vaccines UTD: Yes Seasonal Allergies Seasonal Allergies: No Surgeries History of Surgeries: Yes (ABSCESS I&D'S; LEFT HIP FX/ORIF 2016) Surgeries: Orthopedic, Tonsillectomy Respiratory History of Respiratory Disorde: Yes Respiratory Disorders: Asthma Cardiovascular History of Cardiac Disorders: No Neurological History of Neurological Disord: Yes Neurological Disorders: Neuropathy Reproductive System Hx Reproductive Disorders: No Sexually Transmitted Disease: No HIV/AIDS: No Genitourinary History of Genitourinary Disor: Yes Genitourinary Disorders: Prostate Problems Gastrointestinal History of Gastrointestinal Di: Yes Gastrointestinal Disorders: Gastroesophageal Reflux, Liver Disease/Jaundice, Chronic Constipation Musculoskeletal History of Musculoskeletal Dis: Yes (LEFT HIP FX/ORIF 2016) Musculoskeletal Disorders: Fractures Endocrine History of Endocrine Disorders: Yes (TYPE 1 DIABETES, WITH INSULIN PUMP OF 04/27/19-EXTREME NON-COMPLIANCE) Endocrine Disorders: Diabetes, Insulin dep HEENT History of HEENT Disorders: No Cancer History of Cancer: No Psychosocial History of Psychiatric Problem: Yes (POLYSUBSTANCE ABUSE) Behavioral Health Disorders: Anxiety, Bipolar, Depression Integumentary History of Skin or Integumenta: Yes Skin/Integumentary Disorders: Eczema Blood Transfusions History of Blood Disorders: No Adverse Reaction to a Blood Tr: No Family Medical History Significant Family History: Cancer, Diabetes, Hypertension (father) Family Medial History: Diabetes mellitus 19 FATHER UNCLE FH: COPD (chronic obstructive pulmonary disease) 19 MOTHER FH: brain cancer AUNT FH: diverticulitis 19 FATHER Thyroid disease 19 MOTHER Review of Systems-General Constitutional: chills, diaphoresis, malaise, weakness EENTM: No blurred vision, No double vision, No mouth pain, No mouth swelling, No epistaxis Respiratory: No cough, No dyspnea on exertion Cardiovascular: No chest pain, No Hx of Intervention, No palpitations Gastrointestinal: No abdominal pain, No jaundice, No nausea, No vomiting Genitourinary: No dysuria, No frequency, No hematuria Musculoskeletal: joint pain, joint swelling, muscle pain, muscle stiffness Skin: see HPI; No lesions, No pruritus Psychiatric/Neurological: Anxiety, Depressed; Denies Seizure, Denies Tremors Other Pt denies any hx of abnormal bleeding or bruising Physical Exam-General Problems Physical Exam Vital Signs Vital Signs - First Documented 06/03/20 15:20 Temp 37.5 Pulse 125 Resp 25 B/P (MAP) 139/103 (115) Pulse Ox 99 O2 Delivery Room Air Capillary Refill : Less Than 3 Seconds General Appearance: WD/WN, no apparent distress Eyes: Bilateral Eye PERRL, Bilateral Eye EOMI HEENT: pharynx normal; No scleral icterus (R), No scleral icterus (L) Neck: non-tender, full range of motion, supple Respiratory: lungs clear, normal breath sounds, no respiratory distress, no accessory muscle use Cardiovascular: regular rate, rhythm, no murmur Gastrointestinal: non tender, soft, no organomegaly, no pulsatile mass Back: no CVA tenderness, no vertebral tenderness Extremities: no calf tenderness, normal capillary refill, other (pt has +2-3 edema of right foot, with erythema over entire foot and into ankle, more erythema on lateral aspect of foot, draining a purulent fluid from bottom of foot and top, with blister of fluid and sloughing of skin near 5th toe ) 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, alert, oriented x 3 Skin: normal color, warm/dry Lymphatic: no adenopathy (neck, axilla or groin) Data Review Labs Laboratory Tests 06/03/20 15:24: Glucometer 591*H 06/03/20 15:27: White Blood Count 20.6H, Red Blood Count 4.42, Hemoglobin 13.3, Hematocrit 38L, Mean Corpuscular Volume 86, Mean Corpuscular Hemoglobin 30, Mean Corpuscular Hemoglobin Concent 35, Red Cell Distribution Width 12.0, Platelet Count 482H, Mean Platelet Volume 9.4, Immature Granulocyte % (Auto) 0, Neutrophils (%) (Auto) 82H, Lymphocytes (%) (Auto) 11L, Monocytes (%) (Auto) 6, Eosinophils (%) (Auto) 0, Basophils (%) (Auto) 0, Neutrophils # (Auto) 17.0H, Lymphocytes # (Auto) 2.2, Monocytes # (Auto) 1.3H, Eosinophils # (Auto) 0.0, Basophils # (Auto) 0.1, Immature Granulocyte # (Auto) 0.1, Neutrophils % (Manual) 78, Lymphocytes % (Manual) 13, Monocytes % (Manual) 8, Basophils % (Manual) 1, Blood Morphology Comment NORMAL, Erythrocyte Sedimentation Rate 67H, Prothrombin Time 13.6, INR Comment 1.0, Activated Partial Thromboplast Time 35, Sodium Level 128L , Potassium Level 3.8, Chloride Level 91L, Carbon Dioxide Level 21, Anion Gap 16H, Blood Urea Nitrogen 8, Creatinine 1.28, Estimat Glomerular Filtration Rate > 60, BUN/Creatinine Ratio 6, Glucose Level 685*H, Lactic Acid Level 3.97*H, Calcium Level 8.9, Corrected Calcium 9.2, Magnesium Level 2.3, Total Bilirubin 0.4, Aspartate Amino Transf (AST/SGOT) 9, Alanine Aminotransferase (ALT/SGPT) 18, Alkaline Phosphatase 195H, C-Reactive Protein High Sensitivity 22.15H, Total Protein 7.6, Albumin 3.6, Beta-Hydroxybutyrate (Chem panel) 0.96H, Procalcitonin 0.22H 06/03/20 16:54: Urine Color YELLOW, Urine Clarity CLEAR, Urine pH 6.0, Urine Specific [place] <=1.005, Urine Protein NEGATIVE, Urine Glucose (UA) 3+H, Urine Ketones 1+H, Urine Nitrite NEGATIVE, Urine Bilirubin NEGATIVE, Urine Urobilinogen 0.2, Urine Leukocyte Esterase NEGATIVE, Urine RBC (Auto) 1+H, Urine RBC 0-2, Urine WBC NONE, Urine Squamous Epithelial Cells NONE, Urine Crystals NONE, Urine Bacteria NEGATIVE, Urine Casts NONE, Urine Mucus NEGATIVE, Urine Culture Indicated NO, Urine Opiates Screen NEGATIVE, Urine Oxycodone Screen NEGATIVE, Urine Methadone Screen NEGATIVE, Urine Propoxyphene Screen NEGATIVE, Urine Barbiturates Screen NEGATIVE, Ur Tricyclic Antidepressants Screen NEGATIVE, Urine Phencyclidine Screen NEGATIVE, Urine Amphetamines Screen NEGATIVE, Urine Methamphetamines Screen NEGATIVE, Urine Benzodiazepines Screen NEGATIVE, Urine Cocaine Screen NEGATIVE, Urine Cannabinoids Screen NEGATIVE 06/03/20 17:32: Lactic Acid Level 1.86 Radiology Date of Exam:06/03/20 CT EXTREMITY LOWER RIGHT WO PROCEDURE: CT right lower extremity without contrast. TECHNIQUE: Axially acquired CT was obtained through the right lower extremity without intravenous contrast. Coronal and sagittal reformations were also performed. Auto Exposure Controls were utilized during the CT exam to meet ALARA standards for radiation dose reduction. INDICATION: Diabetes, right foot infection with swollen soft tissues that are red. COMPARISON: Right foot radiographs of 06/03/2020. FINDINGS: Soft tissues: No gas is noted within the soft tissues of the foot that would suggest necrotizing fasciitis. There is a moderate amount of dorsal subcutaneous edema and/or cellulitis. This cannot be differentiated by imaging. There does not appear to be a deep fluid collection within the foot, although soft tissue contrast is suboptimal by CT when compared to MRI. Bones: No fracture or osseous erosions. No periosteal reaction is noted. No osseous coalition. IMPRESSION: 1. No soft tissue gas to suggest necrotizing fasciitis. 2. Extensive soft tissue swelling in the dorsal aspect of the foot. By CT, there is no identifiable fluid collection to suggest a drainable abscess. 3. No CT features of osteomyelitis. Dictated by: Dictated on workstation # [id number] Dict: 06/03/20 1647 Trans: 06/03/20 1759 [id number] [id number] Interpreted by: MYRNA CALLAHAN MD Electronically signed by: MYRNA CALLAHAN MD 06/03/20 1759 Assessment/Plan Assessment/Plan Assessment/Plan Abscess/Cellulitis Right foot DM - uncontrolled DKA Plan is to get pt on IV ABX, pain control, IV fluids and get blood sugar under control; in fact he is going to the ICU. I reviewed the CT films myself and believe there may be a fluid collection close to the plantar aspect of the foot. If it does not start getting better with IV ABX he will need to go to the OR for I&D with possible debridement. Risks and complications discussed with pt; not limited to pain, bleeding, infection, scar and contracture of foot. All questions answered to his satisfaction; he just wants "to be completely out if any surgery is done". PRAMOD AN DO Jun 03, 2020 18:03
[2020-06-03 19:10] VITALS: BP 128/77
[2020-06-03] MEDS ORDERED: D5 1/2 NS 1000 ML IV SOLUTION 1,000 ML IV SCH (19:45)
[2020-06-03] MEDS ORDERED: 1/2 NS IV SOLUTION 1,000 ML IV SCH (19:45)
[2020-06-03] MEDS ORDERED: KETOROLAC 30 MG/ML VIAL IVP PRN (19:45)
[2020-06-03] MEDS ORDERED: POTASSIUM CL 10MEQ/50ML IVPB 50 ML IV SCH ×2 (19:45)
[2020-06-03] MEDS ORDERED: ACETAMINOPHEN 500 MG TAB (TYLENOL) PO PRN (19:45)
[2020-06-03] MEDS ORDERED: VANCOMYCIN 500 MG/NS 100 ML IV NR ×2 (20:00)
[2020-06-03 20:14] LABS: CHLORIDE 101 MMOL/L (98-107); POTASSIUM 3.8 MMOL/L (3.6-5.0)
[2020-06-03 20:15] LABS: SODIUM 137 MMOL/L (135-145)
[2020-06-03 20:16] LABS: CALCIUM 8.1 MG/DL (8.5-10.1); GLUCOSE 98 MG/DL (70-105)
[2020-06-03 20:18] LABS: CARBON DIOXIDE 24 MMOL/L (21-32)
[2020-06-03 20:20] LABS: CREATININE SERUM 0.87 MG/DL (0.60-1.30); GFR ESTIMATED > 60
[2020-06-03 20:21] LABS: BUN/CREATININE RATIO 7
[2020-06-03] MEDS ORDERED: LACTATED RINGERS 1,000 ML IV ONE (21:49)
[2020-06-03] MEDS: PIPERACILLIN/TAZO 4.5 GM/NS 100 ML IV SCH ×2 (22:15)
[2020-06-03] MEDS: LACTATED RINGERS 1,000 ML IV SCH (22:16)
[2020-06-04] MEDS: inSUlin ASPART (NovoLOG) 1 UNIT/0.01 ML (CHARGE PER UNIT) SC SCH ×3 (00:48→07:57)
[2020-06-04 03:40] LABS: BASOPHILS # (AUTO) 0.1 10^3/uL (0.0-0.1); BASOPHILS % (AUTO) 0 % (0-10); EOSINOPHILS # (AUTO) 0.3 10^3/uL (0.0-0.3); EOSINOPHILS % (AUTO) 2 % (0-10); HEMATOCRIT 31 % (40-54); HEMOGLOBIN 10.7 g/dL (13.3-17.7); LYMPHOCYTES # (AUTO) 3.1 10^3/uL (1.0-4.0); LYMPHOCYTES % (AUTO) 18 % (12-44); MEAN CORPUSCULAR HEMOGLOBIN 30 pg (25-34); MEAN CORPUSCULAR HGB CONC 34 g/dL (32-36); MEAN CORPUSCULAR VOLUME 87 fL (80-99); MEAN PLATELET VOLUME 9.7 fL (9.0-12.2); MONOCYTES # (AUTO) 1.4 10^3/uL (0.0-1.0); MONOCYTES % (AUTO) 8 % (0-12); NEUTROPHILS # (AUTO) 11.9 10^3/uL (1.8-7.8); NEUTROPHILS % (AUTO) 71 % (42-75); PLATELET COUNT 390 10^3/uL (130-400); WHITE BLOOD COUNT 16.7 10^3/uL (4.3-11.0)
[2020-06-04 03:52] LABS: ALBUMIN 2.9 GM/DL (3.2-4.5); CHLORIDE 102 MMOL/L (98-107); POTASSIUM 3.8 MMOL/L (3.6-5.0); SODIUM 134 MMOL/L (135-145)
[2020-06-04 03:53] LABS: CALCIUM 7.9 MG/DL (8.5-10.1)
[2020-06-04 03:54] LABS: GLUCOSE 263 MG/DL (70-105)
[2020-06-04 03:56] LABS: BILIRUBIN,TOTAL 0.4 MG/DL (0.1-1.0); CARBON DIOXIDE 22 MMOL/L (21-32)
[2020-06-04 03:58] LABS: ALKALINE PHOSPHATASE 143 U/L (40-136); CREATININE SERUM 0.88 MG/DL (0.60-1.30); GFR ESTIMATED > 60; PHOSPHORUS 1.9 MG/DL (2.3-4.7)
[2020-06-04 03:59] LABS: BUN/CREATININE RATIO 7
[2020-06-04 04:01] LABS: ALANINE AMINOTRANSFERASE 13 U/L (0-55)
--- NOTE | 2020-06-04 04:44 | Pulmonary Consultation ---
History of Present Illness History of Present Illness Date Seen by Provider: Jun 04, 2020 Time Seen by Provider: 04:37 Date of Admission Allergies and Home Medications Allergies Coded Allergies: fluoxetine (Verified Allergy, Unknown, 04/27/19) trazodone (Verified Allergy, Unknown, 04/27/19) Home Medications Amoxicillin/Potassium Clav 1 Each Tablet, 1 EACH PO BID Prescribed by: MONIKA VINES on 04/29/19 1312 Hydrocodone/Acetaminophen 1 Each Tablet, 1 EACH PO Q4-6HR PRN for PAIN-MODERATE Prescribed by: JAYNA ANNA on 08/14/19 1408 Insulin Lispro 100 Unit/1 Ml Vial, SC UD, (Reported) 80 UNITS PER DAY PER INSULIN PUMP Sulfamethoxazole/Trimethoprim 1 Each Tablet, 1 EACH PO BID Prescribed by: JAYNA ANNA on 08/14/19 1407 Sulfamethoxazole/Trimethoprim 1 Each Tablet, 1 EACH PO TID Prescribed by: JIGAR KOHLER on 08/16/19 1145 Past Kyeyrwk-Xwyhgz-Qtchkd Hx Past Med/Social Hx: Reviewed and Corrections made Patient Social History Alcohol Use: Denies Use Drug of Choice: THC, METH Smoking Status: Current Everyday Smoker Type Used: Cigarettes 2nd Hand Smoke Exposure: Yes Recent Infectious Disease Expo: No Recent Hopitalizations: No Have you traveled recently?: No Substance type: Methamphetamine Alcohol Use?: No Immunizations Up To Date Tetanus Booster (TDap): Unknown PED Vaccines UTD: Yes Seasonal Allergies Seasonal Allergies: No Past Medical History Surgeries: Yes (ABSCESS I&D'S; LEFT HIP FX/ORIF 2016) Orthopedic, Tonsillectomy Respiratory: Yes Asthma Currently Using CPAP: No Currently Using BIPAP: No Cardiac: No Neurological: Yes Neuropathy Reproductive Disorders: No Sexually Transmitted Disease: No HIV/AIDS: No Genitourinary: Yes Prostate Problems Gastrointestinal: Yes Gastroesophageal Reflux, Liver Disease/Jaundice, Chronic Constipation Musculoskeletal: Yes (LEFT HIP FX/ORIF 2016) Fractures Endocrine: Yes (TYPE 1 DIABETES, WITH INSULIN PUMP OF 04/27/19-EXTREME NON- COMPLIANCE) Diabetes, Insulin dep HEENT: No Cancer: No Psychosocial: Yes (POLYSUBSTANCE ABUSE) Anxiety, Bipolar, Depression Integumentary: Yes Eczema Blood Disorders: No Adverse Reaction/Blood Tranf: No Family Medical History Diabetes mellitus 19 FATHER UNCLE FH: COPD (chronic obstructive pulmonary disease) 19 MOTHER FH: brain cancer AUNT FH: diverticulitis 19 FATHER Thyroid disease 19 MOTHER Cancer, Diabetes, Hypertension (father) SOCIAL HISTORY: -ETOH-DENIES USE -DRUGS--SMOKES METH AND MARIJUANA. DENIES IV USE -SMOKES 1 PPD PAST SURGICAL HISTORY: -TONSILLECTOMY -EGD -MULTIPLE I&D'S OF ABSCESSES -LEFT HIP FRACTURE/ORIF 2017 LONG HISTORY OF EXTREME NON-COMPLIANCE IN ALL ASPECTS OF CARE Review of Systems Time Seen by Provider: 04:44 Sepsis Event Evaluation Height, Weight, BMI Height: 5'10.00" Weight: 160lbs. 3.0oz. 72.307109kw; 20.71 BMI Method:Stated Exam Exam Vital Signs Date Time Temp Pulse Resp B/P (MAP) Pulse Ox O2 Delivery O2 Flow Rate FiO2 06/04/20 03:00 80 19 116/76 (89) 97 Room Air 06/04/20 02:00 86 10 108/71 (83) 97 Room Air 06/04/20 01:00 90 06/04/20 01:00 90 26 126/81 (96) 98 Room Air 06/04/20 00:00 97 11 116/75 (89) 94 Room Air 06/03/20 23:00 89 22 116/75 (89) 95 Room Air 06/03/20 22:00 100 10 123/77 (92) 98 Room Air 06/03/20 21:00 94 10 127/80 (96) 96 Room Air 06/03/20 20:30 98 13 136/82 (100) 99 Room Air 06/03/20 20:15 96 8 128/81 (97) 96 Room Air 06/03/20 20:00 97 Room Air 06/03/20 20:00 106 12 133/80 (97) 98 Room Air 06/03/20 19:45 102 21 133/81 (98) 98 Room Air 06/03/20 19:42 37.1 109 20 129/74 (92) 99 Room Air 06/03/20 19:29 99 Room Air 06/03/20 19:27 105 06/03/20 15:20 37.5 125 25 139/103 (115) 99 Room Air I & O 06/04/20 07:00 Intake Total 2790 ml Output Total 400 ml Balance 2390 ml Height & Weight Height: 5'10.00" Weight: 160lbs. 3.0oz. 72.339808uw; 20.71 BMI Method:Stated General Appearance: No Apparent Distress, Thin, Other (CONSTANT MOVEMENTS OF BODY, ESPECIALLY FEET) HEENT: Other (ORAL MUCOSA DRY) Respiratory: Normal Breath Sounds, No Accessory Muscle Use, No Respiratory Distress Cardiovascular: Regular Rate, Rhythm, No Murmur Capillary Refill: Less Than 3 Seconds Gastrointestinal: non tender, soft, no organomegaly, no pulsatile mass Extremity: Other (RIGHT FOOT AND ANKLE WITH SIGNIFICANT SWELLING AND ERYTHEMA. DORSAL AND PLANTAR ASPECT OF DISTAL / LATERAL ASPECT WITH LARGE AREA OF SUB Q PURULENCE) Neurologic/Psychiatric: Alert Skin: Normal Color, Warm/Dry Lymphatic: No Adenopathy Results Lab Laboratory Tests 06/03/20 15:27 06/03/20 20:00 06/04/20 03:22 Assessment/Plan Assessment/Plan DKA with hx of IDDM -Start Levemir will give 10 units now x 1 then 10 units HS -SSI C with Accu checks Q 4 Right foot cellulitis with diabetic neuropathy -Continue Zosyn and Vanco -Canela cultures pending -Wound care consulted -Surgery is consulted ALEKSANDER THOMPSON DO Jun 04, 2020 04:44
[2020-06-04] MEDS: PIPERACILLIN/TAZO 4.5 GM/NS 100 ML IV SCH ×2 (05:57)
[2020-06-04] MEDS ORDERED: MAGNESIUM 1 GM/100 ML IVPB 100 ML IV SCH (06:00)
[2020-06-04] MEDS ORDERED: POTASSIUM CL 10MEQ/50ML IVPB 50 ML IV SCH (06:00)
[2020-06-04] MEDS ORDERED: KCL 20 MEQ TAB (K-DUR) PO SCH (06:00)
[2020-06-04] MEDS ORDERED: morphine INJ 4 MG/ML 1 ML (VIAL/SYRINGE) IVP PRN (06:30)
[2020-06-04] MEDS ORDERED: VANCOMYCIN 1 GM/NS 250 ML IVPB IV SCH ×2 (06:30)
--- NOTE | 2020-06-04 07:01 | Diagnostic Imaging Report ---
INDICATION: Sepsis. Diabetic ketoacidosis COMPARISON: 03/06/2019 FINDINGS: Single frontal view of the chest demonstrates normal heart size and pulmonary vascularity. The lungs are well aerated and clear. No large pleural effusion or pneumothorax is seen. The visualized osseous structures show no acute abnormalities. IMPRESSION: 1. No acute cardiopulmonary process. Dictated by: Dictated on workstation # [id number]
--- NOTE | 2020-06-04 07:27 | Progress Note - Surgery ---
Subjective Date Seen by a Provider: Jun 04, 2020 Time Seen by a Provider: 07:15 Subjective/Events-last exam Pt seen and examined this AM. States he feels like his foot is doing better. Redness and swelling have decreased. Still has a "pressure" pain but also not as bad. Denies fever, chills, SOB or chest pain. Asks when he will be able to eat. Review of Systems General: No Chills; Appetite HEENT: No Head Aches Pulmonary: No Dyspnea, No Pleuritic Chest Pain Cardiovascular: No: Chest Pain, Palpitations Gastrointestinal: No: Nausea, Vomiting, Abdominal Pain Musculoskeletal: foot pain (right foot) Neurological: Numbness (BLE) Focused Exam Lactate Level 06/03/20 15:27: Lactic Acid Level 3.97*H 06/03/20 17:32: Lactic Acid Level 1.86 Objective Exam Vital Signs Date Time Temp Pulse Resp B/P (MAP) Pulse Ox O2 Delivery O2 Flow Rate FiO2 06/04/20 07:00 81 18 123/82 (96) 97 Room Air 06/04/20 06:00 81 31 130/87 (101) 97 Room Air 06/04/20 05:00 92 14 132/83 (99) 99 Room Air 06/04/20 04:00 97 Room Air 06/04/20 04:00 37.0 06/04/20 04:00 82 9 127/84 (98) 98 Room Air 06/04/20 03:00 80 19 116/76 (89) 97 Room Air 06/04/20 02:00 86 10 108/71 (83) 97 Room Air 06/04/20 01:00 90 06/04/20 01:00 90 26 126/81 (96) 98 Room Air 06/04/20 00:01 36.7 06/04/20 00:00 97 11 116/75 (89) 94 Room Air 06/04/20 00:00 97 Room Air 06/03/20 23:00 89 22 116/75 (89) 95 Room Air 06/03/20 22:00 100 10 123/77 (92) 98 Room Air 06/03/20 21:00 94 10 127/80 (96) 96 Room Air 06/03/20 20:30 98 13 136/82 (100) 99 Room Air 06/03/20 20:15 96 8 128/81 (97) 96 Room Air 06/03/20 20:00 97 Room Air 06/03/20 20:00 106 12 133/80 (97) 98 Room Air 06/03/20 19:45 102 21 133/81 (98) 98 Room Air 06/03/20 19:42 37.1 109 20 129/74 (92) 99 Room Air 06/03/20 19:29 99 Room Air 06/03/20 19:27 105 06/03/20 19:10 37.0 98 18 128/77 (115) 98 Room Air 06/03/20 15:20 37.5 125 25 139/103 (115) 99 Room Air I & O 06/04/20 07:00 Intake Total 2790 ml Output Total 1100 ml Balance 1690 ml Capillary Refill : Less Than 3 Seconds General Appearance: No Apparent Distress, Thin HEENT: PERRL/EOMI; No Moist Mucous Membranes; Other Respiratory: Normal Breath Sounds, No Accessory Muscle Use, No Respiratory Distress Cardiovascular: Regular Rate, Rhythm, No Murmur Gastrointestinal: non tender, soft; No distended Extremity: Other (edema of right foot,erythema to lateral aspect of foot and lateral right ankle, blistering around 5th toe, not actively draining but some dried drainage noted on bed sheets) Neurologic/Psychiatric: Alert, Depressed Affect Skin: Warm/Dry, Erythema (R lateral foot and ankle) Results Lab Laboratory Tests 06/03/20 15:24: Glucometer 591*H 06/03/20 15:27: White Blood Count 20.6H, Red Blood Count 4.42, Hemoglobin 13.3, Hematocrit 38L, Mean Corpuscular Volume 86, Mean Corpuscular Hemoglobin 30, Mean Corpuscular Hemoglobin Concent 35, Red Cell Distribution Width 12.0, Platelet Count 482H, Mean Platelet Volume 9.4, Immature Granulocyte % (Auto) 0, Neutrophils (%) (Auto) 82H, Lymphocytes (%) (Auto) 11L, Monocytes (%) (Auto) 6, Eosinophils (%) (Auto) 0, Basophils (%) (Auto) 0, Neutrophils # (Auto) 17.0H, Lymphocytes # (Auto) 2.2, Monocytes # (Auto) 1.3H, Eosinophils # (Auto) 0.0, Basophils # (Auto) 0.1, Immature Granulocyte # (Auto) 0.1, Neutrophils % (Manual) 78, Lymph ocytes % (Manual) 13, Monocytes % (Manual) 8, Basophils % (Manual) 1, Blood Morphology Comment NORMAL, Erythrocyte Sedimentation Rate 67H, Prothrombin Time 13.6, INR Comment 1.0, Activated Partial Thromboplast Time 35, Sodium Level 128L , Potassium Level 3.8, Chloride Level 91L, Carbon Dioxide Level 21, Anion Gap 16H, Blood Urea Nitrogen 8, Creatinine 1.28, Estimat Glomerular Filtration Rate > 60, BUN/Creatinine Ratio 6, Glucose Level 685*H, Lactic Acid Level 3.97*H, Calcium Level 8.9, Corrected Calcium 9.2, Magnesium Level 2.3, Total Bilirubin 0.4, Aspartate Amino Transf (AST/SGOT) 9, Alanine Aminotransferase (ALT/SGPT) 18, Alkaline Phosphatase 195H, C-Reactive Protein High Sensitivity 22.15H, Total Protein 7.6, Albumin 3.6, Beta-Hydroxybutyrate (Chem panel) 0.96H, Procalcitonin 0.22H 06/03/20 16:54: Urine Color YELLOW, Urine Clarity CLEAR, Urine pH 6.0, Urine Specific [place] <=1.005, Urine Protein NEGATIVE, Urine Glucose (UA) 3+H, Urine Ketones 1+H, Urine Nitrite NEGATIVE, Urine Bilirubin NEGATIVE, Urine Urobilinogen 0.2, Urine Leukocyte Esterase NEGATIVE, Urine RBC (Auto) 1+H, Urine RBC 0-2, Urine WBC NONE, Urine Squamous Epithelial Cells NONE, Urine Crystals NONE, Urine Bacteria NEGATIVE, Urine Casts NONE, Urine Mucus NEGATIVE, Urine Culture Indicated NO, Urine Opiates Screen NEGATIVE, Urine Oxycodone Screen NEGATIVE, Urine Methadone Screen NEGATIVE, Urine Propoxyphene Screen NEGATIVE, Urine Barbiturates Screen NEGATIVE, Ur Tricyclic Antidepressants Screen NEGATIVE, Urine Phencyclidine Scre en NEGATIVE, Urine Amphetamines Screen NEGATIVE, Urine Methamphetamines Screen NEGATIVE, Urine Benzodiazepines Screen NEGATIVE, Urine Cocaine Screen NEGATIVE, Urine Cannabinoids Screen NEGATIVE 06/03/20 17:32: Lactic Acid Level 1.86 06/03/20 20:00: Sodium Level 137, Potassium Level 3.8, Chloride Level 101, Carbon Dioxide Level 24, Anion Gap 12, Blood Urea Nitrogen 6L, Creatinine 0.87, Estimat Glomerular Filtration Rate > 60, BUN/Creatinine Ratio 7, Glucose Level 98, Glucometer 94, Calcium Level 8.1L 06/03/20 20:03: Glucometer 104 06/03/20 22:00: Glucometer 230H 06/04/20 00:31: Glucometer 319H 06/04/20 03:22: White Blood Count 16.7H, Red Blood Count 3.59L, Hemoglobin 10.7L, Hematocrit 31L , Mean Corpuscular Volume 87, Mean Corpuscular Hemoglobin 30, Mean Corpuscular Hemoglobin Concent 34, Red Cell Distribution Width 11.7, Platelet Count 390, Mean Platelet Volume 9.7, Immature Granulocyte % (Auto) 1, Neutrophils (%) (Auto) 71, Lymphocytes (%) (Auto) 18, Monocytes (%) (Auto) 8, Eosinophils (%) (Auto) 2, Basophils (%) (Auto) 0, Neutrophils # (Auto) 11.9H, Lymphocytes # (Auto) 3.1, Monocytes # (Auto) 1.4H, Eosinophils # (Auto) 0.3, Basophils # (Auto) 0.1, Immature Granulocyte # (Auto) 0.1, Sodium Level 134L, Potassium Level 3.8, Chloride Level 102, Carbon Dioxide Level 22, Anion Gap 10, Blood Urea Nitrogen 6L, Creatinine 0.88, Estimat Glomerular Filtration Rate > 60, BUN/Creatinine Ratio 7, Glucose Level 263H, Calcium Level 7.9L, Corrected Calcium 8.8, Phosphorus Level 1.9L, Magnesium Level 2.0, Total Bilirubin 0.4, Aspartate Amino Transf (AST/SGOT) 7, Alanine Aminotransferase (ALT/SGPT) 13, Alkaline Phosphatase 143H, Total Protein 6.0L, Albumin 2.9L, Beta- Hydroxybutyrate (Chem panel) 0.35H Microbiology 06/03/20 Gram Stain - Final, Resulted 06/03/20 Wound Culture - Preliminary, Resulted Staphylococcus aureus Assessment/Plan Assessment/Plan Assessment/Plan Abscess/Cellulitis Right foot DM - uncontrolled DKA Continue IV antibiotics, pain control, fluids and glucose control Edema and erythema seem to be improving with abx, can consider I&D in OR if it progresses JENA MCCARTNEY,MED STUDENT Jun 04, 2020 07:27
[2020-06-04] MEDS: LACTATED RINGERS 1,000 ML IV SCH (07:56)
[2020-06-04] MEDS ORDERED: SODIUM PHOSPHATE INJ 30 MM in NS (IVPB) 250 ML INJ ONE (08:00)
[2020-06-05] MEDS ORDERED: TROUGH ORDER-PHARMACY XX NR (05:30)
== END 2020-06-04 08:30 | disposition left against medical advice (07) | DRG 871 ==
LOC: EDUNIT# 15:09 → ER 15:11 → ICU 17:00
PROVIDERS: ADMIT Family Medicine; ATTEND Family Medicine
DX: A41.9 Sepsis, unspecified organism (principal); E10.10 Type 1 diabetes mellitus with ketoacidosis without coma; L03.115 Cellulitis of right lower limb; E87.1 Hypo-osmolality and hyponatremia; E10.42 Type 1 diabetes mellitus with diabetic polyneuropathy; F17.210 Nicotine dependence, cigarettes, uncomplicated; J45.909 Unspecified asthma, uncomplicated; K21.9 Gastro-esophageal reflux disease without esophagitis; F41.9 Anxiety disorder, unspecified; F31.9 Bipolar disorder, unspecified; Z79.4 Long term (current) use of insulin; Z79.2 Long term (current) use of antibiotics; Z79.891 Long term (current) use of opiate analgesic; Z83.3 Family history of diabetes mellitus; Z82.5 Family history of asthma and other chronic lower respiratory diseases; Z91.19 Patient's noncompliance with other medical treatment and regimen
CPT/HCPCS: 36415; 71045; 73630; 73700; 80048; 80053; 80306; 81000; 82010; 82962; 83036; 83605; 83735; 84100; 84145; 85007; 85025; 85027; 85610; 85652; 85730; 86141; 87040; 87070; 87077; 87081; 87186; 87205; 93041